=== PATIENT | female | born 1950 | race Caucasian/White ===

== ENCOUNTER 2023-04-09 09:22 | Outpatient (OUT) | payer MEDICARE, SELFPAY ==
--- NOTE | 2023-04-09 09:31 | XR_ITS ---
The [address] [address] Patient Name: ANNABELLE CURRY MRN: [id number] date: 1950 Sex: F Assigned Patient Location: [facility] Current Patient Location: [facility] Accession/Order Number: [id number] Exam Date: 04/09/2023 09:52 Report Date: 04/09/2023 12:11 At the request of: CARLYLE ESTEVEZ Procedure: XR hip RT 2V w/ pelvis PROCEDURE: XR hip RT 2V w/ pelvis COMPARISON: None. HISTORY: Right Hip Pain M25.551 FINDINGS: BONES:No acute fracture or dislocation. Bilateral sacroiliac sclerosis. Pubic symphysis sclerosis. Mild bilateral hip osteoarthropathy SOFT TISSUES:Negative. No visible soft tissue swelling. EFFUSION:None visible. OTHER: Negative. XR/XR hip RT 2V w/ pelvis IMPRESSION: Mild hip osteoarthritis Electronically authenticated by: RASHAD YEBOAH Date: 04/09/2023 12:11
--- NOTE | 2023-04-09 09:31 | XR_ITS ---
[address] [address] Patient Name: ANNABELLE CURRY MRN: [id number] date: 1950 Sex: F Assigned Patient Location: [facility] Current Patient Location: [facility] Accession/Order Number: [id number] Exam Date: 04/09/2023 09:52 Report Date: 04/09/2023 10:16 At the request of: CARLYLE ESTEVEZ Procedure: XR knee RT 4V EXAM: XR knee RT 4V HISTORY: Pain In Right Knee M25.561 COMPARISON: None. TECHNIQUE: 4 views Findings/impression: Cortical irregularity with bridging callus of the lateral tibial plateau, may be a sequela of prior injury. No acute fracture or dislocation. Mild degenerative changes of the knee joint in the form of joint space narrowing. Mild soft tissue swelling of the anterior knee. Electronically authenticated by: RAJAT PONCE Date: 04/09/2023 10:16
--- NOTE | 2023-04-09 09:58 | MM_ITS ---
Patient: ANNABELLE CURRY Exam Date: 04/09/2023 : 1950 Gender:F Ordering : DR Boy Anna D.O. Admission #: [id number] Family : Order #: [id number] CLICK HERE TO VIEW EXAM RADIOLOGY REPORT PROCEDURE: MM TOMOSYNTHESIS SCREENING BI COMPARISON: MG MAMM MARCELLE SCRN W CAD DIG, 07/31/2016. MG MAMM SCREEN MARCELLE W CAD, 08/18/2018. INDICATIONS: Screening Calculator Name NCI Breast Cancer Risk Assessment Tool 5 Year Breast Cancer Risk 2.00% Lifetime Breast Cancer Risk 5.10% Personal Breast Cancer No Personal Ovarian Cancer No Treatments None Family Cancers Father with prostate cancer at age 80; Brother with prostate cancer at age 62. LOCATION: [facility] BREAST COMPOSITION: Scattered areas fibroglandular density. FINDINGS: DIAGNOSTIC CATEGORY 1--NEGATIVE. NO CHANGE FROM COMPARISON ASSESSMENT. Scattered benign-appearing calcifications are present. RIGHT BREAST: No significant suspicious finding. LEFT BREAST: No significant suspicious finding. Stable reniform nodule upper quadrant, posterior breast likely intramammary lymph node RECOMMENDATIONS: ROUTINE MAMMOGRAM AND CLINICAL EVALUATION IN 12 MONTHS. PLEASE NOTE: A NORMAL MAMMOGRAM DOES NOT EXCLUDE THE POSSIBILITY OF BREAST CANCER. A CLINICALLY SUSPICIOUS PALPABLE LUMP SHOULD BE BIOPSIED. Dictated by: Andre Angeles MD on 04/09/2023 at 10:36 Approved by: Andre Angeles MD on 04/09/2023 at 10:38
[2023-04-09 10:32] LABS: Basophils Percent Auto 0.5 % (0.2-2.0); Eosinophils Absolute Auto 0.2 10^3/uL (0.0-0.7); Hematocrit 40.4 % (36.0-48.0); Hemoglobin 13.8 g/dL (12.0-16.0); Immature Granulocytes Abs Auto 0.03 10^3/uL (0.00-0.03); Immature Granulocytes Pct Auto 0.5 % (0.0-0.5); Lymphocytes Absolute Auto 0.9 10^3/uL (1.2-3.8); Lymphocytes Percent Auto 15.3 % (20.5-60.0); Mean Corpuscular HGB Conc 34.2 g/dL (29.9-35.2); Mean Corpuscular Hemoglobin 32.4 pg (26.7-34.0); Mean Corpuscular Volume 94.8 fL (81.0-99.0); Mean Platelet Volume 12.2 fL (9.5-13.5); Monocytes Absolute Auto 0.3 10^3/uL (0.3-0.8); Neutrophils Absolute Auto 4.5 10^3/uL (1.4-6.5); Neutrophils Percent Auto 74.7 % (43.0-75.0); Platelet Count 114 10^3/uL (150-450); Red Blood Count 4.26 10^6/uL (4.20-5.40); Red Cell Distribution Width 13.2 % (11.0-15.0)
[2023-04-09 13:00] LABS: Alanine Aminotransferase 24 U/L (14-59); Alkaline Phosphatase 83 U/L (46-116); Anion Gap 10.2; Aspartate Amino Transferase 18 U/L (15-37); BUN Creatinine Ratio 15.5; Bilirubin Total 0.6 mg/dL (0.2-1.0); Calcium 9.3 mg/dL (8.5-10.1); Carbon Dioxide 28.8 mmol/L (21.0-32.0); Chloride 103 mmol/L (98-107); Estimated GFR (African America >60 (>=60); Estimated GFR (Non-African Ame 56 (>=60); Glucose 103 mg/dL (74-106); Sodium 138 mmol/L (136-145)
[2023-04-09 13:01] LABS: Albumin Globulin Ratio 1.1; Albumin Level 3.8 g/dL (3.4-5.0); Chol HDL Ratio 2.4; Cholesterol 158 mg/dL (<=200); Globulin 3.6 g/dL; HDL Cholesterol 65 mg/dL (40-60); Thyroid Stimulating Hormone 1.242 uIU/mL (0.358-3.740); Total Protein 7.4 g/dL (6.4-8.2); Triglycerides 62 mg/dL (<=150); VLDL CHOLESTEROL 12.4 mg/dL
[2023-04-09 15:00] LABS: Estimated Average Glucose 100 mg/dL; Glycohemoglobin A1C 5.1 % (4.5-6.2)
== END 2023-04-09 09:23 | disposition home or self-care (01) ==
LOC: MAMMO 09:22
PROVIDERS: PCP Internal Medicine; Visit Provider Internal Medicine
DX: Z00.00 Encounter for general adult medical examination without abnormal findings (principal); Z12.31 Encounter for screening mammogram for malignant neoplasm of breast; M25.551 Pain in right hip; M25.561 Pain in right knee; R73.01 Impaired fasting glucose; K76.0 Fatty (change of) liver, not elsewhere classified; E06.3 Autoimmune thyroiditis; Z80.8 Family history of malignant neoplasm of other organs or systems; M16.11 Unilateral primary osteoarthritis, right hip
CPT/HCPCS: 36415; 73502; 73564; 77063; 77067; 80053; 80061; 83036; 84443; 85025

== ENCOUNTER 2024-02-18 09:16 | Outpatient (OUT) | payer MEDICARE, SELFPAY ==
--- NOTE | 2024-02-18 09:23 | XR_ITS ---
The [place] [id number] Patient Name: ANNABELLE CURRY MRN: [id number] date: 1950 Sex: F Assigned Patient Location: [facility] Current Patient Location: [facility] Accession/Order Number: [id number] Exam Date: 02/18/2024 09:45 Report Date: 02/18/2024 10:34 At the request of: CARLYLE ESTEVEZ Procedure: XR lumbar spine 6V w bending EXAMINATION: XR lumbar spine 6V w bending HISTORY: Pain of left hip M25.552, low back pain M54.50 COMPARISON: No relevant comparison available. FINDINGS: BONES: Rotatory levocurvature centered at L2-L3. Moderate degenerative changes. 7 mm anterolisthesis of L3 on L4. 4 mm anterolisthesis of L4 on L5. Moderate to severe facet osteoarthropathy DISC SPACES: Disc collapse L5-S1 PARASPINOUS: Negative. No paraspinous abnormality is seen. OTHER: Transient spondylolisthesis with flexion or extension XR/XR lumbar spine 6V w bending IMPRESSION: Moderate to severe degenerative changes with multilevel spondylolisthesis No dynamic instability Electronically authenticated by: RASHAD YEBOAH Date: 02/18/2024 10:34
--- NOTE | 2024-02-18 09:24 | XR_ITS ---
[address] [address] Patient Name: ANNABELLE CURRY MRN: [id number] date: 1950 Sex: F Assigned Patient Location: [facility] Current Patient Location: [facility] Accession/Order Number: [id number] Exam Date: 02/18/2024 09:45 Report Date: 02/18/2024 10:35 At the request of: CARLYLE ESTEVEZ Procedure: XR hip LT min 2V PROCEDURE: XR hip LT min 2V COMPARISON: None. HISTORY: Pain of left hip M25.552, low back pain M54.50 FINDINGS: BONES:Sclerosis of the left pubic symphysis likely related to degenerative change. Minimal hip osteoarthropathy with marginal osteophyte formation along the lower hip joint. No joint space narrowing SOFT TISSUES:Negative. No visible soft tissue swelling. EFFUSION:None visible. OTHER: Negative. XR/XR hip LT min 2V IMPRESSION: Minimal left hip osteoarthritis Electronically authenticated by: RASHAD YEBOAH Date: 02/18/2024 10:35
== END 2024-02-18 09:17 | disposition home or self-care (01) ==
LOC: RAD 09:17
PROVIDERS: PCP Internal Medicine; Visit Provider Internal Medicine
DX: M25.552 Pain in left hip (principal); M54.50 Low back pain, unspecified; M16.12 Unilateral primary osteoarthritis, left hip; M47.816 Spondylosis without myelopathy or radiculopathy, lumbar region; M51.36 Other intervertebral disc degeneration, lumbar region
CPT/HCPCS: 72114; 73502

== ENCOUNTER 2024-03-05 12:11 | Outpatient (RCR) | payer MEDICARE, SELFPAY | END 2024-05-05 12:21 | disposition home or self-care (01) | LOC: PT 12:11 | PROVIDERS: PCP Internal Medicine; Visit Provider Internal Medicine | DX: M47.816 Spondylosis without myelopathy or radiculopathy, lumbar region (principal); M25.559 Pain in unspecified hip | CPT/HCPCS: 97010; 97012; 97110; 97113; 97140; 97162 ==

== ENCOUNTER 2024-05-10 06:48 | Outpatient (OUT) | payer MEDICARE, SELFPAY ==
--- OUTSIDE RECORDS SUMMARY | 2024-05-10 06:50 | XMS_ITS | CCD ---
Author Organization [facility] Care Team Providers Care Soup Person Name Role Phone ABARCA, DARRICK P Unavailable Unavailable ABARCA, DARRICK P Unavailable Unavailable ABARCA, DARRICK P Unavailable Unavailable REQUEST, DR JANE LISTED Attending Unavaila ble REQUEST, DR JANE LISTED Admitting Unavaila ble REQUEST, DR JANE LISTED Consulting Unavaila ble BALL, DR TADEO Admitting Unavailable BALL, DR TADEO Consulting Unavailable BALL, DR TADEO Attending Unavailable Wilfrido Boy Unavailable Allergies Allergy Classification Reported Allergen(s) Allergy Type Date of Onset Reaction(s) Facility (4 sources) Cephalexin Drug Allergy Unknown [facility] Other Medications Current Medications Medication Drug Class(es) Dates Sig (Normalized) Sig (Original) 0.25 MG, 0.5 MG Dose 3 ML semaglutide 0.68 MG/ML Pen Injector [Ozempic] (4 sources) Start: 04-03-2023 Start: 04-03-2023 Ozempic (0.25 or 0.5 MG/DOSE) 2 MG/3ML 0.25mg Subcutaneous weekly for 28 days Mar, Active calcium carbonate 1250 mg / cholecalciferol 500 unt / vitamin k1 0.04 mg chewable tablet (2 sources) Vitamin D, Warfarin Reversal Agent, Vitamin K Start: 02-13-2024 take 1 tablet by mouth once daily Calcium-Vitamin D3-Vitamin K Active 1 TAB PO Daily February 13, 2024 12:00am diazePAM 5 mg oral tablet (2 sources) Benzodiazepine Start: 11-19-2023 take 2.5 mg by mouth every six hours Diazepam Active 2.5 MG PO Every 6 hours November 19, 2023 1:00am levothyroxine sodium 0.112 mg oral tablet (6 sources) l-Thyroxine Start: 02-13-2024 take 1 tablet by mouth once daily, then take 0.5 tablet by mouth once Levothyroxine Active 112 MCG PO Daily February 13, 2024 12:00am EXCEPT INSTRUCTED TO TAKE ONE AND ONE-HALF TABLETS EVERY FRIDAY Viactiv 500-500-40 MG-UNT-MC G (4 sources) take 1 tablet by mouth once arthur y Viactiv 500-500-40 MG-UNT-MCG 1 tablet with a meal Orally Once a day Active Completed/Discontinued Medications Medication Drug Class(es) Dates Sig (Normalized) Sig (Original) Borage extract (4 sources) Borage 1000 1000 MG Orally Not-Taking etodolac 500 mg oral tablet (2 sources) Nonsteroidal Anti-inflammatory Drug Start: 02-17-2024 End: 04-13-2024 take 500 mg by mouth twice daily Etodolac Discontinued 500 MG PO Twice daily 30 February 17, 2024 12:00am April 13, 2024 9:30am Fish Oils (4 sources) take 1 capsule by mouth once micah ly Fish Oil 1000 MG 1 capsule Orally Once a day Not-Taking meloxicam 7.5 mg oral tablet (4 sources) Nonsteroidal Anti-inflammatory Drug take 1 tablet by mouth every twelve hours Semaglutide (2 sources) Start: 02-13-20 End: 04-13-20 Semaglutide (Ozempic) 0.25 mg or 0.5 mg (2 mg/3 mL) pen injector Discontinued 0.25 MG SUBCUT every week February 13, 2024 12:00am April 13, 2024 9:30am Start: 02-13-2024 Semaglutide (O zempic) 0.25 mg or 0.5 mg (2 mg/3 mL) pen injector Active 0.25 MG SUBCUT every week February 13, 2024 12:00am Problems Problem Classification Problem Date Documented Date Episodic/Chronic Coagulation and hemorrhagic disorders (1 source) Thrombocytopenia, unspecified; Translations: [Thrombocytopenia, unspecified] Onset: 03-19-2017 Chronic Conditions associated with dizziness or vertigo (2 sources) Benign paroxysmal positional vertigo; Translations: [Benign paroxysmal vertigo, unspecified ear] 11-19-2023 Episodic Diabetes mellitus without complication (3 sources) Impaired fasting glucose; Translations: [Impaired fasting glycemia] Episodic Disorders of lipid metabolism (7 sources) Hypercholesterolemia; Translations: [Pure hypercholesterolemia, unspecified] Chronic Nutritional deficiencies (6 sources) Vitamin D deficiency; Translations: [Vitamin D deficiency, unspecified] 02-13-2024 Chronic Osteoarthritis (4 sources) Osteoarthritis of left hip joint; Translations: [Unilateral primary osteoarthritis, left hip] 02-17-2024 Chronic Other liver diseases (10 sources) Fatty (change of) liver, not elsewhere classified; Translations: [Other chronic nonalcoholic liver disease] Onset: 11-20-2021 Chronic Other liver diseases (1 source) Steatosis of liver; Translations: [Fatty (change of) liver, not elsewhere classified] 04-11-2024 Chronic Other nervous system disorders (4 sources) Chronic pain; Translations: [Other chronic pain] Chronic Other nervous system disorders (1 source) Other chronic pain Chronic Other non-traumatic joint disorders (5 sources) Pain in right knee; Translations: [Pain in right knee] Episodic Other non-traumatic joint disorders (1 source) Pain in right hip Episodic Other non-traumatic joint disorders (2 sources) Hip pain; Translations: [Pain in left hip] 02-17-2024 Episodic Other non-traumatic joint disorders (2 sources) Pain in left hip; Translations: [Pain in joint, pelvic region and thigh] 02-17-2024 Episodic Other nutritional; endocrine; and metabolic disorders (6 sources) Obesity; Translations: [Obesity, unspecified] 02-17-2024 Chronic Other nutritional; endocrine; and metabolic disorders (2 sources) Obesity, unspecified; Translations: [Obesity, unspecified] 02-17-2024 Chronic Other screening for suspected conditions (not mental disorders or infectious disease) (8 sources) Patient encounter status; Translations: [Encounter for screening mammogram for malignant neoplasm of breast] Episodic Residual codes; unclassified (5 sources) Obstructive sleep apnea syndrome; Translations: [Obstructive sleep apnea (adult) (pediatric)] 04-11-2024 Chronic Residual codes; unclassified (2 sources) Obstructive sleep apnea (adult) (pediatric); Translations: [Obstructive sleep apnea (adult)(pediatric)] Chronic Spondylosis; intervertebral disc disorders; other back problems (4 sources) Lumbar spondylosis; Translations: [Spondylosis without myelopathy or radiculopathy, lumbar region] 02-17-2024 Chronic Spondylosis; intervertebral disc disorders; other back problems (4 sources) Low back pain; Translations: [Low back pain] 02-17-2024 Episodic Thyroid disorders (16 sources) Autoimmune thyroiditis; Translations: [Autoimmune thyroiditis] Chronic Results Test Name Value Interpretation Reference Range Facility CBC AUTO DIFFon 11-20-2021 BASO # 0.0 103/ul Normal 0.0-0.1 [facility] Comment on above: Performed By: #### D ATCBC #### [facility] [address] [address] [address] Tatiana Contreras Basophils/100 WBC (Bld) 0.6 % Normal 0.2-2.0 [facility] Comment on above: Performed By: #### D ATCBC #### [facility] [address] [address] [address] Tatiana Contreras EO # 0.2 103/ul Normal 0.0-0.7 [facility] Comment on above: Performed By: #### D ATCBC #### [facility] [address] [address] [address] Tatiana Contreras Eosinophils/100 WBC (Bld) 5.2 % Normal 0.9-7.0 [facility] Comment on above: Performed By: #### D ATCBC #### [facility] [address] [address] [address] Tatiana Contreras Erythrocyte distribution width (RBC) [Ratio] 13.8 % Normal 11.0-15.0 [facility] Comment on above: Performed By: #### D ATCBC #### [facility] [address] [address] [address] Tatiana Contreras Hematocrit (Bld) [Volume fraction] 41.7 % Normal 36.0-48.0 [facility] Comment on above: Performed By: #### D ATCBC #### [facility] [address] [address] [address] Tatiana Contreras Hemoglobin (Bld) [Mass/Vol] 13.7 g/dL Normal 12.0-16.0 [facility] Comment on above: Performed By: #### D ATCBC #### [facility] [address] [address] [address] Tatiana Contreras IG # 0.02 10e3/ul Normal 0.00-0.03 [facility] Comment on above: Performed By: #### D ATCBC #### [facility] [address] [place] [address] Dr. Tatiana Contreras IG % 0.4 % Normal 0.0-0.5 [facility] Comment on above: Performed By: #### D ATCBC #### [facility] [address] [place] [address] Dr. Tatiana Contreras LYMPH # 0.7 103/ul Critically low 1.2-3.8 [facility] Comment on above: Performed By: #### D ATCBC #### [facility] [address] [place] [address] Dr. Tatiana Contreras Lymphocytes/100 WBC (Bld) 15.6 % Critically low 20.5-60.0 [facility] Comment on above: Performed By: #### D ATCBC #### [facility] [address] [place] [address] Dr. Tatiana Contreras MCH (RBC) [Entitic mass] 31.4 pg Normal 26.7-34.0 [facility] Comment on above: Performed By: #### D ATCBC #### [facility] [address] [place] [address] Dr. Tatiana Contreras MCHC (RBC) [Mass/Vol] 32.9 g/dL Normal 29.9-35.2 [facility] Comment on above: Performed By: #### D ATCBC #### [facility] [address] [place] [address] Dr. Tatiana Contreras MCV (RBC) [Entitic vol] 95.6 fL Normal 81.0-99.0 [facility] Comment on above: Performed By: #### D ATCBC #### [facility] [address] [place] [address] Dr. Tatiana Contreras MONO # 0.3 103/ul Normal 0.3-0.8 [facility] Comment on above: Performed By: #### D ATCBC #### [facility] [address] [place] [address] Dr. Tatiana Contreras Monocytes/100 WBC (Bld) 5.8 % Normal 1.7-12.0 [facility] Comment on above: Performed By: #### D ATCBC #### [facility] [address] [place] [address] Dr. Tatiana Contreras NEUT # 3.4 103/ul Normal 1.4-6.5 [facility] Comment on above: Performed By: #### D ATCBC #### [facility] [address] [place] [address] Dr. Tatiana Contreras Neutrophils/100 WBC (Bld) 72.4 % Normal 43.0-75.0 [facility] Comment on above: Performed By: #### D ATCBC #### [facility] [address] [place] [address] Dr. Tatiana Contreras Platelet mean volume (Bld) [Entitic vol] 12.4 fL Normal 9.5-13.5 [facility] Comment on above: Performed By: #### D ATCBC #### [facility] [address] [place] [address] Dr. Tatiana Contreras PLT 109 103/ul Critically low 150-450 [facility] Comment on above: Performed By: #### D ATCBC #### [facility] [address] [place] [address] Dr. Tatiana Contreras RBC 4.36 106/ul Normal 4.20-5.40 [facility] Comment on above: Performed By: #### D ATCBC #### [facility] [address] [place] [address] Dr. Tatiana Contreras WBC 4.6 103/ul Normal 4.0-11.0 [facility] Comment on above: Performed By: #### D ATCBC #### [facility] [address] [place] [address] Dr. Tatiana Contreras ADALID - TSHon 11-20-2021 TSH 1.795 uIU/mL Normal 0.470-4.680 [facility] Comment on above: Performed By: #### D ATTSH, DATBMP #### [facility] [address] [place] [address] Dr. Tatiana Contreras TSH RANGE SEE BELOW Normal [facility] Comment on above: Result Comment: <0.3 4 UIU/ml HYPERTHYROID 0.34-5.60 UIU/ml EUTHYROID >5.60 UIU/ml HYPOTHYROID Performed By: #### D ATTSH, DATBMP #### [facility] [address] [address] [address] Tatiana Contreras ADALID- BMP WITH LIPIDon 2021 Anion gap [Moles/Vol] 9.3 mmol/L Normal [facility] Comment on above: Performed By: #### D ATTSH, DATBMP #### [facility] [address] [address] [address] Tatiana Contreras Calcium [Mass/Vol] 8.7 mg/dL Normal 8.4-10.2 [facility] Comment on above: Performed By: #### D ATTSH, DATBMP #### [facility] [address] [address] [address] Tatiana Contreras Chloride [Moles/Vol] 103 mmol/L Normal 98-107 [facility] Comment on above: Performed By: #### D ATTSH, DATBMP #### [facility] [address] [address] [address] Tatiana Contreras Cholesterol [Mass/Vol] 123 mg/dL Normal <=200 [facility] Comment on above: Performed By: #### D ATTSH, DATBMP #### [facility] [address] [address] [address] Tatiana Contreras Cholesterol in HDL [Mass/Vol] 64 mg/dL Normal [facility] Comment on above: Performed By: #### D ATTSH, DATBMP #### [facility] [address] [address] [address] Tatiana Contreras Cholesterol in LDL [Mass/Vol] 50.0 mg/dL Normal [facility] Comment on above: Performed By: #### D ATTSH, DATBMP #### [facility] [address] [place] [address] Dr. Tatiana Contreras CO2 [Moles/Vol] 29.7 mmol/L Normal 22.0-30.0 [facility] Comment on above: Performed By: #### D ATTSH, DATBMP #### [facility] [address] [address] [address] Tatiana Contreras Creatinine [Mass/Vol] 0.88 mg/dL Normal 0.52-1.04 [facility] Comment on above: Performed By: #### D ATTSH, DATBMP #### [facility] [address] [address] [address] Tatiana Contreras EGFR-AF GUATEMALAN >60 Normal >=60 [facility] Comment on above: Performed By: #### D ATTSH, DATBMP #### [facility] [address] [address] [address] Tatiana Contreras EGFR-NON AF GUATEMALAN >60 Normal >=60 [facility] Comment on above: Performed By: #### D ATTSH, DATBMP #### [facility] [address] [address] [address] Tatiana Contreras Glucose [Mass/Vol] 101 mg/dL Normal 74-106 [facility] Comment on above: Performed By: #### D ATTSH, DATBMP #### [facility] [address] [address] [address] Tatiana Contreras HDL NORMAL > or = 60 mg/dl - LO W CARDIOVASCULAR RISK <40 mg/dl - HIGH CARDIOVASCULAR RISK Normal [facility] Comment on above: Performed By: #### D ATTSH, DATBMP #### [facility] [address] [address] [address] Tatiana Contreras LDL CALC NORMAL SEE BELOW Normal [facility] Comment on above: Result Comment: <100 mg/dl OPTIMAL 100 - 129 mg/dl NEAR OR ABOVE OPTIMAL 130 - 159 mg/dl BORDERLINE HIGH 160 - 189 mg/dl HIGH >190 mg/dl VERY HIGH Performed By: #### D ATTSH, DATBMP #### [facility] [address] [address] [address] Tatiana Contreras Potassium [Moles/Vol] 4.0 mmol/L Normal 3.4-5.0 [facility] Comment on above: Performed By: #### D ATTSH, DATBMP #### [facility] [address] [address] [address] Tatiana Contreras Sodium [Moles/Vol] 138 mmol/L Normal 137-145 [facility] Comment on above: Performed By: #### D ATTSH, DATBMP #### [facility] [address] [address] [address] Tatiana Contreras Triglyceride [Mass/Vol] 45 mg/dL Normal <=150 [facility] Comment on above: Performed By: #### D ATTSH, DATBMP #### [facility] [address] [place] [address] Dr. Tatiana Contreras Urea nitrogen [Mass/Vol] 18.0 mg/dL Critically high 7.0-17.0 [facility] Comment on above: Performed By: #### D ATTSH, DATBMP #### [facility] [address] [place] [address] Dr. Tatiana Contreras Urea nitrogen/Creatinine [Mass ratio] 20.5 mg/mg Normal [facility] Comment on above: Performed By: #### D ATTSH, DATBMP #### [facility] [address] [address] [address] Tatiana Contreras VLDL CALC 9.0 mg/dL Normal [facility] Comment on above: Performed By: #### D ATTSH, DATBMP #### [facility] [address] [place] [address] Dr. Tatiana Contreras LIVER PROFILEon 11-20-2021 Albumin [Mass/Vol] 3.4 g/dL Critically low 3.5-5.0 [facility] Comment on above: Performed By: #### L IVER #### [facility] [address] [address] [address] Tatiana Contreras Albumin/Globulin [Mass ratio] 0.9 {ratio} Normal [facility] Comment on above: Performed By: #### L IVER #### [facility] [address] [place] [address] Dr. Tatiana Contreras ALP [Catalytic activity/Vol] 94 U/L Normal 38-126 [facility] Comment on above: Performed By: #### L IVER #### [facility] [address] [address] [address] Tatiana Contreras ALT [Catalytic activity/Vol] 28 U/L Normal 9-52 [facility] Comment on above: Performed By: #### L IVER #### [facility] [address] [place], [place] [address] Dr. Tatiana Contreras AST [Catalytic activity/Vol] 18 U/L Normal 14-36 [facility] Comment on above: Performed By: #### L IVER #### [facility] [address] [address] [address] Tatiana Contreras BILI, CONJUGATED 0.2 mg/dL Normal 0.0-0.3 [facility] Comment on above: Performed By: #### L IVER #### [facility] [address] [address] [address] Tatiana Contreras Bilirubin [Mass/Vol] 0.6 mg/dL Normal 0.2-1.3 [facility] Comment on above: Performed By: #### L IVER #### [facility] [address] [address] [address] Tatiana Contreras Globulin (S) [Mass/Vol] 3.9 g/dL Normal [facility] Comment on above: Performed By: #### L IVER #### [facility] [address] [address] [address] Tatiana Contreras Protein [Mass/Vol] 7.3 g/dL Normal 6.1-8.2 [facility] Comment on above: Performed By: #### L IVER #### [facility] [address] [address] [address] Tatiana Contreras PROGRESSon 03-20-2017 PROGRESS HNO ID: [id number] thor: Darrick Emerson: (none)Author Type: PhysicianType: Progress NotesFiled: 03/20/2017 7:22 AMNote Text:CHIEF COMPLAINT: thrombocytopeniaHISTORY OF PRESENT ILLNESS: Annabelle Bustillo is a 67 year old female whopresents in follow up of above. Has history of mild, isolatedthrombocytopenia with platelet count never going below 100k. Returns forrepeat testing. Generally feels well. Denies medication changes bruisingor bleeding. No new adenopathy. Denies early satiety. Notes she iscontinuing to make attempts to lose weight through modifications to dietand mild exercise.PAST MEDICAL HISTORYDiagnosis Date- Hypothyroidism- Osteoarthritis- Thrombocytopenia (HCC)PAST SURGICAL HISTORYNo date: DANDC, DIAG AND/OR THERAPEUTIC Comment: Dilation AND curettageNo date: HYSTEROSCOPYReview of Social History includes:Social History Marital status: Spouse name: Years of education: Number of children:Social History Main Topics Smoking status: Never Smoker Smokeless status: Never Used Alcohol use: NoNo family history on file.Current Outpatient Prescriptions:CALCIUM ORAL Take by mouth.VITAMIN E ORAL Take by mouth.levothyroxine (SYNTHROID) 100 mcg tablet Take 100 mcg by mouth dailybefore breakfast.Cholecalciferol, Vitamin D3, (VITAMIN D) 1,000 unit cap Take 1 capsule bymouth once daily.No current facility-administered medications for this visit.REVIEW OF SYSTEMS:Constitutional: No recent fevers, chills or sweats, denies unexplainedweight loss or decline in energy levelsHead and neck: No neck stiffness or painRespiratory: No cough or hemoptysis.Cardiovascular: No chest pain or palpitations.GI: No nausea, vomiting, diarrhea or GI bleed.Skin: No rash or lesions.Neurologic: No focal weakness or sensory changes.Psychiatric: Normal affect.Endocrinology: No diabetes or thyroid disease.: No frequency or dysuria.PHYSICAL EXAMINATION:BP 130/88 Pulse 83 Temp 36.7 ?C (98.1 ?F) (Temporal Artery) Resp 20 Ht 165.1 cm (5' 5 ) Wt 96.6 kg (213 lb) SpO2 95% BMI 35.45 kg/[id number] appearance: well appearing, alert, in no acute distress,well-hydrated, well nourishedSkin: skin color, texture, turgor normal, no suspicious rashes or lesionsHead: normalLymph Nodes: No Submandibular, cervical, supraclavicular, axillarylymphadenopathy presentBack: no tenderness to palpationLungs: clear to auscultation, no wheezing or rhonchiHeart: Negative. RRR without murmur, gallop, or rubs. No ectopy.Abdomen: Normal abdominal exam, Abdomen soft, non-tender. Bowel soundsnormal. No masses, organomegalyExtremities: Extremities normal. No deformities, edema, or skindiscoloration. Good capillary refill.Musculoskeletal: No joint swelling, deformity, or tenderness.Peripheral pulses: NormalNeuro: Gait normal. Power normal.Psyche: normal mood and affectCBC with diff:WBC 6.83 03/19/2017RBC 4.35 03/19/2017Hemoglobin 13.9 03/19/2017Hematocrit 41.0 03/19/2017MCV 94.3 03/19/2017MCH 32.0 03/19/2017MCHC 33.9 03/19/2017RDW-CV 13.3 03/19/2017Platelet Count 108 03/19/2017MPV 12.2 03/19/2017Neut% 77.2 03/19/2017Lymph% 12.9 03/19/2017Mono% 6.1 03/19/2017Eosin% 3.5 03/19/2017Baso% 0.3 03/19/2017Abs Neut (ANC) 5.27 03/19/2017Abs Ritchie 0.42 03/19/2017Abs Eosin 0.24 03/19/2017Abs Baso 0.02 03/19/2017ASSESSMENT/PLAN: Annabelle Bustillo is a 67 year old female with mildthrombocytopenia. No recent medication changes and values are consistentwith previous findings from 2012. Reviewed options for evaluation toinclude further testing (possibly with bone marrow evaluation) orobservation given that the platelet count has been largely stable. Afterdiscussion, patient wishes to observe at this time.1. Thrombocytopenia-continue observation-repeat labs in six monthsAlfred Kayla Abarca MD Normal [facility] CNOVSPon 03-19-2017 CNOVSP Visit (SP) Office ([place]) -------ANNABELLE BUSTILLO ([id number]) 1950 FDate Time Provider Department03/19/17 3:15 PM DARRICK BAARCA During your visit today, we recorded the following information about you: Temperature Pulse Respiration Blood pressure 98.1 degrees 83/minute 20/minute 130/88 Weight Height 96.6 kg 1.651 Roxana Suárez 03/19/2017 3:32 PM SignedPt states that she has a lot of fatigue and a lot of itching.Tete Abarca MD 03/20/2017 7:22 AM SignedCHIEF COMPLAINT: thrombocytopeniaHISTORY OF PRESENT ILLNESS: Annabelle Bustillo is a 67 year old female whopresents in follow up of above. Has history of mild, isolated thrombocytopeniawith platelet count never going below 100k. Returns for repeat testing.Generally feels well. Denies medication changes bruising or bleeding. No newadenopathy. Denies early satiety. Notes she is continuing to make attempts tolose weight through modifications to diet and mild exercise.PAST MEDICAL HISTORYDiagnosis Date- Hypothyroidism- Osteoarthritis- Thrombocytopenia (HCC)PAST SURGICAL HISTORYNo date: DANDamp;C, DIAG AND/OR THERAPEUTIC Comment: Dilation ANDamp; curettageNo date: HYSTEROSCOPYReview of Social History includes:Social History Marital status: Spouse name: Years of education: Number of children:Social History Main Topics Smoking status: Never Smoker Smokeless status: Never Used Alcohol use: NoNo family history on file.Current Outpatient Prescriptions:CALCIUM ORAL Take by mouth.VITAMIN E ORAL Take by mouth.levothyroxine (SYNTHROID) 100 mcg tablet Take 100 mcg by mouth daily beforebreakfast.Cholecalcif rylie, Vitamin D3, (VITAMIN D) 1,000 unit cap Take 1 capsule by mouthonce daily.No current facility-administered medications for this visit.REVIEW OF SYSTEMS:Constitutional: No recent fevers, chills or sweats, denies unexplained weightloss or decline in energy levelsHead and neck: No neck stiffness or painRespiratory: No cough or hemoptysis.Cardiovascular: No chest pain or palpitations.GI: No nausea, vomiting, diarrhea or GI bleed.Skin: No rash or lesions.Neurologic: No focal weakness or sensory changes.Psychiatric: Normal affect.Endocrinology: No diabetes or thyroid disease.: No frequency or dysuria.PHYSICAL EXAMINATION:BP 130/88 Pulse 83 Temp 36.7 ?C (98.1 ?F) (Temporal Artery) Resp 20 Ht165.1 cm (5' 5ANDquot;) Wt 96.6 kg (213 lb) SpO2 95% BMI 35.45 kg/[id number] appearance: well appearing, alert, in no acute distress, well-hydrated,well nourishedSkin: skin color, texture, turgor normal, no suspicious rashes or lesionsHead: normalLymph Nodes: No Submandibular, cervical, supraclavicular, axillarylymphadenopathy presentBack: no tenderness to palpationLungs: clear to auscultation, no wheezing or rhonchiHeart: Negative. RRR without murmur, gallop, or rubs. No ectopy.Abdomen: Normal abdominal exam, Abdomen soft, non-tender. Bowel sounds normal.No masses, organomegalyExtremities: Extremities normal. No deformities, edema, or skin discoloration.Good capillary refill.Musculoskeletal: No joint swelling, deformity, or tenderness.Peripheral pulses: NormalNeuro: Gait normal. Power normal.Psyche: normal mood and affectCBC with diff:WBC 6.83 03/19/2017RBC 4.35 03/19/2017Hemoglobin 13.9 03/19/2017Hematocrit 41.0 03/19/2017MCV 94.3 03/19/2017MCH 32.0 03/19/2017MCHC 33.9 03/19/2017RDW-CV 13.3 03/19/2017Platelet Count 108 03/19/2017MPV 12.2 03/19/2017Neut% 77.2 03/19/2017Lymph% 12.9 03/19/2017Mono% 6.1 03/19/2017Eosin% 3.5 03/19/2017Baso% 0.3 03/19/2017Abs Neut (ANC) 5.27 03/19/2017Abs Ritchie 0.42 03/19/2017Abs Eosin 0.24 03/19/2017Abs Baso 0.02 03/19/2017ASSESSMENT/PLAN: Annabelle Bustillo is a 67 year old female with mildthrombocytopenia. No recent medication changes and values are consistent withprevious findings from 2013. Reviewed options for evaluation to include furthertesting (possibly with bone marrow evaluation) or observation given that theplatelet count has been largely stable. After discussion, patient wishes toobserve at this time.1. Thrombocytopenia-continue observation-repeat labs in six monthsAlfred DEANDRE Villagomezefgillian Provider: DARRICK ABARCA [[id number]]Allergies As of Date: 03/19/2017(No Known Allergies)Date Reviewed: 03/19/2017Reviewed by: Darrick Abarca - Fully AssessedReason for Visit: Thrombocytopenia [603] Cmt: New problem, hasn't been seen his 2013Primary Visit Diagnosis:Thrombocytopenia (HCC) [D69.6]Order(s):CBC + DIFF (FOR REMOTE [facility] USE) [SQRCBCDF] Order #: [id number] FUTURE COMP METABOLIC PANEL [SQCMP] Order #: [id number] FUTURE LD LACTATE DEHYDRO [SQLD6] Order #: [id number] FUTUREDisposition: Return in about 6 months (around 09/18/2017).Follow-up and Disposition History RecordedPrescriptions as of 03/19/2017 Sig: CALCIUM ORAL Take by mouth. VITAMIN E ORAL Take by mouth. LEVOTHYROXINE 100 MCG TABLET Take 100 mcg by mouth daily b* CHOLECALCIFEROL (VITAMIN D3) * Take 1 capsule by mouth once *Problem List As Of Date 03/19/2017 Noted Resolved Thrombocytopenia [D69.6] Hypertension [I10] INVALID FOR* Hypothyroid [E03.9] INVALID FOR*Visit Notes:>> Tete Suárez FriMar 19, 2017 3:02 PM Status: SignedPt states that she has a lot of fatigue and a lot of itching.Tete McmahonaracelyEncounter Status:Closed by DARRICK ABARCA MD on 03/20/17 Normal [facility] Comp Metabolic Panelon 03-19 Alanine aminotransferase (ALT) 16 U/L Normal 7-38 [facility] Comment on above: Performed By: #### C EVERTON CARROLL6 ####[facility] [address] [place], [place] [phone] Albumin 4.1 g/dL Normal 3.9-4.9 [facility] Comment on above: Performed By: #### C GLEN, LD6 ####[facility] [address] AveClevelEric [place] [phone] Alkaline phosphatase (ALP) 88 U/L Normal 32-117 [facility] Comment on above: Performed By: #### C GLEN, LD6 ####[facility] [address] AveClevelEric [place] [phone] Anion gap 15 mmol/L Normal 9-18 [facility] Comment on above: Performed By: #### C GLEN, LD6 ####[facility] [address]tlzagfixx[address]CAndrew [place] [phone] Aspartate aminotransferase (AST) 23 U/L Normal 13-35 [facility] Comment on above: Performed By: #### C GLEN, LD6 ####[facility]CAndrew [place] [phone] Bilirubin (total) 0.3 mg/dL Normal 0.2-1.3 [facility] Comment on above: Performed By: #### C GLEN, LD6 ####[facility] [address]CAndrew [place] [phone] Calcium 9.4 mg/dL Normal 8.5-10.2 [facility] Comment on above: Performed By: #### C GLEN, LD6 ####[facility] [address]CAndrew [place] [phone] Chloride 99 mmol/L Normal 97-105 [facility] Comment on above: Performed By: #### C GLEN, LD6 ####[facility] [address] AveClevelEric [place] [phone] CO2 25 mmol/L Normal 22-30 [facility] Comment on above: Performed By: #### C GLEN, LD6 ####[facility] [address]CAndrew [place] [phone] Creatinine 1.16 mg/dL High 0.58-0.96 [facility] Comment on above: Performed By: #### C GLEN, LD6 ####[facility] [place], [place] [phone] eGFR (non-black) 57 mL/min/{1.73_m2} Normal [facility] Comment on above: Performed By: #### C GLEN, LD6 ####[facility] [place], [place] [phone] eGFR (non-black) 47 . Normal [facility] Comment on above: Result Comment: eGFR (Estimated GFR) Units of measure: mL/min/1.73 meters squaredeGFR is derived from the reexpressed MDRD Study equation using the following parameters: serum creatinine, age, gender and race. The creatinine assay has been calibrated to be traceable to IDMS.An eGFR <60 mL/min/1.73m2 for >3 months is consistent with chronic kidney disease. Refer to KDOQI guidelines for clinical interpretation.In patients with unstable renal function, e.g. those with acute kidney injury, the eGFR may not accurately reflect actual GFR. Performed By: #### C GLEN, EVERTON6 ####[place] [id number] [place], [place] [phone] Glucose mass conc 82 mg/dL Normal 74-99 [facility] Comment on above: Result Comment: The [place] Diabetes Association (ADA) provides guidance for cutoff values for fasting glucose and random glucose. The ADA defines fasting as no caloric intake for at least 8 hours. Fasting plasma glucose results between 100 to 125 mg/dL indicate increased risk for diabetes (prediabetes).Fasting plasma glucose results greater than or equal to 126 mg/dL meet the criteria for diagnosis of diabetes. In the absence of unequivocal hyperglycemia, results should be confirmed by repeat testing. In a patient with classic symptoms of hyperglycemia or hyperglycemic crisis, random plasma glucose results greater than or equal to 200 mg/dL meet the criteria for diagnosis of diabetes.Reference: Standards of Medical Care in Diabetes 2016, [place] [employer]. Diabetes Care. 2016.39(Suppl 1). Performed By: #### C GLEN, LD6 ####[facility] [address] [facility] [place] [phone] Potassium molar conc 3.9 mmol/L Normal 3.7-5.1 [facility] Comment on above: Performed By: #### C GLEN, LD6 ####[facility] [address] AveCHazlehurst, [place] [phone] Protein 6.8 g/dL Normal 6.3-8.0 [facility] Comment on above: Performed By: #### C GLEN, LD6 ####[facility] [address] AveCHazlehurst, [place] [phone] Sodium 139 mmol/L Normal 136-144 [facility] Comment on above: Performed By: #### C GLEN, LD6 ####[facility] [address]Carey, [place] [phone] Urea nitrogen 18 mg/dL Normal 7-21 [facility] Comment on above: Performed By: #### C GLEN, LD6 ####[facility] [address] AveCHazlehurst, [place] [phone] LDon 03-19-2017 LD 203 U/L Normal 135-214 [facility] Comment on above: Performed By: #### C GLEN, LD6 ####[facility], [place] [phone] Remote CBCDIF (for [facility] use o nly)on 03-19-2017 Abs Baso 0.02 k/uL Normal 0.00-0.10 [facility] Abs Ritchie 0.42 k/uL Normal 0.00-0.86 [facility] Abs Neut 5.27 k/uL Normal 1.45-7.50 [facility] Basophils/100 WBC Auto (Bld) 0.3 % Normal [facility] Eosinophils 0.24 10*3/uL Normal 0.00-0.45 [facility] Eosinophils/100 leukocytes 3.5 % Normal [facility] Erythrocyte distribution width Auto Ratio (RBC) 13.3 % Normal 11.5-15.0 [facility] Erythrocytes (RBC) 4.35 10*6/uL Normal 3.90-5.20 [facility] Hematocrit (HCT) 41.0 % Normal 36.0-46.0 [facility] Hemoglobin mass conc (Bld) 13.9 g/dL Normal 11.5-15.5 [facility] Lymphocytes 0.88 10*3/uL Low 1.00-4.00 [facility] Lymphocytes/100 leukocytes 12.9 % Normal [facility] MCH 32.0 pG Normal 26.0-34.0 [facility] MCHC mass conc (RBC) 33.9 g/dL Normal 30.5-36.0 [facility] MCV 94.3 fL Normal 80.0-100.0 [facility] Monocytes/100 leukocytes 6.1 % Normal [facility] Neutrophils/100 WBC Auto (Bld) 77.2 % Normal [facility] Platelet mean volume (PMV) 12.2 fL Normal 9.0-12.7 [facility] Platelets 108 10*3/uL Low 150-400 [facility] WBC (Leukocytes) 6.83 10*3/uL Normal 3.70-11.00 [facility] Vital Signs Date Time Vital Sign Value Performing Clinician Facility 04-13-2024 09:140400 Body height 160.02 cm [facility] 04-13-2024 09:140400 Body mass index (BMI) [Ratio] 37.5 kg/m2 [facility] 04-13-2024 09:140400 Body weight 96.27 kg [facility] 04-13-2024 09:14-0400 Diastolic blood pressure 80 mm[Hg] [facility] 04-13-2024 09:14-0400 Heart rate 90 /min [facility] 04-13-2024 09:140400 Respiratory rate 12 /min [facility] 04-13-2024 09:140400 Systolic blood pressure 125 mm[Hg] [facility] 02-17-2024 15:050400 Body height 160.02 cm [facility] 02-17-2024 15:050400 Body mass index (BMI) [Ratio] 38.9 kg/m2 [facility] 02-17-2024 15:05-0400 Body weight 99.79 kg [facility] 02-17-2024 15:05-0400 Diastolic blood pressure 87 mm[Hg] [facility] 02-17-2024 15:05-0400 Heart rate 82 /min [facility] 02-17-2024 15:05-0400 Respiratory rate 12 /min [facility] 02-17-2024 15:05-0400 Systolic blood pressure 126 mm[Hg] [facility] 04-03-2023 08:30-0400 Body height 160.02 cm [facility] Other [facility] 04-03-2023 08:30-0400 Body mass index (BMI) [Ratio] 38.65 kg/m2 [facility] 04-03-2023 08:30-0400 Body weight 98.98 kg Boy Ball Other [facility] Other 04-03-2023 08:30-0400 Diastolic blood pressure 84 mm[Hg] Boy Ball Other [facility] Other 04-03-2023 08:30-0400 Systolic blood pressure 129 mm[Hg] [facility] Other Encounters Encounter Date Encounter Type Care Provider Facility Start: 04-13-2024 End: 04-13-2024 ambulatory [place] Work Phone: Start: 04-13-2024 End: 04-13-2024 Patient encounter procedure [facility] Work Phone: Start: 02-17-2024 End: 02-17-2024 ambulatory [place] Work Phone: Start: 02-17-2024 End: 02-17-2024 Patient encounter procedure [facility] Work Phone: Start: 04-10-2023 End: 04-10-2023 ambulatory Boy Anna Other [facility] Other Start: 04-10-2023 Telephone encounter Boy Anna [facility] Start: 04-09-2023 End: 04-09-2023 ambulatory Boy Anna Other [facility] Other Start: 04-09-2023 Telephone encounter Boy Anna [facility] Start: 04-04-2023 End: 04-04-2023 ambulatory Boy Anna Other [facility] Other Start: 04-04-2023 Telephone encounter Boy Anna [facility] Start: 04-03-2023 End: 04-03-2023 ambulatory Boy Anna Other [facility] Other Start: 04-03-2023 Patient encounter procedure Boy Anna [facility] Start: 11-20-2021 End: 11-21-[address] NONE LISTED REQUEST Facility: Start: 03-19-2017 End: 03-20-2017 Ambulatory DARRICK ABARCA [facility] Plan of Treatment Date Care Activity Detail Author Comprehensive metabo lic 2000 panel - Serum or Plasma [facility] MG Breast - bilateral Screening [facility] Patient Education Low back pain in adults [facility] Work Phone: XR Hip - left 2 Views [facility] XR Lumbar spine Views [facility] Immunizations Immunization Date Immunization Notes Care Provider Haseeb taylor 04-06-2019 diphtheria, tetanus toxoids and acellular pertussis vaccine, unspecified formulation [facility] Payers Date Payer Category Payer Medicare [id number] 1958 Self-pay [id number] 1950 Unknown [id number] Private Health Insurance 101 [id number] Unknown [id number] Social History Date Type Detail Facility Sex Assigned At [facility] Other Start: 04-02-2023 Tobacco smoking stat us IDIS Never smoked tobacco (finding) [facility] Start: 1950 Sex Assigned At Female F [facility] Evaluation note 04-04-2023 Note Date & Type Note Facility 04-04-2023 Evaluation note Encounter Date Diagnosis Assessment Notes Mar, Right hip pain (ICD-10 - M25.551) [facility] Other Evaluation note 04-03-2023 Note Date & Type Note Facility 04-03-2023 Evaluation note Encounter Date Diagnosis Assessment Notes Mar, Medicare annual wellness visit, subsequent (ICD-10 - Z00.00) Personalized health advice was given to the beneficiary including a written plan for screenings discussed and provided. Advanced care planning reviewed and/or information given as requested. Additional counseling was provided here today in regards to, [ ]. The above visit was performed by [ ], under direct supervision of [ ]. Document reviewed and amended by provider signed below. Mar, IFG (impaired fasting glucose) (ICD-10 - R73.01) This patient is following a comprehensive diabetic treatment plan. They are checking their feet daily for calluses and nonhealing ulcers. They are being seen for yearly dilated eye examinations. Goals: SBP less than 130, LDL less than 100, FBS less than 140, AC and A1C less than 7%. They are checking their BS daily, will which are reviewed at the office visit. Continue regular routine monitoring of A1C,] Microalbumin, Dilated eye exam and Foot exam Mar, NAFLD (nonalcoholic fatty liver disease) (ICD-10 - K76.0) Healthy low fat, high protein diet. Exercise and weight loss GLP1 initiation Mar, Autoimmune thyroiditis (ICD-10 - E06.3) Euthyroid, TSH yearly Mar, Other specified hypothyroidism (ICD-10 - E03.8) Mar, ELIDA (obstructive sleep apnea) (ICD-10 - G47.33) This patient is aware of the benefits associated with ELIDA: With continued use, the patient reduces the risk for ND, CVA, HTN, cardiac dysrhythmias and sudden cardiac deaths.The patient is also aware of the association between ELIDA and morning headaches, daytime somnolence, fatigue and obesity Noncompliant Mar, Elevated cholesterol (ICD-10 - E78.00) Instructed on diet and exercise with continued statin therapy.Discussed the beneficial effects of lowering cholesterol in reducing the risk for cerebrovascular and cardiovascular disease. Mar, Pain in right knee (ICD-10 - M25.561) Mar, Other chronic pain (ICD-10 - G89.29) Mar, Screening mammogram for breast cancer (ICD-10 - Z12.31) Monthly SBE and yearly Mammogram Mar, Other Healthy diet, exercise, Ca and Vitamin D supplements [facility] Other Evaluation note Note Date & Type Note Facility Evaluation note No Information [facility] Other Evaluation note Note Date & Type Note Facility Evaluation note Diagnosis Onset Date Left hip pain acute Low back pain acute Lumbar spondylosis acute Obesity acute Primary osteoarthritis of left hip acute [facility] Work Phone: Evaluation note Note Date & Type Note Facility Evaluation note Diagnosis Onset Date Left hip pain acute Low back pain acute Lumbar spondylosis acute Obesity acute Primary osteoarthritis of left hip acute Hypercholesterolemia acute Hypothyroidism acute Impaired fasting glucose acu te Metabolic dysfunction-associ ated steatotic liver disease (MASLD) acute ELIDA (obstructive sleep apnea) acute Screening for colon cancer a cute Medicare annual wellness visit, subsequent noneactive Screening mammogram for breast cancer noneactive [facility] Work Phone: History general Narrative - Reported Note Date & Type Note Facility History general Narrative - Reported Type Medical History hypothyroidism Medical History arthritis Medical History Hypothyroidism Medical History Vitamin D deficiency Medical History Obesity (BMI 30.0-34.9) Medical History Other specified hypothyroidism Medical History Autoimmune thyroiditis Medical History Obstructive sleep apnea Medical History NAFLD (nonalcoholic fatty liver disease) Surgical History appendectomy 1963 Surgical History cyst removed from ovary Surgical History rt elbow surgery Hospitalization History SEE ABOVE SURGERY [facility] Other History general Narrative - Reported Note Date & Type Note Facility History general Narrative - Reported [facility] Other Summary Purpose Family History Relationship Condition Age at Onset Recorded Date/T valeriy brother Malignant neoplasm Unknown father Hypertension Unknown Heart disease Unknown Malignant neoplasm Unknown Not Specified Unknown Alzheimer's disease Unknown Family history of mental disorder Unknown Relationship Condition Age at Onset Recorded Date/T valeriy brother Malignant neoplasm Unknown father Hypertension Unknown Heart disease Unknown Malignant neoplasm Unknown mother Unknown Alzheimer's disease Unknown Family history of mental disorder Unknown Advance Directives Advance Directive Response Recorded Date/ Time Advance Directives No January 14, 024 11:56am Chief Complaint and Reason for Visit Chief Complaint left leg pain Reason for Visit Left hip pain Low back pain Lumbar spondylosis Obesity Primary osteoarthritis of left hip Chief Complaint left leg pain Wellness Reason for Visit Left hip pain Low back pain Lumbar spondylosis Obesity Primary osteoarthritis of left hip Hypercholesterolemia Hypothyroidism Impaired fasting glucose Metabolic dysfunction-associated steatotic liver disease (MASLD) ELIDA (obstructive sleep apnea) Screening for colon cancer Medicare annual wellness visit, subsequent Screening mammogram for breast cancer Additional Source Comments INFORMATION SOURCE (unrecogn ized section and content) DATE CREATED AUTHOR 03/18/2018 [facility] DATE CREATED AUTHOR AUTHOR'S ORGANIZ ATION 11/21/2021 [facility] REASON FOR VISIT (unrecogniz ed section and content) WellnessMedicatoin/XrayERROR Care Teams (unrecognized sec tion and content) Team Status: Active Member Role Status Dates Boy Anna DO Primary Care Provider Active Team Status: Inactive Member Role Status Dates Boy Anna DO Primary Care Provide r, Attending Provider Active Start: February 17, 2024 End: February 17, 2024 Team Status: Inactive Member Role Status Dates Boy Anna DO Primary Care Provide r, Attending Provider Active Start: April 13, 2024 End: April 13, 2024 Goals (unrecognized section and content) Goals may be documented in a n alternate section FOR RECORDS PERTAINING TO PATIENTS WHO ARE OR HAVE BEEN ENROLLED IN A CHEMICAL DEPENDENCY/SUBSTANCEABUSE PROGRAM, SOME INFORMATION MAY BE OMITTED. This clinical summary was aggregated from multiple sources. Caution should be exercised in using it in the provision of clinical care. This summary normalizes information from multiple sources, and as a consequence, information in this document may materially change the coding, format and clinical context of patient data. In addition, data may be omitted in some cases. CLINICAL DECISIONS SHOULD BE BASED ON THE PRIMARY CLINICAL RECORDS. [facility]. provides no warranty or guarantee of the accuracy or completeness of information in this document.
[2024-05-10 07:17] LABS: Eosinophils Absolute Auto 0.2 10^3/uL (0.0-0.7); Eosinophils Percent Auto 3.8 % (0.9-7.0); Hematocrit 37.9 % (36.0-48.0); Hemoglobin 12.7 g/dL (12.0-16.0); Immature Granulocytes Abs Auto 0.02 10^3/uL (0.00-0.03); Immature Granulocytes Pct Auto 0.5 % (0.0-0.5); Lymphocytes Absolute Auto 0.8 10^3/uL (1.2-3.8); Lymphocytes Percent Auto 20.2 % (20.5-60.0); Mean Corpuscular HGB Conc 33.5 g/dL (29.9-35.2); Mean Corpuscular Hemoglobin 33.2 pg (26.7-34.0); Mean Corpuscular Volume 99.2 fL (81.0-99.0); Mean Platelet Volume 12.7 fL (9.5-13.5); Monocytes Absolute Auto 0.2 10^3/uL (0.3-0.8); Monocytes Percent Auto 5.1 % (1.7-12.0); Neutrophils Absolute Auto 2.7 10^3/uL (1.4-6.5); Neutrophils Percent Auto 69.4 % (43.0-75.0); Platelet Count 110 10^3/uL (150-450); Red Blood Count 3.82 10^6/uL (4.20-5.40); Red Cell Distribution Width 13.2 % (11.0-15.0); White Blood Count 3.9 10^3/uL (4.0-11.0)
[2024-05-10 08:48] LABS: Estimated Average Glucose 103 mg/dL; Glycohemoglobin A1C 5.2 % (4.5-6.2)
[2024-05-10 09:04] LABS: Alanine Aminotransferase 19 U/L (14-59); Albumin Globulin Ratio 0.9; Albumin Level 3.2 g/dL (3.4-5.0); Alkaline Phosphatase 79 U/L (46-116); Anion Gap 11.2; Aspartate Amino Transferase 15 U/L (15-37); BUN Creatinine Ratio 18.2; Bilirubin Total 0.7 mg/dL (0.2-1.0); Carbon Dioxide 28.5 mmol/L (21.0-32.0); Chloride 105 mmol/L (98-107); Chol HDL Ratio 2.3; Cholesterol 139 mg/dL (<=200); Estimated GFR (African America >60 (>=60); Estimated GFR (Non-African Ame >60 (>=60); Globulin 3.6 g/dL; Glucose 95 mg/dL (74-106); HDL Cholesterol 60 mg/dL (40-60); LDL Cholesterol Calculated 68.2 mg/dL; Potassium 3.7 mmol/L (3.5-5.1); Sodium 141 mmol/L (136-145); Thyroid Stimulating Hormone 0.967 uIU/mL (0.358-3.740); Total Protein 6.8 g/dL (6.4-8.2); Triglycerides 54 mg/dL (<=150); VLDL CHOLESTEROL 10.8 mg/dL
== END 2024-05-10 06:49 | disposition home or self-care (01) ==
LOC: LAB 06:48
PROVIDERS: PCP Internal Medicine; Visit Provider Internal Medicine
DX: E78.00 Pure hypercholesterolemia, unspecified (principal); R73.01 Impaired fasting glucose; K76.0 Fatty (change of) liver, not elsewhere classified; E03.9 Hypothyroidism, unspecified
CPT/HCPCS: 36415; 80053; 80061; 83036; 84443; 85025

== ENCOUNTER 2024-08-02 08:29 | Outpatient (OUT) | payer MEDICARE, SELFPAY ==
[2024-08-02 09:20] LABS: Basophils Percent Auto 0.6 % (0.2-2.0); Eosinophils Absolute Auto 0.2 10^3/uL (0.0-0.7); Eosinophils Percent Auto 2.7 % (0.9-7.0); Hematocrit 39.2 % (36.0-48.0); Hemoglobin 12.9 g/dL (12.0-16.0); Immature Granulocytes Abs Auto 0.04 10^3/uL (0.00-0.03); Immature Granulocytes Pct Auto 0.6 % (0.0-0.5); Lymphocytes Absolute Auto 0.9 10^3/uL (1.2-3.8); Lymphocytes Percent Auto 13.9 % (20.5-60.0); Mean Corpuscular HGB Conc 32.9 g/dL (29.9-35.2); Mean Corpuscular Hemoglobin 32.8 pg (26.7-34.0); Mean Corpuscular Volume 99.7 fL (81.0-99.0); Mean Platelet Volume 12.6 fL (9.5-13.5); Monocytes Absolute Auto 0.3 10^3/uL (0.3-0.8); Monocytes Percent Auto 4.3 % (1.7-12.0); Neutrophils Absolute Auto 4.9 10^3/uL (1.4-6.5); Neutrophils Percent Auto 77.9 % (43.0-75.0); Platelet Count 131 10^3/uL (150-450); Red Blood Count 3.93 10^6/uL (4.20-5.40); Red Cell Distribution Width 13.2 % (11.0-15.0); White Blood Count 6.3 10^3/uL (4.0-11.0)
== END 2024-08-02 08:30 | disposition home or self-care (01) ==
LOC: LAB 08:31
PROVIDERS: PCP Internal Medicine; Visit Provider Internal Medicine
DX: D69.6 Thrombocytopenia, unspecified (principal); D72.819 Decreased white blood cell count, unspecified
CPT/HCPCS: 36415; 85025

== ENCOUNTER 2024-08-06 09:42 | Outpatient (OUT) | payer MEDICARE, SELFPAY ==
--- NOTE | 2024-08-06 09:45 | MR_ITS ---
[address] [address] Patient Name: ANNABELLE CURRY MRN: [id number] date: 1950 Sex: F Assigned Patient Location: MRI Current Patient Location: Accession/Order Number: [id number] Exam Date: 08/06/2024 10:00 Report Date: 08/10/2024 09:49 At the request of: CARLYLE ESTEVEZ Procedure: MR lumbar spine wo con EXAMINATION: MR lumbar spine wo con HISTORY: Spondylosis Of Lumbar Spine, Low Back Pain COMPARISON: XR L-spine 02/18/2024 TECHNIQUE: A variety of imaging planes and parameters were utilized for visualization of suspected pathology. FINDINGS: For the purposes of numbering, sagittal T2 image # 8 extends from the T10 vertebral body superiorly to the S2 level inferiorly. PARASPINAL AREA: No appreciable mass or suspicious findings. BONES: Mild grade 1 anterior listhesis of L3 on 4. No fracture or bone lesion. CORD/CAUDA EQUINA: Normal caliber, contour, and signal intensity. DISC LEVELS: 12-L1: Early degenerative disc disease is present without focal protrusion or neural impingement. L1-L2: Early degenerative disc disease is present without focal protrusion or neural impingement. L2-L3: Mild central canal narrowing. Moderate right, mild left foramen narrowing. Moderate diffuse disc bulging and moderate disc height reduction. Moderate degenerative facet arthropathy, right greater than left. L3-L4: Mild central canal and bilateral foramen narrowing. Mild diffuse disc bulging without disc at reduction. Mild-moderate degenerative facet arthropathy bilaterally. Mild grade 1 anterior listhesis of L3 on 4. L4-L5: No significant central canal or foraminal stenosis. Moderate degenerative facet arthropathy bilaterally. Mild disc desiccation without significant disc bulging or height reduction. L5-S1: Early degenerative disc disease is present without focal protrusion or neural impingement. MR/MR lumbar spine wo con IMPRESSION: 1. L2-3 mild central canal and moderate right foramen narrowing secondary to degenerative changes. 2. Mild grade 1 anterolisthesis of L3 on 4. 3. L3-4 mild central canal and foraminal narrowing secondary to degenerative changes. Electronically authenticated by: GANESH NARANJO Date: 08/10/2024 09:49
--- OUTSIDE RECORDS SUMMARY | 2024-08-06 09:50 | XMS_ITS | CCD ---
Author Organization [facility] Care Team Providers Care Superintendent Stations Name Role Phone WILLIS, DARRICK P Unavailable Unavailable WILLIS, DARRICK P Unavailable Unavailable WILLIS, DARRICK P Unavailable Unavailable REQUEST, DR JANE LISTED Attending Unavaila ble REQUEST, DR JANE LISTED Admitting Unavaila ble REQUEST, DR JANE LISTED Consulting Unavaila ble BALL, DR TADEO Admitting Unavailable BALL, DR TADEO Consulting Unavailable BALL, DR TADEO Attending Boy Peck Unavailable Unavailable Primary Care Provider FANNIE Harper Attending Unavailable BART CRUZ Referring Unavailable Boy Anna Attending Unavailable Boy Anna Primary Care Unavailable Boy Anna Admitting Unavailable Allergies Allergy Classification Reported Allergen(s) Allergy Type Date of Onset Reaction(s) Facility (5 sources) Cephalexin Drug Allergy 06-07-2024 Unknown [facility] Work Phone: (1 source) Cephalexin Drug Allergy 06-07-2024 [facility] Repository Medications Current Medications Medication Drug Class(es) Dates Sig (Normalized) Sig (Original) 0.25 MG, 0.5 MG Dose 3 ML semaglutide 0.68 MG/ML Pen Injector [Ozempic] (4 sources) Start: 04-03-2023 Start: 04-03-2023 Ozempic (0.25 or 0.5 MG/DOSE) 2 MG/3ML 0.25mg Subcutaneous weekly for 28 days Mar, Active calcium carbonate 1250 mg / cholecalciferol 500 unt / vitamin k1 0.04 mg chewable tablet (3 sources) Vitamin D, Warfarin Reversal Agent, Vitamin K Start: 02-13-2024 take 1 tablet by mouth once daily Calcium-Vitamin D3-Vitamin K Active 1 TAB PO Daily February 13, 2024 12:00am diazePAM 5 mg oral tablet (3 sources) Benzodiazepine Start: 11-19-2023 take 2.5 mg by mouth every six hours Diazepam Active 2.5 MG PO Every 6 hours November 19, 2023 1:00am levothyroxine sodium 0.112 mg oral tablet (8 sources) l-Thyroxine Start: 02-13-2024 levothyroxine (Synthroid, Levoxyl) 112 MCG tablet Daily 02/13/2024 Active loteprednol etabonate 5 mg/ml ophthalmic suspension (1 source) Start: 07-07-2024 take 1 drop(s) into the eye(s) in the morning, then take 1 drop(s) into the eye(s) in the evening, then take 1 drop(s) into the eye(s) at bedtime loteprednol (Lotemax) 0.5 % ophthalmic suspension Indications: Superficial keratitis of both eyes Administer 1 drop into both eyes in the morning and 1 drop in the evening and 1 drop before bedtime. 5 mL 2 07/07/2024 Active Start: 07-07-2024 take 1 drop(s) into the eye(s) in the morning, then take 1 drop(s) into the eye(s) in the evening, then take 1 drop(s) into the eye(s) at bedtime loteprednol (Lotemax) 0.5 % ophthalmic suspension Indications: Superficial keratitis of both eyes Administer 1 drop into both eyes in the morning and 1 drop in the evening and 1 drop before bedtime. 5 mL 2 07/07/2024 Active Viactiv 500-500-40 MG-UNT-MC G (4 sources) take 1 tablet by mouth once arthur y Viactiv 500-500-40 MG-UNT-MCG 1 tablet with a meal Orally Once a day Active Completed/Discontinued Medications Medication Drug Class(es) Dates Sig (Normalized) Sig (Original) Borage extract (4 sources) Borage 1000 1000 MG Orally Not-Taking etodolac 500 mg oral tablet (3 sources) Nonsteroidal Anti-inflammatory Drug Start: 02-17-2024 End: 04-13-2024 take 500 mg by mouth twice daily Etodolac Discontinued 500 MG PO Twice daily February 17, 2024 12:00am April 13, 2024 9:30am Fish Oils (4 sources) take 1 capsule by mouth once micah ly Fish Oil 1000 MG 1 capsule Orally Once a day Not-Taking meloxicam 7.5 mg oral tablet (4 sources) Nonsteroidal Anti-inflammatory Drug take 1 tablet by mouth every twelve hours Semaglutide (3 sources) Start: 02-13-20 End: 04-13-20 Semaglutide (Ozempic) [...] Problem Classification Problem Date Documented Date Episodic/Chronic Cataract (2 sources) Bilateral age-related nuclear cataracts; Translations: [Age-related nuclear cataract, bilateral] Onset: 07-07-2024 07-07-2024 Chronic Coagulation and hemorrhagic disorders (2 sources) Thrombocytopenia, unspecified; Translations: [Thrombocytopenic disorder] Onset: 03-19-2017 05-10-2024 Chronic Conditions associated with dizziness or vertigo (3 sources) Benign paroxysmal positional vertigo; Translations: [Benign paroxysmal vertigo, unspecified ear] 11-19-2023 Episodic Diabetes mellitus without complication (5 sources) Impaired fasting glucose; Translations: [Impaired fasting glycemia] Episodic Diseases of white blood cells (1 source) Leukopenia; Translations: [Decreased white blood cell count, unspecified] 05-10-2024 Chronic Disorders of lipid metabolism (9 sources) Hypercholesterolemia; Translations: [Pure hypercholesterolemia, unspecified] Chronic Inflammation; infection of eye (except that caused by tuberculosis or sexually transmitteddisease) (2 sources) Bilateral superficial keratitis; Translations: [Unspecified superficial keratitis, bilateral] Onset: 07-07-2024 07-07-2024 Episodic Nutritional deficiencies (7 sources) Vitamin D deficiency; Translations: [Vitamin D deficiency, unspecified] 02-13-2024 Chronic Osteoarthritis (5 sources) Osteoarthritis of left hip joint; Translations: [Unilateral primary osteoarthritis, left hip] 02-17-2024 Chronic Other liver diseases (11 sources) Fatty (change of) liver, not elsewhere classified; Translations: [Other chronic nonalcoholic liver disease] Onset: 11-20-2021 Chronic Other liver diseases (2 sources) Steatosis of liver; Translations: [Fatty (change of) [...] right hip Episodic Other non-traumatic joint disorders (3 sources) Hip pain; Translations: [Pain in left hip] 02-17-2024 Episodic Other non-traumatic joint disorders (3 sources) Pain in left hip; Translations: [Pain in joint, pelvic region and thigh] 02-17-2024 Episodic Other nutritional; endocrine; and metabolic disorders (7 sources) Obesity; Translations: [Obesity, unspecified] 02-17-2024 Chronic Other nutritional; endocrine; and metabolic disorders (3 sources) Obesity, unspecified; Translations: [Obesity, unspecified] 02-17-2024 Chronic Other screening for suspected conditions (not mental disorders or infectious disease) (11 sources) Patient encounter status; Translations: [Encounter for screening mammogram for malignant neoplasm of breast] Episodic Residual codes; unclassified (6 sources) Obstructive sleep apnea syndrome; Translations: [Obstructive sleep apnea (adult) (pediatric)] 04-11-2024 Chronic Residual codes; unclassified (3 sources) Obstructive sleep apnea (adult) (pediatric); Translations: [Obstructive sleep apnea (adult)(pediatric)] Chronic Retinal detachments; defects; vascular occlusion; and retinopathy (2 sources) Nonexudative age-related macular degeneration; Translations: [Nonexudative age-related macular degeneration, bilateral, early dry stage] Onset: 07-07-2024 07-07-2024 Chronic Spondylosis; intervertebral disc disorders; other back problems (6 sources) Lumbar spondylosis; Translations: [Spondylosis without myelopathy or radiculopathy, lumbar region] 02-17-2024 Chronic Spondylosis; intervertebral disc disorders; other back problems (6 sources) Low back pain; Translations: [Low back pain] 02-17-2024 Episodic Thyroid disorders (18 sources) Autoimmune thyroiditis; Translations: [Autoimmune thyroiditis] Chronic Results Test Name Value Interpretation Reference Range Facility Optical coherence tomography study reporton 07-07-2024 [facility] Study observation (narrative) [facility] Basophils Auto (Bld) [#/Vol] on 05-10-2024 Basophils (Bld) [#/Vol] 0.0 10 3/uL 0.0-0.1 [facility] Basophils/100 WBC Auto (Bld) on 05-10-2024 Basophils/100 WBC (Bld) 1.0 % 0.2-2.0 [facility] Cholesterol in LDL Calc [Mas s/Vol]on 05-10-2024 Cholesterol in LDL [Mass/Vol] 68.2 mg/dL [facility] Comment on above: <100 mg/dl [id number] 0-129 mg/dl NEAR OR ABOVE [id number] mg/dl BORDERLINE [id number] mg/dl HIGH>190 mg/dl VERY HIGH Cholesterol in VLDL Calc [Ma ss/Vol]on 05-10-2024 Cholesterol in VLDL [Mass/Vol] 10.8 mg/dL [facility] Eosinophils/100 WBC Auto (Bl d)on 05-10-2024 Eosinophils/100 WBC (Bld) 3.8 % 0.9-7.0 [facility] Erythrocyte distribution wid th Auto (RBC) [Ratio]on 05-10-2024 Erythrocyte distribution width (RBC) [Ratio] 13.2 % 11.0-15.0 [facility] Estimated glomerular filtrat ion rate (GFR) non- Americanon 05-10-2024 GFR/1.73 sq M.predicted among non-blacks MDRD (S/P/Bld) [Vol rate/Area] mL/min/{1.73_m2} >=60 [facility] Globulin Calc (S) [Mass/Vol] on 05-10-2024 Globulin (S) [Mass/Vol] 3.6 g/dL [facility] Glucose mean value [Mass/vol ume] in Blood Estimated from glycated hemoglobinon 05-10-2024 Average glucose Estimated from glycated hemoglobin (Bld) [Mass/Vol] 103 mg/dL [facility] Hematocrit Auto (Bld) [Volum e fraction]on 05-10-2024 Hematocrit (Bld) [Volume fraction] 37.9 % 36.0-48.0 [facility] Hemoglobin [Mass/volume] in Bloodon 05-10-2024 Hemoglobin (Bld) [Mass/Vol] 12.7 g/dL 12.0-16.0 [facility] Laboratory - Chemistry and C hemistry - challengeon 05-10-2024 Albumin [Mass/Vol] 3.2 g/dL Low 3.4-5.0 [facility] ALP [Catalytic activity/Vol] 79 U/L 46-116 [facility] ALT [Catalytic activity/Vol] 19 U/L 14-59 [facility] AST [Catalytic activity/Vol] 15 U/L 15-37 [facility] Bilirubin [Mass/Vol] 0.7 mg/dL 0.2-1.0 [facility] Calcium [Mass/Vol] 9.0 mg/dL 8.5-10.1 [facility] Chloride [Moles/Vol] 105 mmol/L 98-107 [facility] Cholesterol [Mass/Vol] 139 mg/dL <=200 [facility] Cholesterol in HDL [Mass/Vol] 60 mg/dL 40-60 [facility] Comment on above: > or =60 mg/dl - LOW CARDIOVASCULAR RISK<40 mg/dl - HIGH CARDIOVASCULAR RISK CO2 [Moles/Vol] 28.5 mmol/L 21.0-32.0 [facility] Creatinine [Mass/Vol] 0.77 mg/dL 0.55-1.02 [facility] GFR/1.73 sq M.predicted MDRD (S/P/Bld) [Vol rate/Area] mL/min/{1.73_m2} >=60 [facility] Glucose [Mass/Vol] 95 mg/dL 74-106 [facility] Potassium [Moles/Vol] 3.7 mmol/L 3.5-5.1 [facility] Protein [Mass/Vol] 6.8 g/dL 6.4-8.2 [facility] Sodium [Moles/Vol] 141 mmol/L 136-145 [facility] Triglyceride [Mass/Vol] 54 mg/dL <=150 [facility] TSH Qn 0.967 m[IU]/L 0.358-3.740 [facility] Urea nitrogen [Mass/Vol] 14.0 mg/dL 7.0-18.0 [facility] Urea nitrogen/Creatinine [Mass ratio] 18.2 mg/mg [facility] Laboratory - Hematology and Cell countson 05-10-2024 HbA1c (Bld) [Mass fraction] 5.2 % 4.5-6.2 [facility] Comment on above: ADA RECOMMENDED LIMI T 4.0 - 6.0ADA THERAPEUTIC TARGET < 7.0ACTION SUGGESTED> 7.0 Immature granulocytes/100 WBC (Bld) 0.5 % 0.0-0.5 [facility] Leukocytes [#/volume] correc winter for nucleated erythrocytes in Blood by Automated counon 05-10-2024 WBC corrected for nucl RBC Auto (Bld) [#/Vol] 3.9 10 3/uL Low 4.0-11.0 [facility] Lymphocytes Auto (Bld) [#/Vo l]on 05-10-2024 Lymphocytes (Bld) [#/Vol] 0.8 10 3/uL Low 1.2-3.8 [facility] Lymphocytes/100 WBC Auto (Bl d)on 05-10-2024 Lymphocytes/100 WBC (Bld) 20.2 % Low 20.5-60.0 [facility] MCH Auto (RBC) [Entitic mass ]on 05-10-2024 MCH (RBC) [Entitic mass] 33.2 pg 26.7-34.0 [facility] MCHC Auto (RBC) [Mass/Vol]on 05-10-2024 MCHC (RBC) [Mass/Vol] 33.5 g/dL 29.9-35.2 [facility] MCV Auto (RBC) [Entitic vol] on 05-10-2024 MCV (RBC) [Entitic vol] 99.2 fL High 81.0-99.0 [facility] Monocytes Auto (Bld) [#/Vol] on 05-10-2024 Monocytes (Bld) [#/Vol] 0.2 10 3/uL Low 0.3-0.8 [facility] Monocytes/100 WBC Auto (Bld) on 05-10-2024 Monocytes/100 WBC (Bld) 5.1 % 1.7-12.0 [facility] Neutrophils Auto (Bld) [#/Vo l]on 05-10-2024 Neutrophils (Bld) [#/Vol] 2.7 10 3/uL 1.4-6.5 [facility] Neutrophils/100 WBC Auto (Bl d)on 05-10-2024 Neutrophils/100 WBC (Bld) 69.4 % 43.0-75.0 [facility] No Panel Informationon 05-10 Eosinophils # (Auto) 0.2 10 3/uL 0.0-0.7 [facility] Immature Granulocyte # (Auto) 0.02 10 3/uL 0.00-0.03 [facility] Platelet mean volume Auto (B ld) [Entitic vol]on 05-10-2024 Platelet mean volume (Bld) [Entitic vol] 12.7 fL 9.5-13.5 [facility] Platelets Auto (Bld) [#/Vol] on 05-10-2024 Platelets (Bld) [#/Vol] 110 10 3/uL Low 150-450 [facility] RBC Auto (Bld) [#/Vol]on RBC (Bld) [#/Vol] 3.82 10 6/uL Low 4.20-5.40 [facility] Serum or plasma albumin/glob ulin mass ratioon 05-10-2024 Albumin/Globulin [Mass ratio] 0.9 {ratio} [facility] Serum or plasma anion gap de terminationon 05-10-2024 Anion gap [Moles/Vol] 11.2 mmol/L [facility] Serum or plasma total choles terol/high density lipoprotein (HDL) cholesterol mass jovanny 05-10-2024 Cholesterol.total/C holesterol in HDL [Mass ratio] 2.3 {ratio} [facility] Comment on above: 3.3 - 4.4 LOW RISK4. 4 - 7.1 AVERAGE RISK7.1 - 11.0 MODERATE RISK>11.0 HIGH RISK CBC AUTO DIFFon 11-20-2021 BASO # 0.0 103/ul Normal 0.0-0.[address] [facility] Comment on above: Performed By: #### D ATCBC #### [facility] [address] [address] [address] Tatiana Contreras Basophils/100 WBC (Bld) 0.6 % Normal 0.2-2.[address] [facility] Comment on above: Performed By: #### D ATCBC #### [facility] [address] [address] [address] Tatiana Contreras EO # 0.2 103/ul Normal 0.0-0.7 [facility] Comment on above: Performed By: #### D ATCBC #### [facility] [address] [place] [address] Dr. Tatiana Contreras Eosinophils/100 WBC (Bld) 5.2 % Normal 0.9-7.[address] [facility] Comment on above: Performed By: #### D ATCBC #### [facility] [address] [place] [address] Dr. Tatiana Contreras Erythrocyte distribution width (RBC) [Ratio] 13.8 % Normal 11.0-15.[address] [facility] Comment on above: Performed By: #### D ATCBC #### [facility] [address] [place] [address] Dr. Tatiana Contreras Hematocrit (Bld) [Volume fraction] 41.7 % Normal 36.0-48.[address] [facility] Comment on above: Performed By: #### D ATCBC #### [facility] [address] [place] [address] Dr. Tatiana Contreras Hemoglobin (Bld) [Mass/Vol] 13.7 g/dL Normal 12.0-16.0 [facility] Comment on above: Performed By: #### D ATCBC #### [facility] [address] [place] [address] Dr. Tatiana Contreras IG # 0.02 10e3/ul Normal 0.00-0.[address] [facility] Comment on above: Performed By: #### D ATCBC #### [facility] [address] [place] [address] Dr. Tatiana Contreras IG % 0.4 % Normal 0.0-0.5 [facility] Comment on above: Performed By: #### D ATCBC #### [facility] [address] [place] [address] Dr. Tatiana Contreras LYMPH # 0.7 103/ul Critically low 1.2-3.[address] [facility] Comment on above: Performed By: #### D ATCBC #### [facility] [address] [place] [address] Dr. Tatiana Contreras Lymphocytes/100 WBC (Bld) 15.6 % Critically low 20.5-60.[address] [facility] Comment on above: Performed By: #### D ATCBC #### [facility] [address] [place] [address] Dr. Tatiana Contreras MCH (RBC) [Entitic mass] 31.4 pg Normal 26.7-34.[address] [facility] Comment on above: Performed By: #### D ATCBC #### [facility] [address] [place] [address] Dr. Tatiana Contreras MCHC (RBC) [Mass/Vol] 32.9 g/dL Normal 29.9-35.[address] [facility] Comment on above: Performed By: #### D ATCBC #### [facility] [address] [place] [address] Dr. Tatiana Contreras MCV (RBC) [Entitic vol] 95.6 fL Normal 81.0-99.[address] [facility] Comment on above: Performed By: #### D ATCBC #### [facility] [address] [place] [address] Dr. Tatiana Contreras MONO # 0.3 103/ul Normal 0.3-0.[address] [facility] Comment on above: Performed By: #### D ATCBC #### [facility] [address] [place] [address] Dr. Tatiana Contreras Monocytes/100 WBC (Bld) 5.8 % Normal 1.7-12.[address] [facility] Comment on above: Performed By: #### D ATCBC #### [facility] [address] [place] [address] Dr. Tatiana Contreras NEUT # 3.4 103/ul Normal 1.4-6.[address] [facility] Comment on above: Performed By: #### D ATCBC #### [facility] [address] [place] [address] Dr. Tatiana Contreras Neutrophils/100 WBC (Bld) 72.4 % Normal 43.0-75.[address] [facility] Comment on above: Performed By: #### D ATCBC #### [facility] [address] [place] [address] Dr. Tatiana Contreras Platelet mean volume (Bld) [Entitic vol] 12.4 fL Normal 9.5-13.[address] [facility] Comment on above: Performed By: #### D ATCBC #### [facility] [address] [place] [address] Dr. Tatiana Contreras PLT 109 103/ul Critically low 150-[address] [facility] Comment on above: Performed By: #### D ATCBC #### [facility] [address] [place] [address] Dr. Tatiana Contreras RBC 4.36 106/ul Normal 4.20-5.[address] [facility] Comment on above: Performed By: #### D ATCBC #### [facility] [address] [place] [address] Dr. Tatiana Contreras WBC 4.6 103/ul Normal 4.0-11.[address] [facility] Comment on above: Performed By: #### D ATCBC #### [facility] [address] [place] [address] Dr. Tatiana Contreras ADALID - TSHon 11-20-2021 TSH 1.795 uIU/mL Normal 0.470-4.680 [facility] Comment on above: Performed By: #### D ATTSH, DATBMP #### [facility] [address] [place] [address] Dr. Tatiana Contreras TSH RANGE SEE BELOW Normal [facility] Comment on above: Result Comment: <0.3 4 UIU/ml HYPERTHYROID 0.34-5.60 UIU/ml EUTHYROID >5.60 UIU/ml HYPOTHYROID Performed By: #### D ATTSH, DATBMP #### [facility] [address] [address] [address] Tatiana Contreras ADALID- BMP WITH LIPIDon 2021 Anion gap [Moles/Vol] 9.3 mmol/L Normal [facility] Comment on above: Performed By: #### D ATTSH, DATBMP #### [facility] [address] [address] [address] Tatiana Contreras Calcium [Mass/Vol] 8.7 mg/dL Normal 8.4-10.2 [facility] Comment on above: Performed By: #### D ATTSH, DATBMP #### [facility] [address] [address] [address] Tatiana Contreras Chloride [Moles/Vol] 103 mmol/L Normal 98-[address] [facility] Comment on above: Performed By: #### D ATTSH, DATBMP #### [facility] [address] [address] [address] Tatiana Contreras Cholesterol [Mass/Vol] 123 mg/dL Normal <=[address] [facility] Comment on above: Performed By: #### D ATTSH, DATBMP #### [facility] [address] [address] [address] Tatiana Contreras Cholesterol in HDL [Mass/Vol] 64 mg/dL Normal [facility] Comment on above: Performed By: #### D ATTSH, DATBMP #### [facility] [address] [address] [address] Tatiana Contreras Cholesterol in LDL [Mass/Vol] 50.0 mg/dL Normal [facility] Comment on above: Performed By: #### D ATTSH, DATBMP #### [facility] [address] [address] [address] Tatiana Contreras CO2 [Moles/Vol] 29.7 mmol/L Normal 22.0-30.0 [facility] Comment on above: Performed By: #### D ATTSH, DATBMP #### [facility] [address] [address] [address] Tatiana Contreras Creatinine [Mass/Vol] 0.88 mg/dL Normal 0.52-1.[address] [facility] Comment on above: Performed By: #### D ATTSH, DATBMP #### [facility] [address] [address] [address] Tatiana Contreras EGFR-AF CAMBODIAN >60 Normal >=60 [facility] Comment on above: Performed By: #### D ATTSH, DATBMP #### [facility] [address] [address] [address] Tatiana Contreras EGFR-NON AF CAMBODIAN >60 Normal >=[address] [facility] Comment on above: Performed By: #### D ATTSH, DATBMP #### [facility] [address] [address] [address] Tatiana Contreras Glucose [Mass/Vol] 101 mg/dL Normal 74-106 [facility] Comment on above: Performed By: #### D ATTSH, DATBMP #### [facility] [address] [address] [address] Tatiana Contreras HDL NORMAL > or = 60 mg/dl - LO W CARDIOVASCULAR RISK <40 mg/dl - HIGH CARDIOVASCULAR RISK Normal [facility] Comment on above: Performed By: #### D ATTSH, DATBMP #### [facility] [address] [address] [address] Tatiana Contreras LDL CALC NORMAL SEE BELOW Normal [facility] Comment on above: Result Comment: <100 mg/dl OPTIMAL 100 - 129 mg/dl NEAR OR ABOVE OPTIMAL 130 - 159 mg/dl BORDERLINE HIGH 160 - 189 mg/dl HIGH >190 mg/dl VERY HIGH Performed By: #### D ATTSH, DATBMP #### [facility] [address] [address] [address] Tatiana Contreras Potassium [Moles/Vol] 4.0 mmol/L Normal 3.4-5.[address] [facility] Comment on above: Performed By: #### D ATTSH, DATBMP #### [facility] [address] [address] [address] Tatiana Contreras Sodium [Moles/Vol] 138 mmol/L Normal 137-145 [facility] Comment on above: Performed By: #### D ATTSH, DATBMP #### [facility] [address] [address] [address] Tatiana Contreras Triglyceride [Mass/Vol] 45 mg/dL Normal <=[address] [facility] Comment on above: Performed By: #### D ATTSH, DATBMP #### [facility] [address] [address] [address] Tatiana Contreras Urea nitrogen [Mass/Vol] 18.0 mg/dL Critically high 7.0-17.[address] [facility] Comment on above: Performed By: #### D ATTSH, DATBMP #### [facility] [address] [address] [address] Tatiana Contreras Urea nitrogen/Creatinine [Mass ratio] 20.5 mg/mg Normal [facility] Comment on above: Performed By: #### D ATTSH, DATBMP #### [facility] [address] [address] [address] Tatiana Contreras VLDL CALC 9.0 mg/dL Normal [facility] Comment on above: Performed By: #### D ATTSH, DATBMP #### [facility] [address] [address] [address] Tatiana Contreras LIVER PROFILEon 11-20-2021 Albumin [Mass/Vol] 3.4 g/dL Critically low 3.5-5.0 Th [facility] Comment on above: Performed By: #### L IVER #### [facility] [address] [place] [address] Dr. Tatiana Contreras Albumin/Globulin [Mass ratio] 0.9 {ratio} Normal [facility] Comment on above: Performed By: #### L IVER #### [facility] [address] [address] [address] Tatiana Contreras ALP [Catalytic activity/Vol] 94 U/L Normal 38-[address] [facility] Comment on above: Performed By: #### L IVER #### [facility] [address] [place] [address] Dr. Tatiana Contreras ALT [Catalytic activity/Vol] 28 U/L Normal 9-[address] [facility] Comment on above: Performed By: #### L IVER #### [facility] [facility] [address] [address] [address] Tatiana Contreras AST [Catalytic activity/Vol] 18 U/L Normal 14-[address] [facility] Comment on above: Performed By: #### L IVER #### [facility] [address] [place], [place] [address] Dr. Tatiana Contreras BILI, CONJUGATED 0.2 mg/dL Normal 0.0-0.3 [facility] Comment on above: Performed By: #### L IVER #### [facility] [address] [address] [address] Tatiana Contreras Bilirubin [Mass/Vol] 0.6 mg/dL Normal 0.2-1.[address] [facility] Comment on above: Performed By: #### L IVER #### [facility] [address] [address] [address] Tatiana Contreras Globulin (S) [Mass/Vol] 3.9 g/dL Normal [facility] Comment on above: Performed By: #### L IVER #### [facility] [address] [address] [address] Tatiana Contreras Protein [Mass/Vol] 7.3 g/dL Normal 6.1-8.2 [facility] Comment on above: Performed By: #### L IVER #### [facility] [address] [address] [address] Tatiana Contreras PROGRESSon 03-20-2017 PROGRESS HNO ID: [id number] thor: Darrick Emerson: (none)Author Type: PhysicianType: Progress [...] kg (213 lb) SpO2 95% BMI 35.45 kg/h2Ozrsdtg appearance: well appearing, alert, in no acute [...] 03/19/2017Baso% 0.3 03/19/2017Abs Neut (ANC) 5.27 03/19/2017Abs [place] 0.42 03/19/2017Abs Eosin 0.24 03/19/2017Abs Baso 0.02 03/19/2017ASSESSMENT/PLAN: Annabelle Bustillo is a 67 year old female with mildthrombocytopenia. No recent medication changes and values are consistentwith previous findings from 2013. Reviewed options for evaluation toinclude further testing (possibly with bone marrow evaluation) orobservation given that the platelet count has been largely stable. Afterdiscussion, patient wishes to observe at this time.1. Thrombocytopenia-continue observation-repeat labs in six monthsAljigar Willis MD Normal [facility] CNOVSPon 03-19-2017 [facility] Visit (SP) Office (NILE) -------ANNABELLE BUSTILLO ([id number]) 1950 FDate Time Provider Department03/19/17 3:15 PM DARRICK WILLIS During your visit today, we recorded the following information about you: Temperature Pulse Respiration Blood pressure 98.1 degrees 83/minute 20/minute 130/88 Weight Height 96.6 kg 1.651 Roxana Suárez 03/19/2017 3:32 PM SignedPt states that she has a lot of fatigue and a lot of itching.Tete Willis MD 03/20/2017 7:22 AM SignedCHIEF COMPLAINT: thrombocytopeniaHISTORY [...] kg (213 lb) SpO2 95% BMI 35.45 kg/u1Ouqwczb appearance: well appearing, alert, in no acute [...] 03/19/2017Baso% 0.3 03/19/2017Abs Neut (ANC) 5.27 03/19/2017Abs [place] 0.42 03/19/2017Abs Eosin 0.24 03/19/2017Abs Baso 0.02 03/19/2017ASSESSMENT/PLAN: Annabelle Bustillo is a 67 year old female with mildthrombocytopenia. No recent medication changes and values are consistent withprevious findings from 2012. Reviewed options for evaluation to include furthertesting (possibly with bone marrow evaluation) or observation given that theplatelet count has been largely stable. After discussion, patient wishes toobserve at this time.1. Thrombocytopenia-continue observation-repeat labs in six monthsAlfred Kayla Willis, MDReferring Provider: DARRICK WILLIS [[id number]]Allergies As of Date: 03/19/2017(No Known Allergies)Date Reviewed: 03/19/2017Reviewed by: Darrick Willis - Fully AssessedReason for Visit: Thrombocytopenia [603] Cmt: New problem, hasn't been seen his 2013Primary Visit Diagnosis:Thrombocytopenia (HCC) [D69.6]Order(s):CBC + DIFF (FOR REMOTE [facility] USE) [SQRCBCDF] Order #: [id number] FUTURE COMP METABOLIC PANEL [SQCMP] Order #: [id number] FUTURE LD LACTATE DEHYDRO [SQLD6] Order #: [id number] FUTUREDisposition: Return in about 6 months (around [...] lot of itching.Tete McmahonaracelyEncounter Status:Closed by DARRICK WILLIS MD on 03/20/17 Normal [facility] Comp Metabolic Panelon 03-19 Alanine aminotransferase (ALT) 16 U/L Normal 7-38 [facility] Comment on above: Performed By: #### C EVERTON CARROLL6 ####[facility] [address] [place], [place] [phone] Albumin 4.1 g/dL Normal 3.9-4.9 [facility] Comment on above: Performed By: #### C EVERTON CARROLL6 ####[facility] [address] [place], [place] [phone] Alkaline phosphatase (ALP) 88 U/L Normal 32-117 [facility] Comment on above: Performed By: #### C GLEN, LD6 ####[facility] [address] [phone] Anion gap 15 mmol/L Normal 9-18 [facility] Comment on above: Performed By: #### C GLEN, LD6 ####[facility] [address] [phone] Aspartate aminotransferase (AST) 23 U/L Normal 13-35 [facility] Comment on above: Performed By: #### C GLEN, LD6 ####[facility] [phone] Bilirubin (total) 0.3 mg/dL Normal 0.2-1.3 [facility] Comment on above: Performed By: #### Mckenzie CARROLL LD6 ####[phone] Calcium 9.4 mg/dL Normal 8.5-10.2 [facility] Comment on above: Performed By: #### Mckenzie CARROLL LD6 ####[phone] Chloride 99 mmol/L Normal 97-105 [facility] Comment on above: Performed By: #### C GLEN, LD6 ####[facility] [address] AveCNic[address] [phone] CO2 25 mmol/L Normal 22-30 [facility] Comment on above: Performed By: #### C GLEN, LD6 ####[facility] [address] [phone] Creatinine 1.16 mg/dL High 0.58-0.96 [facility] Comment on above: Performed By: #### C GLEN, LD6 ####[facility] [address] [phone] eGFR (non-black) 57 mL/min/{1.73_m2} Normal [facility] Comment on above: Performed By: #### C EVERTON CARROLL6 ####[facility] [place], [place] [phone] eGFR (non-black) 47 . Normal [facility] Comment on above: Result Comment: eGFR (Estimated [...] reflect actual GFR. Performed By: #### C EVERTON CARROLL6 ####[facility] [place], [place] [phone] Glucose mass conc 82 mg/dL Normal 74-99 [facility] Comment on above: Result Comment: The [place] Diabetes Association (ADA) provides guidance for cutoff [...] Standards of Medical Care in Diabetes 2016, [place] [employer] Association. Diabetes Care. 2016.39(Suppl 1). Performed By: #### C EVERTON CARROLL6 ####[facility] [place], [place] [phone] Potassium molar conc 3.9 mmol/L Normal 3.7-5.1 [facility] Comment on above: Performed By: #### EVERTON Rincon MP6 ####[address] [address] [address], [place] [phone] Protein 6.8 g/dL Normal 6.3-8.0 [facility] Comment on above: Performed By: #### C GLEN, LD6 ####[facility] [address] AveCL[address], [place] [phone] Sodium 139 mmol/L Normal 136-144 [facility] Comment on above: Performed By: #### C GLEN, LD6 ####[facility] [address]CL[address], [place] [phone] Urea nitrogen 18 mg/dL Normal 7-21 [facility] Comment on above: Performed By: #### C GLEN, LD6 ####[facility] [address] AveCL[address], [place] [phone] LDon 03-19-2017 LD 203 U/L Normal 135-214 [facility] Comment on above: Performed By: #### C GLEN, LD6 ####[facility] [address] AveCL[place], [place] [phone] Remote CBCDIF (for [facility] use o nly)on 03-19-2017 Abs Baso 0.02 k/uL Normal 0.00-0.10 [facility] Abs [place] 0.42 k/uL Normal 0.00-0.86 [facility] Abs Neut 5.27 k/uL Normal 1.45-7.50 [facility] Basophils/100 WBC Auto (Bld) 0.3 % Normal [facility] Eosinophils 0.24 10*3/uL Normal 0.00-0.45 [facility] Eosinophils/100 leukocytes 3.5 % Normal [facility] Erythrocyte distribution width Auto Ratio (RBC) 13.3 % Normal 11.5-15.0 [facility] Erythrocytes (RBC) 4.35 10*6/uL Normal 3.90-5.20 [facility] Hematocrit (HCT) 41.0 % Normal 36.0-46.[address] [facility] Hemoglobin mass conc (Bld) 13.9 g/dL Normal 11.5-15.5 [facility] Lymphocytes 0.88 10*3/uL Low 1.00-4.00 [facility] Lymphocytes/100 leukocytes 12.9 % Normal [facility] MCH 32.0 pG Normal 26.0-34.0 [facility] MCHC mass conc (RBC) 33.9 g/dL Normal 30.5-36.0 [facility] MCV 94.3 fL Normal 80.0-100.0 [facility] Monocytes/100 leukocytes 6.1 % Normal [facility] Neutrophils/100 WBC Auto (Bld) 77.2 % Normal [facility] Platelet mean volume (PMV) 12.2 fL Normal 9.0-12.7 [facility] Platelets 108 10*3/uL Low 150-400 [facility] WBC (Leukocytes) 6.83 10*3/uL Normal 3.70-11.00 [facility] Vital Signs Date Time Vital Sign Value Performing Clinician Facility 06-07-2024 14:31-0400 Body height 160.02 cm [facility] 06-07-2024 14:31-0400 Body mass index (BMI) [Ratio] 36.9 kg/m2 [facility] 06-07-2024 14:31-0400 Body weight 94.51 kg [facility] 06-07-2024 14:31-0400 Diastolic blood pressure 84 mm[Hg] [facility] 06-07-2024 14:31-0400 Heart rate 89 /min [facility] 06-07-2024 14:31-0400 Respiratory rate 12 /min [facility] 06-07-2024 14:31-0400 Systolic blood pressure 142 mm[Hg] [facility] 04-13-2024 09:14-0400 Body height 160.02 cm [facility] 04-13-2024 09:14-0400 Body mass index (BMI) [Ratio] 37.5 kg/m2 [facility] 04-13-2024 09:14-0400 Body weight 96.27 kg [facility] 04-13-2024 09:14-0400 Diastolic blood pressure 80 mm[Hg] [facility] 04-13-2024 09:14-0400 Heart rate 90 /min [facility] 04-13-2024 09:14-0400 Respiratory rate 12 /min [facility] 04-13-2024 09:14-0400 Systolic blood pressure 125 mm[Hg] [facility] 02-17-2024 15:05-0400 Body height 160.02 cm [facility] 02-17-2024 15:05-0400 Body mass index (BMI) [Ratio] 38.9 kg/m2 [facility] 02-17-2024 15:05-0400 Body weight 99.79 kg [facility] 02-17-2024 15:05-0400 Diastolic blood pressure 87 mm[Hg] [facility] 02-17-2024 15:05-0400 Heart rate 82 /min [facility] 02-17-2024 15:05-0400 Respiratory rate 12 /min [facility] 02-17-2024 15:05-0400 Systolic blood pressure 126 mm[Hg] [facility] 04-03-2023 08:30-0400 Body height 160.02 cm Boy Ball Other [facility] Other 04-03-2023 08:30-0400 Body mass index (BMI) [Ratio] 38.65 kg/m2 Boy Ball Other [facility] Other 04-03-2023 08:30-0400 Body weight 98.98 kg Boy Ball Other [facility] Other 04-03-2023 08:30-0400 Diastolic blood pressure 84 mm[Hg] Boy Ball Other [facility] Other 04-03-2023 08:30-0400 Systolic blood pressure 129 mm[Hg] Boy Ball Other [facility] Other Encounters Encounter Date Encounter Type Care Provider Facility Start: 08-02-2024 End: 08-02-2024 ambulatory Boy Ball Facility:[facility] Start: 07-07-2024 End: 07-07-2024 Bamboo flowsheet Fannie Mistry DO Work Phone: [facility] Start: 07-07-2024 End: 07-07-2024 Bamboo flowsheet Fannie Mistry DO Work Phone: [facility] Start: 07-07-2024 End: 07-07-2024 ambulatory FANNIE MISTRY Not Available Start: 06-07-2024 End: 06-07-2024 ambulatory [facility] Work Phone: Start: 06-07-2024 End: 06-07-2024 Patient encounter procedure [facility] Physician [facility] Work Phone: Start: 05-10-2024 Non-patient / Non-visit [facility] Physician [facility] Work Phone: Start: 04-13-2024 End: 04-13-2024 ambulatory [facility] Work Phone: Start: 04-13-2024 End: 04-13-2024 Patient encounter procedure [facility] Physician [facility] Work Phone: Start: 02-17-2024 End: 02-17-2024 ambulatory [facility] Work Phone: Start: 02-17-2024 End: 02-17-2024 Patient encounter procedure [facility] Physician [facility] Work Phone: Start: 04-10-2023 End: 04-10-2023 ambulatory Boy Anna Other [employer] Other Start: 04-10-2023 Telephone encounter Boy Anna G [facility] Start: 04-09-2023 End: 04-09-2023 ambulatory Boy Anna Other [employer] Other Start: 04-09-2023 Telephone encounter Boy Leblanc [facility] Start: 04-04-2023 End: 04-04-2023 ambulatory Boy Anna Other [employer] [place] Other Start: 04-04-2023 Telephone encounter Boy Leblanc [facility] Start: 04-03-2023 End: 04-03-2023 ambulatory Boy Anna Other [employer] [place] Other Start: 04-03-2023 Patient encounter procedure Boy HONEYCUTT [facility] Start: 11-20-2021 End: 11-21-[address] NONE LISTED REQUEST Facility: Start: 03-19-2017 End: 03-20-2017 Ambulatory DARRICK WILLIS [facility] Procedures Date Procedure Procedure Detail Performing Clinician Start: 07-07-2024 Computerized ophthal cynthia imaging retina Fannie Mistry DO Work Phone: Start: 07-07-2024 End: 07-07-2024 Oph medical xm&eval compre new pt 1/> vst Superficial keratitis of both eyes Fannie Mistry DO Work Phone: Comment on above: Superficial keratiti s of both eyes (Primary Dx); 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 degeneration of both eyes; Age-related nuclear cataract of both eyes Plan of Treatment Date Care Activity Detail Author Start: 08-18-2024 End: 08-18-2024 Patient encounter procedure 08/18/2024 8:30 AM EST Office Visit [facility] [address] [place] [address] Fannie Mistry, [address] [place] [address] [facility] Start: 07-07-2024 End: 07-07-2024 Patient encounter procedure 07/07/2024 9:15 AM EDT Office Visit [facility] [address] [place] [address] Fannie Mistry, DO [address] [place] [address] Arrived [facility] Comment on above: Arrived Comprehensive metabo lic 1999 panel - Serum or Plasma [facility] MG Breast - bilatera l Screening [facility] Patient Education Low back pain in adults [facility] Work Phone: XR Hip - left 2 Views [facility] XR Lumbar spine Views [facility] Immunizations Immunization Date Immunization Notes Care Provider Fa cility 04-06-2019 diphtheria, tetanus toxoids and acellular pertussis vaccine, unspecified formulation [facility] Payers Date Payer Category Payer Self-pay 2023 Medicaid [employer] MED[employer]ARE A [employer]AGE [id number] 2023 Private Health Insurance [id number] 1958 Medicare [id number] 1958 Self-pay [id number] 1950 Unknown [id number] 1950 Unknown [id number] Unknown [id number] Unknown [id number] Social History Date Type Detail Facility Start: 07-07-2024 Sex Assigned At N [facility] Other Start: 04-02-2023 End: 07-07-2024 Tobacco smoking status NHIS Never smoked tobacco (finding) [facility] Start: 1950 Sex Assigned At Female [facility] Tobacco smoking status [facility] Tobacco smoking consumption unknown [facility] Start: 1950 Sex assigned at Not on file [facility] Start: 07-07-2024 Tobacco use and exposure Smokeless tobacco non-user [facility] Start: 07-07-2024 History of Social function [facility] Clinical Notes 04-03-2023 to 07-07-2024 Fannie Mistry, DO - 07/07/2024 9:15 AM EDT Note Date & Type Note Facility 07-07-2024 Note Right Eye Quality was good. Scan locations included subfoveal. Progression has been stable. Findings include normal observations. Left Eye Quality was good. Scan locations included subfoveal. Progression has been stable. Findings include subretinal scarring. Notes Good scan with normal appearance OD [facility] 07-07-2024 History of Presen t illness Narrative Images from the original note were not included. Assessment/Plan Diagnoses and all orders for this visit: Superficial keratitis of both eyes - Ms. Bustillo has an abundance of SEI left eye (OS) > right eye (OD) with left eye (OS) involving the central vision. I am unsure the source of these. She denies any recent URI Sx or pink eye occurrences. This may be long-standing or related to extensive contact lens (CL) usage. Begin Loteprednol both eyes (OU) TID and see back in 4 wks. Hold on contact lens (CL) until seen next. 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 degeneration of both eyes - ARMD OU, dry. Importance of smoking cessation, blood pressure control, and healthy diet were emphasized. Patient was advised to consider ultraviolet-B blocking sunglasses. In accordance with the AREDS study, appropriate antioxidant and mineral supplements were prescribed. Patient was instructed to self monitor their monocular vision (reading/Amsler Grid) at least weekly. Patient should immediately report any new onset of decreased vision or metamorphopsia. Age-related nuclear cataract of both eyes - Cataract, OU: Observe for now without intervention. The patient was advised to contact us if any change or worsening of vision - Will assess level of vision involvement after the cornea clears. I believe the asymmetry of the vision in order of source is age-related macular degeneration (ARMD) --> Keratitis ---> Cataract documented in this encounter [facility] 04-04-2023 Evaluation note Encounter Date Diagnosis Assessment Notes Mar, Right hip pain (ICD-10 - M25.551) [employer] Other 07-13-2023 Evaluation note* Encounter Date Diagnosis Assessment Notes Treatment Notes Treatment Clinical Notes Mar, Medicare annual wellness visit, subsequent [...] use, the patient reduces the risk for NE, CVA, HTN, cardiac dysrhythmias and sudden cardiac [...] diet, exercise, Ca and Vitamin D supplements [facility] Other Evaluation noteNo InformationNortWell[facility] Other Evaluation note* Diagnosis Onset Date Resolution Status Left hip pain acute Low back pain acute Lumbar spondylosis acute Obesity acute Primary osteoarthritis of left hip acute [facility] Work Phone: Evaluation note* Diagnosis Onset Date Resolution Status Left hip pain acute Low back pain acute Lumbar spondylosis acute Obesity acute Primary osteoarthritis of left hip acute Hypercholesterolemia acute Hypothyroidism acute Impaired fasting glucose acu te Metabolic dysfunction-associ ated steatotic liver disease (MASLD) acute ELIDA (obstructive sleep apnea) acute Screening for colon cancer a cute Medicare annual wellness visit, subsequent noneactive Screening mammogram for breast cancer noneactive [facility] Work Phone: Evaluation note* Diagnosis Onset Date Resolution Status Hypercholesterolemia acute Hypothyroidism acute Impaired fasting glucose acu te Metabolic dysfunction-associ ated steatotic liver disease (MASLD) acute ELIDA (obstructive sleep apnea) acute Screening for colon cancer a cute Medicare annual wellness visit, subsequent noneactive Screening mammogram for breast cancer noneactive Left hip pain acute Low back pain acute Lumbar spondylosis acute Obesity acute [facility] Work Phone: Evaluation note* Diagnosis Superficial keratitis of both eyes- Primary 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 degeneration of both eyes Age-related nuclear cataract of both eyes [facility] encounter [facility] N[facility]ative - Reported* Type Description Date Medical History hypothyroidism Medical History arthritis Medical History Hypothyroidism Medical History Vitamin D deficiency Medical History Obesity (BMI 30.0-34.9) Medical History Other specified hypothyroidism Medical History Autoimmune thyroiditis Medical History Obstructive sleep apnea Medical History NAFLD (nonalcoholic fatty liver disease) Surgical History appendectomy 1963 Surgical History cyst removed from ovary Surgical History rt elbow surgery Hospitalization History SEE ABOVE SURGERY [facility] Other History general [facility]ative - [facility] Other Summary Purpose Family History No Family History Records Found Relationship Condition Age at Onset Recorded Date/T [...] history of mental disorder Unknown Advance Directives No Advanced Directives Records Found Advance Directive Response Recorded Date/ Time Advance Directives No January 14 11:56am Chief Complaint and Reason for Visit [...] visit, subsequent Screening mammogram for breast cancer Chief Complaint Wellness discuss MRI Reason for Visit Hypercholesterolemia Hypothyroidism Impaired fasting glucose Metabolic dysfunction-associated steatotic liver disease (MASLD) LEIDA (obstructive sleep apnea) Screening for colon cancer Medicare annual wellness visit, subsequent Screening mammogram for breast cancer Left hip pain Low back pain Lumbar spondylosis Obesity Additional Source Comments INFORMATION SOURCE (unrecogn ized section and content) DATE CREATED AUTHOR 03/18/2018 [facility] DATE CREATED AUTHOR AUTHOR'S ORGANIZ ATION 11/21/2021 [facility] DATE CREATED AUTHOR AUTHOR'S ORGANIZ ATION 07/09/2024 [facility] DATE CREATED AUTHOR AUTHOR'S ORGANIZ ATION 08/03/2024 [facility] REASON FOR VISIT (unrecogniz ed section and content) Reason Comments Cataract Care Teams (unrecognized sec tion and content) Team Status: Active Member Role Status Dates Boy Anna , DO Primary Care Provider Active Team Status: Inactive Member Role Status Dates Boy Anna , DO Primary Care Provide r, Attending Provider Active Start: February 17, 2024 End: February 17, 2024 Team Status: Inactive Member Role Status Dates Boy Anna , DO Primary Care Provide r, Attending Provider Active Start: April 13, 2024 End: April 13, 2024 Team Status: Active Member Role Status Dates Boy Anna , DO Primary Care Provide r, Attending Provider Active Start: May 10, 2024 Team Status: Inactive Member Role Status Dates Boy Anna , DO Primary Care Provide r, Attending Provider Active Start: June 07, 2024 End: June 07, 2024 Goals (unrecognized section and content) Goals [...] ON THE PRIMARY CLINICAL RECORDS. [facility]. provides no warranty or guarantee of the accuracy or completeness of information in this document.
== END 2024-08-06 09:43 | disposition home or self-care (01) ==
LOC: MRI 09:42
PROVIDERS: PCP Internal Medicine; Visit Provider Internal Medicine
DX: M47.816 Spondylosis without myelopathy or radiculopathy, lumbar region (principal); M54.50 Low back pain, unspecified; M51.369 Other intervertebral disc degeneration, lumbar region without mention of lumbar back pain or lower extremity pain
CPT/HCPCS: 72148

== ENCOUNTER 2024-08-16 12:06 | Outpatient (OUT) | payer MEDICARE, SELFPAY ==
--- OUTSIDE RECORDS SUMMARY | 2024-08-16 12:31 | XMS_ITS | CCD ---
Author Organization [facility] Care Team Providers Care Crystallizer Operator Name Role Phone WILLIS, DARRICK P Unavailable Unavailable WILLIS, DARRICK P Unavailable Unavailable WILLIS, DARRICK P Unavailable Unavailable REQUEST, DR JANE LISTED Attending Unavaila ble REQUEST, DR JANE LISTED Admitting Unavaila ble REQUEST, DR JANE LISTED Consulting Unavaila ble BALL, DR TADEO Admitting Unavailable BALL, DR TADEO Consulting Unavailable WILFRIDO, DR TADEO Attending Boy Peck Unavailable Unavailable Primary Care Provider FANNIE Harper Attending Unavailable BART CRUZ Referring Unavailable Boy Anna DO Primary Care Provider [phone] Boy Anna DO Attending Provider Boy Anna Attending Boy Peck Primary Care Unavailable Boy Anna Admitting Unavailable Allergies Allergy Classification Reported Allergen(s) Allergy Type Date of Onset Reaction(s) Facility (5 sources) Cephalexin Drug Allergy 06-07-2024 Unknown [facility] Work Phone: (1 source) Cephalexin Drug Allergy 06-07-2024 [facility] Repository Medications Current Medications Medication Drug Class(es) Dates Sig (Normalized) Sig (Original) 0.25 MG, 0.5 MG Dose 3 ML semaglutide 0.68 MG/ML Pen Injector [Ozempic] (4 sources) Start: 04-03-2023 Start: 04-03-2023 Ozempic (0.25 or 0.5 MG/DOSE) 2 MG/3ML 0.25mg Subcutaneous weekly for 28 days Mar, Active calcium carbonate 1250 mg / cholecalciferol 500 unt / vitamin k1 0.04 mg chewable tablet (4 sources) Vitamin D, Warfarin Reversal Agent, Vitamin K Start: 02-13-2024 take 1 tablet by mouth once daily Calcium-Vitamin D3-Vitamin K 500-500-40 mg-unit-mcg tablet,chewable Active 1 TAB PO Daily February 12, 2024 11:00pm diazePAM 5 mg oral tablet (4 sources) Benzodiazepine Start: 11-19-2023 take 2.5 mg by mouth every six hours as needed Diazepam 5 mg tablet Active 2.5 MG PO Every 6 hours as needed for vertigo November 19, 2023 12:00am Start: 11-19-2023 take 2.5 mg by mouth every six hours Diazepam Active 2.5 MG PO Every 6 hours November 19, 2023 1:00am levothyroxine sodium 0.112 mg oral tablet (9 sources) l-Thyroxine Start: 02-13-2024 take 1 tablet by mouth once daily, then take 0.5 tablet by mouth once Levothyroxine 112 mcg tablet Active 112 MCG PO Daily February 12, 2024 11:00pm EXCEPT INSTRUCTED TO TAKE ONE AND ONE-HALF TABLETS EVERY FRIDAY loteprednol etabonate 5 mg/ml ophthalmic suspension (1 [...] Orally Not-Taking etodolac 500 mg oral tablet (4 sources) Nonsteroidal Anti-inflammatory Drug Start: 02-17-2024 End: 04-13-2024 take 1 tablet by mouth twice daily Etodolac 500 mg tablet Discontinued 500 MG PO Twice daily 30 February 16, 2024 11:00pm April 13, 2024 8:30am Fish Oils (4 sources) take 1 capsule by mouth once micah ly Fish Oil 1000 MG 1 capsule Orally Once a day Not-Taking meloxicam 7.5 mg oral tablet (4 sources) Nonsteroidal Anti-inflammatory Drug take 1 tablet by mouth every twelve hours Semaglutide (4 sources) Start: 02-13-20 End: 04-13-20 Semaglutide (Ozempic) 0.25 mg or 0.5 mg (2 mg/3 mL) pen injector Discontinued 0.25 MG SUBCUT every week February 12, 2024 11:00pm April 13, 2024 8:30am Start: 02-13-2024 End: 04-13-2024 Semaglutide (Ozempic) 0.25 m g or 0.5 mg (2 mg/3 mL) pen [...] 07-07-2024 07-07-2024 Chronic Coagulation and hemorrhagic disorders (3 sources) Thrombocytopenia, unspecified; Translations: [Thrombocytopenic disorder] Onset: 03-19-2017 05-10-2024 Chronic Conditions associated with dizziness or vertigo (4 sources) Benign paroxysmal positional vertigo; Translations: [Benign paroxysmal vertigo, unspecified ear] 11-19-2023 Episodic Diabetes mellitus without complication (6 sources) Impaired fasting glucose; Translations: [Impaired fasting glycemia] Episodic Diseases of white blood cells (2 sources) Leukopenia; Translations: [Decreased white blood cell count, unspecified] 05-10-2024 Chronic Disorders of lipid metabolism (10 sources) Hypercholesterolemia; Translations: [Pure hypercholesterolemia, unspecified] Chronic Inflammation; infection of eye (except that caused by tuberculosis or sexually transmitteddisease) (2 sources) Bilateral superficial keratitis; Translations: [Unspecified superficial keratitis, bilateral] Onset: 07-07-2024 07-07-2024 Episodic Nutritional deficiencies (8 sources) Vitamin D deficiency; Translations: [Vitamin D deficiency, unspecified] 02-13-2024 Chronic Osteoarthritis (6 sources) Osteoarthritis of left hip joint; Translations: [Unilateral primary osteoarthritis, left hip] 02-17-2024 Chronic Other liver diseases (11 sources) Fatty (change of) liver, not elsewhere classified; Translations: [Other chronic nonalcoholic liver disease] Onset: 11-20-2021 Chronic Other liver diseases (3 sources) Steatosis of liver; Translations: [Fatty (change [...] right hip Episodic Other non-traumatic joint disorders (4 sources) Hip pain; Translations: [Pain in left hip] 02-17-2024 Episodic Other non-traumatic joint disorders (3 sources) Pain in left hip; Translations: [Pain in joint, pelvic region and thigh] 02-17-2024 Episodic Other nutritional; endocrine; and metabolic disorders (8 sources) Obesity; Translations: [Obesity, unspecified] 02-17-2024 Chronic Other nutritional; endocrine; and metabolic disorders (4 sources) Obesity, unspecified; Translations: [Obesity, unspecified] 02-17-2024 Chronic Other screening for suspected conditions (not mental disorders or infectious disease) (12 sources) Patient encounter status; Translations: [Encounter for screening mammogram for malignant neoplasm of breast] Episodic Residual codes; unclassified (7 sources) Obstructive sleep apnea syndrome; Translations: [Obstructive sleep apnea (adult) (pediatric)] 04-11-2024 Chronic Residual codes; unclassified (3 sources) Obstructive sleep apnea (adult) (pediatric); Translations: [Obstructive sleep apnea (adult)(pediatric)] Chronic Retinal detachments; defects; vascular occlusion; and retinopathy (2 sources) Nonexudative age-related macular degeneration; Translations: [Nonexudative age-related macular degeneration, bilateral, early dry stage] Onset: 07-07-2024 07-07-2024 Chronic Spondylosis; intervertebral disc disorders; other back problems (8 sources) Lumbar spondylosis; Translations: [Spondylosis without myelopathy or radiculopathy, lumbar region] 02-17-2024 Chronic Spondylosis; intervertebral disc disorders; other back problems (8 sources) Low back pain; Translations: [Low back pain] 02-17-2024 Episodic Thyroid disorders (19 sources) Autoimmune thyroiditis; Translations: [Autoimmune thyroiditis] Chronic Results Test Name Value Interpretation Reference Range Facility Basophils Auto (Bld) [#/Vol] on 08-02-2024 Basophils (Bld) [#/Vol] Automated basophil count 0.0-0.1 [facility] Basophils/100 WBC Auto (Bld) on 08-02-2024 Basophils/100 WBC (Bld) Automated basophil % 0.2-2.0 [facility] Eosinophils/100 WBC Auto (Bl d)on 08-02-2024 Eosinophils/100 WBC (Bld) Automated eosinophil % 0.9-7.0 [facility] Erythrocyte distribution wid th Auto (RBC) [Ratio]on 08-02-2024 Erythrocyte distribution width (RBC) [Ratio] Erythrocyte distribution width [Ratio] by Automated count .0-15.0 [facility] Hematocrit Auto (Bld) [Volum e fraction]on 08-02-2024 Hematocrit (Bld) [Volume fraction] Hematocrit [Volume Fraction] of Blood by Automated count 36.0-48.0 [facility] Hemoglobin [Mass/volume] in Bloodon 08-02-2024 Hemoglobin (Bld) [Mass/Vol] Hemoglobin [Mass/volume] in Blood 12.0-16.0 [facility] Ramin 08-02-2024 L ------- Specimen: [id number] Received: 08/03/24 Status: JOSE Arnold Num: [id number] Spec Type: Impression Subm Dr: Boy Anna DO Tissues: PATHPER Procedures: PATHREVIEW Age/ Patient Sex Location Account Attending Physician Annabelle Bustillo 74/F [place] [id number] Boy Anna DO SPEC NUM: [id number] RECD: 08/03/24 STATUS: CONCEPCIÓNAnnemarie BARRETT NUM: [id number] ZEHRA: 08/02/24- SUBM DR: Boy Anna DO ENTERED: 08/03/[address]: Zhane Alvarez SPEC TYPE: Impression DEPT: RHODA Garza ENTERED BY: [id number] RECV BY: [id number] ORDERED: PATHREVIEW ORDERED: PATHREVIEW Pathologist Review Abnormal CBC for peripheral blood smear review: -Mild thrombocytopenia -Occasional large platelets -Mild lymphocytopenia -Minor toxic change of the segments -Borderline macrocytosis -No other obvious morphological abnormality of the leukocyte population Comment: -The cause of the isolated thrombocytopenia in this elderly adult female patient is not clear, but, in general, is usually due to chronic ITP. -Chronic liver disease can have mild thrombocytopenia from peripheral sequestration due to hepatosplenomegaly, and are usually above 100K. -Nonneoplastic thrombocytopenic disorders in adult patient can be due to immune thrombocytopenia, DIC, TTP, systemic infection, bone marrow suppression, bone marrow effacement/fibrosis, immunoregulatory defects, posttransfusion purpura, heparin-induced thrombocytopenia, aplastic anemia, hypersplenism, PNH, and sevilla platelet syndrome. -ITP can be primary or secondary, and is more common in patient > 60 years -Secondary ITP can be associated with collagen vascular disease, lymphoid neoplasm, chronic infection, DIC, HUS, thermal injury, and turbulent blood flow condition. -Other heparin and/or drug-induced thrombocytopenia also can occasionally be encountered clinically. -The cause of the isolated thrombocytopenia in this elderly female patient is not clear at Specimen: [id number] Received: 08/03/24 Status: JOSE Barrett Num: [id number] Spec Type: Impression Subm Dr: Boy Anna DO Tissues: PATHJULIETTE Procedures: PATHREVIEW Patient: Annabelle Bustillo [id number] (Continued) Specimen: [id number] Received: 08/03/24 (Continued) Pathologist Review (Continued) Signed (signature on file) Reinier Contreras MD 08/08/24 1726 Specimen: [id number] Received: 08/03/24 Status: JOSE Barrett Num: [id number] Spec Type: Impression Subm Dr: Boy Anna DO Tissues: PATHPER Procedures: PATHREVIEW Patient: Annabelle Bustillo [id number] (Continued) Specimen: [id number] Received: 08/03/24 (Continued) Pathologist Review (Continued) this time, and requiring continuous clinical correlation and hematology consultation -The cause of mild lymphocytopenia is usually due to immunocompromise, including radiation or chemotherapy induced BM suppression, or corticosteroid associated lymphocytopenia if patient do not have H/O malignancy. Other possibility may include collagen vascular disease such as SLE, or HIV infection, also requiring clinical correlation CPT: 31048 Specimen: [id number] Received: 08/03/24 Status: JOSE Barrett Num: [id number] Spec Type: Impression Subm Dr: Boy Anna DO Tissues: PATHPER Procedures: PATHREVIEW Patient: Annabelle Bustillo [id number] (Continued) Signed (signature on file) Reinier Contreras MD 08/08/24 1726 Normal [facility] Laboratory - Hematology and Cell countson 08-02-2024 Immature granulocytes/100 WBC (Bld) 0.6 % High 0.0-0.5 [facility] Leukocytes [#/volume] correc winter for nucleated erythrocytes in Blood by Automated counon 08-02-2024 WBC corrected for nucl RBC Auto (Bld) [#/Vol] Leukocytes [#/volume] corrected for nucleated erythrocytes in Blood by Automated coun 4.0-11.0 [facility] Lymphocytes Auto (Bld) [#/Vo l]on 08-02-2024 Lymphocytes (Bld) [#/Vol] Lymphocytes [#/volume] in Blood by Automated count Low 1.2-3.8 [facility] Lymphocytes/100 WBC Auto (Bl d)on 08-02-2024 Lymphocytes/100 WBC (Bld) Lymphocytes/100 leukocytes in Blood by Automated count Low 20.5-60.0 [facility] MCH Auto (RBC) [Entitic mass ]on 08-02-2024 MCH (RBC) [Entitic mass] MCH [Entitic mass] by Automated count 26.7-34.0 [facility] MCHC Auto (RBC) [Mass/Vol]on 08-02-2024 MCHC (RBC) [Mass/Vol] MCHC [Mass/volume] by Automated count 29.9-35.2 [facility] MCV Auto (RBC) [Entitic vol] on 08-02-2024 MCV (RBC) [Entitic vol] MCV [Entitic volume] by Automated count High 81.0-99.0 [facility] Monocytes Auto (Bld) [#/Vol] on 08-02-2024 Monocytes (Bld) [#/Vol] Automated blood monocyte count 0.3-0.8 [facility] Monocytes/100 WBC Auto (Bld) on 08-02-2024 Monocytes/100 WBC (Bld) Automated monocyte % 1.7-12.0 [facility] Neutrophils Auto (Bld) [#/Vo l]on 08-02-2024 Neutrophils (Bld) [#/Vol] Neutrophils [#/volume] in Blood by Automated count 1.4-6.5 [facility] Neutrophils/100 WBC Auto (Bl d)on 08-02-2024 Neutrophils/100 WBC (Bld) Automated neutrophil % High 43.0-75.0 [facility] No Panel Informationon 08-02 Eosinophils # (Auto) 0.2 10 3/uL 0.0-0.7 [facility] Immature Granulocyte # (Auto) 0.04 10 3/uL High 0.00-0.03 [facility] Platelet mean volume Auto (B ld) [Entitic vol]on 08-02-2024 Platelet mean volume (Bld) [Entitic vol] Platelet mean volume [Entitic volume] in Blood by Automated count 9.5-13.5 [facility] Platelets Auto (Bld) [#/Vol] on 08-02-2024 Platelets (Bld) [#/Vol] Platelets [#/volume] in Blood by Automated count Low 150-450 [facility] RBC Auto (Bld) [#/Vol]on RBC (Bld) [#/Vol] Erythrocytes [#/volu me] in Blood by Automated count Low 4.20-5.40 [facility] Optical coherence tomography study reporton 07-07-2024 [facility] Radiology Study observation (narrative) [facility] Basophils Auto (Bld) [#/Vol] on 05-10-2024 Basophils (Bld) [#/Vol] 0.0 10 3/uL 0.0-0.1 [facility] Basophils (Bld) [#/Vol] Automated basophil count 0.0-0.1 [facility] Basophils/100 WBC Auto (Bld) on 05-10-2024 Basophils/100 WBC (Bld) 1.0 % 0.2-2.0 [facility] Basophils/100 WBC (Bld) Automated basophil % 0.2-2.0 [facility] Cholesterol in LDL Calc [Mas s/Vol]on 05-10-2024 Cholesterol in LDL [Mass/Vol] 68.2 mg/dL [facility] Comment on above: <100 mg/dl [id number] 0-129 mg/dl NEAR OR ABOVE [id number] mg/dl BORDERLINE [id number] mg/dl HIGH>190 mg/dl VERY HIGH Cholesterol in LDL [Mass/Vol] Cholesterol in LDL [Mass/volume] in Serum or Plasma by calculation [facility] Comment on above: <100 mg/dl [id number] 0-129 mg/dl NEAR OR ABOVE [id number] mg/dl BORDERLINE [id number] mg/dl HIGH>190 mg/dl VERY HIGH Cholesterol in VLDL Calc [Ma ss/Vol]on 05-10-2024 Cholesterol in VLDL [Mass/Vol] 10.8 mg/dL [facility] Cholesterol in VLDL [Mass/Vol] Cholesterol in VLDL [Mass/volume] in Serum or Plasma by calculation [facility] Eosinophils/100 WBC Auto (Bl d)on 05-10-2024 Eosinophils/100 WBC (Bld) 3.8 % 0.9-7.0 [facility] Eosinophils/100 WBC (Bld) Automated eosinophil % 0.9-7.0 [facility] Erythrocyte distribution wid th Auto (RBC) [Ratio]on 05-10-2024 Erythrocyte distribution width (RBC) [Ratio] 13.2 % 11.0-15.0 [facility] Erythrocyte distribution width (RBC) [Ratio] Erythrocyte distribution width [Ratio] by Automated count 11.0-15.0 [facility] Estimated glomerular filtrat ion rate (GFR) non- Americanon 05-10-2024 GFR/1.73 sq M.predicted among non-blacks MDRD (S/P/Bld) [Vol rate/Area] mL/min/{1.73_m2} >=60 [facility] GFR/1.73 sq M.predicted among non-blacks MDRD (S/P/Bld) [Vol rate/Area] Estimated glomerular filtration rate (GFR) non- >=60 [facility] Globulin Calc (S) [Mass/Vol] on 05-10-2024 Globulin (S) [Mass/Vol] 3.6 g/dL [facility] Globulin (S) [Mass/Vol] Serum globulin measurement by calculation (mass/volume) [facility] Glucose mean value [Mass/vol ume] in Blood Estimated from glycated hemoglobinon 05-10-2024 Average glucose Estimated from glycated hemoglobin (Bld) [Mass/Vol] 103 mg/dL [facility] Average glucose Estimated from glycated hemoglobin (Bld) [Mass/Vol] Glucose mean value [Mass/volume] in Blood Estimated from glycated hemoglobin [facility] Hematocrit Auto (Bld) [Volum e fraction]on 05-10-2024 Hematocrit (Bld) [Volume fraction] 37.9 % 36.0-48.0 [facility] Hematocrit (Bld) [Volume fraction] Hematocrit [Volume Fraction] of Blood by Automated count 36.0-48.0 [facility] Hemoglobin [Mass/volume] in Bloodon 05-10-2024 Hemoglobin (Bld) [Mass/Vol] 12.7 g/dL 12.0-16.0 [facility] Hemoglobin (Bld) [Mass/Vol] Hemoglobin [Mass/volume] in Blood 12.0-16.0 [facility] Laboratory - Chemistry and C hemistry - challengeon 05-10-2024 Albumin [Mass/Vol] 3.2 g/dL Low 3.4-5.0 [facility] ALP [Catalytic activity/Vol] 79 U/L 46-116 [facility] ALT [Catalytic activity/Vol] 19 U/L 14-59 [facility] AST [Catalytic activity/Vol] 15 U/L 15-37 [facility] Bilirubin [Mass/Vol] 0.7 mg/dL 0.2-1.0 [facility] Calcium [Mass/Vol] 9.0 mg/dL 8.5-10.1 [facility] Chloride [Moles/Vol] 105 mmol/L 98-107 [facility] Cholesterol [Mass/Vol] 139 mg/dL <=200 [facility] Cholesterol in HDL [Mass/Vol] 60 mg/dL 40-60 [facility] Comment on above: > or =60 mg/dl - LOW CARDIOVASCULAR RISK<40 mg/dl - HIGH CARDIOVASCULAR RISK CO2 [Moles/Vol] 28.5 mmol/L 21.0-32.0 [facility] Creatinine [Mass/Vol] 0.77 mg/dL 0.55-1.02 [facility] GFR/1.73 sq M.predicted MDRD (S/P/Bld) [Vol rate/Area] mL/min/{1.73_m2} >=60 [facility] Glucose [Mass/Vol] 95 mg/dL 74-106 [facility] Potassium [Moles/Vol] 3.7 mmol/L 3.5-5.1 [facility] Protein [Mass/Vol] 6.8 g/dL 6.4-8.2 [facility] Sodium [Moles/Vol] 141 mmol/L 136-145 [facility] Triglyceride [Mass/Vol] 54 mg/dL <=150 [facility] TSH Qn 0.967 m[IU]/L 0.358-3.740 [facility] Urea nitrogen [Mass/Vol] 14.0 mg/dL 7.0-18.0 [facility] Urea nitrogen/Creatinine [Mass ratio] 18.2 mg/mg [facility] Laboratory - Hematology and Cell countson 05-10-2024 HbA1c (Bld) [Mass fraction] 5.2 % 4.5-6.2 [facility] Comment on above: ADA RECOMMENDED LIMI T 4.0 - 6.0ADA THERAPEUTIC TARGET < 7.0ACTION SUGGESTED> 7.0 Immature granulocytes/100 WBC (Bld) 0.5 % 0.0-0.5 [facility] Leukocytes [#/volume] correc winter for nucleated erythrocytes in Blood by Automated counon 05-10-2024 WBC corrected for nucl RBC Auto (Bld) [#/Vol] 3.9 10 3/uL Low 4.0-11.0 [facility] WBC corrected for nucl RBC Auto (Bld) [#/Vol] Leukocytes [#/volume] corrected for nucleated erythrocytes in Blood by Automated coun Low 4.0-11.0 [facility] Lymphocytes Auto (Bld) [#/Vo l]on 05-10-2024 Lymphocytes (Bld) [#/Vol] 0.8 10 3/uL Low 1.2-3.8 [facility] Lymphocytes (Bld) [#/Vol] Lymphocytes [#/volume] in Blood by Automated count Low 1.2-3.8 [facility] Lymphocytes/100 WBC Auto (Bl d)on 05-10-2024 Lymphocytes/100 WBC (Bld) 20.2 % Low 20.5-60.0 [facility] Lymphocytes/100 WBC (Bld) Lymphocytes/100 leukocytes in Blood by Automated count Low 20.5-60.0 [facility] MCH Auto (RBC) [Entitic mass ]on 05-10-2024 MCH (RBC) [Entitic mass] 33.2 pg 26.7-34.0 [facility] MCH (RBC) [Entitic mass] MCH [Entitic mass] by Automated count 26.7-34.0 [facility] MCHC Auto (RBC) [Mass/Vol]on 05-10-2024 MCHC (RBC) [Mass/Vol] 33.5 g/dL 29.9-35.2 [facility] MCHC (RBC) [Mass/Vol] MCHC [Mass/volume] by Automated count 29.9-35.2 [facility] MCV Auto (RBC) [Entitic vol] on 05-10-2024 MCV (RBC) [Entitic vol] 99.2 fL High 81.0-99.0 [facility] MCV (RBC) [Entitic vol] MCV [Entitic volume] by Automated count High 81.0-99.0 [facility] Monocytes Auto (Bld) [#/Vol] on 05-10-2024 Monocytes (Bld) [#/Vol] 0.2 10 3/uL Low 0.3-0.8 [facility] Monocytes (Bld) [#/Vol] Automated blood monocyte count Low 0.3-0.8 [facility] Monocytes/100 WBC Auto (Bld) on 05-10-2024 Monocytes/100 WBC (Bld) 5.1 % 1.7-12.0 [facility] Monocytes/100 WBC (Bld) Automated monocyte % 1.7-12.0 [facility] Neutrophils Auto (Bld) [#/Vo l]on 05-10-2024 Neutrophils (Bld) [#/Vol] 2.7 10 3/uL 1.4-6.5 [facility] Neutrophils (Bld) [#/Vol] Neutrophils [#/volume] in Blood by Automated count 1.4-6.5 [facility] Neutrophils/100 WBC Auto (Bl d)on 05-10-2024 Neutrophils/100 WBC (Bld) 69.4 % 43.0-75.0 [facility] Neutrophils/100 WBC (Bld) Automated neutrophil % 43.0-75.0 [facility] No Panel Informationon 05-10 Eosinophils # (Auto) 0.2 10 3/uL 0.0-0.7 [facility] Immature Granulocyte # (Auto) 0.02 10 3/uL 0.00-0.03 [facility] Platelet mean volume Auto (B ld) [Entitic vol]on 05-10-2024 Platelet mean volume (Bld) [Entitic vol] 12.7 fL 9.5-13.5 [facility] Platelet mean volume (Bld) [Entitic vol] Platelet mean volume [Entitic volume] in Blood by Automated count 9.5-13.5 [facility] Platelets Auto (Bld) [#/Vol] on 05-10-2024 Platelets (Bld) [#/Vol] 110 10 3/uL Low 150-450 [facility] Platelets (Bld) [#/Vol] Platelets [#/volume] in Blood by Automated count Low 150-450 [facility] RBC Auto (Bld) [#/Vol]on RBC (Bld) [#/Vol] 3.82 10 6/uL Low 4.20-5.40 [facility] RBC (Bld) [#/Vol] Erythrocytes [#/volu me] in Blood by Automated count Low 4.20-5.40 [facility] Serum or plasma albumin/glob ulin mass ratioon 05-10-2024 Albumin/Globulin [Mass ratio] 0.9 {ratio} [facility] Albumin/Globulin [Mass ratio] Serum or plasma albumin/globulin mass ratio [facility] Serum or plasma anion gap de terminationon 05-10-2024 Anion gap [Moles/Vol] 11.2 mmol/L [facility] Anion gap [Moles/Vol] Serum or plasma anion gap determination [facility] Serum or plasma total choles terol/high density lipoprotein (HDL) cholesterol mass jovanny 05-10-2024 Cholesterol.total/C holesterol in HDL [Mass ratio] 2.3 {ratio} [facility] Comment on above: 3.3 - 4.4 LOW RISK4. 4 - 7.1 AVERAGE RISK7.1 - 11.0 MODERATE RISK>11.0 HIGH RISK Cholesterol.total/C holesterol in HDL [Mass ratio] Serum or plasma total cholesterol/high density lipoprotein (HDL) cholesterol mass rat [facility] Comment on above: 3.3 - 4.4 LOW RISK4. 4 - 7.1 AVERAGE RISK7.1 - 11.0 MODERATE RISK>11.0 HIGH RISK CBC AUTO DIFFon 11-20-2021 BASO # 0.0 103/ul Normal 0.0-0.1 [facility] Comment on above: Performed By: #### D ATCBC #### [facility] [address] [place] [address] Dr. Tatiana Contreras Basophils/100 WBC (Bld) 0.6 % Normal 0.2-2.0 [facility] Comment on above: Performed By: #### D ATCBC #### [facility] [address] [place] [address] Dr. Tatiana Contreras EO # 0.2 103/ul Normal 0.0-0.7 [facility] Comment on above: Performed By: #### D ATCBC #### [facility] [address] [place] [address] Dr. Tatiana Contreras Eosinophils/100 WBC (Bld) 5.2 % Normal 0.9-7.0 [facility] Comment on above: Performed By: #### D ATCBC #### [facility] [address] [place] [address] Dr. Tatiana Contreras Erythrocyte distribution width (RBC) [Ratio] 13.8 % Normal 11.0-15.0 [facility] Comment on above: Performed By: #### D ATCBC #### [facility] [address] [place] [address] Dr. Tatiana Contreras Hematocrit (Bld) [Volume fraction] 41.7 % Normal 36.0-48.0 [facility] Comment on above: Performed By: #### D ATCBC #### [facility] [address] [place] [address] Dr. Tatiana Contreras Hemoglobin (Bld) [Mass/Vol] 13.7 g/dL Normal 12.0-16.0 [facility] Comment on above: Performed By: #### D ATCBC #### [facility] [address] [address] [address] Tatiana Contreras IG # 0.02 10e3/ul Normal 0.00-0.03 [facility] Comment on above: Performed By: #### D ATCBC #### [facility] [address] [place] [address] Dr. Tatiana Contreras IG % 0.4 % Normal 0.0-0.5 [facility] Comment on above: Performed By: #### D ATCBC #### [facility] [address] [place] [address] Dr. Tatiana Contreras LYMPH # 0.7 103/ul Critically low 1.2-3.8 [facility] Comment on above: Performed By: #### D ATCBC #### [facility] [address] [place] [address] Dr. Tatiana Contreras Lymphocytes/100 WBC (Bld) 15.6 % Critically low 20.5-60.0 [facility] Comment on above: Performed By: #### D ATCBC #### [facility] [address] [place] [address] Dr. Tatiana Contreras MCH (RBC) [Entitic mass] 31.4 pg Normal 26.7-34.0 [facility] Comment on above: Performed By: #### D ATCBC #### [facility] [address] [place] [address] Dr. Tatiana Contreras MCHC (RBC) [Mass/Vol] 32.9 g/dL Normal 29.9-35.2 [facility] Comment on above: Performed By: #### D ATCBC #### [facility] [address] [place] [address] Dr. Tatiana Contreras MCV (RBC) [Entitic vol] 95.6 fL Normal 81.0-99.0 [facility] Comment on above: Performed By: #### D ATCBC #### [facility] [address] [place] [address] Dr. Tatiana Contreras MONO # 0.3 103/ul Normal 0.3-0.8 [facility] Comment on above: Performed By: #### D ATCBC #### [facility] [address] [place] [address] Dr. Tatiana Contreras Monocytes/100 WBC (Bld) 5.8 % Normal 1.7-12.0 [facility] Comment on above: Performed By: #### D ATCBC #### [facility] [address] [place] [address] Dr. Tatiana Contreras NEUT # 3.4 103/ul Normal 1.4-6.5 [facility] Comment on above: Performed By: #### D ATCBC #### [facility] [address] [place] [address] Dr. Tatiana Contreras Neutrophils/100 WBC (Bld) 72.4 % Normal 43.0-75.0 [facility] Comment on above: Performed By: #### D ATCBC #### [facility] [address] [place] [address] Dr. Tatiana Contreras Platelet mean volume (Bld) [Entitic vol] 12.4 fL Normal 9.5-13.5 [facility] Comment on above: Performed By: #### D ATCBC #### [facility] [address] [place] [address] Dr. Tatiana Contreras PLT 109 103/ul Critically low 150-[address] [facility] Comment on above: Performed By: #### D ATCBC #### [facility] [address] [place] [address] Dr. Tatiana Contreras RBC 4.36 106/ul Normal 4.20-5.40 [facility] Comment on above: Performed By: #### D ATCBC #### [facility] [address] [place] [address] Dr. Tatiana Contreras WBC 4.6 103/ul Normal 4.0-11.0 [facility] Comment on above: Performed By: #### D ATCBC #### [facility] [address] [place] [address] Dr. Tatiana Contreras ADALID - TSHon 11-20-2021 TSH 1.795 uIU/mL Normal 0.470-4.680 [facility] Comment on above: Performed By: #### D ATTSH DATBMP #### [facility] [address] [place] [address] Dr. Tatiana Contreras TSH RANGE SEE BELOW Normal [facility] Comment on above: Result Comment: <0.3 4 UIU/ml HYPERTHYROID 0.34-5.60 UIU/ml EUTHYROID >5.60 UIU/ml HYPOTHYROID Performed By: #### D ATTMIKIE DATBMP #### [facility] [address] [place] [address] Dr. Tatiana Contreras ADALID- BMP WITH LIPIDon 2021 Anion gap [Moles/Vol] 9.3 mmol/L Normal [facility] Comment on above: Performed By: #### D ATTSH DATBMP #### [facility] [address] [place] [address] Dr. Tatiana Contreras Calcium [Mass/Vol] 8.7 mg/dL Normal 8.4-10.2 [facility] Comment on above: Performed By: #### D ATTSH DATBMP #### [facility] [address] [place] [address] Dr. Tatiana Contreras Chloride [Moles/Vol] 103 mmol/L Normal 98-107 [facility] Comment on above: Performed By: #### D ATTSH, DATBMP #### [facility] [address] [place] [address] Dr. Tatiana Contreras Cholesterol [Mass/Vol] 123 mg/dL Normal <=200 [facility] Comment on above: Performed By: #### D ATTSH, DATBMP #### [facility] [address] [place] [address] Dr. Tatiana Contreras Cholesterol in HDL [Mass/Vol] 64 mg/dL Normal [facility] Comment on above: Performed By: #### D ATTMIKIE DATBMP #### [facility] [address] [address] [address] Tatiana Contreras Cholesterol in LDL [Mass/Vol] 50.0 mg/dL Normal [facility] Comment on above: Performed By: #### D ATTMIKIE DATBMP #### [facility] [address] [address] [address] Tatiana Contreras CO2 [Moles/Vol] 29.7 mmol/L Normal 22.0-30.0 [facility] Comment on above: Performed By: #### D ATTMIKIE DATBMP #### [facility] [address] [place] [address] Dr. Tatiana Contreras Creatinine [Mass/Vol] 0.88 mg/dL Normal 0.52-1.04 [facility] Comment on above: Performed By: #### D STAR DATBMP #### [facility] [address] [place] [address] Dr. Tatiana Contreras EGFR-AF GABONESE >60 Normal >=60 [facility] Comment on above: Performed By: #### D STAR DATBMP #### [facility] [address] [place] [address] Dr. Tatiana Contreras EGFR-NON AF GABONESE >60 Normal >=60 [facility] Comment on above: Performed By: #### D STAR DATBMP #### [facility] [address] [address] [address] Tatiana Contreras Glucose [Mass/Vol] 101 mg/dL Normal 74-106 [facility] Comment on above: Performed By: #### D ATTMIKIE DATBMP #### [facility] [address] [place] [address] Dr. Tatiana Contreras HDL NORMAL > or = 60 mg/dl - LO W CARDIOVASCULAR RISK <40 mg/dl - HIGH CARDIOVASCULAR RISK Normal [facility] Comment on above: Performed By: #### D ATTSH DATBMP #### [facility] [address] [place] [address] Dr. Tatiana Contreras LDL CALC NORMAL SEE BELOW Normal [facility] Comment on above: Result Comment: <100 mg/dl OPTIMAL 100 - 129 mg/dl NEAR OR ABOVE OPTIMAL 130 - 159 mg/dl BORDERLINE HIGH 160 - 189 mg/dl HIGH >190 mg/dl VERY HIGH Performed By: #### D ATTSH, DATBMP #### [facility] [address] [address] [address] Tatiana Contreras Potassium [Moles/Vol] 4.0 mmol/L Normal 3.4-5.0 [facility] Comment on above: Performed By: #### D ATTSH, DATBMP #### [facility] [address] [address] [address] Tatiana Contreras Sodium [Moles/Vol] 138 mmol/L Normal 137-145 [facility] Comment on above: Performed By: #### D ATTSH, DATBMP #### [facility] [address] [address] [address] Tatiana Contreras Triglyceride [Mass/Vol] 45 mg/dL Normal <=150 [facility] Comment on above: Performed By: #### D ATTSH, DATBMP #### [facility] [address] [address] [address] Tatiana Contreras Urea nitrogen [Mass/Vol] 18.0 mg/dL Critically high 7.0-17.0 [facility] Comment on above: Performed By: #### D ATTSH, DATBMP #### [facility] [address] [address] [address] Tatiana Contreras Urea nitrogen/Creatinine [Mass ratio] 20.5 mg/mg Normal [facility] Comment on above: Performed By: #### D ATTSH, DATBMP #### [facility] [address] [address] [address] Tatiana Contreras VLDL CALC 9.0 mg/dL Normal [facility] Comment on above: Performed By: #### D ATTSH, DATBMP #### [facility] [address] [address] [address] Tatiana Contreras LIVER PROFILEon 11-20-2021 Albumin [Mass/Vol] 3.4 g/dL Critically low 3.5-5.0 [facility] Comment on above: Performed By: #### L IVER #### [facility] [address] [place] [address] Dr. Tatiana Contreras Albumin/Globulin [Mass ratio] 0.9 {ratio} Normal [facility] Comment on above: Performed By: #### L IVER #### [facility] [address] [place] [address] Dr. Tatiana Contreras ALP [Catalytic activity/Vol] 94 U/L Normal 38-126 [facility] Comment on above: Performed By: #### L IVER #### [facility] [address] [place] [address] Dr. Tatiana Contreras ALT [Catalytic activity/Vol] 28 U/L Normal 9-52 [facility] Comment on above: Performed By: #### L IVER #### [facility] [address] [place] [address] Dr. Tatiana Contrersa AST [Catalytic activity/Vol] 18 U/L Normal 14-36 [facility] Comment on above: Performed By: #### L IVER #### [facility] [address] [place] [address] Dr. Tatiana Contreras BILI, CONJUGATED 0.2 mg/dL Normal 0.0-0.3 [facility] Comment on above: Performed By: #### L IVER #### [facility] [address] [place] [address] Dr. Tatiana oCntreras Bilirubin [Mass/Vol] 0.6 mg/dL Normal 0.2-1.3 [facility] Comment on above: Performed By: #### L IVER #### [facility] [address] [place] [address] Dr. Tatiana Contreras Globulin (S) [Mass/Vol] 3.9 g/dL Normal [facility] Comment on above: Performed By: #### L IVER #### [facility] [address] [place] [address] Dr. Tatiana Contreras Protein [Mass/Vol] 7.3 g/dL Normal 6.1-8.2 [facility] Comment on above: Performed By: #### L MAYELA #### [facility] [address] [address] [address] Tatiana Contreras PROGRESSjoce 03-20-2017 PROGRESS HNO ID: [id number] thor: Darrick Emerson: (none)Author Type: PhysicianType: Progress [...] kg (213 lb) SpO2 95% BMI 35.45 kg/h6Dsitg[place] appearance: well appearing, alert, in no acute [...] 03/19/2017Baso% 0.3 03/19/2017Abs Neut (ANC) 5.27 03/19/2017Abs Webb 0.42 03/19/2017Abs Eosin 0.24 03/19/2017Abs Baso 0.02 [...] this time.1. Thrombocytopenia-continue observation-repeat labs in six monthsDarrick Willis MD [facility] CNOVSPon 03-19-2017 CNOVSP Visit (SP) Office ([place]) -------ANNABELLE BUSTILLO ([id number]) 1950 FDate Time Provider Department03/19/17 3:15 PM DARRICK WILLIS During your visit today, we recorded the following information about you: Temperature Pulse Respiration Blood pressure 98.1 degrees 83/minute 20/minute 130/88 Weight Height 96.6 kg 1.651 Courtneysandeep Jose Armando 03/19/2017 3:32 PM SignedPt states that she [...] kg (213 lb) SpO2 95% BMI 35.45 kg/k0Qidlnml appearance: well appearing, alert, in no acute [...] 03/19/2017Baso% 0.3 03/19/2017Abs Neut (ANC) 5.27 03/19/2017Abs Webb 0.42 03/19/2017Abs Eosin 0.24 03/19/2017Abs Baso 0.02 [...] observation-repeat labs in six monthsAlfred Kayla Willis, DEANDREeferrmariam Provider: DARRICK WILLIS [[id number]]Allergies As of Date: 03/19/2017(No Known Allergies)Date Reviewed: 03/19/2017Reviewed by: Darrick Willis - Fully AssessedReason for Visit: Thrombocytopenia [603] Cmt: New problem, hasn't been seen his 2013Primary Visit Diagnosis:Thrombocytopenia (HCC) [D69.6]Order(s):CBC + DIFF (FOR REMOTE [facility] USE) [SQRCBCDF] Order #: [id number] FUTURE COMP METABOLIC PANEL [SQCMP] Order #: [id number] FUTURE LD LACTATE DEHYDRO [SQLD6] Order #: [id number] FUTUREDisposition: Return in about 6 months (around [...] of fatigue and a lot of itching.Tete Elias Status:Closed by DARRICK WILLIS MD on 03/20/17 Normal [facility] Comp Metabolic Panelon 03-19 Alanine aminotransferase (ALT) 16 U/L Normal 7-38 [facility] Comment on above: Performed By: #### EVERTON Rincon MP6 ####[id number] [place], [place] [phone] Albumin 4.1 g/dL Normal 3.9-4.9 [facility] Comment on above: Performed By: #### EVERTON Rincon MP6 ####[address] [address] [address], [place] [phone] Alkaline phosphatase (ALP) 88 U/L Normal 32-117 [facility] Comment on above: Performed By: #### EVERTON Rincon MP6 ####[address] [address] [address] [place], [place] [phone] Anion gap 15 mmol/L Normal 9-18 [facility] Comment on above: Performed By: #### JAMES Rincon MP ####[address] [address] [address] [place] [phone] Aspartate aminotransferase (AST) 23 U/L Normal 13-35 [facility] Comment on above: Performed By: #### EVERTON Rincon MP6 ####[facility]CNew [place], [place] [phone] Bilirubin (total) 0.3 mg/dL Normal 0.2-1.3 [facility] Comment on above: Performed By: #### EVERTON Rincon MP6 ####[address] [place], [place] [phone] Calcium 9.4 mg/dL Normal 8.5-10.2 [facility] Comment on above: Performed By: #### EVERTON Rincon MP6 ####[id number] [phone] Chloride 99 mmol/L Normal 97-105 [facility] Comment on above: Performed By: #### C EVERTON CARROLL6 ####[facility] [place], [place] [phone] CO2 25 mmol/L Normal 22-30 [facility] Comment on above: Performed By: #### C GLEN, EVERTON6 ####[address] [phone] Creatinine 1.16 mg/dL High 0.58-0.96 [facility] Comment on above: Performed By: #### C EVERTON CARROLL6 ####[address] [phone] eGFR (non-black) 57 mL/min/{1.73_m2} Normal [facility] Comment on above: Performed By: #### C EVERTON CARROLL6 ####[address] [phone] eGFR (non-black) 47 . Normal [facility] Comment on above: Result Comment: eGFR [...] GFR. Performed By: #### C EVERTON CARROLL6 ####[address] [phone] Glucose mass conc 82 mg/dL Normal 74-99 [facility] Comment on above: Result Comment: The [place] [employer] (ADA) provides guidance for cutoff [...] Standards of Medical Care in Diabetes 2016, [place] [employer]. Diabetes Care. 2016.39(Suppl 1). Performed By: #### C EVERTON CARROLL6 ####[facility] [phone] Potassium molar conc 3.9 mmol/L Normal 3.7-5.1 [facility] Comment on above: Performed By: #### EVERTON Rincon MP6 ####[facility] [phone] Protein 6.8 g/dL Normal 6.3-8.0 [facility] Comment on above: Performed By: #### EVERTON Rincon MP6 ####[facility] [phone] Sodium 139 mmol/L Normal 136-144 [facility] Comment on above: Performed By: #### Mckenzie CARROLL LD6 ####[facility] [phone] Urea nitrogen 18 mg/dL Normal 7-21 [facility] Comment on above: Performed By: #### EVERTON Rincon MP6 ####[facility] [place] [phone] LDon 03-19-2017 LD 203 U/L Normal 135-214 [facility] Comment on above: Performed By: #### Mckenzie CARROLL LD6 ####[facility] [place] [phone] Remote CBCDIF (for [facility] use only)on 03-19-2017 Abs Baso 0.02 k/uL Normal 0.00-0.10 [facility] Abs Webb 0.42 k/uL Normal 0.00-0.86 [facility] Abs Neut 5.27 k/uL Normal 1.45-7.50 [facility] Basophils/100 WBC Auto (Bld) 0.3 % Normal [facility] Eosinophils 0.24 10*3/uL Normal 0.00-0.45 [facility] Eosinophils/100 leukocytes 3.5 % Normal [facility] Erythrocyte distribution width Auto Ratio (RBC) 13.3 % Normal 11.5-15.0 [facility] Erythrocytes (RBC) 4.35 10*6/uL Normal 3.90-5.20 [facility] Hematocrit (HCT) 41.0 % Normal 36.0-46.0 [facility] Hemoglobin mass conc (Bld) 13.9 g/dL Normal 11.5-15.5 [facility] Lymphocytes 0.88 10*3/uL Low 1.00-4.00 [facility] Lymphocytes/100 leukocytes 12.9 % Normal [facility] MCH 32.0 pG Normal 26.0-34.0 [facility] MCHC mass conc (RBC) 33.9 g/dL Normal 30.5-36.0 [facility] MCV 94.3 fL Normal 80.0-100.0 [facility] Monocytes/100 leukocytes 6.1 % Normal [facility] Neutrophils/100 WBC Auto (Bld) 77.2 % Normal [facility] Platelet mean volume (PMV) 12.2 fL Normal 9.0-12.7 [facility] Platelets 108 10*3/uL Low 150-400 [facility] WBC (Leukocytes) 6.83 10*3/uL Normal 3.70-11.00 [facility] Vital Signs Date Time Vital Sign Value Performing Clinician Facility 06-07-2024 14:31-0400 Body height 160.02 cm [facility] 06-07-2024 14:31-0400 Body mass index (BMI) [Ratio] 36.9 kg/m2 [facility] 06-07-2024 [id number] Body weight 94.51 kg [facility] 06-07-2024 14:31-0400 Diastolic blood pressure 84 mm[Hg] [facility] 06-07-2024 14:31-0400 Heart rate 89 /min [facility] 06-07-2024 14:31-0400 Respiratory rate 12 /min [facility] 06-07-2024 14:31-0400 Systolic blood pressure 142 mm[Hg] [facility] 04-13-2024 09:14-0400 Body height 160.02 cm [facility] 04-13-2024 09:14-0400 Body mass index (BMI) [Ratio] 37.5 kg/m2 [facility] 04-13-2024 09:14-0400 Body weight 96.27 kg [facility] 04-13-2024 09:14-0400 Diastolic blood pressure 80 mm[Hg] [facility] 04-13-2024 09:14-0400 Heart rate 90 /min [facility] 04-13-2024 09:14-0400 Respiratory rate 12 /min [facility] 04-13-2024 09:14-0400 Systolic blood pressure 125 mm[Hg] [facility] 02-17-2024 15:05-0400 Body height 160.02 cm [facility] 02-17-2024 15:05-0400 Body mass index (BMI) [Ratio] 38.9 kg/m2 [facility] 02-17-2024 15:05-0400 Body weight 99.79 kg [facility] 02-17-2024 15:05-0400 Diastolic blood pressure 87 mm[Hg] [facility] 02-17-2024 15:05-0400 Heart rate 82 /min [facility] 02-17-2024 15:05-0400 Respiratory rate 12 /min [facility] 02-17-2024 15:05-0400 Systolic blood pressure 126 mm[Hg] [facility] 04-03-2023 08:30-0400 Body height 160.02 cm Boy Ball Other [employer] Other 04-03-2023 08:30-0400 Body mass index (BMI) [Ratio] 38.65 kg/m2 Boy Anna Other [facility] Other 04-03-2023 08:30-0400 Body weight 98.98 kg Boy Anna Other [facility] Other 04-03-2023 08:30-0400 Diastolic blood pressure 84 mm[Hg] Boy Anna Other [facility] Other 04-03-2023 08:30-0400 Systolic blood pressure 129 mm[Hg] Boy Anna Other [facility] Other Encounters Encounter Date Encounter Type Care Provider Facility Start: 08-02-2024 End: 08-02-2024 ambulatory Boy Ball DO Work Phone: [facility] Work Phone: Start: 08-02-2024 End: 08-02-2024 Departed Referred Boy Anna DO Work Phone: [facility] Start: 08-02-2024 Non-patient / Non-visit Benjam in Ball DO Work Phone: [facility] Work Phone: Start: 07-07-2024 End: 07-07-2024 Bamboo flowsheet Fannie Mistry DO Work Phone: [facility] Start: 07-07-2024 End: 07-07-2024 Bamboo flowsheet Fannie Mistry DO Work Phone: [facility] Start: 07-07-2024 End: 07-07-2024 ambulatory FANNIE MISTRY Not Available Start: 06-07-2024 End: 06-07-2024 ambulatory [facility] Work Phone: Start: 06-07-2024 End: 06-07-2024 Patient encounter procedure [facility] Work Phone: Start: 05-10-2024 Non-patient / Non-visit [facility] Work Phone: Start: 04-13-2024 End: 04-13-2024 ambulatory [facility] Work Phone: Start: 04-13-2024 End: 04-13-2024 Patient encounter procedure [facility] Work Phone: Start: 02-17-2024 End: 02-17-2024 ambulatory [facility] Work Phone: Start: 02-17-2024 End: 02-17-2024 Patient encounter procedure [facility] Work Phone: Start: 04-10-2023 End: 04-10-2023 ambulatory Boy Anna Other [employer] Other Start: 04-10-2023 Telephone encounter Boy Anna [facility] Start: 04-09-2023 End: 04-09-2023 ambulatory Boy Anna Other [employer] Other Start: 04-09-2023 Telephone encounter Boy Anna [facility] Start: 04-04-2023 End: 04-04-2023 ambulatory Boy Anna Other [employer] Other Start: 04-04-2023 Telephone encounter Boy Anna [facility] Start: 04-03-2023 End: 04-03-2023 ambulatory Boy Anna Other [employer] Other Start: 04-03-2023 Patient encounter procedure [facility] [facility] Start: 11-20-2021 End: 11-21-[address] NONE LISTED REQUEST Facility: Start: 03-19-2017 End: 06-29-2017 Ambulatory DARRICK WILLIS [facility] Procedures Date Procedure Procedure Detail Performing Clinician Start: 07-07-2024 Computerized ophthal cynthia imaging retina Fannie Mistry DO Work Phone: Start: 07-07-2024 End: 07-07-2024 Ophth medical xm&eval compre new pt 1/> vst [...] 08/18/2024 8:30 AM EST Office Visit [facility] [address] [place] [address] Fannie Mistry DO [address] [place] [address] [facility] Start: 07-07-2024 End: 07-07-2024 Patient encounter procedure 07/07/2024 9:15 AM EDT Office Visit [facility] [address] [place] [address] Fannie Mistry DO [address] [place] [address] Arrived [facility] Comment on above: Arrived Comprehensive metabo lic 2000 panel - Serum or Plasma [facility] MG Breast - bilatera l Screening [facility] MR Lumbar spine WO contrast [facility] Patient Education Low back pain in adults [facility] Work Phone: XR Hip - left 2 Views [facility] XR Lumbar spine Views [facility] Immunizations Immunization Date Immunization Notes Care Provider Fa cility 04-06-2019 diphtheria, tetanus toxoids and acellular pertussis vaccine, unspecified formulation [facility] Payers Date Payer Category Payer Self-pay 2023 Medicaid [employer] MED[employer]ARE A DVANTAGE [id number] 2023 Private Health Insurance [id number] 1958 Medicare [id number] 1958 Self-pay [id number] 1950 Unknown [id number] 1950 Unknown [id number] Unknown [id number] Unknown [id number] Social History Date Type Detail Facility Start: 07-07-2024 Sex Assigned At N [facility] [place] Other Start: 04-02-2023 End: 04-02-2023 Tobacco smoking status NHIS Never smoked tobacco (finding) [facility] Start: 1950 Sex Assigned At Female F [facility] Tobacco smoking status LAIS Tobacco smoking consumption unknown [facility] Start: 1950 Sex assigned at Not on file [facility] Start: 07-07-2024 Tobacco use and exposure Smokeless tobacco non-user [facility] Start: 07-07-2024 History of Social function [facility] Start: 08-03-2024 Sex Female (finding) [facility] Clinical Notes 04-03-2023 to 07-07-2024 Fannie Mistry DO - 07/07/2024 9:15 AM EDT Note Date & Type Note Facility 07-07-2024 Note Right Eye Quality was good. Scan locations included subfoveal. Progression has been stable. Findings include normal observations. Left Eye Quality was good. Scan locations included subfoveal. Progression has been stable. Findings include subretinal scarring. Notes Good scan with normal appearance OD [facility] 07-07-2024 History of Presen t illness Narrative [...] Keratitis ---> Cataract documented in this encounter [facility] 06-07-2024 Evaluation note Diagnosis Onset Date Resolution Low back pain acute May 232023 2:05pm Lumbar spondylosis acute Sept2023 2:05pm Obesity acute May 2:05pm [facility] Work Phone: 1(271) 192-613807-14-2023 Evaluation note* Encounter Date Diagnosis Assessment Notes Treatment Notes Treatment Clinical Notes Mar, Right hip pain (ICD-10 - M25.551) [employer] Other 07-13-2023 Evaluation note* Encounter Date Diagnosis [...] use, the patient reduces the risk for [place], CVA, HTN, cardiac dysrhythmias and sudden cardiac [...] diet, exercise, Ca and Vitamin D supplements [facility] Other [facility] Other evaluation note* Diagnosis Onset Date Resolution Status Left hip pain acute Low back pain acute Lumbar spondylosis acute Obesity acute Primary osteoarthritis of left hip acute [facility] Work Phone: evaluation note* Diagnosis Onset Date Resolution Status Left [...] noneactive Screening mammogram for breast cancer noneactive [facility] Work Phone: Evaluation note* Diagnosis Onset Date Resolution Status Hypercholesterolemia acute Hypothyroidism acute Impaired fasting glucose acu te Metabolic dysfunction-associ ated steatotic liver disease (MASLD) acute ELIDA (obstructive sleep apnea) acute Screening for colon cancer a cute Medicare annual wellness visit, subsequent noneactive Screening mammogram for breast cancer noneactive Left hip pain acute Low back pain acute Lumbar spondylosis acute Obesity acute [facility] Work Phone: Evaluation note* Diagnosis Superficial keratitis [...] elbow surgery Hospitalization History SEE ABOVE SURGERY [facility] Other History general [facility]ative - [facility] Other Summary Purpose Family History No Family [...] Time Advance Directives No January 14 11:56am Advance Directive Response Recorded Date/ Time Advance Directives No January 14 10:56am Chief Complaint and Reason for Visit Chief [...] pain Low back pain Lumbar spondylosis Obesity Chief Complaint Admit Date discuss MRI June 07, 2024 2:05pm Unknown August 02, 2024 9:34am Reason for Visit Admit Date Low back pain June 07, 2024 2:05pm Lumbar spondylosis June 07, 2024 2:05pm Obesity June 07, 2024 2:05pm Additional Source Comments INFORMATION SOURCE (unrecogn ized section and content) DATE CREATED AUTHOR 03/18/2018 [facility] DATE CREATED AUTHOR AUTHOR'S ORGANIZ ATION 11/21/2021 [facility] DATE CREATED AUTHOR AUTHOR'S ORGANIZ ATION 07/09/2024 [facility] EPIC DATE CREATED AUTHOR AUTHOR'S ORGANPRASANTH ATION 08/10/2024 [facility] REASON FOR VISIT (unrecogniz ed section and content) Reason Comments Cataract Care Teams (unrecognized sec tion and content) Team Status: Active Member Role Status Dates Boy Anna , DO Primary Care Provider Active Team Status: Active Member Role Status Dates Boy Anna , DO Primary Care Provide r, Attending Provider Active Start: May 10, 2024 Team Status: Inactive Member Role Status Dates Boy Wilfrido , DO Primary Care Provide r, Attending Provider Active Start: June 07, 2024 End: June 07, 2024 Team Status: Active Member Role Status Dates Boy Anna , DO Primary Care Provide r, Attending Provider Active Start: August 02, 2024 Team Status: Inactive Member Role Status Dates Boy Wilfrido , DO Primary Care Provide r, Attending Provider Active Start: August 02, 2024 End: August 02, 2024 Team Status: Inactive Member Role Status Dates Boy Wilfrido , DO Primary Care Provide r, Attending [...] BE BASED ON THE PRIMARY CLINICAL RECORDS. [facility] [employer] [facility]. provides no warranty or guarantee of the accuracy or completeness of information in this document.
[2024-08-17 04:07] LABS: Vitamin B12 437 pg/mL (232-1245)
== END 2024-08-16 12:07 | disposition home or self-care (01) ==
LOC: LAB 12:11
PROVIDERS: PCP Internal Medicine; Visit Provider Internal Medicine
DX: D75.89 Other specified diseases of blood and blood-forming organs (principal); R53.83 Other fatigue
CPT/HCPCS: 36415; 82607; 82746; 84443

== ENCOUNTER 2024-11-10 09:44 | Outpatient (OUT) | payer MEDICARE, SELFPAY ==
[2024-11-10 10:03] LABS: Basophils Percent Auto 0.5 % (0.2-2.0); Eosinophils Absolute Auto 0.1 10^3/uL (0.0-0.7); Eosinophils Percent Auto 2.1 % (0.9-7.0); Hemoglobin 12.8 g/dL (12.0-16.0); Immature Granulocytes Abs Auto 0.03 10^3/uL (0.00-0.03); Immature Granulocytes Pct Auto 0.5 % (0.0-0.5); Lymphocytes Absolute Auto 0.9 10^3/uL (1.2-3.8); Lymphocytes Percent Auto 15.4 % (20.5-60.0); Mean Corpuscular HGB Conc 33.7 g/dL (29.9-35.2); Mean Corpuscular Hemoglobin 33.5 pg (26.7-34.0); Mean Corpuscular Volume 99.5 fL (81.0-99.0); Mean Platelet Volume 12.8 fL (9.5-13.5); Monocytes Absolute Auto 0.3 10^3/uL (0.3-0.8); Monocytes Percent Auto 4.1 % (1.7-12.0); Neutrophils Absolute Auto 4.7 10^3/uL (1.4-6.5); Neutrophils Percent Auto 77.4 % (43.0-75.0); Platelet Count 109 10^3/uL (150-450); Red Blood Count 3.82 10^6/uL (4.20-5.40); Red Cell Distribution Width 13.5 % (11.0-15.0); White Blood Count 6.1 10^3/uL (4.0-11.0)
--- OUTSIDE RECORDS SUMMARY | 2024-11-10 10:03 | XMS_ITS | CCD ---
Author Organization [facility] Care Team Providers Care Orthopedic Mechanic Name Role Phone WILLIS, DARRICK P Unavailable Unavailable WILLIS, DARRICK P Unavailable Unavailable WILLIS, DARRICK P Unavailable Unavailable REQUEST, DR JANE LISTED Attending Unavaila ble REQUEST, DR JANE LISTED Admitting Unavaila ble REQUEST, DR JANE LISTED Consulting Unavaila ble BALL, DR TADEO Admitting Unavailable BALL, DR TADEO Consulting Unavailable BALL, DR TADEO Attending Unavailable Boy Anna Unavailable Unavailable Primary Care Provider Unavailcandy e Boy Anna DO Primary Care Provider [phone] Boy Anna DO Attending Provider FANNIE MISTRY Attending Unavailable BART CRUZ Referring Unavailable FANNIE MISTRY Attending Unavailable Felipe Akbar MD Attending Provider Boy Anna Primary Care Unavailable Felipe Akbar Admitting Felipe Mariscal Attending Unavailable Boy Anna Primary Care Unavailable Boy Anna Attending Boy Peck Admitting Unavailable Allergies Allergy Classification Reported Allergen(s) Allergy Type Date of Onset Reaction(s) Facility (7 sources) Cephalexin Drug Allergy 06-07-2024 Unknown [facility] Work Phone: (1 source) Cephalexin Drug Allergy 06-07-2024 [facility] Repository Medications Current Medications Medication Drug Class(es) Dates Sig (Normalized) Sig (Original) 0.25 MG, 0.5 MG Dose 3 ML semaglutide 0.68 MG/ML Pen Injector [Ozempic] (4 sources) Start: 04-03-2023 Start: 04-03-2023 Ozempic (0.25 or 0.5 MG/DOSE) 2 MG/3ML 0.25mg Subcutaneous weekly for 28 days Mar, Active calcium carbonate 1250 mg / cholecalciferol 500 unt / vitamin k1 0.04 mg chewable tablet (7 sources) Vitamin D, Warfarin Reversal Agent, Vitamin K Start: 02-13-2024 take 1 tablet by mouth once daily Calcium-Vitamin D3-Vitamin K 500-500-40 mg-unit-mcg tablet,chewable Active 1 TAB PO Daily February 12, 2024 11:00pm diazePAM 5 mg oral tablet (7 sources) Benzodiazepine Start: 11-19-2023 take 2.5 mg by mouth every six hours as needed Diazepam 5 mg tablet Active 2.5 MG PO Every 6 hours as needed for vertigo November 19, 2023 12:00am Start: 11-19-2023 take 2.5 mg by mouth every six hours Diazepam Active 2.5 MG PO Every 6 hours November 19, 2023 1:00am levothyroxine sodium 0.112 mg oral tablet (17 sources) l-Thyroxine Start: 09-06-2024 Levothyroxine 112 mcg tablet Active 0 .ROUTE .COMPLEX September 06, 2024 7:37am TAKE 1 TABLET DAILY, EXCEPT INSTRUCTED TO TAKE ONE AND ONE-HALF TABLETS EVERY FRIDAY Start: 02-13-2024 End: 09-06-2024 take 1 tablet by mouth once daily, then take 0.5 tablet by mouth once Levothyroxine 112 mcg tablet Discontinued 112 MCG PO Daily February 12, 2024 11:00pm September 06, 2024 7:37am EXCEPT INSTRUCTED TO TAKE ONE AND ONE-HALF TABLETS EVERY FRIDAY loteprednol etabonate 5 mg/ml ophthalmic suspension (3 sources) Start: 07-07-2024 take 1 drop(s) into the [...] 5 mL 2 07/07/2024 Active Viactiv 500-500-40 MG-UNT-MCG (4 sources) take 1 tablet by mouth once arthur y Viactiv 500-500-40 MG-UNT-MCG 1 tablet with a meal Orally Once a day Active Completed/Discontinued Medications Medication Drug Class(es) Dates Sig (Normalized) Sig (Original) Borage extract (4 sources) Borage 1000 1000 MG Orally Not-Taking etodolac 500 mg oral tablet (7 sources) Nonsteroidal Anti-inflammatory Drug Start: 02-17-2024 End: [...] tablet by mouth every twelve hours Semaglutide (7 sources) Start: 02-13-20 End: 04-13-20 Semaglutide (Ozempic) [...] Classification Problem Date Documented Date Episodic/Chronic Cataract (5 sources) Bilateral age-related nuclear cataracts; Translations: [Age-related nuclear cataract, bilateral] Onset: 07-07-2024 07-07-2024 Chronic Coagulation and hemorrhagic disorders (6 sources) Thrombocytopenia, unspecified; Translations: [Thrombocytopenic disorder] Onset: 03-19-2017 05-10-2024 Chronic Conditions associated with dizziness or vertigo (7 sources) Benign paroxysmal positional vertigo; Translations: [Benign paroxysmal vertigo, unspecified ear] 11-19-2023 Episodic Diabetes mellitus without complication (9 sources) Impaired fasting glucose; Translations: [Impaired fasting glycemia] Episodic Diseases of white blood cells (2 sources) Leukopenia; Translations: [Decreased white blood cell count, unspecified] 05-10-2024 Chronic Disorders of lipid metabolism (13 sources) Hypercholesterolemia; Translations: [Pure hypercholesterolemia, unspecified] Chronic Inflammation; infection of eye (except that caused by tuberculosis or sexually transmitteddisease) (5 sources) Bilateral superficial keratitis; Translations: [Unspecified superficial keratitis, bilateral] Onset: 07-07-2024 07-07-2024 Episodic Nutritional deficiencies (11 sources) Vitamin D deficiency; Translations: [Vitamin D deficiency, unspecified] 02-13-2024 Chronic Osteoarthritis (9 sources) Osteoarthritis of left hip joint; Translations: [Unilateral primary osteoarthritis, left hip] 02-17-2024 Chronic Other liver diseases (11 sources) Fatty (change of) liver, not elsewhere classified; Translations: [Other chronic nonalcoholic liver disease] Onset: 11-20-2021 Chronic Other liver diseases (6 sources) Steatosis of liver; Translations: [Fatty (change of) liver, not elsewhere classified] 04-11-2024 Chronic Other nervous system disorders (7 sources) Chronic pain; Translations: [Other chronic pain] 09-02-2024 Chronic Other nervous system disorders (7 sources) Other chronic pain; Translations: [Other chronic pain] Onset: 10-18-2024 Chronic Other non-traumatic joint disorders (5 sources) Pain in right knee; Translations: [Pain in right knee] Episodic Other non-traumatic joint disorders (1 source) Pain in right hip Episodic Other non-traumatic joint disorders (7 sources) Hip pain; Translations: [Pain in left hip] 02-17-2024 Episodic Other non-traumatic joint disorders (3 sources) Pain in left hip; Translations: [Pain in joint, pelvic region and thigh] 02-17-2024 Episodic Other nutritional; endocrine; and metabolic disorders (11 sources) Obesity; Translations: [Obesity, unspecified] 02-17-2024 Chronic Other nutritional; endocrine; and metabolic disorders (4 sources) Obesity, unspecified; Translations: [Obesity, unspecified] 02-17-2024 Chronic Other screening for suspected conditions (not mental disorders or infectious disease) (15 sources) Patient encounter status; Translations: [Encounter for screening mammogram for malignant neoplasm of breast] Episodic Residual codes; unclassified (10 sources) Obstructive sleep apnea syndrome; Translations: [Obstructive sleep apnea (adult) (pediatric)] 04-11-2024 Chronic Residual codes; unclassified (3 sources) Obstructive sleep apnea (adult) (pediatric); Translations: [Obstructive sleep apnea (adult)(pediatric)] Chronic Retinal detachments; defects; vascular occlusion; and retinopathy (5 sources) Nonexudative age-related macular degeneration; Translations: [Nonexudative age-related macular degeneration, bilateral, early dry stage] Onset: 07-07-2024 07-07-2024 Chronic Spondylosis; intervertebral disc disorders; other back problems (20 sources) Lumbar spondylosis; Translations: [Spondylosis without myelopathy or radiculopathy, lumbar region] 02-17-2024 Chronic Spondylosis; intervertebral disc disorders; other back problems (11 sources) Low back pain; Translations: [Low back pain] 02-17-2024 Episodic Thyroid disorders (20 sources) Autoimmune thyroiditis; Translations: [Autoimmune thyroiditis] Chronic Results Test Name Value Interpretation Reference Range Facility X-ray reportOrdered By: Marvin Steinberg on 10-18-2024 Study report [facility] [address] [place] [address] XRay Report Signed Patient: Annabelle Bustillo MR#: [id number] : 1950 Acct:[id number] Age/Sex: 74 / F ADM Date: 5 Loc: [facility] Room: Type: [facility] Attending Dr: Felipe Abkar MD Copies to: Felipe Akbar MD~ Ordering Provider: Felipe Akbar MD Date of Service: 10/18/24 XR/XR knee LT 3V - NOT FOR ER USE: G89.29 - Other chronic pain LEFT KNEE - 3 views CLINICAL HISTORY: Left knee/left leg pain for years. COMPARISON: None FINDINGS: Mild degenerative changes of the left knee without acute bony process. No jointeffusion. Patellofemoral joint space narrowing. XR/XR knee LT 3V - NOT FOR ER USE IMPRESSION: MILD DEGENERATIVE CHANGES OF THE LEFT KNEE WITHOUT ACUTE BONY PROCESS. Impression dictated by: Micah Steinberg Jr., D.OJill10/18/2024 4:07 PM Dictation Location: RADIO-PC-23 Transcribed By: ARIC 10/18/24 1607 Dictated By: Micah Steinberg Jr, DO 10/18/24 1605 Signed By: 10/18/24 1607 [facility] XR knee LT 3V - NOT FOR ER U Shyann 10-18-2024 XR knee LT 3V - NOT FOR ER USE [facility] [address] [place] [address] XRay Report Signed Patient: Annabelle Bustillo MR#: [id number] : 1950 Acct:[id number] Age/Sex: 74 / F ADM Date: 10/18/24 Loc: [facility] Room: Type: [facility] Attending Dr: Felipe Akbar MD Copies to: Felipe Akbar MD Ordering Provider: Felipe Akbar MD Date of Service: 10/18/24 XR/XR knee LT 3V - NOT FOR ER USE: G89.29 - Other chronic pain LEFT KNEE - 3 views CLINICAL HISTORY: Left knee/left leg pain for years. COMPARISON: None FINDINGS: Mild degenerative changes of the left knee without acute bony process. No joint effusion. Patellofemoral joint space narrowing. XR/XR knee LT 3V - NOT FOR ER USE IMPRESSION: MILD DEGENERATIVE CHANGES OF THE LEFT KNEE WITHOUT ACUTE BONY PROCESS. Impression dictated by: Micah Steinberg Jr., D.OJill10/18/2024 4:07 PM Dictation Location: RADIO-PC-23 Transcribed By: ARIC 10/18/24 1607 Dictated By: Micah Steinberg Jr, DO 10/18/24 1605 Signed By: 10/18/24 1607 Normal [facility] - Chemistry and C hemistry - challengeon 08-16-2024 Cobalamin (Vitamin B12) [Mass/Vol] 437 pg/mL [id number] [facility] Comment on above: Performed at: [address] [id number] Director: Rehan Matos PhD, Phone: [phone] TSH Qn 0.620 m[IU]/L 0.358-3.740 [facility] No Panel Informationon 08-16 Folate 9.10 ng/mL 8.60-58.90 [facility] Basophils Auto (Bld) [#/Vol] on 08-02-2024 Basophils (Bld) [#/Vol] Automated basophil count 0.0-0.1 [facility] Basophils/100 WBC Auto (Bld) on 08-02-2024 Basophils/100 WBC (Bld) Automated basophil % 0.2-2.0 [facility] Eosinophils/100 WBC Auto (Bl d)on 08-02-2024 Eosinophils/100 WBC (Bld) Automated eosinophil % 0.9-7.0 [facility] Erythrocyte distribution wid th Auto (RBC) [Ratio]on 08-02-2024 Erythrocyte distribution width (RBC) [Ratio] Erythrocyte distribution width [Ratio] by Automated count 11.0-15.0 [facility] Hematocrit Auto (Bld) [Volum e fraction]on 08-02-2024 Hematocrit (Bld) [Volume fraction] Hematocrit [Volume Fraction] of Blood by Automated count 36.0-48.0 [facility] Hemoglobin [Mass/volume] in Bloodon 08-02-2024 Hemoglobin (Bld) [Mass/Vol] Hemoglobin [Mass/volume] in Blood 12.0-16.0 [facility] Ramin 08-02-2024 L ------- Specimen: [id number] Received: 08/03/24 Status: JOSE Barrett Num: [id number] Spec Type: Impression Subm Dr: Boy Anna DO Tissues: PATHPER Procedures: PATHREVIEW Age/ Patient Sex Location Account Attending Physician Annabelle Bustillo 74/F LABELL [id number] Boy Anna DO SPEC NUM: [id number] RECD: 08/03/24 STATUS: JOSE BARRETT NUM: [id number] ZEHRA: 08/02/24- SUBM DR: Boy Anna DO ENTERED: 08/03/[address] [facility] [address]: Zhane Alvarez SPEC TYPE: Impression DEPT: RHODA Garza ENTERED BY: [id number] RECV BY: [id number] ORDERED: PATHREVIEW ORDERED: PATHREVIEW Pathologist Review Abnormal [...] clear at Specimen: [id number] Received: 08/03/24 Status: CONCEPCIÓNAnnemarie Barrett Num: [id number] Spec Type: Impression Subm Dr: Boy Anna DO Tissues: PATHPER Procedures: PATHREVIEW Patient: Annabelle Bustillo [id number] (Continued) Specimen: [id number] Received: 08/03/24 (Continued) Pathologist Review (Continued) Signed (signature on file) Reinier Contreras MD 08/08/24 1726 Specimen: [id number] Received: 08/03/24 Status: JOSE Haywoodvj Num: [id number] Spec Type: Impression Subm Dr: Boy Anna DO Tissues: PATHPER Procedures: PATHREVIEW Patient: Annabelle Bustillo [id number] (Continued) Specimen: [id number] Received: 08/03/24 (Continued) Pathologist [...] HIV infection, also requiring clinical correlation CPT: 30792 Specimen: [id number] Received: 08/03/24 Status: JOSE Barrett Num: [id number] Spec Type: Impression Subm Dr: Boy Anna DO Tissues: PATHPER Procedures: PATHREVIEW Patient: Annabelle Bustillo [id number] (Continued) Signed (signature on file) Maurilio-Kasi Contreras MD 08/08/24 6444 Normal [facility] - Hematology and Cell countson 08-02-2024 Immature granulocytes/100 WBC (Bld) 0.6 % High 0.0-0.5 [facility] Leukocytes [#/volume] correc winter for nucleated erythrocytes in Blood by Automated counon 08-02-2024 WBC corrected for nucl RBC Auto (Bld) [#/Vol] Leukocytes [#/volume] corrected for nucleated erythrocytes in Blood by Automated coun 4.0-11.0 [facility] Lymphocytes Auto (Bld) [#/Vo l]on 08-02-2024 Lymphocytes (Bld) [#/Vol] Lymphocytes [#/volume] in Blood by Automated count Low 1.2-3.8 [facility] Lymphocytes/100 WBC Auto (Bl d)on 08-02-2024 Lymphocytes/100 WBC (Bld) Lymphocytes/100 leukocytes in Blood by Automated count Low 20.5-60.0 [facility] MCH Auto (RBC) [Entitic mass ]on 08-02-2024 MCH (RBC) [Entitic mass] MCH [Entitic mass] by Automated count 26.7-34.0 [facility] MCHC Auto (RBC) [Mass/Vol]on 08-02-2024 MCHC (RBC) [Mass/Vol] MCHC [Mass/volume] by Automated count 29.9-35.2 [facility] MCV Auto (RBC) [Entitic vol] on 08-02-2024 MCV (RBC) [Entitic vol] MCV [Entitic volume] by Automated count High 81.0-99.0 [facility] Monocytes Auto (Bld) [#/Vol] on 08-02-2024 Monocytes (Bld) [#/Vol] Automated blood monocyte count 0.3-0.8 [facility] Monocytes/100 WBC Auto (Bld) on 08-02-2024 Monocytes/100 WBC (Bld) Automated monocyte % 1.7-12.0 [facility] Neutrophils Auto (Bld) [#/Vo l]on 08-02-2024 Neutrophils (Bld) [#/Vol] Neutrophils [#/volume] in Blood by Automated count 1.4-6.5 [facility] Neutrophils/100 WBC Auto (Bl d)on 08-02-2024 Neutrophils/100 WBC (Bld) Automated neutrophil % High 43.0-75.0 [facility] No Panel Informationon 08-02 Add Manual Differential See comment [facility] Comment on above: SEE SCANNED REPORT Eosinophils # (Auto) 0.2 10 3/uL 0.0-0.7 [facility] Immature Granulocyte # (Auto) 0.04 10 3/uL High 0.00-0.03 [facility] Platelet mean volume Auto (B ld) [Entitic vol]on 08-02-2024 Platelet mean volume (Bld) [Entitic vol] Platelet mean volume [Entitic volume] in Blood by Automated count 9.5-13.5 [facility] Platelets Auto (Bld) [#/Vol] on 08-02-2024 Platelets (Bld) [#/Vol] Platelets [#/volume] in Blood by Automated count Low 150-450 [facility] RBC Auto (Bld) [#/Vol]on RBC (Bld) [#/Vol] Erythrocytes [#/volu me] in Blood by Automated count Low 4.20-5.40 [facility] Optical coherence tomography study reporton 07-07-2024 [facility] Radiology Study observation (narrative) [facility] Basophils Auto (Bld) [#/Vol] on 05-10-2024 Basophils (Bld) [#/Vol] 0.0 10 3/uL 0.0-0.1 [facility] Basophils (Bld) [#/Vol] Automated basophil count 0.0-0.1 [facility] Basophils/100 WBC Auto (Bld) on 05-10-2024 Basophils/100 WBC (Bld) 1.0 % 0.2-2.0 [facility] Basophils/100 WBC (Bld) Automated basophil % 0.2-2.0 [facility] Cholesterol in LDL Calc [Mas s/Vol]on 05-10-2024 Cholesterol in LDL [Mass/Vol] 68.2 mg/dL [facility] Comment on above: <100 mg/dl [id number] 0-129 mg/dl NEAR OR ABOVE [id number] mg/dl BORDERLINE [id number] mg/dl HIGH>190 mg/dl VERY HIGH Cholesterol in LDL [Mass/Vol] Cholesterol in LDL [Mass/volume] in Serum or Plasma by calculation [facility] Comment on above: <100 mg/dl [id number] 0-129 mg/dl NEAR OR ABOVE [id number] mg/dl BORDERLINE [id number] mg/dl HIGH>190 mg/dl VERY HIGH Cholesterol in VLDL Calc [Ma ss/Vol]on 05-10-2024 Cholesterol in VLDL [Mass/Vol] 10.8 mg/dL [facility] Cholesterol in VLDL [Mass/Vol] Cholesterol in VLDL [Mass/volume] in Serum or Plasma by calculation [facility] Eosinophils/100 WBC Auto (Bl d)on 05-10-2024 Eosinophils/100 WBC (Bld) 3.8 % 0.9-7.0 [facility] Eosinophils/100 WBC (Bld) Automated eosinophil % 0.9-7.0 [facility] Erythrocyte distribution wid th Auto (RBC) [Ratio]on 05-10-2024 Erythrocyte distribution width (RBC) [Ratio] 13.2 % 11.0-15.0 [facility] Erythrocyte distribution width (RBC) [Ratio] Erythrocyte distribution width [Ratio] by Automated count 11.0-15.0 [facility] Estimated glomerular filtrat ion rate (GFR) non- Americanon 05-10-2024 GFR/1.73 sq M.predicted among non-blacks MDRD (S/P/Bld) [Vol rate/Area] mL/min/{1.73_m2} >=60 [facility] GFR/1.73 sq M.predicted among non-blacks MDRD (S/P/Bld) [Vol rate/Area] Estimated glomerular filtration rate (GFR) non- >=60 [facility] Globulin Calc (S) [Mass/Vol] on 05-10-2024 Globulin (S) [Mass/Vol] 3.6 g/dL [facility] Globulin (S) [Mass/Vol] Serum globulin measurement by calculation (mass/volume) [facility] Glucose mean value [Mass/vol ume] in Blood Estimated from glycated hemoglobinon 05-10-2024 Average glucose Estimated from glycated hemoglobin (Bld) [Mass/Vol] 103 mg/dL [facility] Average glucose Estimated from glycated hemoglobin (Bld) [Mass/Vol] Glucose mean value [Mass/volume] in Blood Estimated from glycated hemoglobin [facility] Hematocrit Auto (Bld) [Volum e fraction]on 05-10-2024 Hematocrit (Bld) [Volume fraction] 37.9 % 36.0-48.0 [facility] Hematocrit (Bld) [Volume fraction] Hematocrit [Volume Fraction] of Blood by Automated count 36.0-48.0 [facility] Hemoglobin [Mass/volume] in Bloodon 05-10-2024 Hemoglobin (Bld) [Mass/Vol] 12.7 g/dL 12.0-16.0 [facility] Hemoglobin (Bld) [Mass/Vol] Hemoglobin [Mass/volume] in Blood 12.0-16.0 [facility] Laboratory - Chemistry and C hemistry - challengeon 05-10-2024 Albumin [Mass/Vol] 3.2 g/dL Low 3.4-5.0 [facility] ALP [Catalytic activity/Vol] 79 U/L 46-116 [facility] ALT [Catalytic activity/Vol] 19 U/L 14-59 [facility] AST [Catalytic activity/Vol] 15 U/L 15-37 [facility] Bilirubin [Mass/Vol] 0.7 mg/dL 0.2-1.0 [facility] Calcium [Mass/Vol] 9.0 mg/dL 8.5-10.1 [facility] Chloride [Moles/Vol] 105 mmol/L 98-107 [facility] Cholesterol [Mass/Vol] 139 mg/dL <=200 [facility] Cholesterol in HDL [Mass/Vol] 60 mg/dL 40-60 [facility] Comment on above: > or =60 mg/dl - LOW CARDIOVASCULAR RISK<40 mg/dl - HIGH CARDIOVASCULAR RISK CO2 [Moles/Vol] 28.5 mmol/L 21.0-32.0 [facility] Creatinine [Mass/Vol] 0.77 mg/dL 0.55-1.02 [facility] GFR/1.73 sq M.predicted MDRD (S/P/Bld) [Vol rate/Area] mL/min/{1.73_m2} >=60 [facility] Glucose [Mass/Vol] 95 mg/dL 74-106 [facility] Potassium [Moles/Vol] 3.7 mmol/L 3.5-5.1 [facility] Protein [Mass/Vol] 6.8 g/dL 6.4-8.2 [facility] Sodium [Moles/Vol] 141 mmol/L 136-145 [facility] Triglyceride [Mass/Vol] 54 mg/dL <=150 [facility] TSH Qn 0.967 m[IU]/L 0.358-3.740 [facility] Urea nitrogen [Mass/Vol] 14.0 mg/dL 7.0-18.0 [facility] Urea nitrogen/Creatinine [Mass ratio] 18.2 mg/mg [facility] Laboratory - Hematology and Cell countson 05-10-2024 HbA1c (Bld) [Mass fraction] 5.2 % 4.5-6.2 [facility] Comment on above: ADA RECOMMENDED LIMI T 4.0 - 6.0ADA THERAPEUTIC TARGET < 7.0ACTION SUGGESTED> 7.0 Immature granulocytes/100 WBC (Bld) 0.5 % 0.0-0.5 [facility] Leukocytes [#/volume] correc winter for nucleated erythrocytes in Blood by Automated counon 05-10-2024 WBC corrected for nucl RBC Auto (Bld) [#/Vol] 3.9 10 3/uL Low 4.0-11.0 [facility] WBC corrected for nucl RBC Auto (Bld) [#/Vol] Leukocytes [#/volume] corrected for nucleated erythrocytes in Blood by Automated coun Low 4.0-11.0 [facility] Lymphocytes Auto (Bld) [#/Vo l]on 05-10-2024 Lymphocytes (Bld) [#/Vol] 0.8 10 3/uL Low 1.2-3.8 [facility] Lymphocytes (Bld) [#/Vol] Lymphocytes [#/volume] in Blood by Automated count Low 1.2-3.8 [facility] Lymphocytes/100 WBC Auto (Bl d)on 05-10-2024 Lymphocytes/100 WBC (Bld) 20.2 % Low 20.5-60.0 [facility] Lymphocytes/100 WBC (Bld) Lymphocytes/100 leukocytes in Blood by Automated count Low 20.5-60.0 [facility] MCH Auto (RBC) [Entitic mass ]on 05-10-2024 MCH (RBC) [Entitic mass] 33.2 pg 26.7-34.0 [facility] MCH (RBC) [Entitic mass] MCH [Entitic mass] by Automated count 26.7-34.0 [facility] MCHC Auto (RBC) [Mass/Vol]on 05-10-2024 MCHC (RBC) [Mass/Vol] 33.5 g/dL 29.9-35.2 [facility] MCHC (RBC) [Mass/Vol] MCHC [Mass/volume] by Automated count 29.9-35.2 [facility] MCV Auto (RBC) [Entitic vol] on 05-10-2024 MCV (RBC) [Entitic vol] 99.2 fL High 81.0-99.0 [facility] MCV (RBC) [Entitic vol] MCV [Entitic volume] by Automated count High 81.0-99.0 [facility] Monocytes Auto (Bld) [#/Vol] on 05-10-2024 Monocytes (Bld) [#/Vol] 0.2 10 3/uL Low 0.3-0.8 [facility] Monocytes (Bld) [#/Vol] Automated blood monocyte count Low 0.3-0.8 [facility] Monocytes/100 WBC Auto (Bld) on 05-10-2024 Monocytes/100 WBC (Bld) 5.1 % 1.7-12.0 [facility] Monocytes/100 WBC (Bld) Automated monocyte % 1.7-12.0 [facility] Neutrophils Auto (Bld) [#/Vo l]on 05-10-2024 Neutrophils (Bld) [#/Vol] 2.7 10 3/uL 1.4-6.5 [facility] Neutrophils (Bld) [#/Vol] Neutrophils [#/volume] in Blood by Automated count 1.4-6.5 [facility] Neutrophils/100 WBC Auto (Bl d)on 05-10-2024 Neutrophils/100 WBC (Bld) 69.4 % 43.0-75.0 [facility] Neutrophils/100 WBC (Bld) Automated neutrophil % 43.0-75.0 [facility] No Panel Informationon 05-10 Eosinophils # (Auto) 0.2 10 3/uL 0.0-0.7 [facility] Immature Granulocyte # (Auto) 0.02 10 3/uL 0.00-0.03 [facility] Platelet mean volume Auto (B ld) [Entitic vol]on 05-10-2024 Platelet mean volume (Bld) [Entitic vol] 12.7 fL 9.5-13.5 [facility] Platelet mean volume (Bld) [Entitic vol] Platelet mean volume [Entitic volume] in Blood by Automated count 9.5-13.5 [facility] Platelets Auto (Bld) [#/Vol] on 05-10-2024 Platelets (Bld) [#/Vol] 110 10 3/uL Low 150-450 [facility] Platelets (Bld) [#/Vol] Platelets [#/volume] in Blood by Automated count Low 150-450 [facility] RBC Auto (Bld) [#/Vol]on RBC (Bld) [#/Vol] 3.82 10 6/uL Low 4.20-5.40 [facility] RBC (Bld) [#/Vol] Erythrocytes [#/volu me] in Blood by Automated count Low 4.20-5.40 [facility] [facility] Serum or plasma albumin/glob ulin mass ratioon 05-10-2024 Albumin/Globulin [Mass ratio] 0.9 {ratio} [facility] Albumin/Globulin [Mass ratio] Serum or plasma albumin/globulin mass ratio [facility] Serum or plasma anion gap de terminationon 05-10-2024 Anion gap [Moles/Vol] 11.2 mmol/L [facility] Anion gap [Moles/Vol] Serum or plasma anion gap determination [facility] Serum or plasma total choles terol/high density lipoprotein (HDL) cholesterol mass jovanny 05-10-2024 Cholesterol.total/C holesterol in HDL [Mass ratio] 2.3 {ratio} [facility] Comment on above: 3.3 - 4.4 LOW RISK4. 4 - 7.1 AVERAGE RISK7.1 - 11.0 MODERATE RISK>11.0 HIGH RISK Cholesterol.total/C holesterol in HDL [Mass ratio] Serum or plasma total cholesterol/high density lipoprotein (HDL) cholesterol mass rat [facility] Comment on above: 3.3 - 4.4 LOW RISK4. 4 - 7.1 AVERAGE RISK7.1 - 11.0 MODERATE RISK>11.0 HIGH RISK CBC AUTO DIFFon 11-20-2021 BASO # 0.0 103/ul Normal 0.0-0.1 [facility] Comment on above: Performed By: #### D ATCBC #### [facility] [address] [address] [address] Tatiana Contreras Basophils/100 WBC (Bld) 0.6 % Normal 0.2-2.0 [facility] Comment on above: Performed By: #### D ATCBC #### [facility] [address] [place] [address] Dr. Tatiana Contreras EO # 0.2 103/ul Normal 0.0-0.7 [facility] Comment on above: Performed By: #### D ATCBC #### [facility] [address] [place] [address] Dr. Tatiana Contreras Eosinophils/100 WBC (Bld) 5.2 % Normal 0.9-7.0 [facility] Comment on above: Performed By: #### D ATCBC #### [facility] [address] [place] [address] Dr. Tatiana Contreras Erythrocyte distribution width (RBC) [Ratio] 13.8 % Normal 11.0-15.0 [facility] Comment on above: Performed By: #### D ATCBC #### [facility] [address] [place] [address] Dr. Tatiana Contreras Hematocrit (Bld) [Volume fraction] 41.7 % Normal 36.0-48.0 [facility] Comment on above: Performed By: #### D ATCBC #### [facility] [address] [place] [address] Dr. Tatiana Contreras Hemoglobin (Bld) [Mass/Vol] 13.7 g/dL Normal 12.0-16.0 [facility] Comment on above: Performed By: #### D ATCBC #### [facility] [address] [place] [address] Dr. Tatiana Contreras IG # 0.02 10e3/ul Normal 0.00-0.03 [facility] Comment on above: Performed By: #### D ATCBC #### [facility] [address] [address] [address] Tatiana Contreras IG % 0.4 % Normal 0.0-0.5 [facility] Comment on above: Performed By: #### D ATCBC #### [facility] [address] [place] [address] Dr. Tatiana Contreras LYMPH # 0.7 103/ul Critically low 1.2-3.8 [facility] Comment on above: Performed By: #### D ATCBC #### [facility] [address] [place] [address] Dr. Tatiana Contreras Lymphocytes/100 WBC (Bld) 15.6 % Critically low 20.5-60.0 [facility] Comment on above: Performed By: #### D ATCBC #### [facility] [address] [place] [address] Dr. Tatiana Contreras MCH (RBC) [Entitic mass] 31.4 pg Normal 26.7-34.0 [facility] Comment on above: Performed By: #### D ATCBC #### [facility] [address] [place] [address] Dr. Tatiana Contreras MCHC (RBC) [Mass/Vol] 32.9 g/dL Normal 29.9-35.2 [facility] Comment on above: Performed By: #### D ATCBC #### [facility] [address] [place] [address] Dr. Tatiana Contreras MCV (RBC) [Entitic vol] 95.6 fL Normal 81.0-99.0 [facility] Comment on above: Performed By: #### D ATCBC #### [facility] [address] [place] [address] Dr. Tatiana Contreras MONO # 0.3 103/ul Normal 0.3-0.8 [facility] Comment on above: Performed By: #### D ATCBC #### [facility] [address] [place] [address] Dr. Tatiana Contreras Monocytes/100 WBC (Bld) 5.8 % Normal 1.7-12.0 [facility] Comment on above: Performed By: #### D ATCBC #### [facility] [address] [address] [address] Tatiana Contreras NEUT # 3.4 103/ul Normal 1.4-6.5 [facility] Comment on above: Performed By: #### D ATCBC #### [facility] [address] [address] [address] Tatiana Contreras Neutrophils/100 WBC (Bld) 72.4 % Normal 43.0-75.0 [facility] Comment on above: Performed By: #### D ATCBC #### [facility] [address] [place] [address] Dr. Tatiana Contreras Platelet mean volume (Bld) [Entitic vol] 12.4 fL Normal 9.5-13.5 [facility] Comment on above: Performed By: #### D ATCBC #### [facility] [address] [place] [address] Dr. Tatiana Contrersa PLT 109 103/ul Critically low 150-450 [facility] Comment on above: Performed By: #### D ATCBC #### [facility] [address] [place] [address] Dr. Tatiana Contreras RBC 4.36 106/ul Normal 4.20-5.40 [facility] Comment on above: Performed By: #### D ATCBC #### [facility] [address] [place] [address] Dr. Tatiana Contreras WBC 4.6 103/ul Normal 4.0-11.0 [facility] Comment on above: Performed By: #### D ATCBC #### [facility] [address] [place] [address] Dr. Tatiana Contreras ADALID - TSHon 11-20-2021 TSH 1.795 uIU/mL Normal 0.470-4.680 [facility] Comment on above: Performed By: #### D ATTSH, DATBMP #### [facility] [address] [place] [address] Dr. Tatiana Contreras TSH RANGE SEE BELOW Normal [facility] Comment on above: Result Comment: <0.3 4 UIU/ml HYPERTHYROID 0.34-5.60 UIU/ml EUTHYROID >5.60 UIU/ml HYPOTHYROID Performed By: #### D ATTSH, DATBMP #### [facility] [address] [address] [address] Tatiana Contreras ADALID- BMP WITH LIPIDon 2021 Anion gap [Moles/Vol] 9.3 mmol/L Normal [facility] Comment on above: Performed By: #### D ATTSH, DATBMP #### [facility] [address] [address] [address] Tatiana Contreras Calcium [Mass/Vol] 8.7 mg/dL Normal 8.4-10.2 [facility] Comment on above: Performed By: #### D ATTSH, DATBMP #### [facility] [address] [place] [address] Dr. Tatiana Contreras Chloride [Moles/Vol] 103 mmol/L Normal 98-107 [facility] Comment on above: Performed By: #### D ATTSH, DATBMP #### [facility] [address] [address] [address] Tatiana Contreras Cholesterol [Mass/Vol] 123 mg/dL Normal <=200 [facility] Comment on above: Performed By: #### D ATTSH, DATBMP #### [facility] [address] [place] [address] Dr. Tatiana Contreras Cholesterol in HDL [Mass/Vol] 64 mg/dL Normal [facility] Comment on above: Performed By: #### D ATTSH, DATBMP #### [facility] [address] [place] [address] Dr. Tatiana Contreras Cholesterol in LDL [Mass/Vol] 50.0 mg/dL Normal [facility] Comment on above: Performed By: #### D ATTSH, DATBMP #### [facility] [address] [address] [address] Tatiana Contreras CO2 [Moles/Vol] 29.7 mmol/L Normal 22.0-30.0 [facility] Comment on above: Performed By: #### D ATTSH, DATBMP #### [facility] [address] [address] [address] Tatiana Contreras Creatinine [Mass/Vol] 0.88 mg/dL Normal 0.52-1.04 [facility] Comment on above: Performed By: #### D ATTSH, DATBMP #### [facility] [address] [address] [address] Tatiana Contreras EGFR-AF INDONESIAN >60 Normal >=60 [facility] Comment on above: Performed By: #### D ATTSH, DATBMP #### [facility] [address] [address] [address] Tatiana Contreras EGFR-NON AF INDONESIAN >60 Normal >=60 [facility] Comment on above: Performed By: #### D ATTSH, DATBMP #### [facility] [address] [address] [address] Tatiana Contreras Glucose [Mass/Vol] 101 mg/dL Normal 74-106 [facility] Comment on above: Performed By: #### D ATTSH, DATBMP #### [facility] [address] [address] [address] Tatiana Contreras HDL NORMAL > or = 60 mg/dl - LO W CARDIOVASCULAR RISK <40 mg/dl - HIGH CARDIOVASCULAR RISK Normal [facility] Comment on above: Performed By: #### D ATTSH, DATBMP #### [facility] [address] [address] [address] Tatiana Contreras LDL CALC NORMAL SEE BELOW Normal [facility] Comment on above: Result Comment: <100 mg/dl OPTIMAL 100 - 129 mg/dl NEAR OR ABOVE OPTIMAL 130 - 159 mg/dl BORDERLINE HIGH 160 - 189 mg/dl HIGH >190 mg/dl VERY HIGH Performed By: #### D ATTSH, DATBMP #### [facility] [address] [address] [address] Tatiana Contreras Potassium [Moles/Vol] 4.0 mmol/L Normal 3.4-5.0 [facility] Comment on above: Performed By: #### D ATTSH, DATBMP #### [facility] [address] [address] [address] Tatiana Contreras Sodium [Moles/Vol] 138 mmol/L Normal 137-145 [facility] Comment on above: Performed By: #### D ATTSH, DATBMP #### [facility] [address] [address] [address] Tatiana Contreras Triglyceride [Mass/Vol] 45 mg/dL Normal <=150 [facility] Comment on above: Performed By: #### D ATTSH, DATBMP #### [facility] [address] [address] [address] Tatiana Contreras Urea nitrogen [Mass/Vol] 18.0 mg/dL Critically high 7.0-17.0 [facility] Comment on above: Performed By: #### D ATTSH, DATBMP #### [facility] [address] [place] [address] Dr. Tatiana Contreras Urea nitrogen/Creatinine [Mass ratio] 20.5 mg/mg Normal [facility] Comment on above: Performed By: #### D ATTMIKIE, DATBMP #### [facility] [address] [address] [address] Tatiana Contreras VLDL CALC 9.0 mg/dL Normal [facility] Comment on above: Performed By: #### D ATTSH, DATBMP #### [facility] [address] [place] [address] Dr. Tatiana Contreras LIVER PROFILEon 11-20-2021 Albumin [Mass/Vol] 3.4 g/dL Critically low 3.5-5.0 [facility] Comment on above: Performed By: #### L IVER #### [facility] [address] [address] [address] Tatiana Contreras Albumin/Globulin [Mass ratio] 0.9 {ratio} Normal [facility] Comment on above: Performed By: #### L IVER #### [facility] [address] [address] [address] Tatiana Contreras ALP [Catalytic activity/Vol] 94 U/L Normal 38-126 [facility] Comment on above: Performed By: #### L IVER #### [facility] [address] [address] [address] Tatiana Contreras ALT [Catalytic activity/Vol] 28 U/L Normal 9-52 [facility] Comment on above: Performed By: #### L IVER #### [facility] [address] [address] [address] Tatiana Contreras AST [Catalytic activity/Vol] 18 U/L Normal 14-36 [facility] Comment on above: Performed By: #### L IVER #### [facility] [address] [address] [address] Tatiana Contreras BILI, CONJUGATED 0.2 mg/dL Normal 0.0-0.3 [facility] Comment on above: Performed By: #### L IVER #### [facility] [address] [address] [address] Tatiana Contreras Bilirubin [Mass/Vol] 0.6 mg/dL Normal 0.2-1.3 [facility] Comment on above: Performed By: #### L IVER #### [facility] [address] [address] [address] Tatiana Contreras Globulin (S) [Mass/Vol] 3.9 g/dL Normal [facility] Comment on above: Performed By: #### L IVER #### [facility] [address] [address] [address] Tatiana Contreras Protein [Mass/Vol] 7.3 g/dL Normal 6.1-8.2 [facility] Comment on above: Performed By: #### L IVER #### [facility] [address] [address] [address] Tatiana Contreras PROGRESSon 03-20-2017 PROGRESS HNO ID: [id number] thor: Darrick Emerson: (none)Author Type: PhysicianType: Progress [...] kg (213 lb) SpO2 95% BMI 35.45 kg/g2Nabjaxj appearance: well appearing, alert, in no acute [...] 03/19/2017Baso% 0.3 03/19/2017Abs Neut (ANC) 5.27 03/19/2017Abs [place] 0.42 03/19/2017Abs Eosin 0.24 03/19/2017Abs Baso 0.02 [...] Thrombocytopenia-continue observation-repeat labs in six monthsAlfred Kayla Willis MD Normal [facility] CNOVSPon 03-19-2017 CNOVSP Visit (SP) Office ([place]) -------ANNABELLE BUSTILLO ([id number]) 1950 FDate Time Provider Department03/19/17 3:15 PM [...] kg (213 lb) SpO2 95% BMI 35.45 kg/t0Ttheqhw appearance: well appearing, alert, in no acute [...] 03/19/2017Baso% 0.3 03/19/2017Abs Neut (ANC) 5.27 03/19/2017Abs [place] 0.42 03/19/2017Abs Eosin 0.24 03/19/2017Abs Baso 0.02 [...] Thrombocytopenia-continue observation-repeat labs in six monthsAlfred DEANDRE Villagomezeferrmariam Provider: DARRICK WILLIS [[id number]]Allergies As of Date: 03/19/2017(No Known Allergies)Date Reviewed: 03/19/2017Reviewed by: Darrick Willis - Fully AssessedReason for Visit: Thrombocytopenia [603] Cmt: New problem, hasn't been seen his 2013Primary Visit Diagnosis:Thrombocytopenia (HCC) [D69.6]Order(s):CBC + DIFF (FOR REMOTE [facility] USE) [SQRCBCDF] Order #: [id number] FUTURE COMP METABOLIC PANEL [SQCMP] Order #: [id number] FUTURE LD LACTATE DEHYDRO [SQLD6] Order #: [id number] FUTUREDisposition: Return in about 6 months (around [...] by DARRICK WILLIS MD on 03/20/17 Normal [facility] Comp Metabolic Panelon 03-19 Alanine aminotransferase (ALT) 16 U/L Normal 7-38 [facility] Comment on above: Performed By: #### C EVERTON CARROLL6 ####[facility] [address] [place], [place] [phone] Albumin 4.1 g/dL Normal 3.9-4.9 [facility] Comment on above: Performed By: #### C GLEN, LD6 ####[facility] [address] [phone] Alkaline phosphatase (ALP) 88 U/L Normal 32-117 [facility] Comment on above: Performed By: #### C GLEN, LD6 ####[facility] [address] [phone] Anion gap 15 mmol/L Normal 9-18 [facility] Comment on above: Performed By: #### C GLEN, LD6 ####[facility] [address] [phone] Aspartate aminotransferase (AST) 23 U/L Normal 13-35 [facility] Comment on above: Performed By: #### C GLEN, LD6 ####[facility] [phone] Bilirubin (total) 0.3 mg/dL Normal 0.2-1.3 [facility] Comment on above: Performed By: #### C GLEN, LD6 ####[facility] [address] [phone] Calcium 9.4 mg/dL Normal 8.5-10.2 [facility] Comment on above: Performed By: #### C GLEN, LD6 ####[facility] [address] [phone] Chloride 99 mmol/L Normal 97-105 [facility] Comment on above: Performed By: #### C GLEN, LD6 ####[facility] [address] [phone] CO2 25 mmol/L Normal 22-30 [facility] Comment on above: Performed By: #### C GLEN, LD6 ####[facility] [address] [phone] Creatinine 1.16 mg/dL High 0.58-0.96 [facility] Comment on above: Performed By: #### C GLEN, LD6 ####[facility] [place], [place] [phone] eGFR (non-black) 57 mL/min/{1.73_m2} Normal [facility] Comment on above: Performed By: #### C GLEN, LD6 ####[facility] [place], [place] [phone] eGFR (non-black) 47 . Normal [facility] Comment on above: Result Comment: eGFR (Estimated [...] actual GFR. Performed By: #### C GLEN, LD6 ####[id number] [place], [place] [phone] Glucose mass conc 82 mg/dL Normal 74-99 [facility] Comment on above: Result Comment: The [place] [employer] (ADA) provides guidance for cutoff [...] Standards of Medical Care in Diabetes 2016, [place] [employer]. Diabetes Care. 2016.39(Suppl 1). Performed By: #### C GLEN, LD6 ####[address] [place], [place] [phone] Potassium molar conc 3.9 mmol/L Normal 3.7-5.1 [facility] Comment on above: Performed By: #### C MP, LD6 ####[facility] [address]CD[address] [place], [place] [phone] Protein 6.8 g/dL Normal 6.3-8.0 [facility] Comment on above: Performed By: #### C MP, LD6 ####[facility] [address]CD[address] [place], [place] [phone] Sodium 139 mmol/L Normal 136-144 [facility] Comment on above: Performed By: #### C GLEN, LD6 ####[facility] [address], [place] [phone] Urea nitrogen 18 mg/dL Normal 7-21 [facility] Comment on above: Performed By: #### C GLEN, LD6 ####[facility] [address]CDel[address] [place], [place] [phone] LDon 03-19-2017 LD 203 U/L Normal 135-214 [facility] Comment on above: Performed By: #### C GLEN, LD6 ####[facility] [address], [place] [phone] Remote CBCDIF (for [facility] use o nly)on 03-19-2017 Abs Baso 0.02 k/uL Normal 0.00-0.10 [facility] Abs [place] 0.42 k/uL Normal 0.00-0.86 [facility] Abs Neut 5.27 k/uL Normal 1.45-7.50 [facility] Basophils/100 WBC Auto (Bld) 0.3 % Normal [facility] Eosinophils 0.24 10*3/uL Normal 0.00-0.45 [facility] Eosinophils/100 leukocytes 3.5 % Normal [facility] Erythrocyte distribution width Auto Ratio (RBC) 13.3 % Normal 11.5-15.0 [facility] Erythrocytes (RBC) 4.35 10*6/uL Normal 3.90-5.20 [facility] Hematocrit (HCT) 41.0 % Normal 36.0-46.0 [facility] Hemoglobin mass conc (Bld) 13.9 g/dL Normal 11.5-15.5 [facility] Lymphocytes 0.88 10*3/uL Low 1.00-4.00 [facility] Lymphocytes/100 leukocytes 12.9 % Normal [facility] MCH 32.0 pG Normal 26.0-34.0 [facility] MCHC mass conc (RBC) 33.9 g/dL Normal 30.5-36.0 [facility] MCV 94.3 fL Normal 80.0-100.0 [facility] Monocytes/100 leukocytes 6.1 % Normal [facility] Neutrophils/100 WBC Auto (Bld) 77.2 % Normal [facility] Platelet mean volume (PMV) 12.2 fL Normal 9.0-12.7 [facility] Platelets 108 10*3/uL Low 150-400 [facility] WBC (Leukocytes) 6.83 10*3/uL Normal 3.70-11.00 [facility] Vital Signs Date Time Vital Sign Value Performing Clinician Facility 06-07-2024 [id number] Body height 160.02 cm [facility] 06-07-2024 14:31-0400 Body mass index (BMI) [Ratio] 36.9 kg/m2 [facility] 06-07-2024 14:31-0400 Body weight 94.51 kg [facility] 06-07-2024 14:31-0400 Diastolic blood pressure 84 mm[Hg] [facility] 06-07-2024 14:31-0400 Heart rate 89 /min [facility] 06-07-2024 14:31-0400 Respiratory rate 12 /min [facility] 06-07-2024 14:31-0400 Systolic blood pressure 142 mm[Hg] [facility] 04-13-2024 09:14-0400 Body height 160.02 cm [facility] 04-13-2024 09:14-0400 Body mass index (BMI) [Ratio] 37.5 kg/m2 [facility] 04-13-2024 09:14-0400 Body weight 96.27 kg [facility] 04-13-2024 09:14-0400 Diastolic blood pressure 80 mm[Hg] [facility] 04-13-2024 09:14-0400 Heart rate 90 /min [facility] 04-13-2024 09:14-0400 Respiratory rate 12 /min [facility] 04-13-2024 09:14-0400 Systolic blood pressure 125 mm[Hg] [facility] 02-17-2024 15:05-0400 Body height 160.02 cm [facility] 02-17-2024 15:05-0400 Body mass index (BMI) [Ratio] 38.9 kg/m2 [facility] 02-17-2024 15:05-0400 Body weight 99.79 kg [facility] 02-17-2024 15:05-0400 Diastolic blood pressure 87 mm[Hg] [facility] 02-17-2024 15:05-0400 Heart rate 82 /min [facility] 02-17-2024 15:05-0400 Respiratory rate 12 /min [facility] 02-17-2024 15:05-0400 Systolic blood pressure 126 mm[Hg] [facility] 04-03-2023 08:30-0400 Body height 160.02 cm [facility] Other [facility] [employer] Other 04-03-2023 08:30-0400 Body mass index (BMI) [Ratio] 38.65 kg/m2 Boy Ball Other [employer] [facility] [employer] Other 04-03-2023 08:30-0400 Body weight 98.98 kg Boy Ball Other [employer] [facility] [employer] Other 04-03-2023 08:30-0400 Diastolic blood pressure 84 mm[Hg] Boy Ball Other [facility] [employer] Other 04-03-2023 08:30-0400 Systolic blood pressure 129 mm[Hg] Boy Anna Other [facility] [employer] Other Encounters Encounter Date Encounter Type Care Provider Facility Start: 10-18-2024 End: 10-18-2024 ambulatory Boy Anna DO Work Phone: [facility] Work Phone: Start: 10-18-2024 End: 10-18-2024 Patient encounter procedure Boy Ball DO Work Phone: [facility] Physician [facility] Work Phone: Start: 10-11-2024 Non-patient / Non-visit Benjam in Ball DO Work Phone: [facility] Work Phone: Start: 10-11-2024 End: 10-11-2024 ambulatory Boy Anna DO Work Phone: [facility] Work Phone: Start: 10-11-2024 End: 10-11-2024 Patient encounter procedure Boy Anna DO Work Phone: [facility] Work Phone: Start: 09-02-2024 End: 09-02-2024 Patient encounter procedure Boy Anna DO Work Phone: [facility] Work Phone: Start: 08-18-2024 End: 08-18-2024 Bamboo flowsheet Fannie Mistry DO Work Phone: [facility] Start: 08-18-2024 End: 08-18-2024 Bamboo flowsheet Fannie Mistry DO Work Phone: [facility] Start: 08-18-2024 End: 08-18-2024 ambulatory FANNIE MISTRY Not Available Start: 08-16-2024 Non-patient / Non-visit Benjam in Ball DO Work Phone: [facility] Physician [facility] [employer] Work Phone: Start: 08-02-2024 End: 08-02-2024 ambulatory Boy Ball DO Work Phone: [facility] Work Phone: Start: 08-02-2024 End: 08-02-2024 Departed Referred Boy Ball DO Work Phone: [facility] Start: 08-02-2024 Non-patient / Non-visit Benjam in Ball DO Work Phone: [facility] Physician [facility] Work Phone: Start: 07-07-2024 End: 07-07-2024 Bamboo flowsheet Fannie Mistry DO Work Phone: [facility] Start: 07-07-2024 End: 07-07-2024 Bamboo flowsheet Fannie Mistry DO Work Phone: [facility] Start: 07-07-2024 End: 07-07-2024 ambulatory FANNIE MISTRY Not Available Start: 06-07-2024 End: 06-07-2024 ambulatory [facility] Work Phone: Start: 06-07-2024 End: 06-07-2024 Patient encounter procedure [facility] Physician [facility] Work Phone: Start: 05-10-2024 Non-patient / Non-visit [facility] Work Phone: Start: 04-13-2024 End: 04-13-2024 ambulatory [facility] Work Phone: Start: 04-13-2024 End: 04-13-2024 Patient encounter procedure [facility] Physician [facility] Work Phone: Start: 02-17-2024 End: 02-17-2024 ambulatory [facility] Work Phone: Start: 02-17-2024 End: 02-17-2024 Patient encounter procedure [facility] Work Phone: Start: 04-10-2023 End: 04-10-2023 ambulatory Boy Anna Other [employer] Other Start: 04-10-2023 Telephone encounter Boy MENDOZA [facility] Start: 04-09-2023 End: 04-09-2023 ambulatory Boy Anna Other [employer] Other Start: 04-09-2023 Telephone encounter Boy MENDOZA [facility] Start: 04-04-2023 End: 04-04-2023 ambulatory Boy Anna Other [employer] Other Start: 04-04-2023 Telephone encounter Boy MEDNOZA [facility] Start: 04-03-2023 End: 04-03-2023 ambulatory Boy Anna Other [employer] Other Start: 04-03-2023 Patient encounter procedure Boy Anna [facility] Start: 11-20-2021 End: 11-21-2021 ambulatory NONE LISTED REQUEST Facility: Start: 03-19-2017 End: 03-20-2017 Ambulatory DARRICK WILLIS [facility] Procedures Date Procedure Procedure Detail Performing Clinician Start: 10-18-2024 X-ray of left knee, three views Boy Anna DO Work Phone: Start: 08-18-2024 End: 08-18-2024 Ophth medical xm&eval intermediate estab pt Age-related nuclear cataract of both eyes Fannie Mistry DO Work Phone: Comment on above: Age-related nuclear cataract of both eyes (Primary Dx); Superficial keratitis of both eyes; 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 degeneration of both eyes Start: 07-07-2024 Computerized ophthal cynthia imaging retina [...] Treatment Date Care Activity Detail Author Start: 10-18-2024 X-ray of left knee, three views XR knee LT 3V - NOT FOR ER USE [facility] Start: 10-18-2024 XR Knee - left 3 Views [facility] Start: 08-18-2024 End: 08-18-2024 Patient encounter procedure [facility] Comment on above: Arrived Start: 07-07-2024 End: 07-07-2024 Patient encounter procedure 07/07/2024 9:15 AM EDT Office Visit [facility] [address] [place] [address] Fannie Mistry, [address] [place] [address] Arrived [facility] Comment on above: Arrived Comprehensive metabo lic 2000 panel - Serum or Plasma [facility] MG Breast - bilatera l Screening [facility] MR Lumbar spine WO contrast [facility] Patient Education Low back pain in adults [facility] Work Phone: XR Hip - left 2 Views [facility] XR Lumbar spine Views [facility] Immunizations Immunization Date Immunization Notes Care Provider Haseeb taylor 04-06-2019 diphtheria, tetanus toxoids and acellular pertussis vaccine, unspecified formulation [facility] Payers Date Payer Category Payer Self-pay 2023 Medicaid [employer] MED[employer]ARE A DV[employer]AGE [id number] 2023 Private Health Insurance 101 [id number] 1958 Medicare [id number] 1958 Self-pay [id number] 1950 Unknown [id number] 1950 Unknown [id number] 1950 Unknown [id number] Unknown [id number] Unknown [id number] Unknown [id number] Social History Date Type Detail Facility Start: 07-07-2024 Sex Assigned At N [facility] [employer] Other Start: 04-02-2023 End: 04-02-2023 Tobacco smoking status LAIS Never smoked tobacco (finding) [facility] Start: 1950 Sex Assigned At Female F [facility] Start: 1950 Sex assigned at Not on file [facility] Start: 07-07-2024 Tobacco use and exposure Smokeless tobacco non-user [facility] Start: 07-07-2024 History of Social function [facility] Start: 08-03-2024 End: 10-19-2024 Sex Female (finding) [facility] Clinical Notes 04-03-2023 to 09-02-2024 Note Date & Type Note Facility 09-02-2024 Evaluation note Diagnosis Onset Date Resolution Chronic pain acute August 9:11am Lumbar spondylosis acute Decemb er 2023 9:11am Lumbosacral spondylosis with radiculopathy acute August 9:11am [facility] Work Phone: 1(261) 584-275512-12-2024 Evaluation note* Diagnosis Onset Date Resolution Status Admit Date Chronic pain acute August 9:11am Lumbar spondylosis acute Decemb er 2023 9:11am Lumbosacral spondylosis with radiculopathy acute September 02 9:11am Chronic pain acute September 10:12am Lumbar spondylosis acute 2024 10:12am Lumbosacral spondylosis with radiculopathy acute October 18 10:12am [facility] Work Phone: 1(844) 850-776911-27-2024 History of Present illness Narrative* Fannie Mistry, DO - 08/18/2024 8:30 AM EST Images from the original note were not included. Assessment/Plan Diagnoses and all orders for this visit: Superficial keratitis of both eyes - Resolved. Ms. Bustillo has been out of contact lens (CL) usage and compliant to Loteprednol both eyes (OU) TID since last seen. The SEIs have resolved. Decrease drops (gtts) both eyes (OU) BID until out. 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 degeneration [...] us if any change or worsening of vision. - Measured with ARGOS today since out of contact lens (CL) for 6 wks. - Will assess level of vision involvement after the cornea clears. I believe the asymmetry of the vision in order of source is age-related macular degeneration (ARMD) --> Keratitis ---> Cataract [facility] [id number] NoteRight Eye Quality was good. Scan locations included subfoveal. Progression has been stable. Findings include normal observations. Left Eye Quality was good. Scan locations included subfoveal. Progression has been stable. Findings include subretinal scarring. Notes Good scan with normal [id number] History of Present illness Narrative* Fannie Mistry DO - 07/07/2024 9:15 AM EDT Images from the original note were not [...] --> Keratitis ---> Cataract documented in this encounterDoctors [facility] [id number] Evaluation note* Diagnosis Onset Date Resolution Status Admit Date Low back pain acute May 232023 2:05pm Lumbar spondylosis acute Sept2023 2:05pm Obesity acute May 2:05pm [facility] Work Phone: [phone]) 260-386407-14-2023 Evaluation note* Encounter Date Diagnosis Assessment Notes Treatment Notes Treatment Clinical Notes Mar, Right hip pain (ICD-10 - M25.551) [employer] Other 07-13-2023 Evaluation note* Encounter Date Diagnosis [...] diet, exercise, Ca and Vitamin D supplements [employer] Other Evaluation noteNo [facility]Del[facility] [employer] Other Evaluation note* Diagnosis Onset Date Resolution Status Left hip pain acute Low back pain acute Lumbar spondylosis acute Obesity acute Primary osteoarthritis of left hip acute [facility] Work Phone: Evaluation note* Diagnosis Onset [...] noneactive Screening mammogram for breast cancer noneactive [facility] Work Phone: Evaluation note* Diagnosis Onset Date Resolution Status Hypercholesterolemia acute Hypothyroidism acute Impaired fasting glucose acu te Metabolic dysfunction-associ ated steatotic liver disease (MASLD) acute ELIDA (obstructive sleep apnea) acute Screening for colon cancer a cute Medicare annual wellness visit, subsequent noneactive Screening mammogram for breast cancer noneactive Left hip pain acute Low back pain acute Lumbar spondylosis acute Obesity acute [facility] Work Phone: Evaluation note* Diagnosis Superficial keratitis of both eyes- Primary 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 degeneration of both eyes Age-related nuclear cataract of both eyes documented in this encounter [facility] Healthcare[facility]* Diagnosis Age-related nuclear cataract of both eyes- Primary Superficial keratitis of both eyes 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 degeneration of both eyes documented in this encounter [...] elbow surgery Hospitalization History SEE ABOVE SURGERY [facility] [employer] Other History general [facility]ative - [facility] [employer] Other Summary Purpose Family History No Family [...] 2024 2:05pm Obesity June 07, 2024 2:05pm Chief Complaint Admit Date Unknown August 02, 2024 9:34am REFF BY DR. BOY ANNA September 02, 2024 9:11am LEFT LUMBAR TRANSFORAMINAL L3 L4/DS J anuary 2024 11:45am Reason for Visit Admit Date Chronic pain September 02, 2024 9:11am Lumbar spondylosis September 02, 2024 9:11am Lumbosacral spondylosis with radiculopat hy September 02, 2024 9:11am Chief Complaint Admit Date Unknown August 02, 2024 9:34am REFF BY DR. BOY ANNA September 02, 2024 9:11am LEFT LUMBAR TRANSFORAMINAL L3 L4/DS J anuary 2024 11:45am FOLLOW UP L LUMBAR TRANSFORAMINAL Januar y 2024 10:12am G89.29 - Other chronic pain September 10:56am Reason for Visit Admit Date Chronic pain September 02, 2024 9:11am Lumbar spondylosis September 02, 2024 9:11am Lumbosacral spondylosis with radiculopat hy September 02, 2024 9:11am Chronic pain October 18, 2024 1 0:12am Lumbar spondylosis October 18, 2024 1 0:12am Lumbosacral spondylosis with radiculopat hy October 18, 2024 10:12am Additional Source Comments INFORMATION SOURCE (unrecogn ized section and content) DATE CREATED AUTHOR 03/18/2018 [facility] DATE CREATED AUTHOR AUTHOR'S ORGANIZ ATION 11/21/2021 [facility] DATE CREATED AUTHOR AUTHOR'S ORGANIZ ATION 08/20/2024 [facility] EPIC DATE CREATED AUTHOR AUTHOR'S ORGANIZ ATION 10/23/2024 [facility] REASON FOR VISIT (unrecogniz ed section and content) Reason Comments Cataract Reason Comments Follow-up Care Teams (unrecognized sec tion and content) Team Status: Active Member Role Status Dates Boy Anna DO Primary Care Provider Active Team Status: Active Member Role Status Dates Boy Ball , DO Primary Care Provide r, Attending Provider Active Start: May 10, 2024 Team Status: Inactive Member Role Status Dates Boy Anna , DO Primary Care Provide r, Attending Provider Active Start: June 07, 2024 End: June 07, 2024 Team Status: Active Member Role Status Josette Anna DO Primary Care Provide r, Attending Provider Active Start: August 02, 2024 Team Status: Inactive Member Role Status Josette Anna DO Primary Care Provide r, Attending Provider Active Start: August 02, 2024 End: August 02, 2024 Team Status: Inactive Member Role Status Josette Anna DO Primary Care Provide r, Attending Provider Active Start: February 17, 2024 End: February 17, 2024 Team Status: Inactive Member Role Status Josette Anna DO Primary Care Provide r, Attending Provider Active Start: April 13, 2024 End: April 13, 2024 Team Status: Active Member Role Status Josette Anna DO Primary Care Provide r, Attending Provider Active Start: August 16, 2024 Team Status: Inactive Member Role Status Josette Anna DO Primary Care Provide r, Referring Provider Active Start: September 02, 2024 End: September 02, 2024 Felipe Akbar MD Attending Provider Active Sta rt: September 02, 2024 End: September 02, 2024 Team Status: Inactive Member Role Status Josette Anna DO Primary Care Provider Active Start: October 11, 2024 End: October 11, 2024 Felipe Akbar MD Attending Provider Active Sta rt: October 11, 2024 End: October 11, 2024 Team Status: Active Member Role Status Josette Anna DO Primary Care Provider Active Start: October 11, 2024 Felipe Akbar MD Attending Provider Active Sta rt: October 11, 2024 Team Status: Inactive Member Role Status Josette Anna DO Primary Care Provider Active Start: October 18, 2024 End: October 18, 2024 Felipe Akbar MD Attending Provider Active 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, 2024 End: October 18, 2024 Team Status: Active Member Role Status Josette Anna DO Primary Care Provider Active Start: October 18, 2024 Felipe Akbar MD Attending Provider Active 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, 2024 Goals (unrecognized section and content) Goals [...] BE BASED ON THE PRIMARY CLINICAL RECORDS. [facility] [email or web address] [facility]. provides no warranty or guarantee of the accuracy or completeness of information in this document.
== END 2024-11-10 09:45 | disposition home or self-care (01) ==
LOC: LAB 09:47
PROVIDERS: PCP Internal Medicine; Visit Provider Internal Medicine
DX: D69.6 Thrombocytopenia, unspecified (principal)
CPT/HCPCS: 36415; 85025

== ENCOUNTER 2025-06-09 11:04 | Outpatient (OUT) | payer MEDICARE, SELFPAY ==
--- OUTSIDE RECORDS SUMMARY | 2025-06-02 06:22 | XMS_ITS | Continuity of Care Document ---
Author Organization [facility] Address [address] [place] [address] Phone Care Team Providers Care Special Distribution Clerk Name Role Phone Boy Anna DO Primary Care Provider [phone] Felipe Akbar MD Attending Provider [phone] Junior Bravo MD Attending Provider [phone] Boy Anna DO Attending Provider Care Teams Patient Care Team Team Status: Active Member Role Status Dates Boy Anna DO Primary Care Provider Active Visit Care Team Team Status: Inactive Member Role Status Dates Boy Anna DO Primary Care Provider Active Start: May 10, 2025 End: May 10, 2025 Felipe Akbar MD Attending Provider Active Sta rt: May 10, 2025 End: May 10, 2025 Visit Care Team Team Status: Inactive Member Role Status Josette nAna DO Primary Care Provider Active Start: May 10, 2025 End: May 10, 2025 Felipe Akbar MD Attending Provider Active Sta rt: May 10, 2025 End: May 10, 2025 Visit Care Team Team Status: Active Member Role Status Josette Anna DO Primary Care Provider Active Start: May 20, 2025 Junior Bravo MD Attending Provider Active Start: May 20, 2025 Visit Care Team Team Status: Inactive Member Role Status Dates Boy Anna DO Primary Care Provider Active Start: May 25, 2025 End: May 25, 2025 Felipe Akbar MD Attending Provider Active Sta rt: May 25, 2025 End: May 25, 2025 Visit Care Team Team Status: Active Member Role Status Dates Boy Anna DO Primary Care Provider Active Start: May 25, 2025 Felipe Akbar MD Attending Provider Active Sta rt: May 25, 2025 Visit Care Team Team Status: Inactive Member Role Status Dates Boy Anna DO Primary Care Provider Active Start: June 01, 2025 End: June 01, 2025 Felipe Akbar MD Attending Provider Active Sta rt: June 01, 2025 End: June 01, 2025 Patient Care Team Team Status: Inactive Member Role Status Dates Boy Anna DO Primary Care Provider Active Start: June 02, 2025 End: June 02, 2025 Boy Anna DO Attending Provider Active Sta rt: June 02, 2025 End: June 02, 2025 Chief Complaint and Reason for Visit Chief Complaint Admit Date F/U 3 MO LEFT LUMB TRANS May 10 1:36pm M25.559 - Pain in unspecified hip May 10, 2025 2:05pm LEFT INTRA-ARTICULAR HIP JOINT INJECTI ON May 25, 2025 11:37am F/U LEFT INTRA-ARTICULAR HIP JOINT INJEC TION June 01, 2025 9:09am Wellness June 02, 2025 9:26am Reason for Visit Admit Date Chronic pain May 10, 2025 1: 36pm Lumbosacral spondylosis with radiculopat hy May 10, 2025 1:36pm Osteoarthritis of left hip May 10, 2025 1:36pm Chronic pain June 01, 2025 9:09am Lumbosacral spondylosis with radiculopat hy June 01, 2025 9:09am Osteoarthritis of left hip May 9:09am Chronic pain June 02, 2025 9:26am Hypercholesterolemia June 02 9:26am Hypothyroidism June 02, 2025 9:26am Impaired fasting glucose June 02, 2025 9:26am Lumbosacral spondylosis with radiculopat hy June 02, 2025 9:26am Metabolic dysfunction-associ ated steatotic liver disease (MASLD) June 02, 2025 9:26am ELIDA (obstructive sleep apnea) June 02, 2025 9:26am Osteoarthritis of left hip May 9:26am Primary osteoarthritis of left hip Septe mb 2024 9:26am Screening for colon cancer May 9:26am Medicare annual wellness visit, subseque nt June 02, 2025 9:26am Screening mammogram for breast cancer Se ptember 2024 9:26am Reason for Referral Referring Provider Name Referring Provider Address Referring Provider Phone Referral Date Requested Appointment Date Referral Reason Felipe Akbar [address] [facility] [address] Work Phone: June 01, 2025 M16.12 - Unilateral primary osteoarthritis , left hip May M16.12 - Unilateral primary osteoarthritis , left hip Allergies, Adverse Reactions, Alerts Allergen Type Severity Reaction Last Updated Verified Status cephalexin Allergy Unknown Unknown Reaction Septembe r 2024 9:29am Yes Active Social History Smoking Status Status Start Date End Date Date of Observa tion Never smoked tobacco (finding) April 02, 2023 3:24pm Observation Status Observation Response Date of Response Legal Sex Female (finding) Sex Assigned At Female 1950 Family History Relationship Condition Age at Onset Recorded Date/T valeriy brother Malignant neoplasm Unknown father Hypertension Unknown Heart disease Unknown Malignant neoplasm Unknown mother Unknown Alzheimer's disease Unknown Family history of mental disorder Unknown Problems Active Problems Medical Problem Onset Date Status Lumbosacral spondylosis with radiculopathy Unkno wn Active Metabolic dysfunction-associated steatotic liver disease (MASLD) Unknown Active ELIDA (obstructive sleep apnea) Unknown Ac tive Screening for colon cancer Unknown Activ e Primary osteoarthritis of left hip Unknown Active Low back pain Unknown Active BPPV (benign paroxysmal positional vertigo) Unkn own Active Chronic pain Unknown Active Osteoarthritis of left hip Unknown Activ e Hypercholesterolemia Unknown Active Hypothyroidism Unknown Active Impaired fasting glucose Unknown Active Thrombocytopenia Unknown Active Macrocytosis without anemia Unknown Acti ve Left hip pain Unknown Active Hip pain Unknown Active Vitamin D deficiency Unknown Active Lumbar spondylosis Unknown Active Obesity Unknown Active Medications Medication Status Dose Units Route Directions Qty Days St art Date Stop Date End Date Instructions Adherence Diazepam 5 mg tablet Active 2.5 MG PO Every 6 hours as needed for vertigo ry 2023 1:00am Complies with drug therapy Levothyroxi ne 112 mcg tablet Active 0 .ROUTE .COMPLEX 98 Decemb er 2023 8:37am TAKE 1 TABLET DAILY, EXCEPT INSTRUCTED TO TAKE ONE AND ONE-HALF TABLETS EVERY FRIDAY Complies with drug therapy Levothyroxi ne 112 mcg tablet Discont inued 112 MCG PO Daily February 13, 2024 12:00a m Decem seng 16th, 2024 8:37a m EXCEPT INSTRUCTED TO TAKE ONE AND ONE-HALF TABLETS EVERY FRIDAY Semaglutide (Ozempic) 0.25 mg or 0.5 mg (2 mg/3 mL) pen injector Discont inued 0.25 MG SUBCUT every week February 13, 2024 12:00a m April 13, 2024 9:30a m Calcium-Vit lino D3-Vitamin K 500-500-40 mg-unit-mcg tablet,chew able Active 1 TAB PO Daily February 13, 2024 12:00a m Complies with drug therapy Etodolac 500 mg tablet Discont inued 500 MG PO Twice daily February 17, 2024 12:00a m April 13, 2024 9:30a m Immunizations Immunization Event Date Not Given Reason Dose Number Lo[employer] Lot Number Vaccine Information Statement (VIS) Detail Administration Location DTap, unspecified April 06, 2019 Procedures Procedure Date Performed Status XR hip LT min 2V(w/wo pelvis)* May 10, 2025 2:05pm completed Relevant Diagnostic Tests and/or Laboratory Data Laboratory Results Test Collection Date/Time Result Date/Time Result Interpretation Reference Range Result Comment Performing Site Alanine Aminotran sferase (ALT/SGPT ) May 20, 2025 10:05am May 20, 2025 10:05am 10 U/L 7-38 Basophils # (Auto) May 20, 2025 10:05am May 20, 2025 10:05am 0.04 k/uL <0.11 Albumin May 20, 2025 10:05am May 20, 2025 10:05am 4.1 g/dL 3.9-4.9 Basophils (%) (Auto) May 20, 2025 10:05am May 20, 2025 10:05am 0.7 % Aspartate Amino Transf (AST/SGOT ) May 20, 2025 10:05am May 20, 2025 10:05am 20 U/L 13-35 Eosinophi ls # (Auto) May 20, 2025 10:05am May 20, 2025 10:05am 0.15 k/uL <0.46 Total Bilirubin May 20, 2025 10:05am May 20, 2025 10:05am 0.6 mg/dL 0.2-1.3 Eosinophi ls (%) (Auto) May 20, 2025 10:05am May 20, 2025 10:05am 2.5 % Carbon Dioxide Level May 20, 2025 10:05am May 20, 2025 10:05am 27 mmol/L 22-30 Hemoglobi n May 20, 2025 10:05am May 20, 2025 10:05am 12.7 g/dL 11.5-15.5 Chloride Level May 20, 2025 10:05am May 20, 2025 10:05am 101 mmol/L 98-107 Lymphocyt es # (Auto) May 20, 2025 10:05am May 20, 2025 10:05am 1.10 k/uL 1.00-4.00 Creatinin e May 20, 2025 10:05am May 20, 2025 10:05am 0.81 mg/dL 0.58-0.96 Lymphocyt es (%) (Auto) May 20, 2025 10:05am May 20, 2025 10:05am 18.3 % Glucose Level May 20, 2025 10:05am May 20, 2025 10:05am 105 mg/dL Above high normal 74-99 The [place] [employer] (ADA) provides guidance for cutoff values for fasting glucose and random glucose. The ADA defines fasting as no caloric intake for at least 8 hours. Fasting plasma glucose results between 100 to 125 mg/dL indicate increased risk for diabetes (prediabetes ).Fasting plasma glucose results greater than or equal to 126 mg/dL meet the criteria for diagnosis of diabetes. In the absence of unequivocal hyperglycemi a, results should be confirmed by repeat testing. In a patient with classic symptoms of hyperglycemi a or hyperglycemi c crisis, random plasma glucose results greater than or equal to 200 mg/dL meet the criteria for diagnosis of diabetes.Ref erence: Standards of Medical Care in Diabetes 2016, [place] [employer]. Diabetes Care. 2016.39(Supp l 1). Monocytes # (Auto) May 20, 2025 10:05am May 20, 2025 10:05am 0.33 k/uL <0.87 Potassium Level May 20, 2025 10:05am May 20, 2025 10:05am 4.2 mmol/L 3.7-5.1 Neutrophi ls # (Auto) May 20, 2025 10:05am May 20, 2025 10:05am 4.35 k/uL 1.45-7.50 Serum Total Protein May 20, 2025 10:05am May 20, 2025 10:05am 7.0 g/dL 6.3-8.0 Neutrophi ls (%) (Auto) May 20, 2025 10:05am May 20, 2025 10:05am 72.3 % Sodium Level May 20, 2025 10:05am May 20, 2025 10:05am 139 mmol/L 136-144 Nucleated Red Blood Cells # May 20, 2025 10:05am May 20, 2025 10:05am <0.01 k/uL <0.01 Blood Urea Nitrogen May 20, 2025 10:05am May 20, 2025 10:05am 16 mg/dL 7-21 Platelet Count May 20, 2025 10:05am May 20, 2025 10:05am 123 k/uL Below low normal 150-400 Alkaline Phosphata se May 20, 2025 10:05am May 20, 2025 10:05am 102 U/L 34-123 Mean Corpuscul ar Hemoglobi n May 20, 2025 10:05am May 20, 2025 10:05am 33.7 pg 26.0-34.0 Calcium Level May 20, 2025 10:05am May 20, 2025 10:05am 9.4 mg/dL 8.5-10.2 Mean Corpuscul ar Hemoglobi n Concent May 20, 2025 10:05am May 20, 2025 10:05am 33.5 g/dL 30.5-36.0 Anion Gap May 20, 2025 10:05am May 20, 2025 10:05am 11 mmol/L 8-15 Mean Corpuscul ar Volume May 20, 2025 10:05am May 20, 2025 10:05am 100.5 fL Above high normal 80.0-100.0 Estimated GFR (CKD-EPI) May 20, 2025 10:05am May 20, 2025 10:05am 76 mL/min/ 1.73m?? ? >=60 Estimated Glomerular Filtration Rate (eGFR) is calculated using the 2020 CKD-EPI creatinine equation. This equation utilizes serum creatinine, sex, and age as parameters. The creatinine assay has traceable calibration to isotope dilution-mas s spectrometry . Refer to KDIGO guidelines for clinical interpretati on. In patients with unstable renal function, e.g. those with acute kidney injury, the eGFR may not accurately reflect actual GFR. Red Blood Count May 20, 2025 10:05am May 20, 2025 10:05am 3.77 m/uL Below low normal 3.90-5.20 Hematocri t May 20, 2025 10:05am May 20, 2025 10:05am 37.9 % 36.0-46.0 Monocytes (%) (Auto) May 20, 2025 10:05am May 20, 2025 10:05am 5.5 % Corrected White Blood Count May 20, 2025 10:05am May 20, 2025 10:05am 6.01 k/uL 3.70-11.00 Nucleated RBC Relative Count (auto) May 20, 2025 10:05am May 20, 2025 10:05am 0.0 /100{WB C} Red Cell Distribut ion Width May 20, 2025 10:05am May 20, 2025 10:05am 13.5 % 11.5-15.0 Mean Platelet Volume May 20, 2025 10:05am May 20, 2025 10:05am 12.5 fL 9.0-12.7 Different ial Comment May 20, 2025 10:05am May 20, 2025 10:05am Auto Immature Granulocy te # (Auto) May 20, 2025 10:05am May 20, 2025 10:05am 0.04 k/uL <0.10 Immature Granulocy te % (Auto) May 20, 2025 10:05am May 20, 2025 10:05am 0.7 % Diagnostic Imaging Reports Author Tommy España [facility] Authored May 10, 2025 10 :45pm Report Dictated Date/Time Dictated By Status Radiology Report May 10, 2025 10:45pm Tommy holt , DO completed [facility] [address] [place] [address] XRay Report Signed Patient: Serenity Bustillo MR#: [id number] : 1950 Acct:[id number] Age/Sex: 75 / F ADM Date: 5 [place] [facility]: Type: [facility] Attending Dr: Felipe Akbar MD Copies to: Felipe Akbar MD~ Ordering Provider: Felipe Akbar MD Date of Service: 05/10/25 XR/XR hip LT min 2V(w/wo pelvis)*: M25.559 - Pain in unspecified hip 2 views left hip a single view pelvis plain film COMPARISON: 02/18/2024 HISTORY: Left hip pain. Worsening ACUTE FINDINGS: None DEGENERATIVE CHANGE: Worsening narrowing of the right hip joint spaces. Marginal spurring. No articular collapse. No AVN. Sclerotic changes of SI joints. Mild right hip degeneration SOFT TISSUE FINDINGS: Unremarkable JOINT EFFUSION: None POSTOP CHANGES: None BONY MINERALIZATION: Adequate XR/XR hip LT min 2V(w/wo pelvis)* IMPRESSION: Progression of extensive left hip degeneration Impression dictated by: Tommy España M.D. 05/10/2025 10:46 PM Dictation Location: [place] [address] Transcribed By: [facility] 05/10/252245 Dictated By: Tommy España DO 05/10/252244 Signed By: <Electronically signed by Tommy España DO in [place]> 05/10/252245 Vital Signs Vital Reading Result Reference Range Collection Date/Time Height 63 [in_i] June 02, 2025 9:35am Weight 89.92 kg June 02, 2025 9:35am Heart Rate 79 /min 60-100 June 02, 2025 9:35am Respiratory rate 12 /min 12-24 May 232024 9:35am BP Systolic 118 mm[Hg] 100-140 June 02, 2025 9:35am BP Diastolic 78 mm[Hg] 60-100 June 02, 2025 9:35am BMI (Body Mass Index) 35.1 kg/m2 Sept2024 9:35am Advance Directives Advance Directive Response Recorded Date/ Time Advance Directives No January 14 024 11:56am Insurance Providers Guarantor Serenity Bustillo Address [address] [place] [address] Contact Info. Home Phone: Payer Policy Id Subscriber's Name Subscriber Id Effectiv e Date Expiration Date [employer] ALINA PFAGUILA [id number] Serenity Bustillo [id number] Encounters Encounter Location(s) Arrival/Admit Date Discharge /Depart Date Provider(s) Departed Physician/Prov ider Office Visit -[facility] May 10, 2025 1:36pm May 10, 2025 2:18pm Kayla Rios MD Departed Clinical -[facility] May 10, 2025 2:05pm May 10, 2025 2:06pm Kayla Rios MD Non-patient / Non-visit -[facility] May 20, 2025 10:05am Juniro Bravo MD Departed Physician/Prov ider Office Visit -[facility] May 25, 2025 11:37am May 25, 2025 11:59pm Kayla Rios MD Non-patient / Non-visit -[facility] May 25, 2025 1:15pm Kayla Rios MD Departed Physician/Prov ider Office Visit -[facility] June 01, 2025 9:09am June 01, 2025 9:37am Kayla Rios MD Departed Physician/Prov ider Office Visit -[facility] June 02, 2025 9:26am June 02, 2025 10:21am Boy Anna DO Recent Diagnosis Onset Date Admit Date Chronic pain Unknown May 10 1:36pm Lumbosacral spondylosis with radiculopathy Unkno wn May 10, 2025 1:36pm Osteoarthritis of left hip Unknown Augus t 2024 1:36pm Chronic pain Unknown June 01, 2025 9:09am Lumbosacral spondylosis with radiculopathy Unkno wn June 01, 2025 9:09am Osteoarthritis of left hip Unknown Maye 2024 9:09am Chronic pain Unknown June 02, 2025 9:26am Hypercholesterolemia Unknown May 232024 9:26am Hypothyroidism Unknown June 02, 2025 9:26am Impaired fasting glucose Unknown 2024 9:26am Lumbosacral spondylosis with radiculopathy Unkno wn June 02, 2025 9:26am Metabolic dysfunction-associ ated steatotic liver disease (MASLD) Unknown June 02, 2025 9:26am ELIDA (obstructive sleep apnea) Unknown Se pt2024 9:26am Osteoarthritis of left hip Unknown 2024 9:26am Primary osteoarthritis of left hip Unknown June 02, 2025 9:26am Screening for colon cancer Unknown 2024 9:26am Medicare annual wellness visit, subsequent Unkno wn June 02, 2025 9:26am Screening mammogram for breast cancer Unknown June 02, 2025 9:26am Assessments Diagnosis Onset Date Resolution Status Admit Date Chronic pain acute May 10, 2025 1:36pm Lumbosacral spondylosis with radiculopathy acute May 10 1:36pm Osteoarthritis of left hip acute May 10, 2025 1:36pm Chronic pain acute June 012024 9:09am Lumbosacral spondylosis with radiculopathy acute June 01, 2025 9:09am Osteoarthritis of left hip acute June 01, 2025 9:09am Chronic pain acute June 022024 9:26am Hypercholesterolemia acute May 9:26am Hypothyroidism acute June 02, 2025 9:26am Impaired fasting glucose acute June 02, 2025 9:26am Lumbosacral spondylosis with radiculopathy acute June 02, 2025 9:26am Metabolic dysfunction-associ ated steatotic liver disease (MASLD) acute June 02, 2025 9:26am ELIDA (obstructive sleep apnea) acute June 02, 2025 9:26am Osteoarthritis of left hip acute June 02, 2025 9:26am Primary osteoarthritis of le ft hip acute June 02, 2025 9:26am Screening for colon cancer acute June 02, 2025 9:26am Medicare annual wellness vis it, subsequent noneactive June 02, 2025 9:26am Screening mammogram for [facility] cancer noneactive June 02, 2025 9:26am Plan of Treatment Author Boy Anna [facility] Authored May 30, 2025 10:42pm I have instructed this patie nt on the recommended lifestyle changes, which includes a low fat, high fiber diet along with a regular exercise routine. I have also reviewed the recommended age-appropriate preventive testing for this patient. I have also reviewed the recommended vaccines for their age and risk factors. His A1C is between 5.7-6.5%. Instructed on low carb, high fiber diet. Instructed on routine exercise program for 30-60min three times weekly. Instructed on correlation between obesity and insulin resistance and encouraged to lose weight. Monitor A1C every 6 months. Instructed on low fat, high fiber diet. Instructed on benefits of exercise and weight loss on reversing this condition. Instructed on the association of MDSLD and fibrosis, cirrhosis and HCC. Clinically euthyroid, monitor TSH yearly Continue Levothyroxine without interruption I have instructed this patient on a low fat, high fiber diet and exercise. I have discussed the primary and secondary prevention benefits attributed to lowering LDL cholesterol. I have also discussed the medical treatment of elevated cholesterol, which is based on the 10 year ASCVD risk. This patient is aware of the benefits associated with treatment of ELIDA: With continued use, the patient reduces the risk for [place], CVA, HTN, cardiac dysrhythmias and sudden cardiac deaths. The patient is also aware of the association between ELIDA and morning headaches, daytime somnolence, fatigue and obesity, which also has been improved with continued use. The patient is compliant with treatment, wearing the equipment every night for greater than 4 hours. The patient is instructed to continue use of the CPAP for ELIDA treatment. I have instructed this patient on monthly SBE and recommended yearly mammograms. This patient is an asymptomatic, low risk patient due for a screening. They deny any change in appetite, weight or bowel habits. They deny abdominal pain, heartburn, dysphagia, melena or hematochezia. I have instructed this patient to avoid bending, twisting or lifting. I have also instructed on use of intermittent heat and ice as needed. They may schedule a massage or gentle manipulation. I instructed them on the safe use of Tylenol, Lidocaine and stretching exercises. I informed them of alternative modes of treatment for severe pain, which may include referral to physical therapy or pain management. Instructed on ROM exercises, ice/heat and Tylenol. Patients primary complaint today is severe left hip and thigh/ groin pain. Left hip x-rays were updated and reviewed personally, significant degenerative changes without acute findings, progressed from comparison imaging last year. It was explained that these would be reviewed by radiology as well. We discussed a referral to orthopedics vs conservative treatment; patient wishes to proceed conservatively and is a reasonable candidate to try a left intra-articular hip injection. Risks and benefits of procedure explained to patient; patient verbalizes understanding. We will follow up with the patient one week following her procedure. Anatomy discussed in detail with patient in regards to patients condition. Above note written by Garcia Dawson CMA, [employer]. Edited and approved by Dr. Felipe Akbar MD Author Felipe Akbra [facility] Authored June 01, 2025 9:44am Patient continues to benefit from a previous left lumbar transforaminal epidural steroid injection. We will continue to monitor and proceed with repeat treatment to the area as needed. Anatomy of spine discussed in detail with patient in regards to patients condition. Overall, patient believes their lumbar pain is reasonably well controlled and she is in agreement with our treatment plan. Patient notes considerable improvement in their symptoms following a recent left hip injection, however, does report some returning pain. Patient would like to establish with orthopedics to discuss possible surgical intervention which is reasonable; this referral was facilitated today. She was advised of the importance of activity modification and limitations. We will follow up with the patient in three months, sooner if needed. Above note written by Garcia Dawson CMA, [employer]. Edited and approved by Dr. Felipe Akbar MD Author [facility] Authored May 10, 2025 2: 18pm Patient notes considerable i mprovement in their symptoms following a recent left lumbar transforaminal epidural steroid injection. We will continue to monitor and proceed with repeat treatment to the area as needed. She was advised of the importance of activity modification and limitations. We will follow up with the patient in three months, sooner if needed. Anatomy of spine discussed in detail with patient in regards to patients condition. Overall, patient believes their pain is reasonably well controlled and she is in agreement with our treatment plan. Patients primary complaint today is severe left hip and thigh/ groin pain. Left hip x-rays were updated and reviewed personally, significant degenerative changes without acute findings, progressed from comparison imaging last year. It was explained that these would be reviewed by radiology as well. We discussed a referral to orthopedics vs conservative treatment; patient wishes to proceed conservatively and is a reasonable candidate to try a left intra-articular hip injection. Risks and benefits of procedure explained to patient; patient verbalizes understanding. We will follow up with the patient one week following her procedure. Anatomy discussed in detail with patient in regards to patients condition. Above note written by Garcia Dawson CMA, [employer]. Edited and approved by Dr. Felipe Akbar MD Future Tests Future scheduled test information is unavailable Pending Tests Test Name Ordered Date Scheduled Date Comprehensive Metabolic Panel June 02 10:16am MM screening mammo BI w/CAD June 02, 2025 10:15am Future Visits Future appointment information is unavailable Referrals to Other Providers Reason for Referral Referral Start Date Provider Provider Contact Information Provider Address M16.12 - Unilateral primary osteoarthritis, left hip June 01, 2025 Mary Osorio MD Work Phone: [facility] [address] [employer] [facility] [address] Future Procedures Procedure Name Ordered Date Scheduled Date A1C with Estimated Average Glu June 02 025 10:16am Complete Blood Count Auto Diff June 02 025 10:16am Lipid Panel June 02, 2025 10:16am Thyroid Stimulating Hormone June 02, 2025 10:16am Vitamin D 25 Hydroxy Total June 02, 2025 10:16am Future Medications Future medication information is unavailable Patient Instructions Patient instructions are unavailable
--- OUTSIDE RECORDS SUMMARY | 2025-06-09 11:11 | XMS_ITS | Encounter Summary ---
Author Organization [facility] Address [address] [place] [id number] Care Team Providers Care Manager Intensive Care Name Role Phone Boy Anna DO Primary Care Provider [phone] Source Comments In the event this information is protected by the Federal Confidentiality of Alcohol and Drug AbusePatient Records regulations: The Federal rules restrict any use of the information to criminally investigate or prosecute any alcohol or drug abuse patient.[facility] Encounter Details Date Type Department Care Team (Latest Contact Info) Description 11/17/2024 H&P External-NonCCF Provider, External, MIESHA Do not enter address information under generic External Provider. Social History Tobacco Use Types Packs/Day Years Used Date Smoking Tobacco: Never Smokeless Tobacco: Never Alcohol Use Standard Drinks/Week Comments No 0 (1 standard drink = 0.6 oz pur e alcohol) Comments No Sex and Gender Information Value Date Recorded Sex Assigned at Not on file Legal Sex Female 2:54 PM EDT Gender Identity Not on file Sexual Orientation Not on file documented as of this encounter Plan of Treatment Upcoming Encounters Date Type Department Care Team (Late st Contact Info) Description 11/21/2025 9:45 AM EST Office Visit [facility] [address] [place] [address] [place] [address] 9 month follow up 11/21/2025 10:00 AM EST Visit (SP) Office Hematology/Oncology [address] [facility] [facility] [place] [address] Junior Bravo MD [address] [place] [address] [place] [address] 9 month follow up documented as of this encounter Visit Diagnoses Not on filedocumented in this encounter Care Teams Manager Intensive Care Relationship Specialty Start Date End Date Boy Anna DO PCP - General Internal Medicine 12/29/12 documented as of this encounter
--- OUTSIDE RECORDS SUMMARY | 2025-06-09 11:11 | XMS_ITS | Clinical Summary ---
Author Organization [facility] Address [address] [facility] [place] [address] Care Team Providers Care Carpenter Foreman Name Role Phone Unavailable Primary Care Provider Unavailabl e Allergies Active Allergy Reactions Criticality Noted Date Comments Cephalexin 06/07/2024 Other Reaction(s): Unknown Reaction Medications levothyroxine (Synthroid, Levoxyl) 112 MCG tablet Daily 4 Active loteprednol (Lotemax) 0.5 % ophthalmic suspensionIndic ations:Superfic ial keratitis of both eyes Administer 1 drop into both eyes in the morning and 1 drop in the evening and 1 drop before bedtime. 5 mL 2 Active Additional Information Patient not taking.Reported on 12/22/2024 Active Problems Problem Noted Date Diagnosed Date Age-related nuclear cataract of both eyes 2023 Superficial keratitis of both eyes 07/07/2024 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 degeneration of both eyes 07/07/2024 Social History Tobacco Use Types Packs/Day Years Used Date Smoking Tobacco: Never Smokeless Tobacco: Never Tobacco Cessation:Counseling Given: Not Answered Comments Unknown Sex and Gender Information Value Date Recorded Sex Assigned at Not on file Legal Sex Female 7:00 PM EDT Gender Identity Not on file Sexual Orientation Not on file Plan of Treatment Upcoming Encounters Date Type Department Care Team (Late st Contact Info) Description 06/24/2025 8:45 AM EDT Office Visit [facility] [address] [place] [id number] Nam Mistry, DO [address] [place] [address] Insurance [employer] MEDICARE ADVANTAGE
--- OUTSIDE RECORDS SUMMARY | 2025-06-09 11:11 | XMS_ITS | Clinical Summary ---
Author Organization [facility] Address [address] [place], [place] [id number] Care Team Providers Care Sterilization Tech Name Role Phone Boy Anna DO Primary Care Provider [phone] Allergies Active Allergy Reactions Criticality Noted Date Comments Cephalexin Unknown 06/07/2024 Other Reaction(s): Unknown Reaction Medications levothyroxine (SYNTHROID) 112 mcg tablet Take 100 mcg by mouth daily before breakfast. Active ZINC ORAL Take by mouth. Active Active Problems Problem Noted Date Diagnosed Date Hypertension 01/11/2013 Hypothyroid 01/11/2013 Thrombocytopenia Encounters Date Type Department Care Team Description 05/20/2025 10:20 AM EDT Visit (SP) Office Hematology/Oncolog y [address] [place] [address] [place] [address] Junior Bravo MD Thrombocytopenia (Primary Dx) 05/20/2025 Travel 05/16/2025 Telephone Hematology/Oncolog y [address] [place] [address] [place] [address] Junior Bravo MD Lab Orders from Last 3 Months Family History Medical History Relation Comments Cancer Brother Heart Father Hypertension Father Alzheimer's Disease Mother Relation Status Comments Brother Father Mother Social History Tobacco Use Types Packs/Day Years Used Date Smoking Tobacco: Never Smokeless Tobacco: Never Alcohol Use Standard Drinks/Week Comments No 0 (1 standard drink = 0.6 oz pur e alcohol) PHQ-2 Answer Date Recorded PHQ-2 score 0 05/20/2025 Area Deprivation Index Answer Date Александр rded National Score (1-100), lower number is lower ri sk 86 11/23/2024 State Score (1-10), lower number is lower risk 8 11/23/2024 Data from: https://www.neighborhoodatlas.[facility]/. Last address used for calculation [address] 11/23/2024 Comments No Sex and Gender Information Value Date Recorded Sex Assigned at Not on file Legal Sex Female 2:54 PM EDT Gender Identity Not on file Sexual Orientation Not on file Last Filed Vital Signs Vital Sign Reading Time Taken Comments Blood Pressure 134/87 05/20/2025 10:16 AM EDT Pulse 86 05/20/2025 10:16 AM EDT Temperature 36.5 C (97.7 F) 05/20/2025 10:16 AM EDT Respiratory Rate 16 05/20/2025 10:16 AM EDT Oxygen Saturation 97% 05/20/2025 10:16 AM EDT Inhaled Oxygen Concentration - - Weight 92.2 kg (203 lb 4.2 oz) 05/20/2025 10:16 AM EDT Height 165.1 cm (5' 5 ) 05/20/2025 10:16 AM EDT Body Mass Index 33.82 05/20/2025 10:16 AM EDT Plan of Treatment Upcoming Encounters Date Type Department Care Team (Late st Contact Info) Description 11/21/2025 9:45 AM EST Office Visit [facility] [address] [place] [address] 9 month follow up 11/21/2025 10:00 AM EST Visit (SP) Office Hematology/Oncology [address] [facility] [place] [address] Junior Bravo MD [address] [place] [place] [address] 9 month follow up Health Maintenance Due Date Last Done Comments Annual PCP Team Chronic Dise ase Visit 1969 Anxiety Screening 1969 Depression Screening 1969 Hepatitis C Screening 1969 DTaP,Tdap,Td Vaccine (1 - Tdap) [address] Colonography 1996 Colonoscopy 1996 Fecal Occult Blood 1996 Lipid Screening 1996 Sigmoidoscopy 1996 Pneumococcal Vaccine: 50+ (1 of 1 - PCV) 2001 Shingrix Vaccine (1 of 2) 2001 Bone Density Screening 2016 Advance Directive Discussion 09/22/2024 Medicare Advantage Annual We ethanness Visit 09/22/2024 Influenza Vaccine (#1) 2025 RSV Vaccine (1 - 1-dose 75+ series) 2026 Cologuard (FIT-DNA) 04/22/2027 04/22/2024, Colorectal Cancer Screening 04/22/2027 Diabetes Screening 05/20/2028 05/20/2025, 0 11/23/2024, 03/19/2017, Additional history exists Procedures Procedure Name Priority Date/Time Associated Diagnosis Comments COMPREHENSIVE METABOLIC PANEL Routine 05/20/2025 10:05 AM EDT Thrombocytopenia CBC + DIFF Routine 05/20/2025 10:05 AM EDT Thrombocytopenia from Last 3 Months Results * (ABNORMAL) COMPREHENSIVE METABOLIC PANEL (05/20/2025 10:05 AM EDT) Pathologist [facility] Protein, Total 7.0 6.3 - 8.0 g/dL 05/20/2025 10:27 AM EDT [facility] Albumin 4.1 3.9 - 4.9 g/dL 05/20/2025 10:27 AM EDT [facility] Calcium, Total 9.4 8.5 - 10.2 mg/dL 05/20/2025 10:27 AM EDT [facility] Bilirubin, Total 0.6 0.2 - 1.3 mg/dL 05/20/2025 10:27 AM EDT [facility] Alkaline Phosphatase 102 34 - 123 U/L 05/20/2025 10:27 AM EDT [facility] AST 20 13 - 35 U/L 05/20/2025 10:27 AM EDT [facility] ALT 10 7 - 38 U/L 05/20/2025 10:27 AM EDT [facility] Glucose 105(H) 74 - 99 mg/dL 05/20/2025 10:27 AM [facility] Comment: The [place] Diabetes Association (ADA) provides guidance for cutoff values for fasting glucose and random glucose. The ADA defines fasting as no caloric intake for at least 8 hours. Fasting plasma glucose results between 100 to 125 mg/dL indicate increased risk for diabetes (prediabetes). Fasting plasma glucose results greater than or equal to 126 mg/dL meet the criteria for diagnosis of diabetes. In the absence of unequivocal hyperglycemia, results should be confirmed by repeat testing. In a patient with classic symptoms of hyperglycemia or hyperglycemic crisis, random plasma glucose results greater than or equal to 200 mg/dL meet the criteria for diagnosis of diabetes. Reference: Standards of Medical Care in Diabetes 2016, French Diabetes Association. Diabetes Care. 2016.39(Suppl 1). BUN 16 7 - 21 mg/dL 05/20/2025 10:27 AM [facility] Creatinine 0.81 0.58 - 0.96 mg/dL 05/20/2025 10:27 AM [facility] Sodium 139 136 - 144 mmol/L 05/20/2025 10:27 AM [facility] Potassium 4.2 3.7 - 5.1 mmol/L 05/20/2025 10:27 AM [facility] Chloride 101 98 - 107 mmol/L 05/20/2025 10:27 AM [facility] CO2 27 22 - 30 mmol/L 05/20/2025 10:27 AM [facility] Anion Gap 11 8 - 15 mmol/L 05/20/2025 10:27 AM [facility] Estimated Glomerular Filtration Rate 76 >=60 mL/min/1. 73m 05/20/2025 10:27 AM [facility] Comment:Estimated Glomerular Filtration Rate (eGFR) is calculated using the 2020 CKD-EPI creatinine equation. This equation utilizes serum creatinine, sex, and age as parameters. The creatinine assay has traceable calibration to isotope dilution- mass spectrometry. Refer to KDIGO guidelines for clinical interpretation. In patients with unstable renal function, e.g. those with acute kidney injury, the eGFR may not accurately reflect actual GFR. Blood BLOOD SPECIMEN / Unknown Venipuncture / Unknown 05/20/2025 10:05 AM EDT 05/20/2025 10:05 AM EDT us Junior Bravo MD LABORATORY Final Res ult [facility] [address] [place] [address] * (ABNORMAL) COMPLETE BLOOD COUNT AND DIFFERENTIAL (05/20/2025 10:05 AM EDT) WBC 6.01 3.70 - 11.00 k/uL 05/20/2025 10:11 AM EDT [facility] RBC 3.77(L) 3.90 - 5.20 m/uL 05/20/2025 10:11 AM EDT [facility] Hemoglobin 12.7 11.5 - 15.5 g/dL 05/20/2025 10:11 AM EDT [facility] Hematocrit 37.9 36.0 - 46.0 % 05/20/2025 10:11 AM EDT [facility] MCV 100.5(H) 80.0 - 100.0 fL 05/20/2025 10:11 AM EDT [facility] MCH 33.7 26.0 - 34.0 pg 05/20/2025 10:11 AM EDT [facility] MCHC 33.5 30.5 - 36.0 g/dL 05/20/2025 10:11 AM EDT [facility] RDW-CV 13.5 11.5 - 15.0 % 05/20/2025 10:11 AM EDT [facility] Platelet Count 123(L) 150 - 400 k/uL 05/20/2025 10:11 AM EDT [facility] MPV 12.5 9.0 - 12.7 fL 05/20/2025 10:11 AM EDT [facility] Neutrophils % 72.3 % 05/20/2025 10:11 AM EDT [facility] Abs Neut 4.35 1.45 - 7.50 k/uL 05/20/2025 10:11 AM EDT [facility] Lymphocytes % 18.3 % 05/20/2025 10:11 AM EDT [facility] Abs Lymph 1.10 1.00 - 4.00 k/uL 05/20/2025 10:11 AM EDT [facility] Monocytes % 5.5 % 05/20/2025 10:11 AM EDT [facility] Abs [place] 0.33 <0.87 k/uL 05/20/2025 10:11 AM EDT [facility] Eosinophils % 2.5 % 05/20/2025 10:11 AM EDT [facility] Abs Eosin 0.15 <0.46 k/uL 05/20/2025 10:11 AM EDT [facility] Basophils % 0.7 % 05/20/2025 10:11 AM EDT [facility] Abs Baso 0.04 <0.11 k/uL 05/20/2025 10:11 AM EDT [facility] Immature Granulocytes % 0.7 % 05/20/2025 10:11 AM EDT [facility] Abs Immature Gran 0.04 <0.10 k/uL 05/20/2025 10:11 AM EDT [facility] NRBC 0.0 /100 WBC 05/20/2025 10:11 AM EDT [facility] Absolute nRBC <0.01 <0.01 k/uL 05/20/2025 10:11 AM EDT [facility] Diff Type Auto 05/20/2025 10:11 AM [facility] Blood BLOOD SPECIMEN / Unknown Venipuncture / Unknown 05/20/2025 10:05 AM EDT 05/20/2025 10:05 AM EDT us Junior Bravo MD LABORATORY Final Res ult [facility] [address] [place] [address] from Last 3 Months Insurance [employer] MEDICARE Care Teams Sterilization Tech Relationship Specialty Start Date End Date Boy Anna DO PCP - General Internal Medicine 12/29/12
--- NOTE | 2025-06-09 11:17 | MM_ITS ---
Patient Name: ANNABELLE CURRY MR#: [id number] : 1950 Exam Date: 06/09/2025 Ordering Doctor: DR CARLYLE ESTEVEZ D.O. RADIOLOGY REPORT PROCEDURE: MM TOMOSYNTHESIS SCREENING BI COMPARISON: MM TOMOSYNTHESIS SCREENING BI, 04/09/2023. MG MAMM SCREEN MARCELLE W CAD, 08/18/2018. MG MAMM MARCELLE SCRN W CAD DIG, 07/31/2016. INDICATIONS: Screening Calculator Name NCI Breast Cancer Risk Assessment Tool 5 Year Breast Cancer Risk 2.00% Lifetime Breast Cancer Risk 4.50% Personal Breast Cancer No Personal Ovarian Cancer No Treatments None Family Cancers Father with prostate cancer at age 80; Brother with prostate cancer at age 62. LOCATION: [facility] BREAST COMPOSITION: There are scattered areas of fibroglandular density. FINDINGS: DIAGNOSTIC CATEGORY 1--NEGATIVE. RIGHT BREAST: No significant suspicious finding. LEFT BREAST: No significant suspicious finding. RECOMMENDATIONS: ROUTINE MAMMOGRAM AND CLINICAL EVALUATION IN 12 MONTHS. Dictated by: Yunior Nick MD on 06/09/2025 at 13:56 Approved by: Yunior Nick MD on 06/09/2025 at 14:02
--- OUTSIDE RECORDS SUMMARY | 2025-06-09 11:22 | XMS_ITS | CCD ---
Author Organization [facility] Care Team Providers Care Bookkeeping Manager Name Role Phone REQUEST, DR NONE LISTED Attending Unavaila ble REQUEST, DR JANE LISTED Admitting Unavaila ble REQUEST, NONE LISTED Consulting Unavaila ble BALL, DR TADEO Admitting Unavailable BALL, DR TADEO Consulting Unavailable BALL, DR TADEO Attending Unavailable Boy Anna Unavailable Unavailable Primary Care Provider Unavailabl Boy Tam DO Primary Care Provider Boy Anna DO Attending Provider Felipe Akbar MD Attending Provider [phone] Boy Anna DO Primary Care Provider Boy Anna DO Primary Care Provider [phone] Felipe Akbar MD Attending Provider FANNIE MISTRY Attending Unavailable FANNIE MISTRY Attending Unavailable BART CRUZ Referring Unavailable FANNIE MISTRY Attending Unavailable Boy Anna DO Primary Care Provider Felipe Akbar MD Attending Provider BOY ANNA Primary Care Unavailable VENNEPUREDDY, JUNIOR Referring Unavailable VENNEPUREDDY, JUNIOR Attending Unavailable BOY ANNA Primary Care Unavailable VENNEPUREDDY, JUNIOR Referring Unavailable BOY ANNA Primary Care Unavailable VENNEPUREDDY, JUNIOR Referring Unavailable VENNEPUREDDY, JUNIOR Attending Unavailable BOY ANNA Primary Care Unavailable VENNEPUREDDY, JUNIOR Referring Unavailable VennepuredJunior panda MD Attending Provider Boy Anna Attending Unavailable Boy Anna Primary Care Unavailable Boy Anna Admitting Unavailable Felipe Akbar Attending Unavailable Felipe Akbar Admitting Unavailable Boy Anna Primary Care Unavailable Felipe Akbar Attending Unavailable Felipe Akbar Admitting Unavailable Boy Anna Primary Care Unavailable Boy Anna DO Attending Provider [phone] Allergies Allergy Classification Reported Allergen(s) Allergy Type Date of Onset Reaction(s) Facility (15 sources) Cephalexin; Translations: [CEPHALEXIN] Drug Allergy 06-07-2024 Unknown [facility] Work Phone: (1 source) Cephalexin Drug Allergy 05-10-2025 [facility] Rep[facility] Medications Current Medications Medication Drug Class(es) Dates Sig (Normalized) Sig (Original) 0.25 MG, 0.5 MG Dose 3 ML semaglutide 0.68 MG/ML Pen Injector [Ozempic] (4 sources) Start: 04-03-2023 Start: 04-03-2023 Ozempic (0.25 or 0.5 MG/DOSE) 2 MG/3ML 0.25mg Subcutaneous weekly for 28 days Mar, Active calcium carbonate 1250 mg / cholecalciferol 500 unt / vitamin k1 0.04 mg chewable tablet (15 sources) Vitamin D, Warfarin Reversal Agent, Vitamin K Start: 02-13-2024 take 1 tablet by mouth once daily Calcium-Vitamin D3-Vitamin K 500-500-40 mg-unit-mcg tablet,chewable Active 1 TAB PO Daily February 13, 2024 12:00am Complies with drug therapy diazePAM 5 mg oral tablet (17 sources) Benzodiazepine Start: 11-19-2023 End: 11-23-2024 take 2.5 mg by mouth every six hours as needed Diazepam 5 mg tablet Active 2.5 MG PO Every 6 hours as needed for vertigo November 19, 2023 1:00am Complies with drug therapy Start: 11-19-2023 take 2.5 mg by mouth every six hours Diazepam Active 2.5 MG PO Every 6 hours November 19, 2023 1:00am levothyroxine sodium 0.112 mg oral tablet (20 sources) l-Thyroxine Start: 09-06-2024 Levothyroxine 112 mcg tablet Active 0 .ROUTE .COMPLEX September 06, 2024 8:37am TAKE 1 TABLET DAILY, EXCEPT INSTRUCTED TO TAKE ONE AND ONE-HALF TABLETS EVERY FRIDAY Complies with drug therapy Start: 02-13-2024 End: 09-06-2024 take 1 tablet by mouth once daily, then take 0.5 tablet by mouth once Levothyroxine 112 mcg tablet Discontinued 112 MCG PO Daily February 13, 2024 12:00am September 06, 2024 8:37am EXCEPT INSTRUCTED TO TAKE ONE AND ONE-HALF TABLETS EVERY FRIDAY levothyroxine (S YNTHROID) 112 mcg tablet Take 100 mcg by mouth daily before breakfast. Active loteprednol etabonate 5 mg/ml ophthalmic suspension (5 sources) Start: 07-07-2024 take 1 drop(s) into [...] a meal Orally Once a day Active Zinc (4 sources) ZINC ORAL Take b y mouth. Active Completed/Discontinued Medications Medication Drug Class(es) Dates Sig (Normalized) Sig (Original) Borage extract (4 sources) Borage 1000 1000 MG Orally Not-Taking Calcium (2 sources) Phosphate Binder, Calcium End: 11-23-2024 CALCIUM ORAL Take by mouth. 11/23/2024 Discontinued (Discontinued by Patient) CALCIUM ORAL Dimas e by mouth. Active cholecalciferol 0.025 mg oral capsule (2 sources) Vitamin D Start: 01-05-2013 End: 11-23-2024 take 1 capsule by mouth once daily Cholecalciferol, Vitamin D3, (VITAMIN D) 1,000 unit cap Take 1 capsule by mouth once daily. 0 01/05/2013 11/23/2024 Discontinued (Discontinued by Patient) etodolac 500 mg oral tablet (15 sources) Nonsteroidal Anti-inflammatory Drug Start: 02-17-2024 End: [...] tablet by mouth every twelve hours Semaglutide (15 sources) Start: 02-13-20 End: 04-13-20 Semaglutide (Ozempic) [...] SUBCUT every week February 13, 2024 12:00am VITAMIN E ORAL (2 sources) End: 11-23-2024 VITAMIN E ORAL Take by mouth . 11/23/2024 Discontinued (Discontinued by Patient) VITAMIN E ORAL T mara by mouth. Active Problems Problem Classification Problem Date Documented Date Episodic/Chronic Cataract (8 sources) Bilateral age-related nuclear cataracts; Translations: [Age-related nuclear cataract, bilateral] Onset: 07-07-2024 07-07-2024 Chronic Coagulation and hemorrhagic disorders (20 sources) Thrombocytopenic disorder; Translations: [Thrombocytopenia, unspecified] Onset: 01-05-2013 05-10-2024 Chronic Conditions associated with dizziness or vertigo (15 sources) Benign paroxysmal positional vertigo; Translations: [Benign paroxysmal vertigo, unspecified ear] 11-19-2023 Episodic Diabetes mellitus without complication (18 sources) Impaired fasting glucose; Translations: [Impaired fasting glycemia] Episodic Diseases of white blood cells (2 sources) Leukopenia; Translations: [Decreased white blood cell count, unspecified] 05-10-2024 Chronic Disorders of lipid metabolism (20 sources) Hypercholesterolemia; Translations: [Pure hypercholesterolemia, unspecified] Chronic Essential hypertension (5 sources) Hypertensive disorder; Translations: [Essential (primary) hypertension] Onset: 01-11-2013 01-11-2013 Chronic Inflammation; infection of eye (except that caused by tuberculosis or sexually transmitteddisease) (8 sources) Bilateral superficial keratitis; Translations: [Unspecified superficial keratitis, bilateral] Onset: 07-07-2024 07-07-2024 Episodic Nutritional deficiencies (19 sources) Vitamin D deficiency; Translations: [Vitamin D deficiency, unspecified] 02-13-2024 Chronic Osteoarthritis (20 sources) Osteoarthritis of left hip joint; Translations: [Unilateral primary osteoarthritis, left hip] 02-17-2024 Chronic Other hematologic conditions (8 sources) Macrocytosis - no anemia; Translations: [Other specified diseases of blood and blood-forming organs] 11-15-2024 Chronic Other liver diseases (20 sources) Fatty (change of) liver, not elsewhere classified; Translations: [Other chronic nonalcoholic liver disease] Onset: 11-20-2021 Chronic Other liver diseases (6 sources) Steatosis of liver; Translations: [Fatty (change of) liver, not elsewhere classified] 04-11-2024 Chronic Other nervous system disorders (20 sources) Chronic pain; Translations: [Other chronic pain] 09-02-2024 Chronic Other nervous system disorders (14 sources) Other chronic pain; Translations: [Other chronic pain] Onset: 10-18-2024 Chronic Other non-traumatic joint disorders (5 sources) Pain in right knee; Translations: [Pain in right knee] Episodic Other non-traumatic joint disorders (1 source) Pain in right hip Episodic Other non-traumatic joint disorders (20 sources) Hip pain; Translations: [Pain in left hip] 02-17-2024 Episodic Other non-traumatic joint disorders (4 sources) Pain in left hip; Translations: [Pain in joint, pelvic region and thigh] Onset: 05-10-2025 02-17-2024 Episodic Other nutritional; endocrine; and metabolic disorders (19 sources) Obesity; Translations: [Obesity, unspecified] 02-17-2024 Chronic Other nutritional; endocrine; and metabolic disorders (4 sources) Obesity, unspecified; Translations: [Obesity, unspecified] 02-17-2024 Chronic Other screening for suspected conditions (not mental disorders or infectious disease) (20 sources) Patient encounter status; Translations: [Encounter for screening mammogram for malignant neoplasm of breast] Episodic Residual codes; unclassified (19 sources) Obstructive sleep apnea syndrome; Translations: [Obstructive sleep apnea (adult) (pediatric)] 04-11-2024 Chronic Residual codes; unclassified (3 sources) Obstructive sleep apnea (adult) (pediatric); Translations: [Obstructive sleep apnea (adult)(pediatric)] Chronic Retinal detachments; defects; vascular occlusion; and retinopathy (8 sources) Nonexudative age-related macular degeneration; Translations: [Nonexudative age-related macular degeneration, bilateral, early dry stage] Onset: 07-07-2024 07-07-2024 Chronic Spondylosis; intervertebral disc disorders; other back problems (20 sources) Lumbar spondylosis; Translations: [Spondylosis without myelopathy or radiculopathy, lumbar region] 02-17-2024 Chronic Spondylosis; intervertebral disc disorders; other back problems (19 sources) Low back pain; Translations: [Low back pain] 02-17-2024 Episodic Thyroid disorders (20 sources) Autoimmune thyroiditis; Translations: [Autoimmune thyroiditis] Onset: 01-11-2013 Chronic Unclassified (1 source) Thrombocytopenia Onset: 05-20-2025 Unclassified (1 source) M16.12 - Unilateral primary osteoarthritis, left hip Results Test Name Value Interpretation Reference Range Facility Basophils Auto (Bld) [#/Vol] Ordered By: Junior Bravo on 05-20-2025 Basophils (Bld) [#/Vol] 0.04 10*3/uL <0.11 [facility] Basophils/100 WBC Auto (Bld) Ordered By: Junior Bravo on 05-20-2025 Basophils/100 WBC (Bld) 0.7 % F [facility] Blood manual differential co mment interpretation narrativeOrdered By: Junior Bravo on 05-20-2025 Manual differential comment Jed (Bld) [Interp] Auto [facility] CBC W Auto Differential pane l (Bld)on 05-20-2025 Basophils (Bld) [#/Vol] 0.04 10*3/uL Normal <0.11 [facility] Comment on above: Order Comment: Speci men Type: BLOOD SPECIMEN Ordering Facility: [facility] Address: [address] [place] [address] Performed By: #### 5 7021-8 #### [facility] CLIA [id number] [address] [place] [address] 83306 Basophils/100 WBC (Bld) 0.7 % Normal C [facility] Comment on above: Order Comment: Speci men Type: BLOOD SPECIMEN Ordering Facility: [facility] Address: [address] [place] [address] Performed By: #### 5 7021-8 #### [facility] CLIA [id number] [address] [place] [address] 37538 Differential cell count method Nom (Bld) Auto Normal [facility] Comment on above: Order Comment: Speci men Type: BLOOD SPECIMEN Ordering Facility: [facility] Address: [address] [place] [address] Performed By: #### 5 7021-8 #### [facility] CLIA [id number] [address] [place] [address] 85620 Eosinophils (Bld) [#/Vol] 0.15 10*3/uL Normal <0.46 [facility] Comment on above: Order Comment: Speci men Type: BLOOD SPECIMEN Ordering Facility: [facility] Address: [address] [place] [address] Performed By: #### 5 7021-8 #### [facility] CLIA [id number] [address] [place] [address] 85250 Eosinophils/100 WBC (Bld) 2.5 % Normal [facility] Comment on above: Order Comment: Speci men Type: BLOOD SPECIMEN Ordering Facility: [facility] Address: [address] [place] [address] Performed By: #### 5 7021-8 #### [facility] CLIA [id number] [address] [place] [address] 71065 Erythrocyte distribution width (RBC) [Ratio] 13.5 % Normal 11.5-15.0 [facility] Comment on above: Order Comment: Speci men Type: BLOOD SPECIMEN Ordering Facility: [facility] Address: [address] [place] [address] Performed By: #### 5 7021-8 #### [facility] CLIA [id number] [address] [place] [address] 71549 Hematocrit (Bld) [Volume fraction] 37.9 % Normal 36.0-46.0 [facility] Comment on above: Order Comment: Speci men Type: BLOOD SPECIMEN Ordering Facility: [facility] Address: [address] [place] [address] Performed By: #### 5 7021-8 #### [facility] CLIA [id number] [address] [place] [address] 32567 Hemoglobin (Bld) [Mass/Vol] 12.7 g/dL Normal 11.5-15.5 [facility] Comment on above: Order Comment: Speci men Type: BLOOD SPECIMEN Ordering Facility: [facility] Address: [address] [place] [address] Performed By: #### 5 7021-8 #### [facility] CLIA [id number] [address] [place] [address] 72027 Immature granulocytes (Bld) [#/Vol] 0.04 10*3/uL Normal <0.10 [facility] Comment on above: Order Comment: Speci men Type: BLOOD SPECIMEN Ordering Facility: [facility] Address: [address] [place] [address] Performed By: #### 5 7021-8 #### [facility] CLIA [id number] [address] [place] [address] 43914 Immature granulocytes/100 WBC (Bld) 0.7 % Normal [facility] Comment on above: Order Comment: Speci men Type: BLOOD SPECIMEN Ordering Facility: [facility] Address: [address] [place] [address] Performed By: #### 5 7021-8 #### [facility] CLIA [id number] [address] [place] [address] 91262 Lymphocytes (Bld) [#/Vol] 1.10 10*3/uL Normal 1.00-4.00 [facility] Comment on above: Order Comment: Speci men Type: BLOOD SPECIMEN Ordering Facility: [facility] Address: [address] [place] [address] Performed By: #### 5 7021-8 #### [facility] CLIA [id number] [address] [place] [address] 75073 Lymphocytes/100 WBC (Bld) 18.3 % Normal [facility] Comment on above: Order Comment: Speci men Type: BLOOD SPECIMEN Ordering Facility: [facility] Address: [address] [place] [address] Performed By: #### 5 7021-8 #### [facility] CLIA [id number] [address] [place] [address] 78490 MCH (RBC) [Entitic mass] 33.7 pg Normal 26.0-34.0 [facility] Comment on above: Order Comment: Speci men Type: BLOOD SPECIMEN Ordering Facility: [facility] Address: [address] [place] [address] Performed By: #### 5 7021-8 #### [facility] CLIA [id number] [address] [place] [address] 50402 MCHC (RBC) [Mass/Vol] 33.5 g/dL Normal 30.5-36.0 [facility] Comment on above: Order Comment: Speci men Type: BLOOD SPECIMEN Ordering Facility: [facility] Address: [address] [place] [address] Performed By: #### 5 7021-8 #### [facility] CLIA [id number] [address] [place] [address] 75649 MCV (RBC) [Entitic vol] 100.5 fL High 80.0-100.0 C [facility] Comment on above: Order Comment: Speci men Type: BLOOD SPECIMEN Ordering Facility: [facility] Address: [address] [place] [address] Performed By: #### 5 7021-8 #### [facility] CLIA [id number] [address] [place] [address] Monocytes (Bld) [#/Vol] 0.33 10*3/uL Normal <0.87 [facility] Comment on above: Order Comment: Speci men Type: BLOOD SPECIMEN Ordering Facility: [facility] Address: [address] [place] [address] Performed By: #### 5 7021-8 #### [facility] CLIA [id number] [address] [place] [address] 80011 Monocytes/100 WBC (Bld) 5.5 % Normal [facility] Comment on above: Order Comment: Speci men Type: BLOOD SPECIMEN Ordering Facility: [facility] Address: [address] [place] [address] Performed By: #### 5 7021-8 #### [facility] CLIA [id number] [address] [place] [address] 15874 Neutrophils (Bld) [#/Vol] 4.35 10*3/uL Normal 1.45-7.50 [facility] Comment on above: Order Comment: Speci men Type: BLOOD SPECIMEN Ordering Facility: [facility] Address: [address] [place] [address] Performed By: #### 5 7021-8 #### [facility] CLIA [id number] [address] [place] [address] 41251 Neutrophils/100 WBC (Bld) 72.3 % Normal [facility] Comment on above: Order Comment: Speci men Type: BLOOD SPECIMEN Ordering Facility: [facility] Address: [address] [place] [address] Performed By: #### 5 7021-8 #### [facility] CLIA [id number] [address] [place] [address] 15774 Nucleated RBC (Bld) [#/Vol] 10*3/uL Normal <0.01 [facility] Comment on above: Order Comment: Speci men Type: BLOOD SPECIMEN Ordering Facility: [facility] Address: [address] [place] [address] Performed By: #### 5 7021-8 #### [facility] CLIA [id number] [address] [place] [address] Nucleated RBC/100 WBC (Bld) [Ratio] 0.0 /100 WBC Normal [facility] Comment on above: Order Comment: Speci men Type: BLOOD SPECIMEN Ordering Facility: [facility] Address: [address] [place] [address] Performed By: #### 5 7021-8 #### [facility] CLIA [id number] [address] [place] [address] 20253 Platelet mean volume (Bld) [Entitic vol] 12.5 fL Normal 9.0-12.7 [facility] Comment on above: Order Comment: Speci men Type: BLOOD SPECIMEN Ordering Facility: [facility] Address: [address] [place] [address] Performed By: #### 5 7021-8 #### [facility] CLIA [id number] [address] [place] [address] 03434 Platelets (Bld) [#/Vol] 123 10*3/uL Low 150-400 [facility] Comment on above: Order Comment: Speci men Type: BLOOD SPECIMEN Ordering Facility: [facility] Address: [address] [place] [address] Performed By: #### 5 7021-8 #### [facility] CLIA [id number] [address] [place] [address] 71340 RBC (Bld) [#/Vol] 3.77 10*6/uL Low 3.90-5.20 [facility] Comment on above: Order Comment: Speci men Type: BLOOD SPECIMEN Ordering Facility: [facility] Address: [address] [place] [address] Performed By: #### 5 7021-8 #### [facility] CLIA [id number] [address] [place] [address] 16333 WBC (Bld) [#/Vol] 6.01 10*3/uL Normal 3.70-11.00 [facility] Comment on above: Order Comment: Speci men Type: BLOOD SPECIMEN Ordering Facility: [facility] Address: [place] [address] Performed By: #### 5 7021-8 #### [facility] CLIA [id number] [address] [place] [address] 58697 CNOVSPon 05-20-2025 CNOVSP Visit (SP) Office ([facility]) SERENITY BUSTILLO ([id number]) 1950 F Date Time Provider Department 05/20/25 10:20 AM JUNIOR BRAVO During your visit today, we recorded the following information about you: Temperature Pulse Respiration Blood pressure 97.7 degrees 86/minute 16/minute 134/87 Weight Height 92.2 kg 1.651 m Junior Bravo MD 05/20/2025 10:50 AM Signed PATIENT NAME: Serenity Bustillo CLINIC NO.: [id number] ATTENDING PHYSICIAN: Junior Bravo MD DATE OF SERVICE: 05/20/2025 Dear Boy Goyal. CHIEF COMPLAINT: Thrombocytopenia Some of the elements of this note have been copied from my previous progress note dated 11/23/24 . All the information has been reviewed carefully. HPI: Serenity Bustillo is a 74 year old year old female with PMH of hypothyroidism referred to us for thrombocytopenia. No smoking. No alcohol. Family h/o thrombocytopenia in Mother and brother. Last mammogram in 2023. Cologuard in 04/2024 was negative. No bleeding. Doing well No major complaints. 05/20/25: - Doing well - No major complaints. Current Outpatient Medications Medication Sig ZINC ORAL Take by mouth. levothyroxine (SYNTHROID) 112 mcg tablet Take 100 mcg by mouth daily before breakfast. No current facility-administere d medications for this visit. 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 No night sweats. HEENT: Negative for headaches, No changes in hearing or vision, no nose bleeds or other nasal problems. RESPIRATORY: Negative for cough, wheezing and shortness of breath CARDIOVASCULAR: Negative for chest pain, leg swelling and palpitations GI: Negative for abdominal discomfort, blood in stools or black stools and change in bowel habits : Negative for dysuria, frequency and incontinence MUSCULOSKELETAL: Negative for joint pain or swelling, back pain, and muscle pain. SKIN: Negative for lesions, rash, and itching. HEMATOLOGY/LYMPHOLOG Y Negative for prolonged bleeding, bruising easily, and swollen nodes. NEURO: Negative for numbness or tingling of hands/feet. No weakness. PHYSICAL EXAMINATION: There were no vitals taken for this visit. There were no vitals taken for this visit. Last 3 Encounter Wt Readings: Date: Wt: 03/19/2017 96.6 kg (213 lb) 02/04/2013 93 kg (205 lb) 01/07/2013 93.3 kg (205 lb 9.6 oz) General appearance:ECOG PERFORMANCE STATUS: 0- Fully active, able to carry on all pre-disease performance w/o restriction. Patient in NAD. Skin: Skin color, texture, turgor normal. No rashes or lesions. Eyes: Anicteric sclera. Pupils are equally round and reactive to light. Extraocular movements are intact. Breast: No palpable breast masses. No nipple change or discharge. Lymph Nodes: No cervical, supraclavicular, axillary or inguinal adenopathy. Oropharynx: Lips, mucosa, and tongue normal. Back: No pain to percussion. Negative SLR test Lungs clear to auscultation, No wheezing or rhonchi Heart: RRR without murmur, gallop, or rubs. Abdomen soft, non-tender. No masses, organomegaly Extremities: No deformities. No edema Neuro: Gait and speech normal. Reflexes normal and symmetric. Muscular strength intact. Sensation grossly intact. Rectal: Deferred : Deferred LABS: Glucose (mg/dL) Date Value 11/23/2024 108 03/19/2017 82 Potassium (mmol/L) Date Value 11/23/2024 4.3 03/19/2017 3.9 Sodium (mmol/L) Date Value 11/23/2024 141 03/19/2017 139 Chloride (mmol/L) Date Value 11/23/2024 103 03/19/2017 99 CO2 (mmol/L) Date Value 11/23/2024 28 03/19/2017 25 Creatinine (mg/dL) Date Value 11/23/2024 0.89 03/19/2017 1.16 BUN (mg/dL) Date Value 11/23/2024 13 03/19/2017 18 Anion Gap (mmol/L) Date Value 11/23/2024 10 03/19/2017 15 Calcium (mg/dL) Date Value 03/19/2017 9.4 Calcium, Total (mg/dL) Date Value 11/23/2024 9.7 Protein, Total (g/dL) Date Value 11/23/2024 6.8 03/19/2017 6.8 Albumin (g/dL) Date Value 11/23/2024 4.0 03/19/2017 4.1 (more content not included)... Normal [facility] Comprehensive metabolic 2000 panelon 05-20-2025 Albumin [Mass/Vol] 4.1 g/dL Normal 3.9-4.9 [facility] Comment on above: Order Comment: Speci men Type: BLOOD SPECIMEN Ordering Facility: [facility] [address] [place] [address] Performed By: #### 2 4323-8 #### [facility] CLIA [id number] [address] [place] [address] ALP [Catalytic activity/Vol] 102 U/L Normal 34-123 [facility] Comment on above: Order Comment: Speci men Type: BLOOD SPECIMEN Ordering Facility: [facility] Address: [address] [place] [address] Performed By: #### 2 4323-8 #### [facility] CLIA [id number] [address] [place] [address] ALT [Catalytic activity/Vol] 10 U/L Normal 7-38 [facility] Comment on above: Order Comment: Speci men Type: BLOOD SPECIMEN Ordering Facility: [facility] Address: [address] [place] [address] Performed By: #### 2 4323-8 #### [facility] CLIA [id number] [address] [place] [address]3935 Anion gap [Moles/Vol] 11 mmol/L Normal 8-15 [facility] Comment on above: Order Comment: Speci men Type: BLOOD SPECIMEN Ordering Facility: [facility] Address: [address] [place] [id number] Performed By: #### 2 4323-8 #### [facility] CLIA [id number] [address] [place] [address] 17453 AST [Catalytic activity/Vol] 20 U/L Normal 13-35 [facility] Comment on above: Order Comment: Speci men Type: BLOOD SPECIMEN Ordering Facility: [facility] Address: [address] [place] [id number] Performed By: #### 2 4323-8 #### [facility] CLIA [id number] [address] [place] [address] 76069 Bilirubin [Mass/Vol] 0.6 mg/dL Normal 0.2-1.3 [facility] Comment on above: Order Comment: Speci men Type: BLOOD SPECIMEN Ordering Facility: [facility] Address: [address] [place], [place] [address] Performed By: #### 2 4323-8 #### [facility] CLIA [id number] [address] [place] [address] 22828 Calcium [Mass/Vol] 9.4 mg/dL Normal 8.5-10.2 [facility] Comment on above: Order Comment: Speci men Type: BLOOD SPECIMEN Ordering Facility: [facility] Address: [address] [place] [address] Performed By: #### 2 4323-8 #### [facility] CLIA [id number] [address] [place] [address] Chloride [Moles/Vol] 101 mmol/L Normal 98-107 [facility] Comment on above: Order Comment: Speci men Type: BLOOD SPECIMEN Ordering Facility: [facility] Address: [address] [place] [address] Performed By: #### 2 4323-8 #### [facility] CLIA [id number] [address] [place] [address]958 CO2 [Moles/Vol] 27 mmol/L Normal 22-30 [facility] Comment on above: Order Comment: Speci men Type: BLOOD SPECIMEN Ordering Facility: [facility] Address: [address] [place] [address] Performed By: #### 2 4323-8 #### [facility] CLIA [id number] [address] [place] [address] Creatinine [Mass/Vol] 0.81 mg/dL Normal 0.58-0.96 [facility] Comment on above: Order Comment: Speci men Type: BLOOD SPECIMEN Ordering Facility: [facility] Address: [address] [place] [address] Performed By: #### 2 4323-8 #### [facility] CLIA [id number] [address] [place] [address]376 eGFRcr SerPlBld CKD-EPI 2020 76 mL/min/1.73m??? Normal >=60 [facility] Comment on above: Order Comment: Speci men Type: BLOOD SPECIMEN Ordering Facility: [facility] Address: [address] [place] [address] Result Comment: Julia mated Glomerular Filtration Rate (eGFR) is calculated using the 2020 CKD-EPI creatinine equation. This equation utilizes serum creatinine, sex, and age as parameters. The creatinine assay has traceable calibration to isotope dilution-mass spectrometry. Refer to KDIGO guidelines for clinical interpretation. In patients with unstable renal function, e.g. those with acute kidney injury, the eGFR may not accurately reflect actual GFR. Performed By: #### 2 4323-8 #### [facility] CLIA [id number] [address] [place] [address] Glucose [Mass/Vol] 105 mg/dL High 74-99 [facility] Comment on above: Order Comment: Specbrian andrade Type: BLOOD SPECIMEN Ordering Facility: [facility] Address: [address] [place] [address] Result Comment: The [place] Diabetes Association (ADA) provides guidance for cutoff [...] Standards of Medical Care in Diabetes 2016, [place] [employer]. Diabetes Care. 2016.39(Suppl 1). Performed By: #### 2 4323-8 #### [facility] CLIA [id number] [address] [place] [address] Potassium [Moles/Vol] 4.2 mmol/L Normal 3.7-5.1 [facility] Comment on above: Order Comment: Caleb andrade Type: BLOOD SPECIMEN Ordering Facility: [facility] Address: [address] [place] [address] Performed By: #### 2 4323-8 #### [facility] CLIA [id number] [address] [place] [address] Protein [Mass/Vol] 7.0 g/dL Normal 6.3-8.0 [facility] Comment on above: Order Comment: Speci men Type: BLOOD SPECIMEN Ordering Facility: [facility] Address: [address] [place] [address] Performed By: #### 2 4323-8 #### [facility] CLIA [id number] [address] [place] [address] Sodium [Moles/Vol] 139 mmol/L Normal 136-144 [facility] Comment on above: Order Comment: Speci men Type: BLOOD SPECIMEN Ordering Facility: [facility] Address: [address] [place] [address] Performed By: #### 2 4323-8 #### [facility] CLIA [id number] [address] [place] [address]88 Urea nitrogen [Mass/Vol] 16 mg/dL Normal 7-21 [facility] Comment on above: Order Comment: Speci men Type: BLOOD SPECIMEN Ordering Facility: [facility] Address: [address] [place] [address] Performed By: #### 2 4323-8 #### [facility] CLIA [id number] [address] [place] [address]87 Eosinophils/100 WBC Auto (Bl d)Ordered By: Junior Bravo on 05-20-2025 Eosinophils/100 WBC (Bld) 2.5 % [facility] Erythrocyte distribution wid th Auto (RBC) [Ratio]Ordered By: Junior Bravo on 05-20-2025 Erythrocyte distribution width (RBC) [Ratio] 13.5 % 11.5-15.0 [facility] Glomerular filtration rate [ Volume Rate/Area] in Serum, Plasma or Blood by CreatinineOrdered By: Junior Bravo on 05-20-2025 Glomerular filtration rate [Volume Rate/Area] in Serum, Plasma or Blood by Creatinine 76 mL/min/1.73m??? >=60 [facility] Comment on above: Estimated Glomerular Filtration Rate (eGFR) is calculated using the 2020 CKD-EPI creatinine equation. This equation utilizes serum creatinine, sex, and age as parameters. The creatinine assay has traceable calibration to isotope dilution-mass spectrometry. Refer to KDIGO guidelines for clinical interpretation. In patients with unstable renal function, e.g. those with acute kidney injury, the eGFR may not accurately reflect actual GFR. Hematocrit Auto (Bld) [Volum e fraction]Ordered By: Juinor Bravo on 05-20-2025 Hematocrit (Bld) [Volume fraction] 37.9 % 36.0-46.0 [facility] Hemoglobin [Mass/volume] in BloodOrdered By: Junior Bravo on 05-20-2025 Hemoglobin (Bld) [Mass/Vol] 12.7 g/dL 11.5-15.5 [facility] - Chemistry and C hemistry - challengeOrdered By: Junior Bravo on 05-20-2025 Albumin [Mass/Vol] 4.1 g/dL 3.9-4.9 [facility] ALP [Catalytic activity/Vol] 102 U/L 34-123 [facility] ALT [Catalytic activity/Vol] 10 U/L 7-38 [facility] AST [Catalytic activity/Vol] 20 U/L 13-35 [facility] Bilirubin [Mass/Vol] 0.6 mg/dL 0.2-1.3 [facility] Calcium [Mass/Vol] 9.4 mg/dL 8.5-10.2 [facility] Chloride [Moles/Vol] 101 mmol/L 98-107 [facility] CO2 [Moles/Vol] 27 mmol/L 22-30 [facility] Creatinine [Mass/Vol] 0.81 mg/dL 0.58-0.96 [facility] Glucose [Mass/Vol] 105 mg/dL High 74-99 [facility] Comment on above: The [place] Diabete s Association (ADA) provides guidance for cutoff values [...] Standards of Medical Care in Diabetes 2016, [place] [employer]. Diabetes Care. 2016.39(Suppl 1). Potassium [Moles/Vol] 4.2 mmol/L 3.7-5.1 [facility] Sodium [Moles/Vol] 139 mmol/L 136-144 [facility] Urea nitrogen [Mass/Vol] 16 mg/dL 7- [facility] - Hematology and Cell countsOrdered By: Junior Bravo on 05-20-2025 Eosinophils (Bld) [#/Vol] 0.15 10*3/uL <0.46 [facility] Immature granulocytes (Bld) [#/Vol] 0.04 10*3/uL <0.10 [facility] Immature granulocytes/100 WBC (Bld) 0.7 % [facility] Leukocytes [#/volume] correc winter for nucleated erythrocytes in Blood by Automated counOrdered By: Junior Bravo on 05-20-2025 WBC corrected for nucl RBC Auto (Bld) [#/Vol] 6.01 k/uL 3.70-11.00 [facility] Lymphocytes Auto (Bld) [#/Vo l]Ordered By: Junior Bravo on 05-20-2025 Lymphocytes (Bld) [#/Vol] 1.10 10*3/uL 1.00-4.00 [facility] Lymphocytes/100 WBC Auto (Bl d)Ordered By: Junior Bravo on 05-20-2025 Lymphocytes/100 WBC (Bld) 18.3 % [facility] MCH Auto (RBC) [Entitic mass ]Ordered By: Junior Bravo on 05-20-2025 MCH (RBC) [Entitic mass] 33.7 pg 26.0-34.0 [facility] MCHC Auto (RBC) [Mass/Vol]Or dered By: Junior Bravo on 05-20-2025 MCHC (RBC) [Mass/Vol] 33.5 g/dL 30.5-36.0 [facility] MCV Auto (RBC) [Entitic vol] Ordered By: Junior Bravo on 05-20-2025 MCV (RBC) [Entitic vol] 100.5 fL High 80.0-100.0 F [facility] Monocytes Auto (Bld) [#/Vol] Ordered By: Junior Bravo on 05-20-2025 Monocytes (Bld) [#/Vol] 0.33 10*3/uL <0.87 [facility] Monocytes/100 WBC Auto (Bld) Ordered By: Junior Bravo on 05-20-2025 Monocytes/100 WBC (Bld) 5.5 % F [facility] Neutrophils Auto (Bld) [#/Vo l]Ordered By: Junior Bravo on 05-20-2025 Neutrophils (Bld) [#/Vol] 4.35 10*3/uL 1.45-7.50 [facility] Neutrophils/100 WBC Auto (Bl d)Ordered By: Junior Bravo on 05-20-2025 Neutrophils/100 WBC (Bld) 72.3 % [facility] Nucleated RBC Auto (Bld) [#/ Vol]Ordered By: Junior Bravo on 05-20-2025 Nucleated RBC (Bld) [#/Vol] 10*3/uL <0.01 [facility] Nucleated erythrocytes [Pres ence] in Blood by Automated countOrdered By: Junior Bravo on 05-20-2025 Nucleated RBC Auto Ql (Bld) 0.0 /100{WBC} [facility] Platelet mean volume Auto (B ld) [Entitic vol]Ordered By: Junior Bravo on 05-20-2025 Platelet mean volume (Bld) [Entitic vol] 12.5 fL 9.0-12.7 [facility] Platelets Auto (Bld) [#/Vol] Ordered By: Junior Bravo on 05-20-2025 Platelets (Bld) [#/Vol] 123 10*3/uL Low 150-400 [facility] Protein [Mass/volume] in Ser um or PlasmaOrdered By: Junior Bravo on 05-20-2025 Protein [Mass/Vol] 7.0 g/dL 6.3-8.0 [facility] RBC Auto (Bld) [#/Vol]Ordere d By: Junior Bravo on 05-20-2025 RBC (Bld) [#/Vol] 3.77 10*6/uL Low 3.90-5.20 [facility] Serum or plasma anion gap de terminationOrdered By: Junior Bravo on 05-20-2025 Anion gap [Moles/Vol] 11 mmol/L 8-15 [facility] CNPNon 05-16-2025 CNPN Telephone (HEMASA) SERENITY BUSTILLO ([id number]) 1950 F Date Time Provider Department 05/16/25 JUNIOR BRAVO During your visit today, we recorded the following information about you: Kimberley Dawson MA 05/16/2025 4:24 PM Signed Patient coming in Friday05/20/25 for follow up labs. Please add lab orders. Thanks. Kimberley Dawson MA Allergies As of Date: 05/16/2025 Noted Allergy Reaction CEPHALEXIN 06/07/2024 16 - Unknown Comments: Other Reaction(s): Unknown Reaction Date Reviewed: 11/23/2024 Reviewed by: Irene Last MA - Fully Assessed Reason for Visit: Lab Orders [1688] Primary Visit Diagnosis:Thrombocyt openia [D69.6] Order(s):COMPLETE BLOOD COUNT AND DIFFERENTIAL [SQCBCDIF] Order #: [id number] FUTURE COMPREHENSIVE METABOLIC PANEL [SQCMP] Order #: [id number] FUTURE Prescriptions as of 05/16/2025 - ZINC ORAL Take by mouth. - levothyroxine (SYNTHROID) 112 mcg tablet Take 100 mcg by mouth daily before breakfast. Problem List As Of Date 05/16/2025 Noted Resolved Thrombocytopenia [D69.6] Hypertension [I10] 01/11/2013 Hypothyroid [E03.9] 01/11/2013 Encounter Status:Closed by MAGGY RENE on 05/16/25 Normal [facility] X-ray reportOrdered By: Walt España on 05-10-2025 Study report [facility] [address] [place] [address] XRay Report Signed Patient: Serenity Bustillo MR#: [id number] : 1950 Acct:[id number] Age/Sex: 75 / F ADM Date: 5 Loc: [facility] Room: Type: [facility] Attending Dr: Felipe Akbar MD Copies to: [...] España M.D. 05/10/2025 10:46 PM Dictation Location: [place] [address] Transcribed By: [facility] 05/10/252245 Dictated By: Tommy España DO 05/10/252244 Signed By: 05/10/252245 [facility] XR hip LT min 2V(w/wo pelvis )*on 05-10-2025 XR hip LT min 2V(w/wo pelvis)* [facility] [address] [place] [address] XRay Report Signed Patient: Serenity Bustillo MR#: [id number] : 1950 Acct:[id number] Age/Sex: 75 / F ADM Date: 05/10/25 Loc: [facility] Room: Type: [facility] Attending Dr: Felipe Akbar MD Copies to: [...] España M.D. 05/10/2025 10:46 PM Dictation Location: RADIO-PC-20 Transcribed By: [facility] 05/10/252245 Dictated By: Tommy España DO 05/10/252244 Signed By: 05/10/252245 Normal [facility] Optical coherence tomography study reporton 12-22-2024 [facility] Study observation (narrative) [facility] CNPNon 11-24-2024 CNPN Telephone (NCCAP) SERENITY BUSTILLO ([id number]) 1950 F Date Time Provider Department 11/24/24 JUNIOR BRAVO During your visit today, we recorded the following information about you: Azalia La 11/24/2024 9:02 AM Signed Called and left patient a message to call our office back. We would like to get her scheduled for her 6 Month Follow Up with Dr Shepherd in May. PSS: When patient calls back please schedule her in early May 2025 for a 6 Month Follow Up and Labs with Dr Shepherd. Thank you. Heavenly Hernandez 11/26/2024 10:17 AM Signed Follow up and lab scheduled for 05/24/25 Allergies As of Date: 11/24/2024 Noted Allergy Reaction CEPHALEXIN 06/07/2024 16 - Unknown Comments: Other Reaction(s): Unknown Reaction Date Reviewed: 11/23/2024 Reviewed by: Irene Last MA - Fully Assessed Prescriptions as of 11/26/2024 - ZINC ORAL Take by mouth. - levothyroxine (SYNTHROID) 112 mcg tablet Take 100 mcg by mouth daily before breakfast. Problem List As Of Date 11/24/2024 Noted Resolved Thrombocytopenia [D69.6] Hypertension [I10] 01/11/2013 Hypothyroid [E03.9] 01/11/2013 Encounter Status:Closed by AZALIA LA on 11/24/24 Normal [facility] Basophils Auto (Bld) [#/Vol] on 11-23-2024 Basophils (Bld) [#/Vol] Automated basoph il count <0.11 [facility] Basophils/100 WBC Auto (Bld) on 11-23-2024 Basophils/100 WBC (Bld) Automated basophil % [facility] Blood manual differential co mment interpretation narrativeon 11-23-2024 Manual differential comment Jed (Bld) [Interp] Blood manual differential comment interpretation narrative [facility] CBC W Auto Differential pane l (Bld)on 11-23-2024 Basophils (Bld) [#/Vol] 0.04 10*3/uL [facility] Basophils/100 WBC (Bld) 0.7 % C [facility] Differential cell count method Nom (Bld) Auto [facility] Eosinophils (Bld) [#/Vol] 0.16 10*3/uL [facility] Eosinophils/100 WBC (Bld) 2.7 % [facility] Erythrocyte distribution width (RBC) [Ratio] 14 % 11.5 - 15.0 % [facility] Hematocrit (Bld) [Volume fraction] 38.2 % 36.0 - 46.0 % [facility] Hemoglobin (Bld) [Mass/Vol] 12.9 g/dL 11.5 - 15.5 g/dL [facility] Immature granulocytes (Bld) [#/Vol] 0.03 10*3/uL [facility] Immature granulocytes/100 WBC (Bld) 0.5 % [facility] Interpretation and review of laboratory results Abnormal [facility] Lymphocytes (Bld) [#/Vol] 0.95 10*3/uL Low [facility] Lymphocytes/100 WBC (Bld) 16.3 % [facility] MCH (RBC) [Entitic mass] 33.6 pg 26. 0 - 34.0 pg [facility] MCHC (RBC) [Mass/Vol] 33.8 g/dL 30.5 - 36.0 g/dL [facility] MCV (RBC) [Entitic vol] 99.5 fL 80.0 - 100.0 fL [facility] Monocytes (Bld) [#/Vol] 0.22 10*3/uL [facility] Monocytes/100 WBC (Bld) 3.8 % C [facility] Neutrophils (Bld) [#/Vol] 4.43 10*3/uL [facility] Neutrophils/100 WBC (Bld) 76 % [facility] Nucleated RBC (Bld) [#/Vol] [facility] Nucleated RBC/100 WBC (Bld) [Ratio] 0 % /100 WBC [facility] Platelet mean volume (Bld) [Entitic vol] 12.5 fL 9.0 - 12.7 fL [facility] Platelets (Bld) [#/Vol] 118 10*3/uL Low [facility] RBC (Bld) [#/Vol] 3.84 10*6/uL Low 3.90 - 5.2 0 m/uL [facility] WBC (Bld) [#/Vol] 5.83 10*3/uL [facility] Basophils (Bld) [#/Vol] 0.04 10*3/uL Normal <0.11 [facility] Comment on above: Order Comment: Speci men Type: BLOOD SPECIMEN Ordering Facility: [facility] Address: [address] [place], [place] [address] Performed By: #### 5 7021-8 #### [facility] CLIA [id number] [address] [place] [address] Basophils/100 WBC (Bld) 0.7 % Normal [facility] Comment on above: Order Comment: Speci men Type: BLOOD SPECIMEN Ordering Facility: [facility] Address: [address] [place] [address] Performed By: #### 5 7021-8 #### [facility] CLIA [id number] [address] [place] [address]21 Differential cell count method Nom (Bld) Auto Normal [facility] Comment on above: Order Comment: Speci men Type: BLOOD SPECIMEN Ordering Facility: [facility] Address: [address] [place] [address] Performed By: #### 5 7021-8 #### [facility] CLIA [id number] [address] [place] [address]97 Eosinophils (Bld) [#/Vol] 0.16 10*3/uL Normal <0.46 [facility] Comment on above: Order Comment: Speci men Type: BLOOD SPECIMEN Ordering Facility: [facility] Address: [address] [place] [address] Performed By: #### 5 7021-8 #### [facility] CLIA [id number] [address] [place] [address] Eosinophils/100 WBC (Bld) 2.7 % Normal [facility] Comment on above: Order Comment: Speci men Type: BLOOD SPECIMEN Ordering Facility: [facility] Address: [address] [place] [address] Performed By: #### 5 7021-8 #### [facility] CLIA [id number] [address] [place] [address] Erythrocyte distribution width (RBC) [Ratio] 14.0 % Normal 11.5-15.0 [facility] Comment on above: Order Comment: Speci men Type: BLOOD SPECIMEN Ordering Facility: [facility] Address: [address] [place] [address] Performed By: #### 5 7021-8 #### [facility] CLIA [id number] [address] [place] [address] Hematocrit (Bld) [Volume fraction] 38.2 % Normal 36.0-46.0 [facility] Comment on above: Order Comment: Speci men Type: BLOOD SPECIMEN Ordering Facility: [facility] Address: [address] [place] [address] Performed By: #### 5 7021-8 #### [facility] CLIA [id number] [address] [place] [address] Hemoglobin (Bld) [Mass/Vol] 12.9 g/dL Normal 11.5-15.5 [facility] Comment on above: Order Comment: Speci men Type: BLOOD SPECIMEN Ordering Facility: [facility] Address: [address] [place] [address] Performed By: #### 5 7021-8 #### [facility] CLIA [id number] [address] [place] [address]32 Immature granulocytes (Bld) [#/Vol] 0.03 10*3/uL Normal <0.10 [facility] Comment on above: Order Comment: Speci men Type: BLOOD SPECIMEN Ordering Facility: [facility] Address: [address] [place] [address] Performed By: #### 5 7021-8 #### [facility] CLIA [id number] [address] [place] [address] 52927 Immature granulocytes/100 WBC (Bld) 0.5 % Normal [facility] Comment on above: Order Comment: Speci men Type: BLOOD SPECIMEN Ordering Facility: [facility] Address: [address] [place] [address] Performed By: #### 5 7021-8 #### [facility] CLIA [id number] [address] [place] [address]77 Lymphocytes (Bld) [#/Vol] 0.95 10*3/uL Low 1.00-4.00 [facility] Comment on above: Order Comment: Speci men Type: BLOOD SPECIMEN Ordering Facility: [facility] Address: [address] [place] [address] Performed By: #### 5 7021-8 #### [facility] CLIA [id number] [address] [place] [address] 12612 Lymphocytes/100 WBC (Bld) 16.3 % Normal [facility] Comment on above: Order Comment: Speci men Type: BLOOD SPECIMEN Ordering Facility: [facility] Address: [address] [place] [address] Performed By: #### 5 7021-8 #### [facility] CLIA [id number] [address] [place] [address] 22974 MCH (RBC) [Entitic mass] 33.6 pg Normal 26.0-34.0 [facility] Comment on above: Order Comment: Speci men Type: BLOOD SPECIMEN Ordering Facility: [facility] Address: [address] [place] [address] Performed By: #### 5 7021-8 #### [facility] CLIA [id number] [address] [place] [address]2081 MCHC (RBC) [Mass/Vol] 33.8 g/dL Normal 30.5-36.0 [facility] Comment on above: Order Comment: Speci men Type: BLOOD SPECIMEN Ordering Facility: [facility] Address: [address] [place] [address] Performed By: #### 5 7021-8 #### [facility] CLIA [id number] [address] [place] [address] 28301 MCV (RBC) [Entitic vol] 99.5 fL Normal 80.0-100.0 C [facility] Comment on above: Order Comment: Speci men Type: BLOOD SPECIMEN Ordering Facility: [facility] Address: [address] [place] [address] Performed By: #### 5 7021-8 #### [facility] CLIA [id number] [address] [place] [address] 36898 Monocytes (Bld) [#/Vol] 0.22 10*3/uL Normal <0.87 [facility] Comment on above: Order Comment: Speci men Type: BLOOD SPECIMEN Ordering Facility: [facility] Address: [address] [place] [address] Performed By: #### 5 7021-8 #### [facility] CLIA [id number] [address] [place] [address] 42543 Monocytes/100 WBC (Bld) 3.8 % Normal [facility] Comment on above: Order Comment: Speci men Type: BLOOD SPECIMEN Ordering Facility: [facility] Address: [address] [place] [address] Performed By: #### 5 7021-8 #### [facility] CLIA [id number] [address] [place] [address] 41037 Neutrophils (Bld) [#/Vol] 4.43 10*3/uL Normal 1.45-7.50 [facility] Comment on above: Order Comment: Speci men Type: BLOOD SPECIMEN Ordering Facility: [facility] Address: [address] [place] [address] Performed By: #### 5 7021-8 #### [facility] CLIA [id number] [address] [place] [address]88 Neutrophils/100 WBC (Bld) 76.0 % Normal [facility] Comment on above: Order Comment: Speci men Type: BLOOD SPECIMEN Ordering Facility: [facility] Address: [address] [place] [address] Performed By: #### 5 7021-8 #### [facility] CLIA [id number] [address] [place] [address] 26624 Nucleated RBC (Bld) [#/Vol] 10*3/uL Normal <0.01 [facility] Comment on above: Order Comment: Speci men Type: BLOOD SPECIMEN Ordering Facility: [facility] Address: [address] [place] [address] Performed By: #### 5 7021-8 #### [facility] CLIA [id number] [address] [place] [address] Nucleated RBC/100 WBC (Bld) [Ratio] 0.0 /100 WBC Normal [facility] Comment on above: Order Comment: Speci men Type: BLOOD SPECIMEN Ordering Facility: [facility] Address: [address] [place] [address] Performed By: #### 5 7021-8 #### [facility] CLIA [id number] [address] [place] [address] Platelet mean volume (Bld) [Entitic vol] 12.5 fL Normal 9.0-12.7 [facility] Comment on above: Order Comment: Speci men Type: BLOOD SPECIMEN Ordering Facility: [facility] Address: [address] [place] [address] Performed By: #### 5 7021-8 #### [facility] CLIA [id number] [address] [place] [address] Platelets (Bld) [#/Vol] 118 10*3/uL Low 150-400 [facility] Comment on above: Order Comment: Speci men Type: BLOOD SPECIMEN Ordering Facility: [facility] Address: [address] [place] [address] Performed By: #### 5 7021-8 #### [facility] CLIA [id number] [address] [place] [address] 64050 RBC (Bld) [#/Vol] 3.84 10*6/uL Low 3.90-5.20 [facility] Comment on above: Order Comment: Speci men Type: BLOOD SPECIMEN Ordering Facility: [facility] Address: [address] [place] [address] Performed By: #### 5 7021-8 #### [facility] CLIA [id number] [address] [place] [address] 21828 WBC (Bld) [#/Vol] 5.83 10*3/uL Normal 3.70-11.00 [facility] Comment on above: Order Comment: Speci men Type: BLOOD SPECIMEN Ordering Facility: [facility] Address: [address] [place] [address] Performed By: #### 5 7021-8 #### [facility] CLIA [id number] [address] [place] [address]03 CNOVSPon 11-23-2024 CNOVSP Visit (SP) Office ([place]) SERENITY BUSTILLO ([id number]) 1950 F Date Time Provider Department 11/23/24 11:00 AM JUNIOR BRAVO During your visit today, we recorded the following information about you: Temperature Pulse Respiration Blood pressure 97.6 degrees 85/minute 16/minute 126/85 Weight 95 kg Junior Bravo MD 11/23/2024 11:34 AM Signed PATIENT NAME: Serenity Bustillo CLINIC NO.: [id number] ATTENDING PHYSICIAN: Junior Bravo MD DATE OF SERVICE: 11/23/2024 Dear Boy Goyal. CHIEF COMPLAINT: Thrombocytopenia HPI: Serenity Bustillo is a 74 year old year old female with PMH of hypothyroidism referred to us for thrombocytopenia. No smoking. No alcohol. Family h/o thrombocytopenia in Mother and brother. Last mammogram in 2023. Cologuard in 04/2024 was negative. No bleeding. Doing well No major complaints. Current Outpatient Medications Medication Sig ZINC ORAL Take by mouth. levothyroxine (SYNTHROID) 112 mcg tablet Take 100 mcg by mouth daily before breakfast. No current facility-administere d medications for this visit. 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 No night sweats. HEENT: Negative for headaches, No changes in hearing or vision, no nose bleeds or other nasal problems. RESPIRATORY: Negative for cough, wheezing and shortness of breath CARDIOVASCULAR: Negative for chest pain, leg swelling and palpitations GI: Negative for abdominal discomfort, blood in stools or black stools and change in bowel habits : Negative for dysuria, frequency and incontinence MUSCULOSKELETAL: Negative for joint pain or swelling, back pain, and muscle pain. SKIN: Negative for lesions, rash, and itching. HEMATOLOGY/LYMPHOLOG Y Negative for prolonged bleeding, bruising easily, and swollen nodes. NEURO: Negative for numbness or tingling of hands/feet. No weakness. PHYSICAL EXAMINATION: BP 126/85 Pulse 85 Temp 36.4 ?C (97.6 ?F) (Temporal) Resp 16 Wt 95 kg (209 lb 7 oz) SpO2 96% BMI 34.85 kg/m? There were no vitals taken for this visit. Last 3 Encounter Wt Readings: Date: Wt: 03/19/2017 96.6 kg (213 lb) 02/04/2013 93 kg (205 lb) 01/07/2013 93.3 kg (205 lb 9.6 oz) General appearance:ECOG PERFORMANCE STATUS: 0- Fully active, able to carry on all pre-disease performance w/o restriction. Patient in NAD. Skin: Skin color, texture, turgor normal. No rashes or lesions. Eyes: Anicteric sclera. Pupils are equally round and reactive to light. Extraocular movements are intact. Breast: No palpable breast masses. No nipple change or discharge. Lymph Nodes: No cervical, supraclavicular, axillary or inguinal adenopathy. Oropharynx: Lips, mucosa, and tongue normal. Back: No pain to percussion. Negative SLR test Lungs clear to auscultation, No wheezing or rhonchi Heart: RRR without murmur, gallop, or rubs. Abdomen soft, non-tender. No masses, organomegaly Extremities: No deformities. No edema Neuro: Gait and speech normal. Reflexes normal and symmetric. Muscular strength intact. Sensation grossly intact. Rectal: Deferred : Deferred LABS: Glucose (mg/dL) Date Value 03/19/2017 82 Potassium (mmol/L) Date Value 03/19/2017 3.9 Sodium (mmol/L) Date Value 03/19/2017 139 Chloride (mmol/L) Date Value 03/19/2017 99 CO2 (mmol/L) Date Value 03/19/2017 25 Creatinine (mg/dL) Date Value 03/19/2017 1.16 BUN (mg/dL) Date Value 03/19/2017 18 Anion Gap (mmol/L) Date Value 03/19/2017 15 Calcium (mg/dL) Date Value 03/19/2017 9.4 Protein, Total (g/dL) Date Value 03/19/2017 6.8 Albumin (g/dL) Date Value 03/19/2017 4.1 Bilirubin, Total (mg/dL) Date Value 03/19/2017 0.3 Alkaline Phosphatase (U/L) Date Value 03/19/2017 88 AST (U/L) Date Value 03/19/2017 23 ALT (U/L) Date Value 03/19/2017 16 WBC Date Value Ref Range Status 11/23/2024 5.83 3.70 - 11.00 k/uL Final RBC Date Value Ref Range Status 11/23/2024 3.84 (L) 3.90 - 5.20 m/uL Final Hemog (more content not included)... Normal [facility] Comprehensive metabolic 2000 panelOrdered By: Kim Pineda on 11-23-2024 Albumin [Mass/Vol] 4 g/dL 3.9 - 4.9 g/dL [facility] ALP [Catalytic activity/Vol] 106 U/L 34 - 123 U/L [facility] ALT [Catalytic activity/Vol] 9 U/L 7 - 38 U/L [facility] Anion gap [Moles/Vol] 10 mmol/L 8 - 15 mmol/L [facility] AST [Catalytic activity/Vol] 13 U/L 13 - 35 U/L [facility] Bilirubin [Mass/Vol] 0.5 mg/dL 0.2 - 1 .3 mg/dL [facility] Calcium [Mass/Vol] 9.7 mg/dL 8.5 - 10. 2 mg/dL [facility] Chloride [Moles/Vol] 103 mmol/L 98 - 10 7 mmol/L [facility] CO2 [Moles/Vol] 28 mmol/L 22 - 30 mmol/L [facility] Creatinine [Mass/Vol] 0.89 mg/dL 0.58 - 0.96 mg/dL [facility] GFR/1.73 sq M.predicted among non-blacks MDRD (S/P/Bld) [Vol rate/Area] 69 mL/min/{1.73_m2} - PINF [facility] Comment on above: Estimated Glomerular Filtration Rate (eGFR) is calculated using the 2020 CKD-EPI creatinine equation. This equation utilizes serum creatinine, sex, and age as parameters. The creatinine assay has traceable calibration to isotope dilution-mass spectrometry. Refer to KDIGO guidelines for clinical interpretation. In patients with unstable renal function, e.g. those with acute kidney injury, the eGFR may not accurately reflect actual GFR. Glucose [Mass/Vol] 108 mg/dL High 74 - 99 mg/dL [facility] Comment on above: The [place] Diabete s Association (ADA) provides guidance for cutoff values [...] Standards of Medical Care in Diabetes 2016, [place] [employer]. Diabetes Care. 2016.39(Suppl 1). Interpretation and review of laboratory results Abnormal [facility] Potassium [Moles/Vol] 4.3 mmol/L 3.7 - 5.1 mmol/L [facility] Protein [Mass/Vol] 6.8 g/dL 6.3 - 8.0 g/dL [facility] Sodium [Moles/Vol] 141 mmol/L 136 - 144 mmol/L [facility] Urea nitrogen [Mass/Vol] 13 mg/dL 7 - 21 mg/d L [facility] Comprehensive metabolic 2000 panelon 11-23-2024 Albumin [Mass/Vol] 4.0 g/dL Normal 3.9-4.9 [facility] Comment on above: Order Comment: Speci men Type: BLOOD SPECIMEN Ordering Facility: [facility] Address: [address] [id number] Performed By: #### 2 4323-8 #### [facility] CLIA [id number] [address] [place] [address]474 ALP [Catalytic activity/Vol] 106 U/L Normal 34-123 [facility] Comment on above: Order Comment: Speci men Type: BLOOD SPECIMEN Ordering Facility: [facility] Address: [address] [place] [address] Performed By: #### 2 4323-8 #### [facility] CLIA [id number] [address] [place] [address]956 ALT [Catalytic activity/Vol] 9 U/L Normal 7-38 [facility] Comment on above: Order Comment: Speci men Type: BLOOD SPECIMEN Ordering Facility: [facility] Address: [address] [place] [address] Performed By: #### 2 4323-8 #### [facility] CLIA [id number] [address] [place] [address]24 Anion gap [Moles/Vol] 10 mmol/L Normal 8-15 [facility] Comment on above: Order Comment: Speci men Type: BLOOD SPECIMEN Ordering Facility: [facility] Address: [address] [place] [address] Performed By: #### 2 4323-8 #### [facility] CLIA [id number] [address] [place] [address] 03598 AST [Catalytic activity/Vol] 13 U/L Normal 13-35 [facility] Comment on above: Order Comment: Speci men Type: BLOOD SPECIMEN Ordering Facility: [facility] Address: [address] [place] [address] Performed By: #### 2 4323-8 #### [facility] CLIA [id number] [address] [place] [address] Bilirubin [Mass/Vol] 0.5 mg/dL Normal 0.2-1.3 [facility] Comment on above: Order Comment: Speci men Type: BLOOD SPECIMEN Ordering Facility: [facility] Address: [address] [place] [address] Performed By: #### 2 4323-8 #### [facility] CLIA [id number] [address] [place] [address] Calcium [Mass/Vol] 9.7 mg/dL Normal 8.5-10.2 [facility] Comment on above: Order Comment: Speci men Type: BLOOD SPECIMEN Ordering Facility: [facility] Address: [address] [place] [address] Performed By: #### 2 4323-8 #### [facility] CLIA [id number] [address] [place] [address] Chloride [Moles/Vol] 103 mmol/L Normal 98-107 [facility] Comment on above: Order Comment: Speci men Type: BLOOD SPECIMEN Ordering Facility: [facility] Address: [address] [place] [address] Performed By: #### 2 4323-8 #### [facility] CLIA [id number] [address] [place] [address] CO2 [Moles/Vol] 28 mmol/L Normal 22-30 [facility] Comment on above: Order Comment: Speci men Type: BLOOD SPECIMEN Ordering Facility: [facility] Address: [address] [place] [address] Performed By: #### 2 4323-8 #### [facility] CLIA [id number] [address] [place] [address] Creatinine [Mass/Vol] 0.89 mg/dL Normal 0.58-0.96 [facility] Comment on above: Order Comment: Speci men Type: BLOOD SPECIMEN Ordering Facility: [facility] Address: [address] [place] [address] Performed By: #### 2 4323-8 #### [facility] CLIA [id number] [address] [place] [address] Creatinine and Glomerular filtration rate.predicted panel (S/P/Bld) 69 mL/min/1.73m??? Normal >=60 [facility] Comment on above: Order Comment: Caleb andrade Type: BLOOD SPECIMEN Ordering Facility: [facility] Address: [address] [place] [address] Result Comment: Julia mated Glomerular Filtration Rate (eGFR) is calculated using the 2020 CKD-EPI creatinine equation. This equation utilizes serum creatinine, sex, and age as parameters. The creatinine assay has traceable calibration to isotope dilution-mass spectrometry. Refer to KDIGO guidelines for clinical interpretation. In patients with unstable renal function, e.g. those with acute kidney injury, the eGFR may not accurately reflect actual GFR. Performed By: #### 2 4323-8 #### [facility] CLIA [id number] [address] [place] [address]73 Glucose [Mass/Vol] 108 mg/dL High 74-99 [facility] Comment on above: Order Comment: Caleb andrade Type: BLOOD SPECIMEN Ordering Facility: [facility] Address: [address] [place] [address] Result Comment: The [place] Diabetes Association (ADA) provides guidance for cutoff [...] Standards of Medical Care in Diabetes 2016, [place] [employer]. Diabetes Care. 2016.39(Suppl 1). Performed By: #### 2 4323-8 #### [facility] CLIA [id number] [place] [address] Potassium [Moles/Vol] 4.3 mmol/L Normal 3.7-5.1 [facility] Comment on above: Order Comment: Speci men Type: BLOOD SPECIMEN Ordering Facility: [facility] Address: [address] [place] [address] Performed By: #### 2 4323-8 #### [facility] CLIA [id number] [address] [place] [address] Protein [Mass/Vol] 6.8 g/dL Normal 6.3-8.0 [facility] Comment on above: Order Comment: Speci men Type: BLOOD SPECIMEN Ordering Facility: [facility] Address: [address] [place] [address] Performed By: #### 2 4323-8 #### [facility] CLIA [id number] [address] [place] [address] Sodium [Moles/Vol] 141 mmol/L Normal 136-144 [facility] Comment on above: Order Comment: Speci men Type: BLOOD SPECIMEN Ordering Facility: [facility] Address: [address] [place] [address] Performed By: #### 2 4323-8 #### [facility] CLIA [id number] [address] [place] [address] Urea nitrogen [Mass/Vol] 13 mg/dL Normal 7-21 [facility] Comment on above: Order Comment: Speci men Type: BLOOD SPECIMEN Ordering Facility: [facility] Address: [address] [place] [address] Performed By: #### 2 4323-8 #### [facility] CLIA [id number] [address] [place] [address] 31395 Eosinophils/100 WBC Auto (Bl d)on 11-23-2024 Eosinophils/100 WBC (Bld) Automated eosinophil % [facility] Erythrocyte distribution wid th Auto (RBC) [Ratio]on 11-23-2024 Erythrocyte distribution width (RBC) [Ratio] Erythrocyte distribution width [Ratio] by Automated count 11.5-15.0 [facility] Ferritin SerPl-mCncon 2024 Ferritin [Mass/Vol] 95.5 ng/mL Normal 14.7-205.1 [facility] Comment on above: Order Comment: Speci men Type: BLOOD SPECIMEN Ordering Facility: [facility] Address: [address] [place] [address] Performed By: #### 5 0190-8, 9, 4, 8 #### [facility] CLIA [id number] [address] [place] [address] [place] [facility] Folate [Mass/Vol] 10.5 ng/mL Normal >4.7 [facility] Comment on above: Order Comment: Speci men Type: BLOOD SPECIMEN Ordering Facility: [facility] Address: [address] [place] [address] Performed By: #### 5 0190-8, 9, 2275-12, 8 #### [facility] CLIA [id number] [address] [place] [address] [place] Hematocrit Auto (Bld) [Volum e fraction]on 11-23-2024 Hematocrit (Bld) [Volume fraction] Hematocrit [Volume Fraction] of Blood by Automated count 36.0-46.0 [facility] Hemoglobin [Mass/volume] in Bloodon 11-23-2024 Hemoglobin (Bld) [Mass/Vol] Hemoglobin [Mass/volume] in Blood 11.5-15.5 [facility] Iron and Iron binding capaci ty panelon 11-23-2024 Iron [Mass/Vol] 60 ug/dL Normal 41-186 [facility] Comment on above: Order Comment: Speci men Type: BLOOD SPECIMEN Ordering Facility: [facility] Address: [address] [place] [address] Performed By: #### 5 0190-8, 9, 4, 8 #### [facility] CLIA [id number] [address] [place] [address] [place] Iron binding capacity [Mass/Vol] 262 ug/dL Normal 232-386 [facility] Comment on above: Order Comment: Speci men Type: BLOOD SPECIMEN Ordering Facility: [facility] Address: [address] [place] [address] Performed By: #### 5 0190-8, 2131-9, 2275-4, 8 #### [facility] CLIA [id number] [address] [place] [address] [place] Iron/TIBC [Molar ratio] 22.9 % Normal 15.0-57.0 [facility] Comment on above: Order Comment: Speci men Type: BLOOD SPECIMEN Ordering Facility: [facility] Address: [address] [place] [address] Performed By: #### 5 0190-8, 9, 2275-12, 8 #### [facility] CLIA [id number] [address] [place] [address] [place] Iron binding capacity [Mass/ volume] in Serum or Plasmaon 11-23-2024 Iron binding capacity [Mass/Vol] Iron binding capacity [Mass/volume] in Serum or Plasma 232-386 [facility] Iron saturation [Mass Fracti on] in Serum or Plasmaon 11-23-2024 Iron saturation [Mass fraction] Iron saturation [Mass Fraction] in Serum or Plasma 15.0-57.0 [facility] - Chemistry and C hemistry - challengeon 11-23-2024 Albumin [Mass/Vol] 4.0 g/dL 3.9-4.9 [facility] ALP [Catalytic activity/Vol] 106 U/L 34-123 [facility] ALT [Catalytic activity/Vol] 9 U/L 7-38 [facility] AST [Catalytic activity/Vol] 13 U/L 13-35 [facility] Bilirubin [Mass/Vol] 0.5 mg/dL 0.2-1.3 [facility] Calcium [Mass/Vol] 9.7 mg/dL 8.5-10.2 [facility] Chloride [Moles/Vol] 103 mmol/L 98-107 [facility] CO2 [Moles/Vol] 28 mmol/L 22-30 [facility] Cobalamin (Vitamin B12) [Mass/Vol] 412 pg/mL 232-1245 [facility] Creatinine [Mass/Vol] 0.89 mg/dL 0.58-0.96 [facility] Ferritin [Mass/Vol] 95.5 ng/mL 14.7-205.1 [facility] Glucose [Mass/Vol] 108 mg/dL High 74-99 [facility] Comment on above: The [place] Diabete s Association (ADA) provides guidance for cutoff values [...] Standards of Medical Care in Diabetes 2016, [place] [employer]. Diabetes Care. 2016.39(Suppl 1). Iron [Mass/Vol] 60 ug/dL 41-186 [facility] Potassium [Moles/Vol] 4.3 mmol/L 3.7-5.1 [facility] Sodium [Moles/Vol] 141 mmol/L 136-144 [facility] Urea nitrogen [Mass/Vol] 13 mg/dL 7-21 [facility] - Hematology and Cell countson 11-23-2024 Eosinophils (Bld) [#/Vol] 0.16 10*3/uL <0.46 [facility] Immature granulocytes (Bld) [#/Vol] 0.03 10*3/uL <0.10 [facility] Immature granulocytes/100 WBC (Bld) 0.5 % [facility] Leukocytes [#/volume] correc winter for nucleated erythrocytes in Blood by Automated counon 11-23-2024 WBC corrected for nucl RBC Auto (Bld) [#/Vol] Leukocytes [#/volume] corrected for nucleated erythrocytes in Blood by Automated coun 3.70-11.00 [facility] Lymphocytes Auto (Bld) [#/Vo l]on 11-23-2024 Lymphocytes (Bld) [#/Vol] Lymphocytes [#/volume] in Blood by Automated count Low 1.00-4.00 [facility] Lymphocytes/100 WBC Auto (Bl d)on 11-23-2024 Lymphocytes/100 WBC (Bld) Lymphocytes/100 leukocytes in Blood by Automated count [facility] MCH Auto (RBC) [Entitic mass ]on 11-23-2024 MCH (RBC) [Entitic mass] MCH [Entitic ma ss] by Automated count 26.0-34.0 [facility] MCHC Auto (RBC) [Mass/Vol]on 11-23-2024 MCHC (RBC) [Mass/Vol] MCHC [Mass/volume] by Automated count 30.5-36.0 [facility] MCV Auto (RBC) [Entitic vol] on 11-23-2024 MCV (RBC) [Entitic vol] MCV [Entitic vol ume] by Automated count 80.0-100.0 [facility] Monocytes Auto (Bld) [#/Vol] on 11-23-2024 Monocytes (Bld) [#/Vol] Automated blood monocyte count <0.87 [facility] Monocytes/100 WBC Auto (Bld) on 11-23-2024 Monocytes/100 WBC (Bld) Automated monocyte % [facility] Neutrophils Auto (Bld) [#/Vo l]on 11-23-2024 Neutrophils (Bld) [#/Vol] Neutrophils [#/volume] in Blood by Automated count 1.45-7.50 [facility] Neutrophils/100 WBC Auto (Bl d)on 11-23-2024 Neutrophils/100 WBC (Bld) Automated neutrophil % [facility] No Panel Informationon 11-23 Estimated GFR (CKD-EPI) 69 mL/min/1.73m??? >=60 [facility] Comment on above: Estimated Glomerular Filtration Rate (eGFR) is calculated using the 2020 CKD-EPI creatinine equation. This equation utilizes serum creatinine, sex, and age as parameters. The creatinine assay has traceable calibration to isotope dilution-mass spectrometry. Refer to KDIGO guidelines for clinical interpretation. In patients with unstable renal function, e.g. those with acute kidney injury, the eGFR may not accurately reflect actual GFR. Folate 10.5 ng/mL >4.7 [facility] Nuclear Ab IA Ql (S)on 11-23 ANTIONE SCR QUAL Negative Normal Negative [facility] Comment on above: Order Comment: Speci men Type: BLOOD SPECIMEN Ordering Facility: [facility] Address: [address] [place] [address] Result Comment: The qualitative antinuclear antibody screen test performed using the following antigens: dsDNA, Chromatin, Ribosomal P, SS-A 60, SS-A 52, SS-B, Sm, SmRNP, AIRPORT OPERATIONS MANAGER A, AIRPORT OPERATIONS MANAGER 68, Scl-70, Karen-1, and Centromere B. Methodology: Multiplex flow immunoassay. Performed By: #### 4 7383-5 #### [facility] CLIA [id number] [address] [place] [address] [place] Nucleated RBC Auto (Bld) [#/ Vol]on 11-23-2024 Nucleated RBC (Bld) [#/Vol] Nucleated erythrocytes [#/volume] in Blood by Automated count <0.01 [facility] Nucleated erythrocytes [Pres ence] in Blood by Automated counton 11-23-2024 Nucleated RBC Auto Ql (Bld) Nucleated erythrocytes [Presence] in Blood by Automated count [facility] Platelet mean volume Auto (B ld) [Entitic vol]on 11-23-2024 Platelet mean volume (Bld) [Entitic vol] Platelet mean volume [Entitic volume] in Blood by Automated count 9.0-12.7 [facility] Platelets Auto (Bld) [#/Vol] on 11-23-2024 Platelets (Bld) [#/Vol] Platelets [#/vol ume] in Blood by Automated count Low 150-400 [facility] Protein [Mass/volume] in Ser um or Plasmaon 11-23-2024 Protein [Mass/Vol] Protein [Mass/volume] in Serum or Plasma 6.3-8.0 [facility] RBC Auto (Bld) [#/Vol]on RBC (Bld) [#/Vol] Erythrocytes [#/volume] in Blood by Automated count Low 3.90-5.20 [facility] Serum nuclear antibody titer on 11-23-2024 Nuclear Ab (S) [Titer] Serum nuclear antibody titer Negative [facility] Comment on above: The qualitative anti nuclear antibody screen test performed using the following antigens: dsDNA, Chromatin, Ribosomal P, SS-A 60, SS-A 52, SS-B, Sm, SmRNP, AIRPORT OPERATIONS MANAGER A, AIRPORT OPERATIONS MANAGER 68, Scl-70, Karen-1, and Centromere B. Methodology: Multiplex flow immunoassay. Serum or plasma anion gap de terminationon 11-23-2024 Anion gap [Moles/Vol] Serum or plasma anion gap determination 05-06 [facility] Vit B12 SerPl-ncon 025 Cobalamin (Vitamin B12) [Mass/Vol] 412 pg/mL Normal 232-1245 [facility] Comment on above: Order Comment: Speci men Type: BLOOD SPECIMEN Ordering Facility: [facility] Address: [address] [place] [address] Performed By: #### 5 0190-8, 2132-9, 2276-4, 2284-8 #### [facility] CLIA [id number] [address] [place] [address] [place] Basophils Auto (Bld) [#/Vol] on 11-10-2024 Basophils (Bld) [#/Vol] Automated basoph il count 0.0-0.1 [facility] Basophils/100 WBC Auto (Bld) on 11-10-2024 Basophils/100 WBC (Bld) Automated basophil % 0. 2-2.0 [facility] Eosinophils/100 WBC Auto (Bl d)on 11-10-2024 Eosinophils/100 WBC (Bld) Automated eosinophil % 0.9-7.0 [facility] Erythrocyte distribution wid th Auto (RBC) [Ratio]on 11-10-2024 Erythrocyte distribution width (RBC) [Ratio] Erythrocyte distribution width [Ratio] by Automated count 11.0-15.0 [facility] Hematocrit Auto (Bld) [Volum e fraction]on 11-10-2024 Hematocrit (Bld) [Volume fraction] Hematocrit [Volume Fraction] of Blood by Automated count 36.0-48.0 [facility] Hemoglobin [Mass/volume] in Bloodon 11-10-2024 Hemoglobin (Bld) [Mass/Vol] Hemoglobin [Mass/volume] in Blood 12.0-16.0 [facility] Laboratory - Hematology and Cell countson 11-10-2024 Immature granulocytes/100 WBC (Bld) 0.5 % 0.0-0.5 [facility] Leukocytes [#/volume] correc winter for nucleated erythrocytes in Blood by Automated counon 11-10-2024 WBC corrected for nucl RBC Auto (Bld) [#/Vol] Leukocytes [#/volume] corrected for nucleated erythrocytes in Blood by Automated coun 4.0-11.0 [facility] Lymphocytes Auto (Bld) [#/Vo l]on 11-10-2024 Lymphocytes (Bld) [#/Vol] Lymphocytes [#/volume] in Blood by Automated count Low 1.2-3.8 [facility] Lymphocytes/100 WBC Auto (Bl d)on 11-10-2024 Lymphocytes/100 WBC (Bld) Lymphocytes/100 leukocytes in Blood by Automated count Low 20.5-60.0 [facility] MCH Auto (RBC) [Entitic mass ]on 11-10-2024 MCH (RBC) [Entitic mass] MCH [Entitic ma ss] by Automated count 26.7-34.0 [facility] MCHC Auto (RBC) [Mass/Vol]on 11-10-2024 MCHC (RBC) [Mass/Vol] MCHC [Mass/volume] by Automated count 29.9-35.2 [facility] MCV Auto (RBC) [Entitic vol] on 11-10-2024 MCV (RBC) [Entitic vol] MCV [Entitic vol ume] by Automated count High 81.0-99.0 [facility] Monocytes Auto (Bld) [#/Vol] on 11-10-2024 Monocytes (Bld) [#/Vol] Automated blood monocyte count 0.3-0.8 [facility] Monocytes/100 WBC Auto (Bld) on 11-10-2024 Monocytes/100 WBC (Bld) Automated monocyte % 1. 7-12.0 [facility] Neutrophils Auto (Bld) [#/Vo l]on 11-10-2024 Neutrophils (Bld) [#/Vol] Neutrophils [#/volume] in Blood by Automated count 1.4-6.5 [facility] Neutrophils/100 WBC Auto (Bl d)on 11-10-2024 Neutrophils/100 WBC (Bld) Automated neutrophil % High 43.0-75.0 [facility] No Panel Informationon 11-10 Eosinophils # (Auto) 0.1 10 3/uL 0.0-0.7 [facility] Immature Granulocyte # (Auto) 0.03 10 3/uL 0.00-0.03 [facility] Platelet mean volume Auto (B ld) [Entitic vol]on 11-10-2024 Platelet mean volume (Bld) [Entitic vol] Platelet mean volume [Entitic volume] in Blood by Automated count 9.5-13.5 [facility] Platelets Auto (Bld) [#/Vol] on 11-10-2024 Platelets (Bld) [#/Vol] Platelets [#/vol ume] in Blood by Automated count Low 150-450 [facility] RBC Auto (Bld) [#/Vol]on RBC (Bld) [#/Vol] Erythrocytes [#/volume] in Blood by Automated count Low 4.20-5.40 [facility] X-ray reportOrdered By: Marvin Steinberg on 10-18-2024 Study report [facility] [address] [place] [address] XRay Report Signed Patient: Serenity Bustillo MR#: [id number] : 1950 Acct:[id number] Age/Sex: 74 / F ADM Date: 5 Loc: SOX Room: Type: [facility] CLI Attending Dr: Felipe Akbar MD Copies to: [...] PROCESS. Impression dictated by: Micah Steinberg Jr., D.O.10/18/2024 4:07 PM Dictation Location: RADIO-PC-23 Transcribed By: ARIC 10/18/24 1607 Dictated By: Micah Steinberg Jr DO 10/18/24 1605 Signed By: 10/18/24 1607 [facility] XR knee LT 3V - NOT FOR ER U Shyann 10-18-2024 XR knee LT 3V - NOT FOR ER USE [facility] [address] [place] [address] XRay Report Signed Patient: Serenity Bustillo MR#: [id number] : 1950 Acct:[id number] Age/Sex: 74 / F ADM Date: 10/18/24 Loc: [facility] Room: Type: [facility] Attending Dr: Felipe Akbar MD Copies to: [...] PROCESS. Impression dictated by: Micah Steinberg Jr., D.O.10/18/2024 4:07 PM Dictation Location: RADIO-PC-23 Transcribed By: ARIC 10/18/24 1607 Dictated By: Micah Steinberg Jr, DO 10/18/24 1605 Signed By: 10/18/24 1607 Normal [facility] - Chemistry and C hemistry - challengeon 08-16-2024 Cobalamin (Vitamin B12) [Mass/Vol] 437 pg/mL 232-1245 [facility] Comment on above: Performed at: - [address] [id number] Director: Rehan Matos PhD, Phone: [phone] TSH Qn 0.620 m[IU]/L 0.358-3.740 [facility] No Panel Informationon 08-16 Folate 9.10 ng/mL 8.60-58.90 [facility] Basophils Auto (Bld) [#/Vol] on 08-02-2024 Basophils (Bld) [#/Vol] Automated basoph il count 0.0-0.1 [facility] Basophils/100 WBC Auto (Bld) on 08-02-2024 Basophils/100 WBC (Bld) Automated basophil % 0. 2-2.0 [facility] Eosinophils/100 WBC Auto (Bl d)on 08-02-2024 Eosinophils/100 WBC (Bld) Automated eosinophil % 0.9-7.0 [facility] Erythrocyte distribution wid th Auto (RBC) [Ratio]on 08-02-2024 Erythrocyte distribution width (RBC) [Ratio] Erythrocyte distribution width [Ratio] by Automated count 11.0-15.0 [facility] Hematocrit Auto (Bld) [Volum e fraction]on 08-02-2024 Hematocrit (Bld) [Volume fraction] Hematocrit [Volume Fraction] of Blood by Automated count 36.0-48.0 [facility] Hemoglobin [Mass/volume] in Bloodon 08-02-2024 Hemoglobin (Bld) [Mass/Vol] Hemoglobin [Mass/volume] in Blood 12.0-16.0 [facility] Ramin 08-02-2024 L Specimen: [id number] Received: 08/03/24 Status: JOSE Barrett Num: [id number] Spec Type: Impression Subm Dr: Boy Anna DO Tissues: PATHPER Procedures: PATHREVIEW Age/ Patient Sex Location Account Attending Physician Serenity Bustillo 74/F [facility] [id number] Boy Anna DO SPEC NUM: [id number] RECD: 08/03/24 STATUS: JOSE HERNANDEZBrittany NUM: [id number] ZEHRA: 08/02/24- SUBM DR: Boy Anna DO ENTERED: 08/03/24 [facility] DR: Zhane Alvarez SPEC TYPE: Impression DEPT: RHODA Garza ENTERED BY: [id number] RECV BY: [id number] ORDERED: PATHREVIEW ORDERED: PATHREVIEW Pathologist Review Abnormal [...] [id number] Received: 08/03/24 Status: JOSE Barrett Num: [id number] Spec Type: Impression Subm Dr: Boy Anna DO Tissues: PATHPER Procedures: PATHREVIEW Patient: Serenity Bustillo [id number] (Continued) Specimen: [id number] Received: 08/03/24 (Continued) Pathologist Review (Continued) Signed (signature on file) Reinier Contreras MD 08/08/24 1726 Specimen: [id number] Received: 08/03/24 Status: CONCEPCIÓNAnnemarie Barrett Num: [id number] Spec Type: Impression Subm Dr: Boy Anna DO Tissues: PATHPER Procedures: PATHREVIEW Patient: Serenity Bustillo [id number] (Continued) Specimen: [id number] Received: 08/03/24 (Continued) Pathologist Review (Continued) this time, and requiring continuous clinical correlation and hematology consultation -The cause of mild lymphocytopenia is usually due to immunocompromise, including radiation or chemotherapy induced BM suppression, or corticosteroid associated lymphocytopenia if patient do not have H/O malignancy. Other possibility may include collagen vascular disease such as SLE, or HIV infection, also requiring clinical correlation CPT: 35317 Specimen: [id number] Received: 08/03/24 Status: JOSE Arnold Num: [id number] Spec Type: Impression Subm Dr: Boy Anna DO Tissues: ZIYAD Procedures: PATHREVIEW Patient: Serenity Bustillo [id number] (Continued) Signed (signature on file) Reinier Contreras MD 08/08/24 1726 Normal [facility] - Hematology and Cell countson 08-02-2024 Immature granulocytes/100 WBC (Bld) 0.6 % High 0.0-0.5 [facility] Leukocytes [#/volume] correc winter for nucleated erythrocytes in Blood by Automated counon 08-02-2024 WBC corrected for nucl RBC Auto (Bld) [#/Vol] Leukocytes [#/volume] corrected for nucleated erythrocytes in Blood by Automated coun 4.0-11.0 [facility] Lymphocytes Auto (Bld) [#/Vo l]on 08-02-2024 Lymphocytes (Bld) [#/Vol] Lymphocytes [#/volume] in Blood by Automated count Low 1.2-3.8 [facility] Lymphocytes/100 WBC Auto (Bl d)on 08-02-2024 Lymphocytes/100 WBC (Bld) Lymphocytes/100 leukocytes in Blood by Automated count Low 20.5-60.0 [facility] MCH Auto (RBC) [Entitic mass ]on 08-02-2024 MCH (RBC) [Entitic mass] MCH [Entitic ma ss] by Automated count 26.7-34.0 [facility] MCHC Auto (RBC) [Mass/Vol]on 08-02-2024 MCHC (RBC) [Mass/Vol] MCHC [Mass/volume] by Automated count 29.9-35.2 [facility] MCV Auto (RBC) [Entitic vol] on 08-02-2024 MCV (RBC) [Entitic vol] MCV [Entitic vol ume] by Automated count High 81.0-99.0 [facility] Monocytes Auto (Bld) [#/Vol] on 08-02-2024 Monocytes (Bld) [#/Vol] Automated blood monocyte count 0.3-0.8 [facility] Monocytes/100 WBC Auto (Bld) on 08-02-2024 Monocytes/100 WBC (Bld) Automated monocyte % 1. 7-12.0 [facility] Neutrophils Auto (Bld) [#/Vo l]on 08-02-2024 Neutrophils (Bld) [#/Vol] Neutrophils [#/volume] in Blood by Automated count 1.4-6.5 [facility] Neutrophils/100 WBC Auto (Bl d)on 08-02-2024 Neutrophils/100 WBC (Bld) Automated neutrophil % High 43.0-75.0 [facility] No Panel Informationon 08-02 Add Manual Differential See comment [facility] Comment on above: SEE SCANNED REPORT Eosinophils # (Auto) 0.2 10 3/uL 0.0-0.7 [facility] Immature Granulocyte # (Auto) 0.04 10 3/uL High 0.00-0.03 [facility] Platelet mean volume Auto (B ld) [Entitic vol]on 08-02-2024 Platelet mean volume (Bld) [Entitic vol] Platelet mean volume [Entitic volume] in Blood by Automated count 9.5-13.5 [facility] Platelets Auto (Bld) [#/Vol] on 08-02-2024 Platelets (Bld) [#/Vol] Platelets [#/vol ume] in Blood by Automated count Low 150-450 [facility] RBC Auto (Bld) [#/Vol]on RBC (Bld) [#/Vol] Erythrocytes [#/volume] in Blood by Automated count Low 4.20-5.40 [facility] Optical coherence tomography study reporton 07-07-2024 [facility] Radiology Study observation (narrative) [facility] Basophils Auto (Bld) [#/Vol] on 05-10-2024 Basophils (Bld) [#/Vol] 0.0 10 3/uL 0.0-0.1 [facility] Basophils (Bld) [#/Vol] Automated basoph il count 0.0-0.1 [facility] Basophils/100 WBC Auto (Bld) on 05-10-2024 Basophils/100 WBC (Bld) 1.0 % 0.2-2.0 [facility] Basophils/100 WBC (Bld) Automated basophil % 0. 2-2.0 [facility] Cholesterol in LDL Calc [Mas s/Vol]on 05-10-2024 Cholesterol in LDL [Mass/Vol] 68.2 mg/dL [facility] Comment on above: <100 mg/dl [id number] 0-129 mg/dl NEAR OR ABOVE [id number] mg/dl BORDERLINE [id number] mg/dl HIGH>190 mg/dl VERY HIGH Cholesterol in LDL [Mass/Vol] Cholesterol in LDL [Mass/volume] in Serum or Plasma by calculation [facility] Comment on above: <100 mg/dl [id number] 0-129 mg/dl NEAR OR ABOVE [id number] mg/dl BORDERLINE [id number] mg/dl HIGH>190 mg/dl VERY HIGH Cholesterol in VLDL Calc [Ma ss/Vol]on 05-10-2024 Cholesterol in VLDL [Mass/Vol] 10.8 mg/dL [facility] Cholesterol in VLDL [Mass/Vol] Cholesterol in VLDL [Mass/volume] in Serum or Plasma by calculation [facility] Eosinophils/100 WBC Auto (Bl d)on 05-10-2024 Eosinophils/100 WBC (Bld) 3.8 % 0.9-7.0 [facility] Eosinophils/100 WBC (Bld) Automated eosinophil % 0.9-7.0 [facility] Erythrocyte distribution wid th Auto (RBC) [Ratio]on 05-10-2024 Erythrocyte distribution width (RBC) [Ratio] 13.2 % 11.0-15.0 [facility] Erythrocyte distribution width (RBC) [Ratio] Erythrocyte distribution width [Ratio] by Automated count 11.0-15.0 [facility] Estimated glomerular filtrat ion rate (GFR) non- Americanon 05-10-2024 GFR/1.73 sq M.predicted among non-blacks MDRD (S/P/Bld) [Vol rate/Area] mL/min/{1.73_m2} >=60 [facility] GFR/1.73 sq M.predicted among non-blacks MDRD (S/P/Bld) [Vol rate/Area] Estimated glomerular filtration rate (GFR) non- >=60 [facility] Globulin Calc (S) [Mass/Vol] on 05-10-2024 Globulin (S) [Mass/Vol] 3.6 g/dL [facility] Globulin (S) [Mass/Vol] Serum globulin measurement by calculation (mass/volume) [facility] Glucose mean value [Mass/vol ume] in Blood Estimated from glycated hemoglobinon 05-10-2024 Average glucose Estimated from glycated hemoglobin (Bld) [Mass/Vol] 103 mg/dL [facility] Average glucose Estimated from glycated hemoglobin (Bld) [Mass/Vol] Glucose mean value [Mass/volume] in Blood Estimated from glycated hemoglobin [facility] Hematocrit Auto (Bld) [Volum e fraction]on 05-10-2024 Hematocrit (Bld) [Volume fraction] 37.9 % 36.0-48.0 [facility] Hematocrit (Bld) [Volume fraction] Hematocrit [Volume Fraction] of Blood by Automated count 36.0-48.0 [facility] Hemoglobin [Mass/volume] in Bloodon 05-10-2024 Hemoglobin (Bld) [Mass/Vol] 12.7 g/dL 12.0-16.0 [facility] Hemoglobin (Bld) [Mass/Vol] Hemoglobin [Mass/volume] in Blood 12.0-16.0 [facility] Laboratory - Chemistry and C hemistry - challengeon 05-10-2024 Albumin [Mass/Vol] 3.2 g/dL Low 3.4-5.0 [facility] ALP [Catalytic activity/Vol] 79 U/L 46-116 [facility] ALT [Catalytic activity/Vol] 19 U/L 14-59 [facility] AST [Catalytic activity/Vol] 15 U/L 15-37 [facility] Bilirubin [Mass/Vol] 0.7 mg/dL 0.2-1.0 [facility] Calcium [Mass/Vol] 9.0 mg/dL 8.5-10.1 [facility] Chloride [Moles/Vol] 105 mmol/L 98-107 [facility] Cholesterol [Mass/Vol] 139 mg/dL <=200 [facility] Cholesterol in HDL [Mass/Vol] 60 mg/dL 40-60 [facility] Comment on above: > or =60 mg/dl - LOW CARDIOVASCULAR RISK<40 mg/dl - HIGH CARDIOVASCULAR RISK CO2 [Moles/Vol] 28.5 mmol/L 21.0-32.0 [facility] Creatinine [Mass/Vol] 0.77 mg/dL 0.55-1.02 [facility] GFR/1.73 sq M.predicted MDRD (S/P/Bld) [Vol rate/Area] mL/min/{1.73_m2} >=60 [facility] Glucose [Mass/Vol] 95 mg/dL 74-106 [facility] Potassium [Moles/Vol] 3.7 mmol/L 3.5-5.1 [facility] Protein [Mass/Vol] 6.8 g/dL 6.4-8.2 [facility] Sodium [Moles/Vol] 141 mmol/L 136-145 [facility] Triglyceride [Mass/Vol] 54 mg/dL <=150 [facility] TSH Qn 0.967 m[IU]/L 0.358-3.740 [facility] Urea nitrogen [Mass/Vol] 14.0 mg/dL 7.0-18.0 [facility] Urea nitrogen/Creatinine [Mass ratio] 18.2 mg/mg [facility] Laboratory - Hematology and Cell countson 05-10-2024 HbA1c (Bld) [Mass fraction] 5.2 % 4.5-6.2 [facility] Comment on above: ADA RECOMMENDED LIMI T 4.0 - 6.0ADA THERAPEUTIC TARGET < 7.0ACTION SUGGESTED> 7.0 Immature granulocytes/100 WBC (Bld) 0.5 % 0.0-0.5 [facility] Leukocytes [#/volume] correc winter for nucleated erythrocytes in Blood by Automated counon 05-10-2024 WBC corrected for nucl RBC Auto (Bld) [#/Vol] 3.9 10 3/uL Low 4.0-11.0 [facility] WBC corrected for nucl RBC Auto (Bld) [#/Vol] Leukocytes [#/volume] corrected for nucleated erythrocytes in Blood by Automated coun Low 4.0-11.0 [facility] Lymphocytes Auto (Bld) [#/Vo l]on 05-10-2024 Lymphocytes (Bld) [#/Vol] 0.8 10 3/uL Low 1.2-3.8 [facility] Lymphocytes (Bld) [#/Vol] Lymphocytes [#/volume] in Blood by Automated count Low 1.2-3.8 [facility] Lymphocytes/100 WBC Auto (Bl d)on 05-10-2024 Lymphocytes/100 WBC (Bld) 20.2 % Low 20.5-60.0 [facility] Lymphocytes/100 WBC (Bld) Lymphocytes/100 leukocytes in Blood by Automated count Low 20.5-60.0 [facility] MCH Auto (RBC) [Entitic mass ]on 05-10-2024 MCH (RBC) [Entitic mass] 33.2 pg 26.7-34.0 [facility] MCH (RBC) [Entitic mass] MCH [Entitic ma ss] by Automated count 26.7-34.0 [facility] MCHC Auto (RBC) [Mass/Vol]on 05-10-2024 MCHC (RBC) [Mass/Vol] 33.5 g/dL 29.9-35.2 [facility] MCHC (RBC) [Mass/Vol] MCHC [Mass/volume] by Automated count 29.9-35.2 [facility] MCV Auto (RBC) [Entitic vol] on 05-10-2024 MCV (RBC) [Entitic vol] 99.2 fL High 81.0-99.0 [facility] MCV (RBC) [Entitic vol] MCV [Entitic vol ume] by Automated count High 81.0-99.0 [facility] Monocytes Auto (Bld) [#/Vol] on 05-10-2024 Monocytes (Bld) [#/Vol] 0.2 10 3/uL Low 0.3-0.8 [facility] Monocytes (Bld) [#/Vol] Automated blood monocyte count Low 0.3-0.8 [facility] Monocytes/100 WBC Auto (Bld) on 05-10-2024 Monocytes/100 WBC (Bld) 5.1 % 1.7-12.0 [facility] Monocytes/100 WBC (Bld) Automated monocyte % 1. 7-12.0 [facility] Neutrophils Auto (Bld) [#/Vo l]on 05-10-2024 Neutrophils (Bld) [#/Vol] 2.7 10 3/uL 1.4-6.5 [facility] Neutrophils (Bld) [#/Vol] Neutrophils [#/volume] in Blood by Automated count 1.4-6.5 [facility] Neutrophils/100 WBC Auto (Bl d)on 05-10-2024 Neutrophils/100 WBC (Bld) 69.4 % 43.0-75.0 [facility] Neutrophils/100 WBC (Bld) Automated neutrophil % 43.0-75.0 [facility] No Panel Informationon 05-10 Eosinophils # (Auto) 0.2 10 3/uL 0.0-0.7 [facility] Immature Granulocyte # (Auto) 0.02 10 3/uL 0.00-0.03 [facility] Platelet mean volume Auto (B ld) [Entitic vol]on 05-10-2024 Platelet mean volume (Bld) [Entitic vol] 12.7 fL 9.5-13.5 [facility] Platelet mean volume (Bld) [Entitic vol] Platelet mean volume [Entitic volume] in Blood by Automated count 9.5-13.5 [facility] Platelets Auto (Bld) [#/Vol] on 05-10-2024 Platelets (Bld) [#/Vol] 110 10 3/uL Low 150-450 [facility] Platelets (Bld) [#/Vol] Platelets [#/vol ume] in Blood by Automated count Low 150-450 [facility] RBC Auto (Bld) [#/Vol]on RBC (Bld) [#/Vol] 3.82 10 6/uL Low 4.20-5.40 [facility] RBC (Bld) [#/Vol] Erythrocytes [#/volume] in Blood by Automated count Low 4.20-5.40 [facility] Serum or plasma albumin/glob ulin mass ratioon 05-10-2024 Albumin/Globulin [Mass ratio] 0.9 {ratio} [facility] Albumin/Globulin [Mass ratio] Serum or plasma albumin/globulin mass ratio [facility] Serum or plasma anion gap de terminationon 05-10-2024 Anion gap [Moles/Vol] 11.2 [facility] Anion gap [Moles/Vol] Serum or plasma anion gap determination [facility] Serum or plasma total choles terol/high density lipoprotein (HDL) cholesterol mass jovanny 05-10-2024 Cholesterol.total/Choles terol in HDL [Mass ratio] 2.3 {ratio} [facility] Comment on above: 3.3 - 4.4 LOW RISK4. 4 - 7.1 AVERAGE RISK7.1 - 11.0 MODERATE RISK>11.0 HIGH RISK Cholesterol.total/Choles terol in HDL [Mass ratio] Serum or plasma total cholesterol/high density lipoprotein (HDL) cholesterol mass [facility] Comment on above: 3.3 - 4.4 LOW RISK4. 4 - 7.1 AVERAGE RISK7.1 - 11.0 MODERATE RISK>11.0 HIGH RISK CBC AUTO DIFFon 11-20-2021 BASO # 0.0 103/ul Normal 0.0-0.1 [facility] Comment on above: Performed By: #### D ATCBC #### [facility] [address] [place] [address] Dr. Tatiana Contrersa Basophils/100 WBC (Bld) 0.6 % Normal 0.2-2.0 [facility] Comment on above: Performed By: #### D ATCBC #### [facility] [address] [address] [address] Tatiana Contreras EO # 0.2 103/ul Normal 0.0-0.7 [facility] Comment on above: Performed By: #### D ATCBC #### [facility] [address] [address] [address] Tatiana Contreras Eosinophils/100 WBC (Bld) 5.2 % Normal 0.9-7.0 [facility] Comment on above: Performed By: #### D ATCBC #### [facility] [address] [address] [address] Tatiana Contreras Erythrocyte distribution width (RBC) [Ratio] 13.8 % Normal 11.0-15.0 [facility] Comment on above: Performed By: #### D ATCBC #### [facility] [address] [place] [address] Dr. Tatiana Contreras Hematocrit (Bld) [Volume fraction] 41.7 % Normal 36.0-48.0 [facility] Comment on above: Performed By: #### D ATCBC #### [facility] [address] [address] [address] Tatiana Contreras Hemoglobin (Bld) [Mass/Vol] 13.7 g/dL Normal 12.0-16.0 [facility] Comment on above: Performed By: #### D ATCBC #### [facility] [address] [place] [address] Dr. Tatiana Contreras IG # 0.02 10e3/ul Normal 0.00-0.03 [facility] Comment on above: Performed By: #### D ATCBC #### [facility] [address] [place] [address] Dr. Tatiana Contreras IG % 0.4 % Normal 0.0-0.5 [facility] Comment on above: Performed By: #### D ATCBC #### [facility] [address] [place] [address] Dr. Tatiana Contreras LYMPH # 0.7 103/ul Critically low 1.2-3.8 [facility] Comment on above: Performed By: #### D ATCBC #### [facility] [address] [place] [address] Dr. Tatiana Contreras Lymphocytes/100 WBC (Bld) 15.6 % Critically low 20.5-60.0 [facility] Comment on above: Performed By: #### D ATCBC #### [facility] [address] [place] [address] Dr. Tatiana Contreras MCH (RBC) [Entitic mass] 31.4 pg Normal 26.7-34.0 [facility] Comment on above: Performed By: #### D ATCBC #### [facility] [address] [place] [address] Dr. Tatiana Contreras MCHC (RBC) [Mass/Vol] 32.9 g/dL Normal 29.9-35.2 [facility] Comment on above: Performed By: #### D ATCBC #### [facility] [address] [place] [address] Dr. Tatiana Contreras MCV (RBC) [Entitic vol] 95.6 fL Normal 81.0-99.0 [facility] Comment on above: Performed By: #### D ATCBC #### [facility] [address] [place] [address] Dr. Tatiana Contreras MONO # 0.3 103/ul Normal 0.3-0.8 [facility] Comment on above: Performed By: #### D ATCBC #### [facility] [address] [place] [address] Dr. Tatiana Contreras Monocytes/100 WBC (Bld) 5.8 % Normal 1.7-12.0 [facility] Comment on above: Performed By: #### D ATCBC #### [facility] [address] [place] [address] Dr. Tatiana Contreras NEUT # 3.4 103/ul Normal 1.4-6.5 [facility] Comment on above: Performed By: #### D ATCBC #### [facility] [address] [place] [address] Dr. Tatiana Contreras Neutrophils/100 WBC (Bld) 72.4 % Normal 43.0-75.0 [facility] Comment on above: Performed By: #### D ATCBC #### [facility] [facility] [address] [place] [address] Dr. Tatiana Contreras Platelet mean volume (Bld) [Entitic vol] 12.4 fL Normal 9.5-13.5 [facility] Comment on above: Performed By: #### D ATCBC #### [facility] [address] [place] [address] Dr. Tatiana Contreras PLT 109 103/ul Critically low 150-450 [facility] Comment on above: Performed By: #### D ATCBC #### [facility] [address] [place] [address] Dr. Tatiana Contreras RBC 4.36 106/ul Normal 4.20-5.40 [facility] Comment on above: Performed By: #### D ATCBC #### [facility] [address] [place] [address] Dr. Tatiana Contreras WBC 4.6 103/ul Normal 4.0-11.0 [facility] Comment on above: Performed By: #### D ATCBC #### [facility] [address] [place] [address] Dr. Tatiana Contreras ADALID - TSHon 11-20-2021 TSH 1.795 uIU/mL Normal 0.470-4.680 [facility] Comment on above: Performed By: #### D ATTSH, DATBMP #### [facility] [address] [place] [address] Dr. Tatiana Contreras TSH RANGE SEE BELOW Normal [facility] Comment on above: Result Comment: <0.3 4 UIU/ml HYPERTHYROID 0.34-5.60 UIU/ml EUTHYROID >5.60 UIU/ml HYPOTHYROID Performed By: #### D ATTSH, DATBMP #### [facility] [address] [place] [address] Dr. Tatiana Contreras ADALID- BMP WITH LIPIDon 2021 Anion gap [Moles/Vol] 9.3 mmol/L Normal [facility] Comment on above: Performed By: #### D ATTSH, DATBMP #### [facility] [address] [place] [address] Dr. Tatiana Contreras Calcium [Mass/Vol] 8.7 mg/dL Normal 8.4-10.2 [facility] Comment on above: Performed By: #### D ATTSH, DATBMP #### [facility] [address] [place] [address] Dr. Tatiana Contreras Chloride [Moles/Vol] 103 mmol/L Normal 98-107 [facility] Comment on above: Performed By: #### D ATTSH, DATBMP #### [facility] [address] [place] [address] Dr. Tatiana Contreras Cholesterol [Mass/Vol] 123 mg/dL Normal <=200 [facility] Comment on above: Performed By: #### D ATTSH, DATBMP #### [facility] [address] [place] [address] Dr. Tatiana Contreras Cholesterol in HDL [Mass/Vol] 64 mg/dL Normal [facility] Comment on above: Performed By: #### D ATTSH, DATBMP #### [facility] [address] [address] [address] Tatiana Contreras Cholesterol in LDL [Mass/Vol] 50.0 mg/dL Normal [facility] Comment on above: Performed By: #### D ATTSH, DATBMP #### [facility] [address] [address] [address] Tatiana Contreras CO2 [Moles/Vol] 29.7 mmol/L Normal 22.0-30.0 [facility] Comment on above: Performed By: #### D ATTSH, DATBMP #### [facility] [address] [place] [address] Dr. Tatiana Contreras Creatinine [Mass/Vol] 0.88 mg/dL Normal 0.52-1.04 [facility] Comment on above: Performed By: #### D ATTSH, DATBMP #### [facility] [address] [place] [address] Dr. Tatiana Contreras EGFR-AF SIERRA LEONEAN >60 Normal >=60 [facility] Comment on above: Performed By: #### D ATTSH, DATBMP #### [facility] [address] [place] [address] Dr. Tatiana Contreras EGFR-NON AF SIERRA LEONEAN >60 Normal >=60 [facility] Comment on above: Performed By: #### D ATTSH, DATBMP #### [facility] [address] [address] [address] Tatiana Contreras Glucose [Mass/Vol] 101 mg/dL Normal 74-106 [facility] Comment on above: Performed By: #### D ATTSH, DATBMP #### [facility] [address] [place] [address] Dr. Tatiana Contreras HDL NORMAL > or = 60 mg/dl - LOW CARDIOVASCULAR RISK <40 mg/dl - HIGH CARDIOVASCULAR RISK Normal [facility] Comment on above: Performed By: #### D ATTSH, DATBMP #### [facility] [address] [place] [address] Dr. Tatiana Contreras LDL CALC NORMAL SEE BELOW Normal [facility] Comment on above: Result Comment: <100 mg/dl OPTIMAL 100 - 129 mg/dl NEAR OR ABOVE OPTIMAL 130 - 159 mg/dl BORDERLINE HIGH 160 - 189 mg/dl HIGH >190 mg/dl VERY HIGH Performed By: #### D ATTSH, DATBMP #### [facility] [address] [address] [address] Tatiana Contreras Potassium [Moles/Vol] 4.0 mmol/L Normal 3.4-5.0 [facility] Comment on above: Performed By: #### D ATTSH, DATBMP #### [facility] [address] [address] [address] Tatiana Contreras Sodium [Moles/Vol] 138 mmol/L Normal 137-145 [facility] Comment on above: Performed By: #### D ATTSH, DATBMP #### [facility] [address] [address] [address] Tatiana Contreras Triglyceride [Mass/Vol] 45 mg/dL Normal <=150 T [facility] Comment on above: Performed By: #### D ATTSH, DATBMP #### [facility] [address] [address] [address] Tatiana Contreras Urea nitrogen [Mass/Vol] 18.0 mg/dL Critically high 7.0-17 .0 [facility] Comment on above: Performed By: #### D ATTSH, DATBMP #### [facility] [address] [address] [address] Tatiana Contreras Urea nitrogen/Creatinine [Mass ratio] 20.5 mg/mg Normal [facility] Comment on above: Performed By: #### D ATTSH, DATBMP #### [facility] [address] [address] [address] Tatiana Contreras VLDL CALC 9.0 mg/dL Normal [facility] Comment on above: Performed By: #### D ATTSH, DATBMP #### [facility] [address] [address] [address] Tatiana Contreras LIVER PROFILEon 11-20-2021 Albumin [Mass/Vol] 3.4 g/dL Critically low 3.5-5.0 Th e [facility] Comment on above: Performed By: #### L IVER #### [facility] [address] [place] [address] Dr. Tatiana Contreras Albumin/Globulin [Mass ratio] 0.9 {ratio} Normal [facility] Comment on above: Performed By: #### L IVER #### [facility] [address] [address] [address] Tatiana Contreras ALP [Catalytic activity/Vol] 94 U/L Normal 38-126 [facility] Comment on above: Performed By: #### L IVER #### [facility] [address] [place] [address] Dr. Tatiana Contreras ALT [Catalytic activity/Vol] 28 U/L Normal 9-52 [facility] Comment on above: Performed By: #### L IVER #### [facility] [address] [place] [address] Dr. Tatiana Contreras AST [Catalytic activity/Vol] 18 U/L Normal 14-36 [facility] Comment on above: Performed By: #### L IVER #### [facility] [address] [place] [address] Dr. Tatiana Contreras BILI, CONJUGATED 0.2 mg/dL Normal 0.0-0.3 [facility] Comment on above: Performed By: #### L IVER #### [facility] [address] [place] [address] Dr. Tatiana Contreras Bilirubin [Mass/Vol] 0.6 mg/dL Normal 0.2-1.3 [facility] Comment on above: Performed By: #### L IVER #### [facility] [address] [address] [address] Tatiana Contreras Globulin (S) [Mass/Vol] 3.9 g/dL Normal T [facility] Comment on above: Performed By: #### L IVER #### [facility] [address] [place] [address] Dr. Tatiana Contreras Protein [Mass/Vol] 7.3 g/dL Normal 6.1-8.2 [facility] Comment on above: Performed By: #### L MAYELA #### [facility] [address] [place] [address] Dr. Tatiana Contreras Vital Signs Date Time Vital Sign Value Performing Clinician Catracho knowles 06-02-2025 09:35-0400 Body height 160.02 cm Byo Ball DO Work Phone: [facility] 06-02-2025 09:35-0400 Body mass index (BMI) [Ratio] 35.1 kg/m2 Boy Ball DO Work Phone: [facility] 06-02-2025 09:35-0400 Body weight 89.92 kg Boy Ball DO Work Phone: [facility] 06-02-2025 09:35-0400 Diastolic blood pressure 78 mm[Hg] Boy Ball DO Work Phone: [facility] 06-02-2025 09:35-0400 Heart rate 79 /min Oby Ball DO Work Phone: [facility] 06-02-2025 09:35-0400 Respiratory rate 12 /min Boy Ball DO Work Phone: [facility] 06-02-2025 09:35-0400 Systolic blood pressure 118 mm[Hg] Boy Ball DO Work Phone: [facility] 05-20-2025 10:16-0400 Body height 165.1 cm Junior Bravo MD Work Phone: [facility] 05-20-2025 10:16-0400 Body mass index (BMI) [Ratio] 33.82 kg/m2 Junior Bravo MD Work Phone: [facility] 05-20-2025 10:16-0400 Body temperature 97.7 [degF] Junior Bravo MD Work Phone: [facility] 05-20-2025 10:16-0400 Body weight 92.2 kg Junior Bravo MD Work Phone: [facility] 05-20-2025 10:16-0400 Diastolic blood pressure 87 mm[Hg] Junior Bravo MD Work Phone: [facility] 05-20-2025 10:16-0400 Heart rate 86 /min Junior Bravo MD Work Phone: [facility] 05-20-2025 10:16-0400 Respiratory rate 16 /min Junior Bravo MD Work Phone: [facility] 05-20-2025 10:16-0400 SaO2% (BldA) [Mass fraction] 97 % Junior Bravo MD Work Phone: [facility] 05-20-2025 10:16-0400 Systolic blood pressure 134 mm[Hg] Junior Bravo MD Work Phone: [facility] 11-23-2024 10:49-0500 Body mass index (BMI) [Ratio] 34.85 kg/m2 Junior Bravo MD Work Phone: [facility] 11-23-2024 10:49-0500 Body temperature 97.59 [degF] Junior Bravo MD Work Phone: [facility] 11-23-2024 10:49-0500 Body weight 95 kg Junior Bravo MD Work Phone: [facility] 11-23-2024 10:49-0500 Diastolic blood pressure 85 mm[Hg] Junior Bravo MD Work Phone: [facility] 11-23-2024 10:49-0500 Heart rate 85 /min Junior Bravo MD Work Phone: [facility] 11-23-2024 10:49-0500 Respiratory rate 16 /min Junior Bravo MD Work Phone: [facility] 11-23-2024 10:49-0500 SaO2% (BldA) [Mass fraction] 96 % Junior Bravo MD Work Phone: [facility] 11-23-2024 10:49-0500 Systolic blood pressure 126 mm[Hg] Junior Bravo MD Work Phone: [facility] 06-07-2024 14:31-0400 Body height 160.02 cm [facility] 06-07-2024 14:31-0400 Body mass index (BMI) [Ratio] 36.9 kg/m2 [facility] 06-07-2024 14:31-0400 Body weight 94.51 kg [facility] 06-07-2024 14:31-0400 Diastolic blood pressure 84 mm[Hg] [facility] 06-07-2024 14:31-0400 Heart rate 89 /min [facility] 06-07-2024 14:31-0400 Respiratory rate 12 /min [facility] 06-07-2024 14:31-0400 Systolic blood pressure 142 mm[Hg] [facility] 04-13-2024 09:14-0400 Body height 160.02 cm [facility] 04-13-2024 09:14-0400 Body mass index (BMI) [Ratio] 37.5 kg/m2 [facility] 04-13-2024 09:14-0400 Body weight 96.27 kg [facility] 04-13-2024 09:14-0400 Diastolic blood pressure 80 mm[Hg] [facility] 04-13-2024 09:14-0400 Heart rate 90 /min [facility] 04-13-2024 09:14-0400 Respiratory rate 12 /min [facility] 04-13-2024 09:14-0400 Systolic blood pressure 125 mm[Hg] [facility] 02-17-2024 15:05-0400 Body height 160.02 cm [facility] 02-17-2024 15:05-0400 Body mass index (BMI) [Ratio] 38.9 kg/m2 [facility] 02-17-2024 15:05-0400 Body weight 99.79 kg [facility] 02-17-2024 15:05-0400 Diastolic blood pressure 87 mm[Hg] [facility] 02-17-2024 15:05-0400 Heart rate 82 /min [facility] 02-17-2024 15:05-0400 Respiratory rate 12 /min [facility] 02-17-2024 15:05-0400 Systolic blood pressure 126 mm[Hg] [facility] 04-03-2023 08:30-0400 Body height 160.02 cm Boy Anna Other [facility] [employer] Other 04-03-2023 08:30-0400 Body mass index (BMI) [Ratio] 38.65 kg/m2 Boy Ball Other [facility] Other 04-03-2023 08:30-0400 Body weight 98.98 kg Boy Wilfrido Other [facility] Other 04-03-2023 08:30-0400 Diastolic blood pressure 84 mm[Hg] Boy Wilfrido Other [facility] Other 04-03-2023 08:30-0400 Systolic blood pressure 129 mm[Hg] Boy Ball Other [facility] Other Encounters Encounter Date Encounter Type Care Provider Facility Start: 06-02-2025 End: 06-02-2025 ambulatory Boy Ball DO Work Phone: [facility] Work Phone: Start: 06-02-2025 End: 06-02-2025 Patient encounter procedure Boy Ball DO -[facility] Work Phone: Start: 06-01-2025 End: 06-01-2025 ambulatory Boy Ball DO Work Phone: [facility] Work Phone: Start: 06-01-2025 End: 06-01-2025 Patient encounter procedure Felipe Garza MD -[facility] Work Phone: Start: 05-25-2025 Non-patient / Non-visit Felipe Garza MD -[facility] Work Phone: Start: 05-25-2025 End: 05-25-2025 ambulatory Boy Ball DO Work Phone: [facility] Work Phone: Start: 05-25-2025 End: 05-25-2025 Patient encounter procedure Felipe Garza MD -[facility] Work Phone: Start: 05-20-2025 End: 05-20-2025 Office outpatient visit 15 minutes Junior Bravo MD Work Phone: Hematology/Oncology Comment on above: Thrombocytopenia (Pr imary Dx) Start: 05-20-2025 Non-patient / Non-visit Junior Bravo MD -[facility] Work Phone: Start: 05-20-2025 End: 05-20-2025 ambulatory JUNIOR BRAVO Facility:[facility] Start: 05-16-2025 End: 05-16-2025 Telephone encounter Junior Bravo MD Work Phone: Hematology/Oncology Comment on above: Lab Orders Start: 05-10-2025 End: 05-10-2025 ambulatory Boy Ball DO Work Phone: [facility] Work Phone: Start: 05-10-2025 End: 05-10-2025 Patient encounter procedure Felipe Garza MD -[facility] Work Phone: Start: 01-31-2025 End: 01-31-2025 ambulatory [facility] Work Phone: Start: 01-31-2025 End: 01-31-2025 Patient encounter procedure [facility] Work Phone: Start: 01-13-2025 End: 01-13-2025 ambulatory Boy Ball DO Work Phone: [facility] Work Phone: Start: 01-13-2025 End: 01-13-2025 Patient encounter procedure Boy Ball DO Work Phone: [facility] Work Phone: Start: 12-22-2024 End: 12-22-2024 Bamboo flowsheet Fannie Mistry DO Work Phone: [facility] Start: 12-22-2024 End: 12-22-2024 Bamboo flowsheet Fannie Maloneer DO Work Phone: [facility] Start: 12-22-2024 End: 12-22-2024 ambulatory FANNIE MISTRY Not Available Start: 12-06-2024 End: 12-06-2024 ambulatory Boy Ball DO Work Phone: [facility] Work Phone: Start: 12-06-2024 End: 12-06-2024 Patient encounter procedure Boy Anna DO Work Phone: [facility] Work Phone: Start: 11-24-2024 End: 11-24-2024 Telephone encounter Junior Bravo MD Work Phone: [facility] Start: 11-23-2024 Non-patient / Non-visit Benjam in Ball DO Work Phone: [facility] Work Phone: Start: 11-23-2024 End: 11-23-2024 ambulatory BOY ANNA Facility:[facility] Start: 11-23-2024 End: 11-23-2024 Office outpatient new 45 minutes Junior Bravo MD Work Phone: Hematology/Oncology Comment on above: Thrombocytopenia (HC C) (Primary Dx) Start: 11-22-2024 End: 11-22-2024 Chart abstracting Junior Bravo MD Work Phone: Hematology/Oncology Start: 11-10-2024 Non-patient / Non-visit Benjam in Ball DO Work Phone: [facility] Work Phone: Start: 10-18-2024 End: 10-18-2024 ambulatory Boy Ball DO Work Phone: [facility] Work Phone: Start: 10-18-2024 End: 10-18-2024 Patient encounter procedure Boy Ball DO Work Phone: [facility] Work Phone: Start: 10-11-2024 Non-patient / Non-visit Benjam in Ball DO Work Phone: [facility] Physician [facility] Work Phone: Start: 10-11-2024 End: 10-11-2024 ambulatory Boy Ball DO Work Phone: [facility] Work Phone: Start: 10-11-2024 End: 10-11-2024 Patient encounter procedure Boy Ball DO Work Phone: [facility] Work Phone: Start: 09-02-2024 End: 09-02-2024 Patient encounter procedure Boy Ball DO Work Phone: [facility] Work Phone: Start: 08-18-2024 End: 08-18-2024 Bamboo flowsheet Fannie Mistry DO Work Phone: [facility] Start: 08-18-2024 End: 08-18-2024 Bamboo flowsheet Fannie Mistry DO Work Phone: [facility] Start: 08-18-2024 End: 08-18-2024 ambulatory FANNIE MISTRY Not Available Start: 08-16-2024 Non-patient / Non-visit Benjam in Ball DO Work Phone: [facility] Work Phone: Start: 08-02-2024 End: 08-02-2024 ambulatory Boy Ball DO Work Phone: [facility] Work Phone: Start: 08-02-2024 End: 08-02-2024 Departed Referred Boy Ball DO Work Phone: [facility] Start: 08-02-2024 Non-patient / Non-visit Benjam in Ball DO Work Phone: [facility] Work Phone: Start: 07-07-2024 End: 07-07-2024 Bamboo flowsheet Fannie Maloneer DO Work Phone: [facility] Start: 07-07-2024 End: 07-07-2024 Bamboo flowsheet Fannie Maloneer DO Work Phone: [facility] Start: 07-07-2024 End: 07-07-2024 ambulatory FANNIE MISTRY Not Available Start: 06-07-2024 End: 06-07-2024 ambulatory [facility] Work Phone: Start: 06-07-2024 End: 06-07-2024 Patient encounter procedure [facility] Work Phone: Start: 05-10-2024 Non-patient / Non-visit [facility] Work Phone: Start: 04-13-2024 End: 04-13-2024 ambulatory [facility] Work Phone: Start: 04-13-2024 End: 04-13-2024 Patient encounter procedure [facility] Work Phone: Start: 02-17-2024 End: 02-17-2024 ambulatory [facility] Work Phone: Start: 02-17-2024 End: 02-17-2024 Patient encounter procedure [facility] Work Phone: Start: 04-10-2023 End: 04-10-2023 ambulatory Boy Anna Other [facility] Other Start: 04-10-2023 Telephone encounter Boy Anna [facility] Start: 04-09-2023 End: 04-09-2023 ambulatory Boy Anna Other [facility] Other Start: 04-09-2023 Telephone encounter Boy Anna FP [facility] Start: 04-04-2023 End: 04-04-2023 ambulatory Boy Anna Other [facility] Other Start: 04-04-2023 Telephone encounter Boy Anna FP [facility] Start: 04-03-2023 End: 04-03-2023 ambulatory Boy Anna Other [facility] Other Start: 04-03-2023 Patient encounter procedure Boy Anna [facility] Start: 11-20-2021 End: 11-21-[address] NONE LISTED REQUEST Facility: Procedures Date Procedure Procedure Detail Performing Clinician Start: 05-10-2025 Plain X-ray of left hip Boy Anna DO Work Phone: Start: 12-22-2024 Computerized ophthal cynthia imaging retina Fannie Mistry DO Work Phone: Start: 12-22-2024 End: 12-22-2024 [facility] medical xm&eval comprhnsv estab pt 1/> Age-related nuclear cataract of both eyes Fannie Mistry DO Work Phone: Comment on above: Age-related nuclear cataract of both eyes (Primary Dx); 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 degeneration of both eyes; Superficial keratitis of both eyes Start: 10-18-2024 X-ray of left knee, three views Boy Anna DO Work Phone: Start: 08-18-2024 End: 08-18-2024 [facility] medical xm&eval intermediate estab pt Age-related nuclear cataract of both eyes Fannie Jerniganclarencevincent DO Work Phone: Comment on above: Age-related nuclear cataract of both eyes (Primary Dx); Superficial keratitis of both eyes; 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 degeneration of both eyes Start: 07-07-2024 Computerized ophthal cynthia imaging retina Fannie Jerniganclarencevincent DO Work Phone: Start: 07-07-2024 End: 07-07-2024 [facility]&eval compre new pt 1/> vst Superficial keratitis of both eyes Fannie Jernigandarlene DO Work Phone: Comment on above: Superficial keratiti s of both eyes (Primary Dx); 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 degeneration of both eyes; Age-related nuclear cataract of both eyes Plan of Treatment Date Care Activity Detail Author Start: 05-20-2028 Diabetes Screening Diabetes Screenin [facility] Start: 11-24-2027 Diabetes Screening Diabetes Screenin [facility] Start: 04-22-2027 Screening for malign ant neoplasm of colon [facility] Start: 2026 RSV Vaccine (1 - 1-d ose 75+ series) RSV Vaccine (1 - 1-dose 75+ series) [facility] Start: 02-17-2026 End: 02-17-2026 Follow-up encounter 02/17/2026 10:30 AM EDT Visit (SP) Office Hematology/Oncology [address] [place] [address] Licha Lange APRN.CLIENT SERVER DEVELOPER [address] [place] [address] 9 month follow up Hematology/Oncology Comment on above: 9 month follow up Start: 02-17-2026 End: 02-17-2026 Patient encounter procedure 02/17/2026 10:15 AM EDT Office Visit [facility] [address] [place] [address] 9 month follow up [facility] Comment on above: 9 month follow up Start: 06-01-2025 Patient referral [facility] Work Phone: Start: 05-23-2025 Influenza vaccination Influenza Vacc ine (#1) [facility] Start: 05-20-2025 End: 08-19-2025 CBC W Auto Differential panel - Blood COMPLETE BLOOD COUNT AND DIFFERENTIAL Lab Routine Thrombocytopenia Expected: 05/20/2025, Expires: 08/19/2025 [facility] Work Phone: Comment on above: Expected: 05/20/2025 , Expires: 08/19/2025 Start: 05-20-2025 End: 08-19-2025 Comprehensive metabolic 2000 panel - Serum or Plasma COMPREHENSIVE METABOLIC PANEL Lab Routine Thrombocytopenia Expected: 05/20/2025, Expires: 08/19/2025 [facility] Comment on above: Expected: 05/20/2025 , Expires: 08/19/2025 Start: 05-20-2025 End: 05-20-2025 Follow-up encounter 05/20/2025 10:20 AM EDT Visit (SP) Office Hematology/Oncology [address] [place] [address] Junior Bravo MD [address] [place] [address] follow up Hematology/Oncology Comment on above: follow up Start: 05-20-2025 End: 05-20-2025 Patient encounter procedure 05/20/2025 10:15 AM EDT Office Visit [facility] [address] [place] [address] [address] [facility] Comment on above: lab Start: 05-10-2025 Plain X-ray of left hip XR hip LT min 2V(w/wo pelvis)* [facility] Start: 05-10-2025 XR Hip - left 2 Views F [facility] Start: 12-22-2024 End: 12-22-2024 Patient encounter procedure 12/22/2024 8:30 AM EDT Office Visit [facility] [address] [place] [id number] Fannie Mistry DO [address] [place] [address] Arrived [facility] Comment on above: Arrived Start: 11-23-2024 End: 02-22-2025 Cobalamin (Vitamin B12) [Mass/volume] in Serum or Plasma [facility] Comment on above: Expected: 11/23/2024 , Expires: 02/22/2025 Start: 11-23-2024 End: 02-22-2025 Ferritin [Mass/volume] in Serum or Plasma [facility] [facility] Work Phone: Comment on above: Expected: 11/23/2024 , Expires: 02/22/2025 Start: 11-23-2024 End: 02-22-2025 Folate [Mass/volume] in Serum or Plasma [facility] Comment on above: Expected: 11/23/2024 , Expires: 02/22/2025 Start: 11-23-2024 End: 02-22-2025 Iron and Iron binding capacity panel - Serum or Plasma [facility] Comment on above: Expected: 11/23/2024 , Expires: 02/22/2025 Start: 11-23-2024 End: 02-22-2025 Nuclear Ab [Presence] in Serum by Immunoassay [facility] Comment on above: Expected: 11/23/2024 , Expires: 02/22/2025 Start: 11-23-2024 End: 11-23-2024 Patient encounter procedure 11/23/2024 11:00 AM EST Visit (SP) Office Hematology/Oncology [address] [place] [address] [place] [address] Junior Bravo MD [address] [place] [address] [place] [address] Jos Anna Hematology/Oncology Comment on above: Referral from Dr. Jos Anna Start: 10-18-2024 X-ray of left knee, three views XR knee LT 3V - NOT FOR ER USE [facility] Start: 10-18-2024 XR Knee - left 3 Views [facility] Start: 09-22-2024 Advance Directive Discussion Advance Directive Discussion [facility] Start: 09-22-2024 Medicare [facility] Annual Wellness Visit Medicare [facility] Annual Wellness Visit [facility] Start: 08-18-2024 End: 08-18-2024 Patient encounter procedure [facility] Comment on above: Arrived Start: 07-07-2024 End: 07-07-2024 Patient encounter procedure 07/07/2024 9:15 AM EDT Office Visit [facility] [address] [place] [id number] Fannie Mistry DO [address] [place] [address] Arrived [facility] Comment on above: Arrived Start: 05-23-2024 Covid-19 Vaccine ( season) Covid-19 Vaccine ( season) [facility] Start: 05-23-2024 Influenza vaccination Influenza Vacc ine (#1) [facility] Start: 03-19-2020 Diabetes Screening Diabetes Screenin g [facility] Start: 2016 Screening for osteoporosis Bone Density Screening [facility] Start: 2001 Pneumococcal Vaccine : 50+ (1 of 1 - PCV) Pneumococcal Vaccine: 50+ (1 of 1 - PCV) [facility] Start: 2001 Shingrix Vaccine (1 of 2) Shingrix Vaccine (1 of 2) [facility] Start: 1996 Lipid panel Lipid Screening [facility] Start: 1996 Screening for malign ant neoplasm of colon [facility] Start: 1991 Screening for malign ant neoplasm of breast Mammogram Screening [facility] Start: 1970 Urine microalbumin profile DTaP,Tdap,Td Vaccine (1 - Tdap) [facility] Start: 1969 Annual PCP Team Sales Correspondence Clerk brittany Disease Visit Annual PCP Team Chronic Disease Visit [facility] Start: 1969 Anxiety Screening Anxiety Screening [facility] Start: 1969 BP Controlled (<130/80) BP Controlle d (<130/80) [facility] Start: 1969 Depression Screening Depression Scre ening [facility] Start: 1969 Hepatitis C screening Hepatitis C Sc camilo [facility] Comprehensive metabo lic 1999 panel - Serum or Plasma [facility] Comprehensive metabo lic 1999 panel - Serum or Plasma [facility] MG Breast - bilatera l Screening [facility] MG Breast - bilatera l Screening [facility] MR Lumbar spine WO contrast [facility] Patient Education Low back pain in adults [facility] Work Phone: Patient referral [facility] Work Phone: XR Hip - left 2 Views [facility] XR Lumbar spine Views [facility] Immunizations Immunization Date Immunization Notes Care Provider Fa claudia 04-06-2019 diphtheria, tetanus toxoids and acellular pertussis vaccine, unspecified formulation [facility] Payers Date Payer Category Payer Self-pay 2023 Medicaid [employer] MED[employer]ARE A DVANTAGE [id number] 2023 Medicare (Managed Care) [employer] ME DICARE [id number] 2023 Private Health Insurance [id number] 1959 Medicare [id number] 1959 Self-pay [id number] 1950 Unknown [id number] 1950 Unknown [id number] [id number] 1950 Unknown [id number] [id number] 1950 Unknown [id number] 1259 Unknown [id number] Unknown [id number] 531 Unknown [id number] 531 Unknown [id number] 531 Social History Date Type Detail Facility Start: 07-07-2024 End: 11-23-2024 Sex Assigned At [facility] Other Start: 01-07-2013 End: 04-02-2023 Tobacco smoking status NHIS Never smoked tobacco (finding) [facility] Start: 1950 Sex Assigned At Female F [facility] Tobacco smoking status NMIS Tobacco smoking consumption unknown [facility] Start: 1950 Sex assigned at Not on file [facility] Start: 01-07-2013 End: 07-07-2024 Tobacco use and exposure Smokeless tobacco non-user [facility] Start: 07-07-2024 End: 11-23-2024 History of Social function [facility] Start: 08-03-2024 End: 02-01-2025 Sex Female (finding) [facility] Start: 11-22-2024 End: 05-20-2025 Alcoholic beverage intake Current non-drinker of alcohol (finding) [facility] Start: 12-29-2012 National Score (1-100), lower number is lower risk 86 [facility] Clinical Notes 04-03-2023 to 05-20-2025 Patient InstructionsJunior Bravo MD - 05/20/2025 10:20 AM EDTTelephone Encounter - Samir YULIANA Chu - 05/16/2025 4:24 PM EDT Note Date & Type Note Facility 05-20-2025 Instructions Junior Bravo MD - 05/20/2025 10:36 AM EDT Start OTC MVT supplements F/u in 9 months documented in this encounter [facility] 05-20-2025 History of Present illness Narrative PATIENT NAME: Serenity Bustillo CLINIC NO.: [id number] ATTENDING PHYSICIAN: Junior Bravo MD DATE OF SERVICE: 05/20/2025 Dear Boy Goyal. CHIEF COMPLAINT: Thrombocytopenia Some of the elements of this note have been copied from my previous progress note dated 11/23/24 . All the information has been reviewed carefully. HPI: Serenity Bustillo is a 74 year old year old female with PMH of hypothyroidism referred to us for thrombocytopenia. No smoking. No alcohol. Family h/o thrombocytopenia in Mother and brother. Last mammogram in 2023. Cologuard in 04/2024 was negative. No bleeding. Doing well No major complaints. 05/20/25: - Doing well - No major complaints. Current Outpatient Medications Medication Sig ZINC ORAL Take by mouth. levothyroxine (SYNTHROID) 112 mcg tablet Take 100 mcg by mouth daily before breakfast. No current facility-administered medications for this visit. ALLERGIES Allergen Reactions Cephalexin Unknown Other Reaction(s): Unknown Reaction PAST MEDICAL HISTORY Diagnosis Date Autoimmune thyroiditis BPPV (benign paroxysmal positional vertigo) Hypercholesteremia Hypothyroidism Metabolic dysfunction-associated steatotic liver disease (MASLD) NAFLD (nonalcoholic fatty liver disease) ELIDA (obstructive sleep apnea) Osteoarthritis Thrombocytopenia (HCC) PAST SURGICAL HISTORY Procedure Laterality Date DILATION & CURETTAGE DX&/THER NONOBSTETRIC Dilation & curettage HYSTEROSCOPY FAMILY HISTORY Problem Relation Age of Onset Alzheimer's Disease Mother Hypertension Father Heart Father Cancer Brother Social History Tobacco Use Smoking status: Never Smokeless tobacco: Never Vaping Use Vaping status: Never Used Substance Use Topics Alcohol use: No REVIEW OF SYSTEMS GENERAL: No weight loss, malaise or fevers. No night sweats. HEENT: Negative for headaches, No changes in hearing or vision, no nose bleeds or other nasal problems. RESPIRATORY: Negative for cough, wheezing and shortness of breath CARDIOVASCULAR: Negative for chest pain, leg swelling and palpitations GI: Negative for abdominal discomfort, blood in stools or black stools and change in bowel habits : Negative for dysuria, frequency and incontinence MUSCULOSKELETAL: Negative for joint pain or swelling, back pain, and muscle pain. SKIN: Negative for lesions, rash, and itching. HEMATOLOGY/LYMPHOLOGY Negative for prolonged bleeding, bruising easily, and swollen nodes. NEURO: Negative for numbness or tingling of hands/feet. No weakness. PHYSICAL EXAMINATION: There were no vitals taken for this visit. There were no vitals taken for this visit. Last 3 Encounter Wt Readings: Date: Wt: 03/19/2017 96.6 kg (213 lb) 02/04/2013 93 kg (205 lb) 01/07/2013 93.3 kg (205 lb 9.6 oz) General appearance:ECOG PERFORMANCE STATUS: 0- Fully active, able to carry on all pre-disease performance w/o restriction. Patient in NAD. Skin: Skin color, texture, turgor normal. No rashes or lesions. Eyes: Anicteric sclera. Pupils are equally round and reactive to light. Extraocular movements are intact. Breast: No palpable breast masses. No nipple change or discharge. Lymph Nodes: No cervical, supraclavicular, axillary or inguinal adenopathy. Oropharynx: Lips, mucosa, and tongue normal. Back: No pain to percussion. Negative SLR test Lungs clear to auscultation, No wheezing or rhonchi Heart: RRR without murmur, gallop, or rubs. Abdomen soft, non-tender. No masses, organomegaly Extremities: No deformities. No edema Neuro: Gait and speech normal. Reflexes normal and symmetric. Muscular strength intact. Sensation grossly intact. Rectal: Deferred : Deferred LABS: Glucose (mg/dL) Date Value 11/23/2024 108 03/19/2017 82 Potassium (mmol/L) Date Value 11/23/2024 4.3 03/19/2017 3.9 Sodium (mmol/L) Date Value 11/23/2024 141 03/19/2017 139 Chloride (mmol/L) Date Value 11/23/2024 103 03/19/2017 99 CO2 (mmol/L) Date Value 11/23/2024 28 03/19/2017 25 Creatinine (mg/dL) Date Value 11/23/2024 0.89 03/19/2017 1.16 BUN (mg/dL) Date Value 11/23/2024 13 03/19/2017 18 Anion Gap (mmol/L) Date Value 11/23/2024 10 03/19/2017 15 Calcium (mg/dL) Date Value 03/19/2017 9.4 Calcium, Total (mg/dL) Date Value 11/23/2024 9.7 Protein, Total (g/dL) Date Value 11/23/2024 6.8 03/19/2017 6.8 Albumin (g/dL) Date Value 11/23/2024 4.0 03/19/2017 4.1 Bilirubin, Total (mg/dL) Date Value 11/23/2024 0.5 03/19/2017 0.3 Alkaline Phosphatase (U/L) Date Value 11/23/2024 106 03/19/2017 88 AST (U/L) Date Value 11/23/2024 13 03/19/2017 23 ALT (U/L) Date Value 11/23/2024 9 03/19/2017 16 WBC Date Value Ref Range Status 11/23/2024 5.83 3.70 - 11.00 k/uL Final RBC Date Value Ref Range Status 11/23/2024 3.84 (L) 3.90 - 5.20 m/uL Final Hemoglobin Date Value Ref Range Status 11/23/2024 12.9 11.5 - 15.5 g/dL Final Hematocrit Date Value Ref Range Status 11/23/2024 38.2 36.0 - 46.0 % Final MCV Date Value Ref Range Status 11/23/2024 99.5 80.0 - 100.0 fL Final MCH Date Value Ref Range Status 11/23/2024 33.6 26.0 - 34.0 pg Final MCHC Date Value Ref Range Status 11/23/2024 33.8 30.5 - 36.0 g/dL Final RDW-CV Date Value Ref Range Status 11/23/2024 14.0 11.5 - 15.0 % Final Platelet Count Date Value Ref Range Status 11/23/2024 118 (L) 150 - 400 k/uL Final MPV Date Value Ref Range Status 11/23/2024 12.5 9.0 - 12.7 fL Final Abs Neut Date Value Ref Range Status 11/23/2024 4.43 1.45 - 7.50 k/uL Final Lymphocytes % Date Value Ref Range Status 11/23/2024 16.3 % Final Abs Lymph Date Value Ref Range Status 11/23/2024 0.95 (L) 1.00 - 4.00 k/uL Final Monocytes % Date Value Ref Range Status 11/23/2024 3.8 % Final Abs [place] Date Value Ref Range Status 11/23/2024 0.22 <0.87 k/uL Final Abs Eosin Date Value Ref Range Status 11/23/2024 0.16 <0.46 k/uL Final Basophils % Date Value Ref Range Status 11/23/2024 0.7 % Final Abs Baso Date Value Ref Range Status 11/23/2024 0.04 <0.11 k/uL Final PATH: IMAGING: ASSESSMENT AND PLAN: Serenity Bustillo is a 74 year old year old female referred to us for chronic thrombocytopenia. PS 0 PLAN: 1. 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 - CBC today showed stable platelets of 123k. - Given the mild thrombocytopenia, we will just monitor for now. - Denies any bleeding or bruising. - Advised her to take OTC MVT supplements, 1 tab daily. - F/u with PCP. - All her questions answered in detail. - F/u in 9 months. Cc: Boy Anna DO. I spent a total of 20 minutes on the date of the service which included preparing to see the patient, [id number] patient care, completing clinical documentation, obtaining and/or reviewing separately obtained history, performing a medically appropriate examination, counseling and educating the patient/family/caregiver, ordering medications, tests, or procedures, communicating with other HCPs (not separately reported), independently interpreting results (not separately reported), communicating results to the patient/family/caregiver, and care coordination (not separately reported). Junior Bravo MD. Hematology/Medical Oncology [place] [phone] CC: documented in this encounter [facility] 05-20-2025 Note HNO ID: [id number] Author: JUNIOR BRAVO MD Service: ? Author Type: Physician Type: Progress Notes Filed: 05/20/2025 10:50 Note Text: PATIENT NAME: Serenity Bustillo [facility] NO.: [id number] ATTENDING PHYSICIAN: Junior Bravo MD DATE OF SERVICE: 05/20/2025 Dear Boy Goyal. CHIEF COMPLAINT: Thrombocytopenia Some of the elements of this note have been copied from my previous progress note dated 11/23/24 . All the information has been reviewed carefully. HPI: Serenity Bustillo is a 74 year old year old female with PMH of hypothyroidism referred to us for thrombocytopenia. No smoking. No alcohol. Family h/o thrombocytopenia in Mother and brother. Last mammogram in 2023. Cologuard in 04/2024 was negative. No bleeding. Doing well No major complaints. 05/20/25: - Doing well - No major complaints. Current Outpatient Medications Medication Sig ZINC ORAL Take by mouth. levothyroxine (SYNTHROID) 112 mcg tablet Take 100 mcg by mouth daily before breakfast. No current facility-administered medications for this visit. ALLERGIES Allergen Reactions Cephalexin Unknown Other Reaction(s): Unknown Reaction PAST MEDICAL HISTORY Diagnosis Date Autoimmune thyroiditis BPPV (benign paroxysmal positional vertigo) Hypercholesteremia Hypothyroidism Metabolic dysfunction-associated steatotic liver disease (MASLD) NAFLD (nonalcoholic fatty liver disease) ELIDA (obstructive sleep apnea) Osteoarthritis Thrombocytopenia (HCC) PAST SURGICAL HISTORY Procedure Laterality Date DILATION AND CURETTAGE DXAND/THER NONOBSTETRIC Dilation AND curettage HYSTEROSCOPY FAMILY HISTORY Problem Relation Age of Onset Alzheimer's Disease Mother Hypertension Father Heart Father Cancer Brother Social History Tobacco Use Smoking status: Never Smokeless tobacco: Never Vaping Use Vaping status: Never Used Substance Use Topics Alcohol use: No REVIEW OF SYSTEMS GENERAL: No weight loss, malaise or fevers. No night sweats. HEENT: Negative for headaches, No changes in hearing or vision, no nose bleeds or other nasal problems. RESPIRATORY: Negative for cough, wheezing and shortness of breath CARDIOVASCULAR: Negative for chest pain, leg swelling and palpitations GI: Negative for abdominal discomfort, blood in stools or black stools and change in bowel habits : Negative for dysuria, frequency and incontinence MUSCULOSKELETAL: Negative for joint pain or swelling, back pain, and muscle pain. SKIN: Negative for lesions, rash, and itching. HEMATOLOGY/LYMPHOLOGY Negative for prolonged bleeding, bruising easily, and swollen nodes. NEURO: Negative for numbness or tingling of hands/feet. No weakness. PHYSICAL EXAMINATION: There were no vitals taken for this visit. There were no vitals taken for this visit. Last 3 Encounter Wt Readings: Date: Wt: 03/19/2017 96.6 kg (213 lb) 02/04/2013 93 kg (205 lb) 01/07/2013 93.3 kg (205 lb 9.6 oz) General appearance:ECOG PERFORMANCE STATUS: 0- Fully active, able to carry on all pre-disease performance w/o restriction. Patient in NAD. Skin: Skin color, texture, turgor normal. No rashes or lesions. Eyes: Anicteric sclera. Pupils are equally round and reactive to light. Extraocular movements are intact. Breast: No palpable breast masses. No nipple change or discharge. Lymph Nodes: No cervical, supraclavicular, axillary or inguinal adenopathy. Oropharynx: Lips, mucosa, and tongue normal. Back: No pain to percussion. Negative SLR test Lungs clear to auscultation, No wheezing or rhonchi Heart: RRR without murmur, gallop, or rubs. Abdomen soft, non-tender. No masses, organomegaly Extremities: No deformities. No edema Neuro: Gait and speech normal. Reflexes normal and symmetric. Muscular strength intact. Sensation grossly intact. Rectal: Deferred : Deferred LABS: Glucose (mg/dL) Date Value 11/23/2024 108 03/19/2017 82 Potassium (mmol/L) Date Value 11/23/2024 4.3 03/19/2017 3.9 Sodium (mmol/L) Date Value 11/23/2024 141 03/19/2017 139 Chloride (mmol/L) Date Value 11/23/2024 103 03/19/2017 99 CO2 (mmol/L) Date Value 11/23/2024 28 03/19/2017 25 Creatinine (mg/dL) Date Value 11/23/2024 0.89 03/19/2017 1.16 BUN (mg/dL) Date Value 11/23/2024 13 03/19/2017 18 Anion Gap (mmol/L) Date Value 11/23/2024 10 03/19/2017 15 Calcium (mg/dL) Date Value 03/19/2017 9.4 Calcium, Total (mg/dL) Date Value 11/23/2024 9.7 Protein, Total (g/dL) Date Value 11/23/2024 6.8 03/19/2017 6.8 Albumin (g/dL) Date Value 11/23/2024 4.0 03/19/2017 4.1 Bilirubin, Total (mg/dL) Date Value 11/23/2024 0.5 03/19/2017 0.3 Alkaline Phosphatase (U/L) Date Value 11/23/2024 106 03/19/2017 88 AST (U/L) Date Value 11/23/2024 13 03/19/2017 23 ALT (U/L) Date Value 11/23/2024 9 03/19/2017 16 WBC Date Value Ref Range Status 11/23/2024 5.83 3.70 - 11.0 (more content not included)... [facility] 05-16-2025 Telephone encounter Note Patient coming in Friday05/20/25 for follow up labs. Please add lab orders. Thanks. Kimberley Dawson MA [facility] 05-10-2025 Evaluation note Diagnosis Onset Date Resolution Chronic pain acute May 10, 2025 1:36pm Lumbosacral spondylosis with radiculopathy acute May 10, 2025 1:36pm Osteoarthritis of left hip acute May 10 1:36pm [facility] Work Phone: 1(273) 321-606708-19-2025 Evaluation note* Diagnosis Onset Date Resolution Status [...] st cancer noneactive June 02, 2025 9:26am [facility] Work Phone: 1(640) 425-849204-02-2025 NoteRight Eye Quality was good. Scan locations included subfoveal. Progression has been stable. Findings include abnormal foveal contour. Left Eye Quality was good. Scan locations included subfoveal. Progression has been stable. Findings include abnormal foveal contour, pigment epithelial detachment.[facility] [id number] History of Present illness Narrative* Fannie Mistry DO - 12/22/2024 8:30 AM EDT Images from the original note were not included. Assessment/Plan Diagnoses and all orders for this visit: Superficial keratitis of both eyes - Resolved. Judicious usage of the Cls. 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 documented in this encounterCrittenton Behavior[facility] [id number] Miscellaneous Notes* Telephone Encounter - Kimberley Dawson MA - 05/16/2025 4:24 PM EDT Patient coming in Friday05/20/25 for follow up labs. Please add lab orders. Thanks. Kimberley Dawson MA [facility] Evaluation note* Diagnosis Onset Date Resolution Status Admit Date Chronic pain acute December 06, 2024 10:07am Lumbar spondylosis acute December 06, 2024 10:07am Lumbosacral spondylosis with radiculopathy acute December 06, 2024 10:07am Chronic pain acute January 13, 2025 8:48am Lumbar spondylosis acute January 13, 2025 8:48am Lumbosacral spondylosis with radiculopathy acute January 13, 2025 8:48am [facility] Work Phone: 1(262) 633-192603-05-2025 Telephone encounter Note* Telephone Encounter - Azalia La - 11/24/2024 8:59 AM EST Called and left patient a message to call our office back. We would like to get her scheduled for her 6 Month Follow Up with Dr Shepherd in May. PSS: When patient calls back please schedule her in early May 2025 for a 6 Month Follow Up and Labs with Dr Shepherd. Thank you. Azalia Torres [facility]03-05-2025 Miscellaneous Notes* Telephone Encounter - Azalia La - 11/24/2024 8:59 AM EST Called and left patient a message to call our office back. We would like to get her scheduled for her 6 Month Follow Up with Dr Shepherd in May. PSS: When patient calls back please schedule her in early May 2025 for a 6 Month Follow Up and Labs with Dr Shepherd. Thank you. Azalia Duron Pss [facility] Instructions* Patient Instructions* Junior Bravo MD - 11/23/2024 11:16 AM EST Labs today F/u in 6 months [facility] History of Present illness Narrative* Junior Bravo MD - 11/23/2024 11:00 AM EST PATIENT NAME: Serenity Bustillo CLINIC NO.: [id number] ATTENDING PHYSICIAN: Junior Bravo MD DATE OF SERVICE: 11/23/2024 Dear Boy Goyal. CHIEF COMPLAINT: Thrombocytopenia HPI: Serenity Bustillo is a 74 year old year old female with PMH of hypothyroidism referred to us forthrombocytopenia. No smoking. No alcohol. Family h/o thrombocytopenia in Mother and brother. Last mammogram in 2023. Cologuard in 04/2024 was negative. No bleeding. Doing well No major complaints. Current Outpatient Medications Medication Sig ZINC ORAL Take by mouth. levothyroxine (SYNTHROID) 112 mcg tablet Take 100 mcg by mouth daily before breakfast. No current facility-administered medications for this visit. ALLERGIES Allergen Reactions Cephalexin Unknown Other Reaction(s): Unknown Reaction PAST MEDICAL HISTORY Diagnosis Date Autoimmune thyroiditis BPPV (benign paroxysmal positional vertigo) Hypercholesteremia Hypothyroidism Metabolic dysfunction-associated steatotic liver disease (MASLD) NAFLD (nonalcoholic fatty liver disease) ELIDA (obstructive sleep apnea) Osteoarthritis Thrombocytopenia (HCC) PAST SURGICAL HISTORY Procedure Laterality Date DILATION & CURETTAGE DX&/THER NONOBSTETRIC Dilation & curettage HYSTEROSCOPY FAMILY HISTORY Problem Relation Age of Onset Alzheimer's Disease Mother Hypertension Father Heart Father Cancer Brother Social History Tobacco Use Smoking status: Never Smokeless tobacco: Never Vaping Use Vaping status: Never Used Substance Use Topics Alcohol use: No REVIEW OF SYSTEMS GENERAL: No weight loss, malaise or fevers. No night sweats. HEENT: Negative for headaches, No changes in hearing or vision, no nose bleeds or other nasal problems. RESPIRATORY: Negative for cough, wheezing and shortness of breath CARDIOVASCULAR: Negative for chest pain, leg swelling and palpitations GI: Negative for abdominal discomfort, blood in stools or black stools and change in bowel habits : Negative for dysuria, frequency and incontinence MUSCULOSKELETAL: Negative for joint pain or swelling, back pain, and muscle pain. SKIN: Negative for lesions, rash, and itching. HEMATOLOGY/LYMPHOLOGY Negative for prolonged bleeding, bruising easily, and swollen nodes. NEURO: Negative for numbness or tingling of hands/feet. No weakness. PHYSICAL EXAMINATION: BP 126/85 Pulse 85 Temp 36.4 C (97.6 F) (Temporal) Resp 16 Wt 95 kg (209 lb 7 oz) SpO2 96% BMI 34.85 kg/m There were no vitals taken for this visit. Last 3 Encounter Wt Readings: Date: Wt: 03/19/2017 96.6 kg (213 lb) 02/04/2013 93 kg (205 lb) 01/07/2013 93.3 kg (205 lb 9.6 oz) General appearance:ECOG PERFORMANCE STATUS: 0- Fully active, able to carry on all pre-disease performance w/o restriction. Patient in NAD. Skin: Skin color, texture, turgor normal. No rashes or lesions. Eyes: Anicteric sclera. Pupils are equally round and reactive to light. Extraocular movements are intact. Breast: No palpable breast masses. No nipple change or discharge. Lymph Nodes: No cervical, supraclavicular, axillary or inguinal adenopathy. Oropharynx: Lips, mucosa, and tongue normal. Back: No pain to percussion. Negative SLR test Lungs clear to auscultation, No wheezing or rhonchi Heart: RRR without murmur, gallop, or rubs. Abdomen soft, non-tender. No masses, organomegaly Extremities: No deformities. No edema Neuro: Gait and speech normal. Reflexes normal and symmetric. Muscular strength intact. Sensation grossly intact. Rectal: Deferred : Deferred LABS: Glucose (mg/dL) Date Value 03/19/2017 82 Potassium (mmol/L) Date Value 03/19/2017 3.9 Sodium (mmol/L) Date Value 03/19/2017 139 Chloride (mmol/L) Date Value 03/19/2017 99 CO2 (mmol/L) Date Value 03/19/2017 25 Creatinine (mg/dL) Date Value 03/19/2017 1.16 BUN (mg/dL) Date Value 03/19/2017 18 Anion Gap (mmol/L) Date Value 03/19/2017 15 Calcium (mg/dL) Date Value 03/19/2017 9.4 Protein, Total (g/dL) Date Value 03/19/2017 6.8 Albumin (g/dL) Date Value 03/19/2017 4.1 Bilirubin, Total (mg/dL) Date Value 03/19/2017 0.3 Alkaline Phosphatase (U/L) Date Value 03/19/2017 88 AST (U/L) Date Value 03/19/2017 23 ALT (U/L) Date Value 03/19/2017 16 WBC Date Value Ref Range Status 11/23/2024 5.83 3.70 - 11.00 k/uL Final RBC Date Value Ref Range Status 11/23/2024 3.84 (L) 3.90 - 5.20 m/uL Final Hemoglobin Date Value Ref Range Status 11/23/2024 12.9 11.5 - 15.5 g/dL Final Hematocrit Date Value Ref Range Status 11/23/2024 38.2 36.0 - 46.0 % Final MCV Date Value Ref Range Status 11/23/2024 99.5 80.0 - 100.0 fL Final MCH Date Value Ref Range Status 11/23/2024 33.6 26.0 - 34.0 pg Final MCHC Date Value Ref Range Status 11/23/2024 33.8 30.5 - 36.0 g/dL Final RDW-CV Date Value Ref Range Status 11/23/2024 14.0 11.5 - 15.0 % Final Platelet Count Date Value Ref Range Status 11/23/2024 118 (L) 150 - 400 k/uL Final MPV Date Value Ref Range Status 11/23/2024 12.5 9.0 - 12.7 fL Final Abs Neut Date Value Ref Range Status 11/23/2024 4.43 1.45 - 7.50 k/uL Final Lymphocytes % Date Value Ref Range Status 11/23/2024 16.3 % Final Abs Lymph Date Value Ref Range Status 11/23/2024 0.95 (L) 1.00 - 4.00 k/uL Final Monocytes % Date Value Ref Range Status 11/23/2024 3.8 % Final Abs [place] Date Value Ref Range Status 11/23/2024 0.22 <0.87 k/uL Final Abs Eosin Date Value Ref Range Status 11/23/2024 0.16 <0.46 k/uL Final Basophils % Date Value Ref Range Status 11/23/2024 0.7 % Final Abs Baso Date Value Ref Range Status 11/23/2024 0.04 <0.11 k/uL Final PATH: IMAGING: ASSESSMENT AND PLAN: Serenity Bustillo is a 74 year old year old female referred to us for chronic thrombocytopenia. PS 0 PLAN: - Explained to her in detail the various etiologies for thrombocytopenia including vitamin deficiencies autoimmune disorders and ITP. 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 - Given the mild thrombocytopenia, we will just monitor for now. - Denies any bleeding or bruising. - Check CBC CMP ferritin iron studies B12 folate ANTIONE - CBC today showed stable platelets 118k. Normal WBC and Hgb. - All her questions answered in detail. - F/u in 6 months. Cc: Boy Anna DO. I spent a total of 45 minutes on the date of the service which included preparing to see the patient, [id number] patient care, completing clinical documentation, obtaining and/or reviewing separately obtained history, performing a medically appropriate examination, counseling and educating the pat ient/family/caregiver, ordering medications, tests, or procedures, communicating with other HCPs (not separately reported), independently interpreting results (not separately reported), communicatingresults to the patient/family/caregiver, and care coordination (not separately reported). Junior Bravo MD. Hematology/Medical Oncology [facility] Yennifer Arz[address] [phone] CC: documented in [facility] NoteHNO ID: [id number] Author: JUNIOR BRAVO MD Service: ? Author Type: Physician Type: Progress Notes Filed: 11/23/2024 11:34 Note Text: PATIENT NAME: Serenity Bustillo [facility] NO.: [id number] ATTENDING PHYSICIAN: Junior Bravo MD DATE OF SERVICE: 11/23/2024 Dear Boy Goyal. CHIEF COMPLAINT: Thrombocytopenia HPI: Serenity Bustillo is a 74 year old year old female with PMH of hypothyroidism referred to us for thrombocytopenia. No smoking. No alcohol. Family h/o thrombocytopenia in Mother and brother. Last mammogram in 2023. Cologuard in 04/2024 was negative. No bleeding. Doing well No major complaints. Current Outpatient Medications Medication Sig ZINC ORAL Take by mouth. levothyroxine (SYNTHROID) 112 mcg tablet Take 100 mcg by mouth daily before breakfast. No current facility-administered medications for this visit. ALLERGIES Allergen Reactions Cephalexin Unknown Other Reaction(s): Unknown Reaction PAST MEDICAL HISTORY Diagnosis Date Autoimmune thyroiditis BPPV (benign paroxysmal positional vertigo) Hypercholesteremia Hypothyroidism Metabolic dysfunction-associated steatotic liver disease (MASLD) NAFLD (nonalcoholic fatty liver disease) ELIDA (obstructive sleep apnea) Osteoarthritis Thrombocytopenia (HCC) PAST SURGICAL HISTORY Procedure Laterality Date DILATION AND CURETTAGE DXAND/THER NONOBSTETRIC Dilation AND curettage HYSTEROSCOPY FAMILY HISTORY Problem Relation Age of Onset Alzheimer's Disease Mother Hypertension Father Heart Father Cancer Brother Social History Tobacco Use Smoking status: Never Smokeless tobacco: Never Vaping Use Vaping status: Never Used Substance Use Topics Alcohol use: No REVIEW OF SYSTEMS GENERAL: No weight loss, malaise or fevers. No night sweats. HEENT: Negative for headaches, No changes in hearing or vision, no nose bleeds or other nasal problems. RESPIRATORY: Negative for cough, wheezing and shortness of breath CARDIOVASCULAR: Negative for chest pain, leg swelling and palpitations GI: Negative for abdominal discomfort, blood in stools or black stools and change in bowel habits : Negative for dysuria, frequency and incontinence MUSCULOSKELETAL: Negative for joint pain or swelling, back pain, and muscle pain. SKIN: Negative for lesions, rash, and itching. HEMATOLOGY/LYMPHOLOGY Negative for prolonged bleeding, bruising easily, and swollen nodes. NEURO: Negative for numbness or tingling of hands/feet. No weakness. PHYSICAL EXAMINATION: BP 126/85 Pulse 85 Temp 36.4 ?C (97.6 ?F) (Temporal) Resp 16 Wt 95 kg (209 lb 7 oz) SpO2 96% BMI 34.85 kg/m? There were no vitals taken for this visit. Last 3 Encounter Wt Readings: Date: Wt: 03/19/2017 96.6 kg (213 lb) 02/04/2013 93 kg (205 lb) 01/07/2013 93.3 kg (205 lb 9.6 oz) General appearance:ECOG PERFORMANCE STATUS: 0- Fully active, able to carry on all pre-disease performance w/o restriction. Patient in NAD. Skin: Skin color, texture, turgor normal. No rashes or lesions. Eyes: Anicteric sclera. Pupils are equally round and reactive to light. Extraocular movements are intact. Breast: No palpable breast masses. No nipple change or discharge. Lymph Nodes: No cervical, supraclavicular, axillary or inguinal adenopathy. Oropharynx: Lips, mucosa, and tongue normal. Back: No pain to percussion. Negative SLR test Lungs clear to auscultation, No wheezing or rhonchi Heart: RRR without murmur, gallop, or rubs. Abdomen soft, non-tender. No masses, organomegaly Extremities: No deformities. No edema Neuro: Gait and speech normal. Reflexes normal and symmetric. Muscular strength intact. Sensation grossly intact. Rectal: Deferred : Deferred LABS: Glucose (mg/dL) Date Value 03/19/2017 82 Potassium (mmol/L) Date Value 03/19/2017 3.9 Sodium (mmol/L) Date Value 03/19/2017 139 Chloride (mmol/L) Date Value 03/19/2017 99 CO2 (mmol/L) Date Value 03/19/2017 25 Creatinine (mg/dL) Date Value 03/19/2017 1.16 BUN (mg/dL) Date Value 03/19/2017 18 Anion Gap (mmol/L) Date Value 03/19/2017 15 Calcium (mg/dL) Date Value 03/19/2017 9.4 Protein, Total (g/dL) Date Value 03/19/2017 6.8 Albumin (g/dL) Date Value 03/19/2017 4.1 Bilirubin, Total (mg/dL) Date Value 03/19/2017 0.3 Alkaline Phosphatase (U/L) Date Value 03/19/2017 88 AST (U/L) Date Value 03/19/2017 23 ALT (U/L) Date Value 03/19/2017 16 WBC Date Value Ref Range Status 11/23/2024 5.83 3.70 - 11.00 k/uL Final RBC Date Value Ref Range Status 11/23/2024 3.84 (L) 3.90 - 5.20 m/uL Final Hemoglobin Date Value Ref Range Status 11/23/2024 12.9 11.5 - 15.5 g/dL Final Hematocrit Date Value Ref Range Status 11/23/2024 38.2 36.0 - 46.0 % Final MCV Date Value Ref Range Status 11/23/2024 99.5 80.0 - 100.0 fL Final MCH Date Value Ref Range Status 11/23/2024 33.6 26.0 - 34.0 pg Final (more content not included)...[facility]01-27-2025 Evaluation note* Diagnosis Onset Date Resolution Status Admit Date Chronic pain acute September 10:12am Lumbar spondylosis acute 2024 10:12am Lumbosacral spondylosis with radiculopathy acute October 18 10:12am Chronic pain acute December 06, 2024 10:07am Lumbar spondylosis acute December 06, 2024 10:07am Lumbosacral spondylosis with radiculopathy acute December 06, 2024 10:07am [facility] Work Phone: 1(451) 863-876801-27-2025 Evaluation note* Diagnosis Onset Date Resolution Status Admit Date Chronic pain acute September 10:12am Lumbar spondylosis acute 2024 10:12am Lumbosacral spondylosis with radiculopathy acute October 18 10:12am Chronic pain acute December 06, 2024 10:07am Lumbar spondylosis acute December 06, 2024 10:07am Lumbosacral spondylosis with radiculopathy acute December 06, 2024 10:07am Chronic pain acute January 13, 2025 8:48am Lumbar spondylosis acute January 13, 2025 8:48am Lumbosacral spondylosis with radiculopathy acute January 13, 2025 8:48am [facility] Work Phone: 1(278) 735-203812-12-2024 Evaluation note* Diagnosis Onset Date Resolution Status Admit Date Chronic pain acute August 9:11am Lumbar spondylosis acute [facility] er 2023 9:11am Lumbosacral spondylosis with radiculopathy acute September 02, 2 024 9:11am [facility] Work Phone: 1(399) 577-383312-12-2024 Evaluation note* Diagnosis Onset Date Resolution Status Admit Date Chronic pain acute August 9:11am Lumbar spondylosis acute [facility] er 2023 9:11am Lumbosacral spondylosis with radiculopathy acute September 02, 2 024 9:11am Chronic pain acute September 10:12am Lumbar spondylosis acute 2024 10:12am Lumbosacral spondylosis with radiculopathy acute October 18 10:12am [facility] Work Phone: 1(193) 743-247311-27-2024 History of Present illness Narrative* Fannie Mistry, - 08/18/2024 8:30 AM EST Images from [...] --> Keratitis ---> Cataract documented in this encounterCritt[facility] [id number] NoteRight Eye Quality was good. Scan locations included subfoveal. Progression has been stable. Findings include normal observations. Left Eye Quality was good. Scan locations included subfoveal. Progression has been stable. Findings include subretinal scarring. Notes Good scan with normal appearance [facility] [id number] History of Present illness Narrative* Fannie Mistry [...] --> Keratitis ---> Cataract documented in this encounterCrittenton Behavioral [id number] Evaluation note* Diagnosis Onset Date Resolution Status Admit Date Low back pain acute May 232023 2:05pm Lumbar spondylosis acute 2023 2:05pm Obesity acute May 2:05pm [facility] Work Phone: 1(164) 159-284707-14-2023 Evaluation note* Encounter Date Diagnosis Assessment Notes Treatment Notes Treatment Clinical Notes Mar, Right hip pain (ICD-10 - M25.551) [facility] Other 07-13-2023 Evaluation note* Encounter Date Diagnosis [...] use, the patient reduces the risk for TN, CVA, HTN, cardiac dysrhythmias and sudden cardiac [...] diet, exercise, Ca and Vitamin D supplements [employer] Other Evaluation noteNo InformationNort [employer] Other Evaluation note* Diagnosis Onset Date Resolution Status Left hip pain acute Low back pain acute Lumbar spondylosis acute Obesity acute Primary osteoarthritis of left hip acute [facility] Work Phone: Evaluation note* Diagnosis Onset [...] noneactive Screening mammogram for breast cancer noneactive [facility] Work Phone: Evaluation note* Diagnosis Onset Date Resolution Status Hypercholesterolemia acute Hypothyroidism acute Impaired fasting glucose acu te Metabolic dysfunction-associ ated steatotic liver disease (MASLD) acute ELIDA (obstructive sleep apnea) acute Screening for colon cancer a cute Medicare annual wellness visit, subsequent noneactive Screening mammogram for breast cancer noneactive Left hip pain acute Low back pain acute Lumbar spondylosis acute Obesity acute [facility] Work Phone: Evaluation note* Diagnosis Superficial keratitis of both eyes- Primary 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 degeneration of both eyes Age-related nuclear cataract of both eyes documented [facility]* Diagnosis Age-related nuclear cataract of both eyes- Primary Superficial keratitis of both eyes 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 degeneration of both eyes documented in this encounter [facility]* Diagnosis Thrombocytopenia (HCC)- Primary Thrombocytopenia, unspecified documented in this encounter [facility]* Diagnosis Age-related nuclear cataract of both eyes- Primary 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 degeneration of both eyes Superficial keratitis of both eyes documented in this encounter [facility] [email or web address] note* Diagnosis Onset Date Resolution Status Admit Date Chronic pain acute May 10, 2025 1:36pm Lumbosacral spondylosis with radiculopathy acute May 10 1:36pm Osteoarthritis of left hip acute May 10, 2025 1:36pm [facility] Work Phone: Evaluation note* Diagnosis Thrombocytopenia- Primary Thrombocytopenia, unspecified documented in this encounter [facility]* Diagnosis Thrombocytopenia- Primary Thrombocytopenia, unspecified documented in this encounter [facility] general Narrative - Reported* Type Description Date [...] elbow surgery Hospitalization History SEE ABOVE SURGERY [facility] Other [facility] - [facility] [employer] Other Reason for referral (narrative)No reason for referral information availableBarnesville Hospital Work Phone: Summary Purpose Family History Relationship Condition Age [...] with radiculopat hy October 18, 2024 10:12am Chief Complaint Admit Date LEFT LUMBAR TRANSFORAMINAL L3 L4/DS J anuary 2024 11:45am FOLLOW UP L LUMBAR TRANSFORAMINAL Januar y 2024 10:12am G89.29 - Other chronic pain September 10:56am 2-3 MONTHS December 06, 2024 10: 07am Reason for Visit Admit Date Chronic pain October 18, 2024 1 0:12am Lumbar spondylosis October 18, 2024 1 0:12am Lumbosacral spondylosis with radiculopat hy October 18, 2024 10:12am Chronic pain December 06, 2024 10: 07am Lumbar spondylosis December 06, 2024 10: 07am Lumbosacral spondylosis with radiculopat hy December 06, 2024 10:07am Chief Complaint Admit Date FOLLOW UP L LUMBAR TRANSFORAMINAL Januar y 2024 10:12am G89.29 - Other chronic pain September 10:56am 2-3 MONTHS December 06, 2024 10: 07am DISCUSS INJ January 13, 2025 8:4 8am Reason for Visit Admit Date Chronic pain October 18, 2024 1 0:12am Lumbar spondylosis October 18, 2024 1 0:12am Lumbosacral spondylosis with radiculopat hy October 18, 2024 10:12am Chronic pain December 06, 2024 10: 07am Lumbar spondylosis December 06, 2024 10: 07am Lumbosacral spondylosis with radiculopat hy December 06, 2024 10:07am Chronic pain January 13, 2025 8:4 8am Lumbar spondylosis January 13, 2025 8:4 8am Lumbosacral spondylosis with radiculopat hy January 13, 2025 8:48am Chief Complaint Admit Date 2-3 MONTHS December 06, 2024 10: 07am DISCUSS INJ January 13, 2025 8:4 8am *LT LUMBAR TRANSFORAMINAL EPI L3 L4/CJ M ay 2024 12:01pm Reason for Visit Admit Date Chronic pain December 06, 2024 10: 07am Lumbar spondylosis December 06, 2024 10: 07am Lumbosacral spondylosis with radiculopat hy December 06, 2024 10:07am Chronic pain January 13, 2025 8:4 8am Lumbar spondylosis January 13, 2025 8:4 8am Lumbosacral spondylosis with radiculopat hy January 13, 2025 8:48am Chief Complaint Admit Date F/U 3 MO LEFT LUMB TRANS May 10 1:36pm M25.559 - Pain in unspecified hip May 10, 2025 2:05pm Reason for Visit Admit Date Chronic pain May 10, 2025 1: 36pm Lumbosacral spondylosis with radiculopat hy May 10, 2025 1:36pm Osteoarthritis of left hip May 10, 2025 1:36pm Chief Complaint Admit Date F/U 3 MO LEFT LUMB TRANS May 10 1:36pm M25.559 - Pain in unspecified hip May 10, 2025 2:05pm LEFT INTRA-ARTICULAR HIP JOINT INJECTI ON May 25, 2025 11:37am Chief Complaint Admit Date F/U 3 MO LEFT LUMB TRANS May 10 1:36pm M25.559 - Pain in unspecified hip May 10, 2025 2:05pm LEFT INTRA-ARTICULAR HIP JOINT INJECTI ON May 25, 2025 11:37am F/U LEFT INTRA-ARTICULAR HIP JOINT INJEC TION June 01, 2025 9:09am Chief Complaint Admit Date F/U 3 MO [...] 9:26am Primary osteoarthritis of left hip Septe mber 2024 9:26am Screening for colon cancer May 9:26am Medicare annual wellness visit, subseque nt June 02, 2025 9:26am Screening mammogram for breast cancer Se ptember 2024 9:26am Additional Source Comments INFORMATION SOURCE (unrecogn ized section and content) DATE CREATED AUTHOR 11/21/2021 [facility] DATE CREATED AUTHOR AUTHOR'S ORGANIZ ATION [facility] DATE CREATED AUTHOR AUTHOR'S ORGANIZ ATION 05/22/2025 [facility] DATE CREATED AUTHOR AUTHOR'S ORGANIZ ATION 05/28/2025 [facility] REASON FOR VISIT (unrecogniz ed section and content) Reason Comments Cataract Reason Comments Follow-up Reason Comments Lab Orders Reason Comments Thrombocytopenia Follow up Care Teams (unrecognized sec tion and content) Team Status: Active Member Role Status Josette Anna DO Primary Care Provider Active Team Status: Inactive Member Role Status Josette Anna DO Primary Care Provider Active Start: May 10, 2025 End: May 10, 2025 Felipe Akbar MD Attending Provider Active Sta rt: May 10, 2025 End: May 10, 2025 Team Status: Active Member Role Status Josette Anna DO Primary Care Provider Active Start: May 10, 2025 Felipe Akbar MD Attending Provider Active Sta rt: May 10, 2025 Team Status: Active Member Role Status Josette Anna DO Primary Care Provide r, Attending Provider Active Start: November 10, 2024 Team Status: Active Member Role Status Josette Anna DO Primary Care Provider Active Start: November 23, 2024 Junior Bravo MD Attending Provider Active Start: November 23, 2024 Team Status: Inactive Member Role Status Josette Anna DO Primary Care Provider Active Start: December 06, 2024 End: December 06, 2024 Felipe Akbar MD Attending Provider Active Sta rt: December 06, 2024 End: December 06, 2024 Team Status: Inactive Member Role Status Josette Anna DO Primary Care Provider Active Start: January 13, 2025 End: January 13, 2025 Felipe Akbar MD Attending Provider Active Sta rt: January 13, 2025 End: January 13, 2025 Team Status: Inactive Member Role Status Josette Anna DO Primary Care Provider Active Start: January 31, 2025 End: January 31, 2025 Felipe Akbar MD Attending Provider Active Sta rt: January 31, 2025 End: January 31, 2025 Team Status: Inactive Member Role Status Josette [...] Boy Anna DO Primary Care Provide r, Referring Provider Active Start: September 02, 2024 End: September 02, 2024 Felipe Akbar MD Attending Provider Active Sta rt: September 02, 2024 End: September 02, 2024 Team Status: Active Member Role Status Dates Boy Anna DO Primary Care Provider Active Start: October 18, 2024 Felipe Akbar MD Attending Provider Active 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, 2024 Bookkeeping Manager Relationship Specialty Start Date End Date Boy Anna DO PCP - General Internal Medicine 12/29/12 Bookkeeping Manager Relationship Specialty Start Date End Date Boy Anna DO PCP - General Internal Medicine 12/29/12 Bookkeeping Manager Relationship Specialty Start Date End Date Boy Anna DO PCP - General Internal Medicine 12/29/12 Bookkeeping Manager Relationship Specialty Start Date End Date Boy Anna DO PCP - General Internal Medicine 12/29/12 Bookkeeping Manager Relationship Specialty Start Date End Date Boy Anna DO PCP - General Internal Medicine 12/29/12 Team Status: Active Member Role Status Dates Boy Anna DO Primary Care Provider Active Start: May 20, 2025 Junior Bravo MD Attending Provider Active Start: May 20, 2025 Team Status: Inactive Member Role Status Dates Boy Anna DO Primary Care Provider Active Start: May 25, 2025 End: May 25, 2025 Felipe Akbar MD Attending Provider Active Sta rt: May 25, 2025 End: May 25, 2025 Team Status: Active Member Role Status Dates Boy Anna DO Primary Care Provider Active Start: May 25, 2025 Felipe Akbar MD Attending Provider Active Sta rt: May 25, 2025 Team Status: Inactive Member Role Status Dates Boy Anna DO Primary Care Provider Active Start: June 01, 2025 End: June 01, 2025 Felipe Akbar MD Attending Provider Active Sta rt: June 01, 2025 End: June 01, 2025 Team Status: Inactive Member Role Status Dates Boy Anna DO Primary Care Provider Active Start: June 02, 2025 End: June 02, 2025 Boy Anna DO Attending Provider Active Sta rt: June 02, 2025 End: June 02, 2025 Goals (unrecognized section and content) Goals may be documented in a n alternate section Source Comments (unrecognize d section and content) In the event this informatio n is protected by the Federal Confidentiality of Alcohol and Drug Abuse Patient Records regulations: The Federal rules restrict any use of the information to criminally investigate or prosecute any alcohol or drug abuse patient.[facility] the event this information is protected by the Federal Confidentiality of Alcohol and Drug Abuse Patient Records regulations: The Federal rules restrict any use of the information to criminally investigate or prosecute any alcohol or drug abuse patient.[facility] the event this information is protected by the Federal Confidentiality of Alcohol and Drug Abuse Patient Records regulations: The Federal rules restrict any use of the information to criminally investigate or prosecute any alcohol or drug abuse patient.[facility] the event this information is protected by the Federal Confidentiality of Alcohol and Drug Abuse Patient Records regulations: The Federal rules restrict any use of the information to criminally investigate or prosecute any alcohol or drug abuse patient.[facility] the event this information is protected by the Federal Confidentiality of Alcohol and Drug Abuse Patient Records regulations: The Federal rules restrict any use of the information to criminally investigate or prosecute any alcohol or drug abuse patient.[facility] FOR RECORDS PERTAINING TO PATIENTS WHO ARE [...] BE BASED ON THE PRIMARY CLINICAL RECORDS. [employer] [facility]. provides no warranty or guarantee of the accuracy or completeness of information in this document.
== END 2025-06-09 11:05 | disposition home or self-care (01) ==
PROVIDERS: PCP Internal Medicine; Visit Provider Internal Medicine
DX: Z12.31 Encounter for screening mammogram for malignant neoplasm of breast (principal); Z80.42 Family history of malignant neoplasm of prostate
CPT/HCPCS: 77063; 77067

== ENCOUNTER 2025-06-11 06:53 | Outpatient (OUT) | payer MEDICARE, SELFPAY ==
--- OUTSIDE RECORDS SUMMARY | 2025-06-11 06:55 | XMS_ITS | Clinical Summary ---
Author Organization [facility] Address [address] [place], [place] [id number] Care Team Providers Care Ceramic Products Sales Engineer Name Role Phone Boy Anna DO Primary Care Provider [phone] Allergies Active Allergy Reactions Criticality Noted Date [...] AM EDT Visit (SP) Office Hematology/Oncolog y [address] [place] [address] [place] [address] Junior Bravo MD Thrombocytopenia (Primary Dx) 05/20/2025 Travel 05/16/2025 Telephone Hematology/Oncolog y [address] [place] [address] [place] [address] Junior Bravo MD Lab Orders from Last [...] is lower risk 8 11/23/2024 Data from: https://www.neighborhoodatlas.[facility] Last address used for calculation [address] 11/23/2024 Comments No Sex and Gender [...] Description 11/21/2025 9:45 AM EST Office Visit [facility] [address] [place] [address] 9 month follow up 11/21/2025 10:00 AM EST Visit (SP) Office Hematology/Oncology [address] [facility] [place] [address] Junior Bravo MD [address] [place] [address] 9 month follow up Health Maintenance Due [...] METABOLIC PANEL (05/20/2025 10:05 AM EDT) Pathologist [facility] Protein, Total 7.0 6.3 - 8.0 g/dL 05/20/2025 10:27 AM EDT [facility] Albumin 4.1 3.9 - 4.9 g/dL 05/20/2025 10:27 AM EDT [facility] Calcium, Total 9.4 8.5 - 10.2 mg/dL 05/20/2025 10:27 AM EDT [facility] Bilirubin, Total 0.6 0.2 - 1.3 mg/dL 05/20/2025 10:27 AM EDT [facility] Alkaline Phosphatase 102 34 - 123 U/L 05/20/2025 10:27 AM EDT [facility] AST 20 13 - 35 U/L 05/20/2025 10:27 AM EDT [facility] ALT 10 7 - 38 U/L 05/20/2025 10:27 AM EDT [facility] Glucose 105(H) 74 - 99 mg/dL 05/20/2025 10:27 AM [facility] Comment: The [place] Diabetes Association (ADA) provides guidance for cutoff [...] Standards of Medical Care in Diabetes 2016, [place] [employer]. Diabetes Care. 2016.39(Suppl 1). BUN 16 7 - 21 mg/dL 05/20/2025 10:27 AM [facility] Creatinine 0.81 0.58 - 0.96 mg/dL 05/20/2025 10:27 AM [facility] Sodium 139 136 - 144 mmol/L 05/20/2025 10:27 AM [facility] Potassium 4.2 3.7 - 5.1 mmol/L 05/20/2025 10:27 AM [facility] Chloride 101 98 - 107 mmol/L 05/20/2025 10:27 AM [facility] CO2 27 22 - 30 mmol/L 05/20/2025 10:27 AM [facility] Anion Gap 11 8 - 15 mmol/L 05/20/2025 10:27 AM [facility] Estimated Glomerular Filtration Rate 76 >=60 mL/min/1. 73m 05/20/2025 10:27 AM [facility] Comment:Estimated Glomerular Filtration Rate (eGFR) is [...] Junior Bravo MD LABORATORY Final Res ult [facility] [address] [place] [address] * (ABNORMAL) COMPLETE BLOOD COUNT AND DIFFERENTIAL (05/20/2025 10:05 AM EDT) WBC 6.01 3.70 - 11.00 k/uL 05/20/2025 10:11 AM EDT [facility] RBC 3.77(L) 3.90 - 5.20 m/uL 05/20/2025 10:11 AM EDT [facility] Hemoglobin 12.7 11.5 - 15.5 g/dL 05/20/2025 10:11 AM EDT [facility] Hematocrit 37.9 36.0 - 46.0 % 05/20/2025 10:11 AM EDT [facility] MCV 100.5(H) 80.0 - 100.0 fL 05/20/2025 10:11 AM EDT [facility] MCH 33.7 26.0 - 34.0 pg 05/20/2025 10:11 AM EDT [facility] MCHC 33.5 30.5 - 36.0 g/dL 05/20/2025 10:11 AM EDT [facility] RDW-CV 13.5 11.5 - 15.0 % 05/20/2025 10:11 AM EDT [facility] Platelet Count 123(L) 150 - 400 k/uL 05/20/2025 10:11 AM EDT [facility] MPV 12.5 9.0 - 12.7 fL 05/20/2025 10:11 AM EDT [facility] Neutrophils % 72.3 % 05/20/2025 10:11 AM EDT [facility] Abs Neut 4.35 1.45 - 7.50 k/uL 05/20/2025 10:11 AM EDT [facility] Lymphocytes % 18.3 % 05/20/2025 10:11 AM EDT [facility] Abs Lymph 1.10 1.00 - 4.00 k/uL 05/20/2025 10:11 AM EDT [facility] Monocytes % 5.5 % 05/20/2025 10:11 AM EDT [facility] Abs [place] 0.33 <0.87 k/uL 05/20/2025 10:11 AM EDT [facility] Eosinophils % 2.5 % 05/20/2025 10:11 AM EDT [facility] Abs Eosin 0.15 <0.46 k/uL 05/20/2025 10:11 AM EDT [facility] Basophils % 0.7 % 05/20/2025 10:11 AM EDT [facility] Abs Baso 0.04 <0.11 k/uL 05/20/2025 10:11 AM EDT [facility] Immature Granulocytes % 0.7 % 05/20/2025 10:11 AM EDT [facility] Abs Immature Gran 0.04 <0.10 k/uL 05/20/2025 10:11 AM EDT [facility] NRBC 0.0 /100 WBC 05/20/2025 10:11 AM EDT [facility] Absolute nRBC <0.01 <0.01 k/uL 05/20/2025 10:11 AM EDT [facility] Diff Type Auto 05/20/2025 10:11 AM [facility] Blood BLOOD SPECIMEN / Unknown Venipuncture / Unknown 05/20/2025 10:05 AM EDT 05/20/2025 10:05 AM EDT us Junior Bravo MD LABORATORY Final Res ult [facility] [address] [place] [address] from Last 3 Months Insurance [employer] MED[employer]ARE Care Teams [employer] Sales Engineer Relationship Specialty Start Date End Date Boy Anna DO PCP - General Internal Medicine 12/29/12
--- OUTSIDE RECORDS SUMMARY | 2025-06-11 06:55 | XMS_ITS | Encounter Summary ---
Author Organization [facility] Address [address] [place] [id number] Care Team Providers Care Weatherstrip Machine Operator Name Role Phone Boy Anna DO Primary Care Provider [phone] Source Comments In the event this information is protected by the Federal Confidentiality of Alcohol and Drug AbusePatient Records regulations: The Federal rules restrict any use of the information to criminally investigate or prosecute any alcohol or drug abuse patient.[facility] Encounter Details Date Type Department Care Team [...] Description 11/21/2025 9:45 AM EST Office Visit [facility] [address] [place] [address] [place] [address] 9 month follow up 11/21/2025 10:00 AM EST Visit (SP) Office Hematology/Oncology [address] [place] [address] Junior Bravo MD [address] [place] [address] [place] [address] 9 month follow up documented as of this encounter Visit Diagnoses Not on filedocumented in this encounter Care Teams Weatherstrip Machine Operator Relationship Specialty Start Date End Date Boy Anna DO PCP - General Internal Medicine 12/29/12 documented as of this encounter
--- OUTSIDE RECORDS SUMMARY | 2025-06-11 06:55 | XMS_ITS | Clinical Summary ---
Author Organization [facility] Address [address] [place] [address] Care Team Providers Care Machine Packager Name Role Phone Unavailable Primary Care Provider [...] 06/24/2025 8:45 AM EDT Office Visit [facility] [address] [place] [id number] Nam Mistry, DO [address] [place] [address] Insurance [employer] MED[employer]ARE [employer]VANTAGE
--- OUTSIDE RECORDS SUMMARY | 2025-06-11 06:57 | XMS_ITS | CCD ---
Author Organization [facility] Care Team Providers Care 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 Name Role Phone REQUEST, DR NONE LISTED Attending Unavaila ble REQUEST, DR JANE LISTED Admitting Unavaila ble REQUEST, NONE LISTED Consulting Unavaila ble BALL, DR TADEO Admitting Unavailable BALL, DR TADEO Consulting Unavailable BALL, DR TADEO Attending Unavailable Boy Anna Unavailable Unavailable Primary Care Provider Unavailabl Boy Tam DO Primary Care Provider [phone] Boy Anna DO Attending Provider [phone] Felipe Akbar MD Attending Provider [phone] Boy Anna DO Primary Care Provider Boy Anna DO Primary Care Provider [phone] Felipe Akbar MD Attending Provider [phone] FANNIE MISTRY Attending Unavailable FANNIE MISTRY Attending Unavailable BART CRUZ Referring Unavailable FANNIE MISTRY Attending Unavailable Boy Anna DO Primary Care Provider Felipe Akbar MD Attending Provider [phone] BOY ANNA Primary Care Unavailable VENNEPUREDDY, JUNIOR Referring Unavailable VENNEPUREDDY, JUNIOR Attending Unavailable BOY ANNA Primary Care Unavailable VENNEPUREDDY, JUNIOR Referring Unavailable BOY ANNA Primary Care Unavailable VENNEPUREDDY, JUNIOR Referring Unavailable VENNEPUREDDY, JUNIOR Attending Unavailable BOY ANNA Primary Care Unavailable VENNEPUREDDY, JUNIOR Referring Unavailable VennepuredJunior panda MD Attending Provider [phone] Boy Anna Attending Unavailable Boy Anna Primary Care Unavailable Boy Anna Admitting Unavailable Felipe Akbar Attending Unavailable Felipe Akbar Admitting Unavailable Boy Anna Primary Care Unavailable Felipe Akbar Attending Unavailable Felipe Akbar Admitting Unavailable Byo Anna Primary Care Unavailable Boy Anna DO Attending Provider Allergies Allergy Classification Reported Allergen(s) Allergy Type Date of Onset Reaction(s) Facility (15 sources) Cephalexin; Translations: [CEPHALEXIN] Drug Allergy 06-07-2024 Unknown [facility] Work Phone: (1 source) Cephalexin Drug Allergy 05-10-2025 [facility] Repository Medications Current Medications Medication Drug [...] 05-20-2025 Basophils (Bld) [#/Vol] 0.04 10*3/uL <0.11 [facility] Basophils/100 WBC Auto (Bld) Ordered By: Junior Bravo on 05-20-2025 Basophils/100 WBC (Bld) 0.7 % F [facility] Blood manual differential co mment interpretation narrativeOrdered By: Junior Bravo on 05-20-2025 Manual differential comment Jed (Bld) [Interp] Auto [facility] CBC W Auto Differential pane l (Bld)on 05-20-2025 Basophils (Bld) [#/Vol] 0.04 10*3/uL Normal <0.11 [facility] Comment on above: Order Comment: Speci men Type: BLOOD SPECIMEN Ordering Facility: [facility] Address: [address] [place] [address] Performed By: #### 5 7021-8 #### [facility] CLIA [id number] [address] [place] [address] 75328 Basophils/100 WBC (Bld) 0.7 % Normal C [facility] Comment on above: Order Comment: Speci men Type: BLOOD SPECIMEN Ordering Facility: [facility] Address: [address] [place] [address] Performed By: #### 5 7021-8 #### [facility] CLIA [id number] [address] [place] [address] 31580 Differential cell count method Nom (Bld) Auto Normal [facility] Comment on above: Order Comment: Speci men Type: BLOOD SPECIMEN Ordering Facility: [facility] Address: [address] [place] [address] Performed By: #### 5 7021-8 #### [facility] CLIA [id number] [address] [place] [address] 73763 Eosinophils (Bld) [#/Vol] 0.15 10*3/uL Normal <0.46 [facility] Comment on above: Order Comment: Speci men Type: BLOOD SPECIMEN Ordering Facility: [facility] Address: [address] [place] [address] Performed By: #### 5 7021-8 #### [facility] CLIA [id number] [address] [place] [address] 23454 Eosinophils/100 WBC (Bld) 2.5 % Normal [facility] Comment on above: Order Comment: Speci men Type: BLOOD SPECIMEN Ordering Facility: [facility] Address: [address] [place] [address] Performed By: #### 5 7021-8 #### [facility] CLIA [id number] [address] [place] [address] 68797 Erythrocyte distribution width (RBC) [Ratio] 13.5 % Normal 11.5-15.0 [facility] Comment on above: Order Comment: Speci men Type: BLOOD SPECIMEN Ordering Facility: [facility] Address: [address] [place] [address] Performed By: #### 5 7021-8 #### [facility] CLIA [id number] [address] [place] [address] 51066 Hematocrit (Bld) [Volume fraction] 37.9 % Normal 36.0-46.0 [facility] Comment on above: Order Comment: Speci men Type: BLOOD SPECIMEN Ordering Facility: [facility] Address: [address] [place] [address] Performed By: #### 5 7021-8 #### [facility] CLIA [id number] [address] [place] [address] 20970 Hemoglobin (Bld) [Mass/Vol] 12.7 g/dL Normal 11.5-15.5 [facility] Comment on above: Order Comment: Speci men Type: BLOOD SPECIMEN Ordering Facility: [facility] Address: [address] [place] [address] Performed By: #### 5 7021-8 #### [facility] CLIA [id number] [address] [place] [address] 39206 Immature granulocytes (Bld) [#/Vol] 0.04 10*3/uL Normal <0.10 [facility] Comment on above: Order Comment: Speci men Type: BLOOD SPECIMEN Ordering Facility: [facility] Address: [address] [place] [address] Performed By: #### 5 7021-8 #### [facility] CLIA [id number] [address] [place] [address] 21523 Immature granulocytes/100 WBC (Bld) 0.7 % Normal [facility] Comment on above: Order Comment: Speci men Type: BLOOD SPECIMEN Ordering Facility: [facility] Address: [address] [place] [address] Performed By: #### 5 7021-8 #### [facility] CLIA [id number] [address] [place] [address] 32156 Lymphocytes (Bld) [#/Vol] 1.10 10*3/uL Normal 1.00-4.00 [facility] Comment on above: Order Comment: Speci men Type: BLOOD SPECIMEN Ordering Facility: [facility] Address: [address] [place] [address] Performed By: #### 5 7021-8 #### [facility] CLIA [id number] [address] [place] [address] 16276 Lymphocytes/100 WBC (Bld) 18.3 % Normal [facility] Comment on above: Order Comment: Speci men Type: BLOOD SPECIMEN Ordering Facility: [facility] Address: [address] [place] [address] Performed By: #### 5 7021-8 #### [facility] CLIA [id number] [address] [place] [address] 45957 MCH (RBC) [Entitic mass] 33.7 pg Normal 26.0-34.0 [facility] Comment on above: Order Comment: Speci men Type: BLOOD SPECIMEN Ordering Facility: [facility] Address: [address] [place] [address] Performed By: #### 5 7021-8 #### [facility] CLIA [id number] [address] [place] [address] 82334 MCHC (RBC) [Mass/Vol] 33.5 g/dL Normal 30.5-36.0 [facility] Comment on above: Order Comment: Speci men Type: BLOOD SPECIMEN Ordering Facility: [facility] Address: [address] [place] [address] 15580 Performed By: #### 5 7021-8 #### [facility] CLIA [id number] [address] [place] [address] 16758 MCV (RBC) [Entitic vol] 100.5 fL High 80.0-100.0 C [facility] Comment on above: Order Comment: Speci men Type: BLOOD SPECIMEN Ordering Facility: [facility] Address: [address] [place] [address] Performed By: #### 5 7021-8 #### [facility] CLIA [id number] [address] [place] [address] Monocytes (Bld) [#/Vol] 0.33 10*3/uL Normal <0.87 [facility] Comment on above: Order Comment: Speci men Type: BLOOD SPECIMEN Ordering Facility: [facility] Address: [address] [place] [address] Performed By: #### 5 7021-8 #### [facility] CLIA [id number] [address] [place] [address] 17001 Monocytes/100 WBC (Bld) 5.5 % Normal [facility] Comment on above: Order Comment: Speci men Type: BLOOD SPECIMEN Ordering Facility: [facility] Address: [address] [place] [address] Performed By: #### 5 7021-8 #### [facility] CLIA [id number] [address] [place] [address] 94104 Neutrophils (Bld) [#/Vol] 4.35 10*3/uL Normal 1.45-7.50 [facility] Comment on above: Order Comment: Speci men Type: BLOOD SPECIMEN Ordering Facility: [facility] Address: [address] [place] [address] Performed By: #### 5 7021-8 #### [facility] CLIA [id number] [address] [place] [address] 09936 Neutrophils/100 WBC (Bld) 72.3 % Normal [facility] Comment on above: Order Comment: Speci men Type: BLOOD SPECIMEN Ordering Facility: [facility] Address: [address] [place] [address] Performed By: #### 5 7021-8 #### [facility] CLIA [id number] [address] [place] [address] 77520 Nucleated RBC (Bld) [#/Vol] 10*3/uL Normal <0.01 [facility] Comment on above: Order Comment: Speci men Type: BLOOD SPECIMEN Ordering Facility: [facility] Address: [address] [place] [address] Performed By: #### 5 7021-8 #### [facility] CLIA [id number] [address] [place] [address] Nucleated RBC/100 WBC (Bld) [Ratio] 0.0 /100 WBC Normal [facility] Comment on above: Order Comment: Speci men Type: BLOOD SPECIMEN Ordering Facility: [facility] Address: [address] [place] [address] Performed By: #### 5 7021-8 #### [facility] CLIA [id number] [address] [place] [address] 60135 Platelet mean volume (Bld) [Entitic vol] 12.5 fL Normal 9.0-12.7 [facility] Comment on above: Order Comment: Speci men Type: BLOOD SPECIMEN Ordering Facility: [facility] Address: [address] [place] [address] Performed By: #### 5 7021-8 #### [facility] CLIA [id number] [address] [place] [address] 10799 Platelets (Bld) [#/Vol] 123 10*3/uL Low 150-400 [facility] Comment on above: Order Comment: Speci men Type: BLOOD SPECIMEN Ordering Facility: [facility] Address: [address] [place] [address] 50612 Performed By: #### 5 7021-8 #### [facility] CLIA [id number] [address] [place] [address] 78878 RBC (Bld) [#/Vol] 3.77 10*6/uL Low 3.90-5.20 [facility] Comment on above: Order Comment: Speci men Type: BLOOD SPECIMEN Ordering Facility: [facility] Address: [address] [place] [address] 89457 Performed By: #### 5 7021-8 #### [facility] CLIA [id number] [address] [place] [address] 43054 WBC (Bld) [#/Vol] 6.01 10*3/uL Normal 3.70-11.00 [facility] Comment on above: Order Comment: Speci men Type: BLOOD SPECIMEN Ordering Facility: [facility] Address: [place] [address] Performed By: #### 5 7021-8 #### [facility] CLIA [id number] [address] [place] [address] 84280 CNOVSPon 05-20-2025 CNOVSP Visit (SP) Office (HE[place]AS[place]) SERENITY BUSTILLO ([id number]) 1950 F Date Time Provider Department 05/20/25 10:20 AM JUNIOR BRAVO During your visit today, we recorded the following information about you: Temperature Pulse Respiration Blood pressure 97.7 degrees 86/minute 16/minute 134/87 Weight Height 92.2 kg 1.651 m Junior Bravo MD 05/20/2025 10:50 AM Signed PATIENT NAME: Serenity Bustillo CLINIC NO.: [id number] ATTENDING PHYSICIAN: Junior Bravo MD DATE OF [...] 03/19/2017 4.1 (more content not included)... Normal [facility] Comprehensive metabolic 2000 panelon 05-20-2025 Albumin [Mass/Vol] 4.1 g/dL Normal 3.9-4.9 [facility] Comment on above: Order Comment: Speci men Type: BLOOD SPECIMEN Ordering Facility: [facility] Address: [address] [place] [place] [address] Performed By: #### 2 4323-8 #### [facility] CLIA [id number] [address] [place] [address] 38996 ALP [Catalytic activity/Vol] 102 U/L Normal 34-123 [facility] Comment on above: Order Comment: Speci men Type: BLOOD SPECIMEN Ordering Facility: [facility] Address: [address] [place] [address] Performed By: #### 2 4323-8 #### [facility] CLIA [id number] [address] [place] [address] ALT [Catalytic activity/Vol] 10 U/L Normal 7-38 [facility] Comment on above: Order Comment: Speci men Type: BLOOD SPECIMEN Ordering Facility: [facility] Address: [address] [place] [address] Performed By: #### 2 4323-8 #### [facility] CLIA [id number] [address] [place] [address] 66920 Anion gap [Moles/Vol] 11 mmol/L Normal 8-15 [facility] Comment on above: Order Comment: Speci men Type: BLOOD SPECIMEN Ordering Facility: [facility] Address: [address] [place] [id number] Performed By: #### 2 4323-8 #### [facility] CLIA [id number] [address] [place] [address] 09366 AST [Catalytic activity/Vol] 20 U/L Normal 13-35 [facility] Comment on above: Order Comment: Speci men Type: BLOOD SPECIMEN Ordering Facility: [facility] Address: [address] [place] [id number] Performed By: #### 2 4323-8 #### [facility] CLIA [id number] [address] [place] [address] 08725 Bilirubin [Mass/Vol] 0.6 mg/dL Normal 0.2-1.3 [facility] Comment on above: Order Comment: Speci men Type: BLOOD SPECIMEN Ordering Facility: [facility] Address: [address] [place], [place] [address] Performed By: #### 2 4323-8 #### [facility] CLIA [id number] [address] [place] [address] 90352 Calcium [Mass/Vol] 9.4 mg/dL Normal 8.5-10.2 [facility] Comment on above: Order Comment: Speci men Type: BLOOD SPECIMEN Ordering Facility: [facility] Address: [address] [place] [address] 29749 Performed By: #### 2 4323-8 #### [facility] CLIA [id number] [address] [place] [address] Chloride [Moles/Vol] 101 mmol/L Normal 98-107 [facility] Comment on above: Order Comment: Speci men Type: BLOOD SPECIMEN Ordering Facility: [facility] Address: [address] [place] [address] 77016 Performed By: #### 2 4323-8 #### [facility] CLIA [id number] [address] [place] [address] 40742 CO2 [Moles/Vol] 27 mmol/L Normal 22-30 [facility] Comment on above: Order Comment: Speci men Type: BLOOD SPECIMEN Ordering Facility: [facility] Address: [address] [place] [address] 66046 Performed By: #### 2 4323-8 #### [facility] CLIA [id number] [address] [place] [address] 47707 Creatinine [Mass/Vol] 0.81 mg/dL Normal 0.58-0.96 [facility] Comment on above: Order Comment: Speci men Type: BLOOD SPECIMEN Ordering Facility: [facility] Address: [address] [place] [address] 55611 Performed By: #### 2 4323-8 #### [facility] CLIA [id number] [address] [place] [address] 28311 eGFRcr SerPlBld CKD-EPI 2020 76 mL/min/1.73m??? Normal >=60 [facility] Comment on above: Order Comment: Speci men Type: BLOOD SPECIMEN Ordering Facility: [facility] Address: [address] [place] [address] 61020 Result Comment: Julia mated Glomerular Filtration Rate [...] GFR. Performed By: #### 2 4323-8 #### [facility] CLIA [id number] [address] [place] [address] 28361 Glucose [Mass/Vol] 105 mg/dL High 74-99 [facility] Comment on above: Order Comment: Specbrian andrade Type: BLOOD SPECIMEN Ordering Facility: [facility] Address: [address] [place] [address] Result Comment: The [place] Diabetes [employer] (ADA) provides guidance for cutoff [...] Standards of Medical Care in Diabetes 2016, [place] [employer]. Diabetes Care. 2016.39(Suppl 1). Performed By: #### 2 4323-8 #### [facility] CLIA [id number] [address] [place] [address] 09577 Potassium [Moles/Vol] 4.2 mmol/L Normal 3.7-5.1 [facility] Comment on above: Order Comment: Caleb andrade Type: BLOOD SPECIMEN Ordering Facility: [facility] Address: [address] [place] [address] Performed By: #### 2 4323-8 #### [facility] CLIA [id number] [address] [place] [address] Protein [Mass/Vol] 7.0 g/dL Normal 6.3-8.0 [facility] Comment on above: Order Comment: Speci men Type: BLOOD SPECIMEN Ordering Facility: [facility] Address: [address] [place] [address] Performed By: #### 2 4323-8 #### [facility] CLIA [id number] [address] [place] [address] Sodium [Moles/Vol] 139 mmol/L Normal 136-144 [facility] Comment on above: Order Comment: Speci men Type: BLOOD SPECIMEN Ordering Facility: [facility] Address: [address] [place] [address] Performed By: #### 2 4323-8 #### [facility] CLIA [id number] [address] [place] [address] 49442 Urea nitrogen [Mass/Vol] 16 mg/dL Normal 7-21 [facility] Comment on above: Order Comment: Speci men Type: BLOOD SPECIMEN Ordering Facility: [facility] Address: [address] [place] [address] Performed By: #### 2 4323-8 #### [facility] CLIA [id number] [address] [place] [address] 35167 Eosinophils/100 WBC Auto (Bl d)Ordered By: Junior Bravo on 05-20-2025 Eosinophils/100 WBC (Bld) 2.5 % [facility] Erythrocyte distribution wid th Auto (RBC) [Ratio]Ordered By: Junior Bravo on 05-20-2025 Erythrocyte distribution width (RBC) [Ratio] 13.5 % 11.5-15.0 [facility] Glomerular filtration rate [ Volume Rate/Area] in Serum, Plasma or Blood by CreatinineOrdered By: Junior Bravo on 05-20-2025 Glomerular filtration rate [Volume Rate/Area] in Serum, Plasma or Blood by Creatinine 76 mL/min/1.73m??? >=60 [facility] Comment on above: Estimated Glomerular Filtration [...] Hematocrit Auto (Bld) [Volum e fraction]Ordered By: Junior Bravo on 05-20-2025 Hematocrit (Bld) [Volume fraction] 37.9 % 36.0-46.0 [facility] Hemoglobin [Mass/volume] in BloodOrdered By: Junior Bravo on 05-20-2025 Hemoglobin (Bld) [Mass/Vol] 12.7 g/dL 11.5-15.5 [facility] - Chemistry and C hemistry - challengeOrdered By: Junior Bravo on 05-20-2025 Albumin [Mass/Vol] 4.1 g/dL 3.9-4.9 [facility] ALP [Catalytic activity/Vol] 102 U/L 34-123 [facility] ALT [Catalytic activity/Vol] 10 U/L 7-38 [facility] AST [Catalytic activity/Vol] 20 U/L 13-35 [facility] Bilirubin [Mass/Vol] 0.6 mg/dL 0.2-1.3 [facility] Calcium [Mass/Vol] 9.4 mg/dL 8.5-10.2 [facility] Chloride [Moles/Vol] 101 mmol/L 98-107 [facility] CO2 [Moles/Vol] 27 mmol/L 22-30 [facility] Creatinine [Mass/Vol] 0.81 mg/dL 0.58-0.96 [facility] Glucose [Mass/Vol] 105 mg/dL High 74-99 [facility] Comment on above: The [place] Diabete s Association (ADA) provides guidance for [...] Standards of Medical Care in Diabetes 2016, [place] [employer]. Diabetes Care. 2016.39(Suppl 1). Potassium [Moles/Vol] 4.2 mmol/L 3.7-5.1 [facility] Sodium [Moles/Vol] 139 mmol/L 136-144 [facility] Urea nitrogen [Mass/Vol] 16 mg/dL 7- [facility] - Hematology and Cell countsOrdered By: Junior Bravo on 05-20-2025 Eosinophils (Bld) [#/Vol] 0.15 10*3/uL <0.46 [facility] Immature granulocytes (Bld) [#/Vol] 0.04 10*3/uL <0.10 [facility] Immature granulocytes/100 WBC (Bld) 0.7 % [facility] Leukocytes [#/volume] correc winter for nucleated erythrocytes in Blood by Automated counOrdered By: Junior Bravo on 05-20-2025 WBC corrected for nucl RBC Auto (Bld) [#/Vol] 6.01 k/uL 3.70-11.00 [facility] Lymphocytes Auto (Bld) [#/Vo l]Ordered By: Junior Bravo on 05-20-2025 Lymphocytes (Bld) [#/Vol] 1.10 10*3/uL 1.00-4.00 [facility] Lymphocytes/100 WBC Auto (Bl d)Ordered By: Junior Bravo on 05-20-2025 Lymphocytes/100 WBC (Bld) 18.3 % [facility] MCH Auto (RBC) [Entitic mass ]Ordered By: Junior Bravo on 05-20-2025 MCH (RBC) [Entitic mass] 33.7 pg 26.0-34.0 [facility] MCHC Auto (RBC) [Mass/Vol]Or dered By: Junior Bravo on 05-20-2025 MCHC (RBC) [Mass/Vol] 33.5 g/dL 30.5-36.0 [facility] MCV Auto (RBC) [Entitic vol] Ordered By: Junior Bravo on 05-20-2025 MCV (RBC) [Entitic vol] 100.5 fL High 80.0-100.0 F [facility] Monocytes Auto (Bld) [#/Vol] Ordered By: Junior Bravo on 05-20-2025 Monocytes (Bld) [#/Vol] 0.33 10*3/uL <0.87 [facility] Monocytes/100 WBC Auto (Bld) Ordered By: Junior Bravo on 05-20-2025 Monocytes/100 WBC (Bld) 5.5 % [facility] Neutrophils Auto (Bld) [#/Vo l]Ordered By: Junior Bravo on 05-20-2025 Neutrophils (Bld) [#/Vol] 4.35 10*3/uL 1.45-7.50 [facility] Neutrophils/100 WBC Auto (Bl d)Ordered By: Junior Bravo on 05-20-2025 Neutrophils/100 WBC (Bld) 72.3 % [facility] Nucleated RBC Auto (Bld) [#/ Vol]Ordered By: Junior Bravo on 05-20-2025 Nucleated RBC (Bld) [#/Vol] 10*3/uL <0.01 [facility] Nucleated erythrocytes [Pres ence] in Blood by Automated countOrdered By: Junior Bravo on 05-20-2025 Nucleated RBC Auto Ql (Bld) 0.0 /100{WBC} [facility] Platelet mean volume Auto (B ld) [Entitic vol]Ordered By: Junior Bravo on 05-20-2025 Platelet mean volume (Bld) [Entitic vol] 12.5 fL 9.0-12.7 [facility] Platelets Auto (Bld) [#/Vol] Ordered By: Junior Bravo on 05-20-2025 Platelets (Bld) [#/Vol] 123 10*3/uL Low 150-400 [facility] Protein [Mass/volume] in Ser um or PlasmaOrdered By: Junior Bravo on 05-20-2025 Protein [Mass/Vol] 7.0 g/dL 6.3-8.0 [facility] RBC Auto (Bld) [#/Vol]Ordere d By: Junior Bravo on 05-20-2025 RBC (Bld) [#/Vol] 3.77 10*6/uL Low 3.90-5.20 [facility] Serum or plasma anion gap de terminationOrdered By: Junior Bravo on 05-20-2025 Anion gap [Moles/Vol] 11 mmol/L 8-15 [facility] CNPNon 05-16-2025 CNPN Telephone (HEMAS[place]) SERENITY BUSTILLO ([id number]) 1950 F Date Time Provider Department 05/16/25 [...] BLOOD COUNT AND DIFFERENTIAL [SQCBCDIF] Order #: [id number] FUTURE COMPREHENSIVE METABOLIC PANEL [SQCMP] Order #: [id number] FUTURE Prescriptions as of 05/16/2025 - ZINC ORAL Take by mouth. - levothyroxine (SYNTHROID) 112 mcg tablet Take 100 mcg by mouth daily before breakfast. Problem List As Of Date 05/16/2025 Noted Resolved Thrombocytopenia [D69.6] Hypertension [I10] 01/11/2013 Hypothyroid [E03.9] 01/11/2013 Encounter Status:Closed by MAGGY RENE on 05/16/25 Normal [facility] X-ray reportOrdered By: Walt España on 05-10-2025 Study report [facility] [address] [address] XRay Report Signed Patient: Serenity Bustillo MR#: [id number] : 1950 Acct:[id number] Age/Sex: 75 / F ADM Date: 5 [facility]: [facility] [facility] [place] Room: Type: [facility] Attending Dr: Felipe Akbar MD Copies [...] España M.D. 05/10/2025 10:46 PM Dictation Location: [place] [address] Transcribed By: [facility] 05/10/252245 Dictated By: Tommy España DO 05/10/252244 Signed By: 05/10/252245 [facility] XR hip LT min 2V(w/wo pelvis )*on 05-10-2025 XR hip LT min 2V(w/wo pelvis)* [facility] [address] [place] [address] XRay Report Signed Patient: Serenity Bustillo MR#: [id number] : 1950 Acct:[id number] Age/Sex: 75 / F ADM Date: 05/10/25 Loc: [facility]XD Room: Type: [facility] Attending Dr: Felipe Akbar MD Copies [...] 10:46 PM Dictation Location: [facility]-20 Transcribed By: [facility] 05/10/252245 Dictated By: Tommy España DO 05/10/252244 Signed By: 05/10/252245 Normal [facility] Optical coherence tomography study reporton 12-22-2024 [facility] Study observation (narrative) [facility] CNPNon 11-24-2024 CNPN Telephone (NCCAP) SERENITY BUSTILLO ([id number]) 1950 F Date Time Provider Department 11/24/24 [...] Status:Closed by AZALIA [place] on 11/24/24 Normal [facility] Basophils Auto (Bld) [#/Vol] on 11-23-2024 Basophils (Bld) [#/Vol] Automated basoph il count <0.11 [facility] Basophils/100 WBC Auto (Bld) on 11-23-2024 Basophils/100 WBC (Bld) Automated basophil % [facility] Blood manual differential co mment interpretation narrativeon 11-23-2024 Manual differential comment Jed (Bld) [Interp] Blood manual differential comment interpretation narrative [facility] CBC W Auto Differential pane l (Bld)on 11-23-2024 Basophils (Bld) [#/Vol] 0.04 10*3/uL [facility] Basophils/100 WBC (Bld) 0.7 % [facility] Differential cell count method Nom (Bld) Auto [facility] Eosinophils (Bld) [#/Vol] 0.16 10*3/uL [facility] Eosinophils/100 WBC (Bld) 2.7 % [facility] Erythrocyte distribution width (RBC) [Ratio] 14 % 11.5 - 15.0 % [facility] Hematocrit (Bld) [Volume fraction] 38.2 % 36.0 - 46.0 % [facility] Hemoglobin (Bld) [Mass/Vol] 12.9 g/dL 11.5 - 15.5 g/dL [facility] Immature granulocytes (Bld) [#/Vol] 0.03 10*3/uL [facility] Immature granulocytes/100 WBC (Bld) 0.5 % [facility] Interpretation and review of laboratory results Abnormal [facility] Lymphocytes (Bld) [#/Vol] 0.95 10*3/uL Low [facility] Lymphocytes/100 WBC (Bld) 16.3 % [facility] MCH (RBC) [Entitic mass] 33.6 pg 26. 0 - 34.0 pg [facility] MCHC (RBC) [Mass/Vol] 33.8 g/dL 30.5 - 36.0 g/dL [facility] MCV (RBC) [Entitic vol] 99.5 fL 80.0 - 100.0 fL [facility] Monocytes (Bld) [#/Vol] 0.22 10*3/uL [facility] Monocytes/100 WBC (Bld) 3.8 % [facility] Neutrophils (Bld) [#/Vol] 4.43 10*3/uL [facility] Neutrophils/100 WBC (Bld) 76 % [facility] Nucleated RBC (Bld) [#/Vol] [facility] Nucleated RBC/100 WBC (Bld) [Ratio] 0 % /100 WBC [facility] Platelet mean volume (Bld) [Entitic vol] 12.5 fL 9.0 - 12.7 fL [facility] Platelets (Bld) [#/Vol] 118 10*3/uL Low [facility] RBC (Bld) [#/Vol] 3.84 10*6/uL Low 3.90 - 5.2 0 m/uL [facility] WBC (Bld) [#/Vol] 5.83 10*3/uL [facility] Basophils (Bld) [#/Vol] 0.04 10*3/uL Normal <0.11 [facility] Comment on above: Order Comment: Speci men Type: BLOOD SPECIMEN Ordering Facility: [facility] Address: [address] [place], [place] [address] Performed By: #### 5 7021-8 #### [facility] CLIA [id number] [address] [place] [address] Basophils/100 WBC (Bld) 0.7 % Normal [facility] Comment on above: Order Comment: Speci men Type: BLOOD SPECIMEN Ordering Facility: [facility] Address: [address] [place] [address] Performed By: #### 5 7021-8 #### [facility] CLIA [id number] [address] [place] [address] Differential cell count method Nom (Bld) Auto Normal [facility] Comment on above: Order Comment: Speci men Type: BLOOD SPECIMEN Ordering Facility: [facility] Address: [address] [place] [address] Performed By: #### 5 7021-8 #### [facility] CLIA [id number] [address] [place] [address]856 Eosinophils (Bld) [#/Vol] 0.16 10*3/uL Normal <0.46 [facility] Comment on above: Order Comment: Speci men Type: BLOOD SPECIMEN Ordering Facility: [facility] Address: [address] [place] [address] Performed By: #### 5 7021-8 #### [facility] CLIA [id number] [address] [place] [address]0712 Eosinophils/100 WBC (Bld) 2.7 % Normal [facility] Comment on above: Order Comment: Speci men Type: BLOOD SPECIMEN Ordering Facility: [facility] Address: [address] [place] [address] Performed By: #### 5 7021-8 #### [facility] CLIA [id number] [address] [place] [address] 24632 Erythrocyte distribution width (RBC) [Ratio] 14.0 % Normal 11.5-15.0 [facility] Comment on above: Order Comment: Speci men Type: BLOOD SPECIMEN Ordering Facility: [facility] Address: [address] [place] [address] Performed By: #### 5 7021-8 #### [facility] CLIA [id number] [address] [place] [address] Hematocrit (Bld) [Volume fraction] 38.2 % Normal 36.0-46.0 [facility] Comment on above: Order Comment: Speci men Type: BLOOD SPECIMEN Ordering Facility: [facility] Address: [address] [place] [address] Performed By: #### 5 7021-8 #### [facility] CLIA [id number] [address] [place] [address]59[address] Hemoglobin (Bld) [Mass/Vol] 12.9 g/dL Normal 11.5-15.5 [facility] Comment on above: Order Comment: Speci men Type: BLOOD SPECIMEN Ordering Facility: [facility] Address: [address] [place] [address] Performed By: #### 5 7021-8 #### [facility] CLIA [id number] [address] [place] [address] 63148 Immature granulocytes (Bld) [#/Vol] 0.03 10*3/uL Normal <0.10 [facility] Comment on above: Order Comment: Speci men Type: BLOOD SPECIMEN Ordering Facility: [facility] Address: [address] [place] [address] Performed By: #### 5 7021-8 #### [facility] CLIA [id number] [address] [place] [address] 37207 Immature granulocytes/100 WBC (Bld) 0.5 % Normal [facility] Comment on above: Order Comment: Speci men Type: BLOOD SPECIMEN Ordering Facility: [facility] Address: [address] [place] [address] Performed By: #### 5 7021-8 #### [facility] CLIA [id number] [address] [place] [address] 68338 Lymphocytes (Bld) [#/Vol] 0.95 10*3/uL Low 1.00-4.00 [facility] Comment on above: Order Comment: Speci men Type: BLOOD SPECIMEN Ordering Facility: [facility] Address: [address] [place] [address] Performed By: #### 5 7021-8 #### [facility] CLIA [id number] [address] [place] [address] 14950 Lymphocytes/100 WBC (Bld) 16.3 % Normal [facility] Comment on above: Order Comment: Speci men Type: BLOOD SPECIMEN Ordering Facility: [facility] Address: [address] [place] [address] Performed By: #### 5 7021-8 #### [facility] CLIA [id number] [address] [place] [address] 85993 MCH (RBC) [Entitic mass] 33.6 pg Normal 26.0-34.0 [facility] Comment on above: Order Comment: Speci men Type: BLOOD SPECIMEN Ordering Facility: [facility] Address: [address] [place] [address] Performed By: #### 5 7021-8 #### [facility] CLIA [id number] [address] [place] [address] 80337 MCHC (RBC) [Mass/Vol] 33.8 g/dL Normal 30.5-36.0 [facility] Comment on above: Order Comment: Speci men Type: BLOOD SPECIMEN Ordering Facility: [facility] Address: [address] [place] [address] Performed By: #### 5 7021-8 #### [facility] CLIA [id number] [address] [place] [address] 69168 MCV (RBC) [Entitic vol] 99.5 fL Normal 80.0-100.0 [facility] Comment on above: Order Comment: Speci men Type: BLOOD SPECIMEN Ordering Facility: [facility] Address: [address] [place] [address] Performed By: #### 5 7021-8 #### [facility] CLIA [id number] [address] [place] [address] 65580 Monocytes (Bld) [#/Vol] 0.22 10*3/uL Normal <0.87 [facility] Comment on above: Order Comment: Speci men Type: BLOOD SPECIMEN Ordering Facility: [facility] Address: [address] [place] [address] Performed By: #### 5 7021-8 #### [facility] CLIA [id number] [address] [place] [address] 05865 Monocytes/100 WBC (Bld) 3.8 % Normal [facility] Comment on above: Order Comment: Speci men Type: BLOOD SPECIMEN Ordering Facility: [facility] Address: [address] [place] [address] Performed By: #### 5 7021-8 #### [facility] CLIA [id number] [address] [place] [address] 41881 Neutrophils (Bld) [#/Vol] 4.43 10*3/uL Normal 1.45-7.50 [facility] Comment on above: Order Comment: Speci men Type: BLOOD SPECIMEN Ordering Facility: [facility] Address: [address] [place] [address] Performed By: #### 5 7021-8 #### [facility] CLIA [id number] [address] [place] [address] 15949 Neutrophils/100 WBC (Bld) 76.0 % Normal [facility] Comment on above: Order Comment: Speci men Type: BLOOD SPECIMEN Ordering Facility: [facility] Address: [address] [place] [address] Performed By: #### 5 7021-8 #### [facility] CLIA [id number] [address] [place] [address] 95966 Nucleated RBC (Bld) [#/Vol] 10*3/uL Normal <0.01 [facility] Comment on above: Order Comment: Speci men Type: BLOOD SPECIMEN Ordering Facility: [facility] Address: [address] [place] [address] Performed By: #### 5 7021-8 #### [facility] CLIA [id number] [address] [place] [address] Nucleated RBC/100 WBC (Bld) [Ratio] 0.0 /100 WBC Normal [facility] Comment on above: Order Comment: Speci men Type: BLOOD SPECIMEN Ordering Facility: [facility] Address: [address] [place] [address] 46069 Performed By: #### 5 7021-8 #### [facility] CLIA [id number] [address] [place] [address] Platelet mean volume (Bld) [Entitic vol] 12.5 fL Normal 9.0-12.7 [facility] Comment on above: Order Comment: Speci men Type: BLOOD SPECIMEN Ordering Facility: [facility] Address: [address] [place] [address] 96367 Performed By: #### 5 7021-8 #### [facility] CLIA [id number] [address] [place] [address] 91234 Platelets (Bld) [#/Vol] 118 10*3/uL Low 150-400 [facility] Comment on above: Order Comment: Speci men Type: BLOOD SPECIMEN Ordering Facility: [facility] Address: [address] [place] [address]30 Performed By: #### 5 7021-8 #### [facility] CLIA [id number] [address] [place] [address] 33590 RBC (Bld) [#/Vol] 3.84 10*6/uL Low 3.90-5.20 [facility] Comment on above: Order Comment: Speci men Type: BLOOD SPECIMEN Ordering Facility: [facility] Address: [address] [place] [address] 13011 Performed By: #### 5 7021-8 #### [facility] CLIA [id number] [address] [place] [address] 42099 WBC (Bld) [#/Vol] 5.83 10*3/uL Normal 3.70-11.00 [facility] Comment on above: Order Comment: Speci men Type: BLOOD SPECIMEN Ordering Facility: [facility] Address: [address] [place] [address] Performed By: #### 5 7021-8 #### [facility] CLIA [id number] [address] [place] [address] 54639 CNOVSPon 11-23-2024 CNOVSP Visit (SP) Office (HEMASA) SERENITY BUSTILLO ([id number]) 1950 F Date Time Provider Department 11/23/24 11:00 AM JUNIOR BRAVO During your visit today, we recorded the following information about you: Temperature Pulse Respiration Blood pressure 97.6 degrees 85/minute 16/minute 126/85 Weight 95 kg Junior Bravo MD 11/23/2024 11:34 AM Signed PATIENT NAME: Serenity Bustillo CLINIC NO.: [id number] ATTENDING PHYSICIAN: Junior Bravo MD DATE OF [...] Final Hemog (more content not included)... Normal [facility] Comprehensive metabolic 2000 panelOrdered By: Kim Pineda on 11-23-2024 Albumin [Mass/Vol] 4 g/dL 3.9 - 4.9 g/dL [facility] ALP [Catalytic activity/Vol] 106 U/L 34 - 123 U/L [facility] ALT [Catalytic activity/Vol] 9 U/L 7 - 38 U/L [facility] Anion gap [Moles/Vol] 10 mmol/L 8 - 15 mmol/L [facility] AST [Catalytic activity/Vol] 13 U/L 13 - 35 U/L [facility] Bilirubin [Mass/Vol] 0.5 mg/dL 0.2 - 1 .3 mg/dL [facility] Calcium [Mass/Vol] 9.7 mg/dL 8.5 - 10. 2 mg/dL [facility] Chloride [Moles/Vol] 103 mmol/L 98 - 10 7 mmol/L [facility] CO2 [Moles/Vol] 28 mmol/L 22 - 30 mmol/L [facility] Creatinine [Mass/Vol] 0.89 mg/dL 0.58 - 0.96 mg/dL [facility] GFR/1.73 sq M.predicted among non-blacks MDRD (S/P/Bld) [Vol rate/Area] 69 mL/min/{1.73_m2} - PINF [facility] Comment on above: Estimated Glomerular Filtration Rate [...] 108 mg/dL High 74 - 99 mg/dL [facility] Comment on above: The [place] Diab[employer] Association (ADA) provides guidance for [...] Standards of Medical Care in Diabetes 2016, [place] [employer]. Diabetes Care. 2016.39(Suppl 1). Interpretation and review of laboratory results Abnormal [facility] Potassium [Moles/Vol] 4.3 mmol/L 3.7 - 5.1 mmol/L [facility] Protein [Mass/Vol] 6.8 g/dL 6.3 - 8.0 g/dL [facility] Sodium [Moles/Vol] 141 mmol/L 136 - 144 mmol/L [facility] Urea nitrogen [Mass/Vol] 13 mg/dL 7 - 21 mg/d L [facility] Comprehensive metabolic 2000 panelon 11-23-2024 Albumin [Mass/Vol] 4.0 g/dL Normal 3.9-4.9 [facility] Comment on above: Order Comment: Speci men Type: BLOOD SPECIMEN Ordering Facility: [facility] Address: [address] [place] [id number] Performed By: #### 2 4323-8 #### [facility] CLIA [id number] [address] [place] [address] 17701 ALP [Catalytic activity/Vol] 106 U/L Normal 34-123 [facility] Comment on above: Order Comment: Speci men Type: BLOOD SPECIMEN Ordering Facility: [facility] Address: [address] [place] [address] Performed By: #### 2 4323-8 #### [facility] CLIA [id number] [address] [place] [address] 47234 ALT [Catalytic activity/Vol] 9 U/L Normal 7-38 [facility] Comment on above: Order Comment: Speci men Type: BLOOD SPECIMEN Ordering Facility: [facility] Address: [address] [place] [address] Performed By: #### 2 4323-8 #### [facility] CLIA [id number] [address] [place] [address] 80174 Anion gap [Moles/Vol] 10 mmol/L Normal 8-15 [facility] Comment on above: Order Comment: Speci men Type: BLOOD SPECIMEN Ordering Facility: [facility] Address: [address] [place] [address] Performed By: #### 2 4323-8 #### [facility] CLIA [id number] [address] [place] [address] 38325 AST [Catalytic activity/Vol] 13 U/L Normal 13-35 [facility] Comment on above: Order Comment: Speci men Type: BLOOD SPECIMEN Ordering Facility: [facility] Address: [address] [place] [address] Performed By: #### 2 4323-8 #### [facility] CLIA [id number] [address] [place] [address] Bilirubin [Mass/Vol] 0.5 mg/dL Normal 0.2-1.3 [facility] Comment on above: Order Comment: Speci men Type: BLOOD SPECIMEN Ordering Facility: [facility] Address: [address] [place] [address] Performed By: #### 2 4323-8 #### [facility] CLIA [id number] [address] [place] [address] Calcium [Mass/Vol] 9.7 mg/dL Normal 8.5-10.2 [facility] Comment on above: Order Comment: Speci men Type: BLOOD SPECIMEN Ordering Facility: [facility] Address: [address] [place] [address] Performed By: #### 2 4323-8 #### [facility] CLIA [id number] [address] [place] [address] Chloride [Moles/Vol] 103 mmol/L Normal 98-107 [facility] Comment on above: Order Comment: Speci men Type: BLOOD SPECIMEN Ordering Facility: [facility] Address: [address] [place] [address] Performed By: #### 2 4323-8 #### [facility] CLIA [id number] [address] [place] [address] CO2 [Moles/Vol] 28 mmol/L Normal 22-30 [facility] Comment on above: Order Comment: Speci men Type: BLOOD SPECIMEN Ordering Facility: [facility] Address: [address] [place] [address]73 Performed By: #### 2 4323-8 #### [facility] CLIA [id number] [address] [place] [address] Creatinine [Mass/Vol] 0.89 mg/dL Normal 0.58-0.96 [facility] Comment on above: Order Comment: Speci men Type: BLOOD SPECIMEN Ordering Facility: [facility] Address: [address] [place] [address] Performed By: #### 2 4323-8 #### [facility] CLIA [id number] [address] [place] [address] 41300 Creatinine and Glomerular filtration rate.predicted panel (S/P/Bld) 69 mL/min/1.73m??? Normal >=60 [facility] Comment on above: Order Comment: Caleb andrade Type: BLOOD SPECIMEN Ordering Facility: [facility] Address: [address] [place] [address] Result Comment: Julia mated Glomerular Filtration Rate [...] GFR. Performed By: #### 2 4323-8 #### [facility] CLIA [id number] [address] [place] [address] 25096 Glucose [Mass/Vol] 108 mg/dL High 74-99 [facility] Comment on above: Order Comment: Caleb andrade Type: BLOOD SPECIMEN Ordering Facility: [facility] Address: [address] [place] [address] Result Comment: The [place] Diabetes Association (ADA) provides guidance for cutoff [...] Standards of Medical Care in Diabetes 2016, [place] [employer] Association. Diabetes Care. 2016.39(Suppl 1). Performed By: #### 2 4323-8 #### [facility] CLIA [id number] [facility] [place] [address] Potassium [Moles/Vol] 4.3 mmol/L Normal 3.7-5.1 [facility] Comment on above: Order Comment: Speci men Type: BLOOD SPECIMEN Ordering Facility: [facility] Address: [address] [place] [address]8 Performed By: #### 2 4323-8 #### [facility] CLIA [id number] [address] [place] [address] Protein [Mass/Vol] 6.8 g/dL Normal 6.3-8.0 [facility] Comment on above: Order Comment: Speci men Type: BLOOD SPECIMEN Ordering Facility: [facility] Address: [address] [place] [address] Performed By: #### 2 4323-8 #### [facility] CLIA [id number] [address] [place] [address] 04092 Sodium [Moles/Vol] 141 mmol/L Normal 136-144 [facility] Comment on above: Order Comment: Speci men Type: BLOOD SPECIMEN Ordering Facility: [facility] Address: [address] [place] [address] Performed By: #### 2 4323-8 #### [facility] CLIA [id number] [address] [place] [address] 61658 Urea nitrogen [Mass/Vol] 13 mg/dL Normal 7-21 [facility] Comment on above: Order Comment: Speci men Type: BLOOD SPECIMEN Ordering Facility: [facility] Address: [address] [place] [address] Performed By: #### 2 4323-8 #### [facility] CLIA [id number] [address] [place] [address] 55470 Eosinophils/100 WBC Auto (Bl d)on 11-23-2024 Eosinophils/100 WBC (Bld) Automated eosinophil % [facility] Erythrocyte distribution wid th Auto (RBC) [Ratio]on 11-23-2024 Erythrocyte distribution width (RBC) [Ratio] Erythrocyte distribution width [Ratio] by Automated count 11.5-15.0 [facility] Ferritin SerPl-mCncon 2024 Ferritin [Mass/Vol] 95.5 ng/mL Normal 14.7-205.1 [facility] Comment on above: Order Comment: Speci men Type: BLOOD SPECIMEN Ordering Facility: [facility] Address: [address] [place] [address] Performed By: #### 5 0190-8, 9, 4, 8 #### [facility] CLIA [id number] [address] [place] [address] [place] Folate [facility]19 Folate [Mass/Vol] 10.5 ng/mL Normal >4.7 [facility] Comment on above: Order Comment: Speci men Type: BLOOD SPECIMEN Ordering Facility: [facility] Address: [address] [place] [address] Performed By: #### 5 0190-8, 9, 2275-12, 8 #### [facility] CLIA [id number] [address] [place] [address] [place] Hematocrit Auto (Bld) [Volum e fraction]on 11-23-2024 Hematocrit (Bld) [Volume fraction] Hematocrit [Volume Fraction] of Blood by Automated count 36.0-46.0 [facility] Hemoglobin [Mass/volume] in Bloodon 11-23-2024 Hemoglobin (Bld) [Mass/Vol] Hemoglobin [Mass/volume] in Blood 11.5-15.5 [facility] Iron and Iron binding capaci ty panelon 11-23-2024 Iron [Mass/Vol] 60 ug/dL Normal 41-186 [facility] Comment on above: Order Comment: Speci men Type: BLOOD SPECIMEN Ordering Facility: [facility] Address: [address] [place] [address] Performed By: #### 5 0190-8, 9, 4, 8 #### [facility] CLIA [id number] [address] [place] [address] [place] Iron binding capacity [Mass/Vol] 262 ug/dL Normal 232-386 [facility] Comment on above: Order Comment: Speci men Type: BLOOD SPECIMEN Ordering Facility: [facility] Address: [address] [place] [address] Performed By: #### 5 0190-8, 2131-9, 2275-4, 8 #### [facility] CLIA [id number] [address] [place] [address] [place] Iron/TIBC [Molar ratio] 22.9 % Normal 15.0-57.0 [facility] Comment on above: Order Comment: Speci men Type: BLOOD SPECIMEN Ordering Facility: [facility] Address: [address] [place] [address] Performed By: #### 5 0190-8, 9, 2275-12, 8 #### [facility] CLIA [id number] [address] [place] [address] [place] Iron binding capacity [Mass/ volume] in Serum or Plasmaon 11-23-2024 Iron binding capacity [Mass/Vol] Iron binding capacity [Mass/volume] in Serum or Plasma 232-386 [facility] Iron saturation [Mass Fracti on] in Serum or Plasmaon 11-23-2024 Iron saturation [Mass fraction] Iron saturation [Mass Fraction] in Serum or Plasma 15.0-57.0 [facility] Laboratory - Chemistry and C hemistry - challengeon 11-23-2024 Albumin [Mass/Vol] 4.0 g/dL 3.9-4.9 [facility] [facility] ALP [Catalytic activity/Vol] 106 U/L 34-123 [facility] ALT [Catalytic activity/Vol] 9 U/L 7-38 [facility] AST [Catalytic activity/Vol] 13 U/L 13-35 [facility] Bilirubin [Mass/Vol] 0.5 mg/dL 0.2-1.3 [facility] Calcium [Mass/Vol] 9.7 mg/dL 8.5-10.2 [facility] Chloride [Moles/Vol] 103 mmol/L 98-107 [facility] CO2 [Moles/Vol] 28 mmol/L 22-30 [facility] Cobalamin (Vitamin B12) [Mass/Vol] 412 pg/mL 232-1245 [facility] Creatinine [Mass/Vol] 0.89 mg/dL 0.58-0.96 [facility] Ferritin [Mass/Vol] 95.5 ng/mL 14.7-205.1 [facility] Glucose [Mass/Vol] 108 mg/dL High 74-99 [facility] Comment on above: The [place] Diab[employer] Association (ADA) provides guidance for [...] Standards of Medical Care in Diabetes 2016, [place] [employer] Association. Diabetes Care. 2016.39(Suppl 1). Iron [Mass/Vol] 60 ug/dL 41-186 [facility] Potassium [Moles/Vol] 4.3 mmol/L 3.7-5.1 [facility] Sodium [Moles/Vol] 141 mmol/L 136-144 [facility] Urea nitrogen [Mass/Vol] 13 mg/dL 7-21 [facility] Laboratory - Hematology and Cell countson 11-23-2024 Eosinophils (Bld) [#/Vol] 0.16 10*3/uL <0.46 [facility] Immature granulocytes (Bld) [#/Vol] 0.03 10*3/uL <0.10 [facility] Immature granulocytes/100 WBC (Bld) 0.5 % [facility] Leukocytes [#/volume] correc winter for nucleated erythrocytes in Blood by Automated counon 11-23-2024 WBC corrected for nucl RBC Auto (Bld) [#/Vol] Leukocytes [#/volume] corrected for nucleated erythrocytes in Blood by Automated coun 3.70-11.00 [facility] Lymphocytes Auto (Bld) [#/Vo l]on 11-23-2024 Lymphocytes (Bld) [#/Vol] Lymphocytes [#/volume] in Blood by Automated count Low 1.00-4.00 [facility] Lymphocytes/100 WBC Auto (Bl d)on 11-23-2024 Lymphocytes/100 WBC (Bld) Lymphocytes/100 leukocytes in Blood by Automated count [facility] MCH Auto (RBC) [Entitic mass ]on 11-23-2024 MCH (RBC) [Entitic mass] MCH [Entitic ma ss] by Automated count 26.0-34.0 [facility] MCHC Auto (RBC) [Mass/Vol]on 11-23-2024 MCHC (RBC) [Mass/Vol] MCHC [Mass/volume] by Automated count 30.5-36.0 [facility] MCV Auto (RBC) [Entitic vol] on 11-23-2024 MCV (RBC) [Entitic vol] MCV [Entitic vol ume] by Automated count 80.0-100.0 [facility] Monocytes Auto (Bld) [#/Vol] on 11-23-2024 Monocytes (Bld) [#/Vol] Automated blood monocyte count <0.87 [facility] Monocytes/100 WBC Auto (Bld) on 11-23-2024 Monocytes/100 WBC (Bld) Automated monocyte % [facility] Neutrophils Auto (Bld) [#/Vo l]on 11-23-2024 Neutrophils (Bld) [#/Vol] Neutrophils [#/volume] in Blood by Automated count 1.45-7.50 [facility] Neutrophils/100 WBC Auto (Bl d)on 11-23-2024 Neutrophils/100 WBC (Bld) Automated neutrophil % [facility] No Panel Informationon 11-23 Estimated GFR (CKD-EPI) 69 mL/min/1.73m??? >=60 [facility] Comment on above: Estimated Glomerular Filtration [...] reflect actual GFR. Folate 10.5 ng/mL >4.7 [facility] Nuclear Ab IA Ql (S)on 11-23 ANTIONE SCR QUAL Negative Normal Negative [facility] Comment on above: Order Comment: Speci men Type: BLOOD SPECIMEN Ordering Facility: [facility] Address: [address] [place] [address] Result Comment: The qualitative antinuclear antibody screen test performed using the following antigens: dsDNA, Chromatin, Ribosomal P, SS-A 60, SS-A 52, SS-B, Sm, SmRNP, ENVIRONMENTAL CONSERVATION PROFESSOR A, ENVIRONMENTAL CONSERVATION PROFESSOR 68, Scl-70, Karen-1, and Centromere B. Methodology: Multiplex flow immunoassay. Performed By: #### 4 7383-5 #### [facility] CLIA [id number] [address] [place] [address] [place] Nucleated RBC Auto (Bld) [#/ Vol]on 11-23-2024 Nucleated RBC (Bld) [#/Vol] Nucleated erythrocytes [#/volume] in Blood by Automated count <0.01 [facility] Nucleated erythrocytes [Pres ence] in Blood by Automated counton 11-23-2024 Nucleated RBC Auto Ql (Bld) Nucleated erythrocytes [Presence] in Blood by Automated count [facility] Platelet mean volume Auto (B ld) [Entitic vol]on 11-23-2024 Platelet mean volume (Bld) [Entitic vol] Platelet mean volume [Entitic volume] in Blood by Automated count 9.0-12.7 [facility] Platelets Auto (Bld) [#/Vol] on 11-23-2024 Platelets (Bld) [#/Vol] Platelets [#/vol ume] in Blood by Automated count Low 150-400 [facility] Protein [Mass/volume] in Ser um or Plasmaon 11-23-2024 Protein [Mass/Vol] Protein [Mass/volume] in Serum or Plasma 6.3-8.0 [facility] RBC Auto (Bld) [#/Vol]on RBC (Bld) [#/Vol] Erythrocytes [#/volume] in Blood by Automated count Low 3.90-5.20 [facility] Serum nuclear antibody titer on 11-23-2024 Nuclear Ab (S) [Titer] Serum nuclear antibody titer Negative [facility] Comment on above: The qualitative anti nuclear antibody screen test performed using the following antigens: dsDNA, Chromatin, Ribosomal P, SS-A 60, SS-A 52, SS-B, Sm, SmRNP, ENVIRONMENTAL CONSERVATION PROFESSOR A, ENVIRONMENTAL CONSERVATION PROFESSOR 68, Scl-70, Karen-1, and Centromere B. Methodology: Multiplex flow immunoassay. Serum or plasma anion gap de terminationon 11-23-2024 Anion gap [Moles/Vol] Serum or plasma anion gap determination 05-06 [facility] Vit B12 SerPl-ncon 025 Cobalamin (Vitamin B12) [Mass/Vol] 412 pg/mL Normal 232-1245 [facility] Comment on above: Order Comment: Speci men Type: BLOOD SPECIMEN Ordering Facility: [facility] Address: [address] [place] [address] Performed By: #### 5 0190-8, 2132-9, 2276-4, 2284-8 #### [facility] CLIA [id number] [address] [place] [address] [place] Basophils Auto (Bld) [#/Vol] on 11-10-2024 Basophils (Bld) [#/Vol] Automated basoph il count 0.0-0.1 [facility] Basophils/100 WBC Auto (Bld) on 11-10-2024 Basophils/100 WBC (Bld) Automated basophil % 0. 2-2.0 [facility] Eosinophils/100 WBC Auto (Bl d)on 11-10-2024 Eosinophils/100 WBC (Bld) Automated eosinophil % 0.9-7.0 [facility] Erythrocyte distribution wid th Auto (RBC) [Ratio]on 11-10-2024 Erythrocyte distribution width (RBC) [Ratio] Erythrocyte distribution width [Ratio] by Automated count 11.0-15.0 [facility] Hematocrit Auto (Bld) [Volum e fraction]on 11-10-2024 Hematocrit (Bld) [Volume fraction] Hematocrit [Volume Fraction] of Blood by Automated count 36.0-48.0 [facility] Hemoglobin [Mass/volume] in Bloodon 11-10-2024 Hemoglobin (Bld) [Mass/Vol] Hemoglobin [Mass/volume] in Blood 12.0-16.0 [facility] Laboratory - Hematology and Cell countson 11-10-2024 Immature granulocytes/100 WBC (Bld) 0.5 % 0.0-0.5 [facility] Leukocytes [#/volume] correc winter for nucleated erythrocytes in Blood by Automated counon 11-10-2024 WBC corrected for nucl RBC Auto (Bld) [#/Vol] Leukocytes [#/volume] corrected for nucleated erythrocytes in Blood by Automated coun 4.0-11.0 [facility] Lymphocytes Auto (Bld) [#/Vo l]on 11-10-2024 Lymphocytes (Bld) [#/Vol] Lymphocytes [#/volume] in Blood by Automated count Low 1.2-3.8 [facility] Lymphocytes/100 WBC Auto (Bl d)on 11-10-2024 Lymphocytes/100 WBC (Bld) Lymphocytes/100 leukocytes in Blood by Automated count Low 20.5-60.0 [facility] MCH Auto (RBC) [Entitic mass ]on 11-10-2024 MCH (RBC) [Entitic mass] MCH [Entitic ma ss] by Automated count 26.7-34.0 [facility] MCHC Auto (RBC) [Mass/Vol]on 11-10-2024 MCHC (RBC) [Mass/Vol] MCHC [Mass/volume] by Automated count 29.9-35.2 [facility] MCV Auto (RBC) [Entitic vol] on 11-10-2024 MCV (RBC) [Entitic vol] MCV [Entitic vol ume] by Automated count High 81.0-99.0 [facility] Monocytes Auto (Bld) [#/Vol] on 11-10-2024 Monocytes (Bld) [#/Vol] Automated blood monocyte count 0.3-0.8 [facility] Monocytes/100 WBC Auto (Bld) on 11-10-2024 Monocytes/100 WBC (Bld) Automated monocyte % 1. 7-12.0 [facility] Neutrophils Auto (Bld) [#/Vo l]on 11-10-2024 Neutrophils (Bld) [#/Vol] Neutrophils [#/volume] in Blood by Automated count 1.4-6.5 [facility] Neutrophils/100 WBC Auto (Bl d)on 11-10-2024 Neutrophils/100 WBC (Bld) Automated neutrophil % High 43.0-75.0 [facility] No Panel Informationon 11-10 Eosinophils # (Auto) 0.1 10 3/uL 0.0-0.7 [facility] Immature Granulocyte # (Auto) 0.03 10 3/uL 0.00-0.03 [facility] Platelet mean volume Auto (B ld) [Entitic vol]on 11-10-2024 Platelet mean volume (Bld) [Entitic vol] Platelet mean volume [Entitic volume] in Blood by Automated count 9.5-13.5 [facility] Platelets Auto (Bld) [#/Vol] on 11-10-2024 Platelets (Bld) [#/Vol] Platelets [#/vol ume] in Blood by Automated count Low 150-450 [facility] RBC Auto (Bld) [#/Vol]on RBC (Bld) [#/Vol] Erythrocytes [#/volume] in Blood by Automated count Low 4.20-5.40 [facility] X-ray reportOrdered By: Marvin Steinberg on 10-18-2024 Study report [facility] [place] [facility] [address] [facility] [place] [address] XRay Report Signed Patient: Serenity Bustillo MR#: [id number] : 1950 Acct:[id number] Age/Sex: 74 / F ADM Date: 5 Loc: [facility] Room: Type: [facility] CLI Attending Dr: Felipe Akbar MD Copies [...] DO 10/18/24 1605 Signed By: 10/18/24 1607 [facility] XR knee LT 3V - NOT FOR ER U Shyann 10-18-2024 XR knee LT 3V - NOT FOR ER USE [facility] [place] [facility] [address] [place] [address] XRay Report Signed Patient: Serenity Bustillo MR#: [id number] : 1950 Acct:[id number] Age/Sex: 74 / F ADM Date: 10/18/24 Loc: [facility] [place] Room: Type: [facility] Attending Dr: Felipe Akbar MD Copies [...] 1605 Signed By: 10/18/24 1607 Normal [facility] - Chemistry and C hemistry - challengeon 08-16-2024 Cobalamin (Vitamin B12) [Mass/Vol] 437 pg/mL 232-1245 [facility] Comment on above: Performed at: - [address] [id number] Director: Rehan Matos PhD, Phone: [phone] TSH Qn 0.620 m[IU]/L 0.358-3.740 [facility] No Panel Informationon 08-16 Folate 9.10 ng/mL 8.60-58.90 [facility] Basophils Auto (Bld) [#/Vol] on 08-02-2024 Basophils (Bld) [#/Vol] Automated basoph il count 0.0-0.1 [facility] Basophils/100 WBC Auto (Bld) on 08-02-2024 Basophils/100 WBC (Bld) Automated basophil % 0. 2-2.0 [facility] Eosinophils/100 WBC Auto (Bl d)on 08-02-2024 Eosinophils/100 WBC (Bld) Automated eosinophil % 0.9-7.0 [facility] Erythrocyte distribution wid th Auto (RBC) [Ratio]on 08-02-2024 Erythrocyte distribution width (RBC) [Ratio] Erythrocyte distribution width [Ratio] by Automated count 11.0-15.0 [facility] Hematocrit Auto (Bld) [Volum e fraction]on 08-02-2024 Hematocrit (Bld) [Volume fraction] Hematocrit [Volume Fraction] of Blood by Automated count 36.0-48.0 [facility] Hemoglobin [Mass/volume] in Bloodon 08-02-2024 Hemoglobin (Bld) [Mass/Vol] Hemoglobin [Mass/volume] in Blood 12.0-16.0 [facility] Ramin 08-02-2024 L Specimen: [id number] Received: 08/03/24 Status: JOSE Barrett Num: [id number] Spec Type: Impression Subm Dr: Boy Anna DO Tissues: PATHPER Procedures: PATHREVIEW Age/ Patient Sex Location Account Attending Physician Serenity Bustillo 74/F LABELL [id number] Boy Anna DO SPEC NUM: [id number] RECD: 08/03/24 STATUS: JOSE HERNANDEZBrittany NUM: [id number] ZEHRA: 08/02/24- SUBM DR: Boy Anna DO ENTERED: 08/03/[address] [facility] DR: Zhane Alvarez SPEC TYPE: Impression DEPT: RHODA Garza ENTERED BY: [id number] RECV BY: [id number] ORDERED: PATHREVIEW ORDERED: PATHREVIEW Pathologist Review Abnormal [...] [id number] Received: 08/03/24 Status: JOSE Barrett Num: [id number] Spec Type: Impression Subm Dr: Boy Anna DO Tissues: PATHPER Procedures: PATHREVIEW Patient: Serenity Bustillo [id number] (Continued) Specimen: [id number] Received: 08/03/24 (Continued) Pathologist Review (Continued) Signed (signature on file) Reinier Contreras MD 08/08/24 1726 Specimen: [id number] Received: 08/03/24 Status: CONCEPCIÓNAnnemarie Barrett Num: [id number] Spec Type: Impression Subm Dr: Boy Anna DO Tissues: PATHPER Procedures: PATHREVIEW Patient: Serenity Bustillo [id number] (Continued) Specimen: [id number] Received: 08/03/24 (Continued) Pathologist [...] HIV infection, also requiring clinical correlation CPT: 34511 Specimen: [id number] Received: 08/03/24 Status: JOSE Arnold Num: [id number] Spec Type: Impression Subm Dr: Boy Anna DO Tissues: ZIYAD Procedures: PATHREVIEW Patient: Serenity Bustillo [id number] (Continued) Signed (signature on file) Reinier Contreras MD 08/08/24 1726 Normal [facility] - Hematology and Cell countson 08-02-2024 Immature granulocytes/100 WBC (Bld) 0.6 % High 0.0-0.5 [facility] Leukocytes [#/volume] correc winter for nucleated erythrocytes in Blood by Automated counon 08-02-2024 WBC corrected for nucl RBC Auto (Bld) [#/Vol] Leukocytes [#/volume] corrected for nucleated erythrocytes in Blood by Automated coun 4.0-11.0 [facility] Lymphocytes Auto (Bld) [#/Vo l]on 08-02-2024 Lymphocytes (Bld) [#/Vol] Lymphocytes [#/volume] in Blood by Automated count Low 1.2-3.8 [facility] Lymphocytes/100 WBC Auto (Bl d)on 08-02-2024 Lymphocytes/100 WBC (Bld) Lymphocytes/100 leukocytes in Blood by Automated count Low 20.5-60.0 [facility] MCH Auto (RBC) [Entitic mass ]on 08-02-2024 MCH (RBC) [Entitic mass] MCH [Entitic ma ss] by Automated count 26.7-34.0 [facility] MCHC Auto (RBC) [Mass/Vol]on 08-02-2024 MCHC (RBC) [Mass/Vol] MCHC [Mass/volume] by Automated count 29.9-35.2 [facility] MCV Auto (RBC) [Entitic vol] on 08-02-2024 MCV (RBC) [Entitic vol] MCV [Entitic vol ume] by Automated count High 81.0-99.0 [facility] Monocytes Auto (Bld) [#/Vol] on 08-02-2024 Monocytes (Bld) [#/Vol] Automated blood monocyte count 0.3-0.8 [facility] Monocytes/100 WBC Auto (Bld) on 08-02-2024 Monocytes/100 WBC (Bld) Automated monocyte % 1. 7-12.0 [facility] Neutrophils Auto (Bld) [#/Vo l]on 08-02-2024 Neutrophils (Bld) [#/Vol] Neutrophils [#/volume] in Blood by Automated count 1.4-6.5 [facility] Neutrophils/100 WBC Auto (Bl d)on 08-02-2024 Neutrophils/100 WBC (Bld) Automated neutrophil % High 43.0-75.0 [facility] No Panel Informationon 08-02 Add Manual Differential See comment [facility] Comment on above: SEE SCANNED REPORT Eosinophils # (Auto) 0.2 10 3/uL 0.0-0.7 [facility] [place] Immature Granulocyte # (Auto) 0.04 10 3/uL High 0.00-0.03 [facility] Platelet mean volume Auto (B ld) [Entitic vol]on 08-02-2024 Platelet mean volume (Bld) [Entitic vol] Platelet mean volume [Entitic volume] in Blood by Automated count 9.5-13.5 [facility] Platelets Auto (Bld) [#/Vol] on 08-02-2024 Platelets (Bld) [#/Vol] Platelets [#/vol ume] in Blood by Automated count Low 150-450 [facility] RBC Auto (Bld) [#/Vol]on RBC (Bld) [#/Vol] Erythrocytes [#/volume] in Blood by Automated count Low 4.20-5.40 [facility] Optical coherence tomography study reporton 07-07-2024 [facility] Study observation (narrative) [facility] Basophils Auto (Bld) [#/Vol] on 05-10-2024 Basophils (Bld) [#/Vol] 0.0 10 3/uL 0.0-0.1 [facility] Basophils (Bld) [#/Vol] Automated basoph il count 0.0-0.1 [facility] Basophils/100 WBC Auto (Bld) on 05-10-2024 Basophils/100 WBC (Bld) 1.0 % 0.2-2.0 [facility] Basophils/100 WBC (Bld) Automated basophil % 0. 2-2.0 [facility] Cholesterol in LDL Calc [Mas s/Vol]on 05-10-2024 Cholesterol in LDL [Mass/Vol] 68.2 mg/dL [facility] Comment on above: <100 mg/dl [id number] 0-129 mg/dl NEAR OR ABOVE [id number] mg/dl BORDERLINE [id number] mg/dl HIGH>190 mg/dl VERY HIGH Cholesterol in LDL [Mass/Vol] Cholesterol in LDL [Mass/volume] in Serum or Plasma by calculation [facility] Comment on above: <100 mg/dl [id number] 0-129 mg/dl NEAR OR ABOVE [id number] mg/dl BORDERLINE [id number] mg/dl HIGH>190 mg/dl VERY HIGH Cholesterol in VLDL Calc [Ma ss/Vol]on 05-10-2024 Cholesterol in VLDL [Mass/Vol] 10.8 mg/dL [facility] Cholesterol in VLDL [Mass/Vol] Cholesterol in VLDL [Mass/volume] in Serum or Plasma by calculation [facility] Eosinophils/100 WBC Auto (Bl d)on 05-10-2024 Eosinophils/100 WBC (Bld) 3.8 % 0.9-7.0 [facility] Eosinophils/100 WBC (Bld) Automated eosinophil % 0.9-7.0 [facility] Erythrocyte distribution wid th Auto (RBC) [Ratio]on 05-10-2024 Erythrocyte distribution width (RBC) [Ratio] 13.2 % 11.0-15.0 [facility] Erythrocyte distribution width (RBC) [Ratio] Erythrocyte distribution width [Ratio] by Automated count 11.0-15.0 [facility] Estimated glomerular filtrat ion rate (GFR) non- Americanon 05-10-2024 GFR/1.73 sq M.predicted among non-blacks MDRD (S/P/Bld) [Vol rate/Area] mL/min/{1.73_m2} >=60 [facility] GFR/1.73 sq M.predicted among non-blacks MDRD (S/P/Bld) [Vol rate/Area] Estimated glomerular filtration rate (GFR) non- >=60 [facility] Globulin Calc (S) [Mass/Vol] on 05-10-2024 Globulin (S) [Mass/Vol] 3.6 g/dL [facility] Globulin (S) [Mass/Vol] Serum globulin measurement by calculation (mass/volume) [facility] Glucose mean value [Mass/vol ume] in Blood Estimated from glycated hemoglobinon 05-10-2024 Average glucose Estimated from glycated hemoglobin (Bld) [Mass/Vol] 103 mg/dL [facility] Average glucose Estimated from glycated hemoglobin (Bld) [Mass/Vol] Glucose mean value [Mass/volume] in Blood Estimated from glycated hemoglobin [facility] Hematocrit Auto (Bld) [Volum e fraction]on 05-10-2024 Hematocrit (Bld) [Volume fraction] 37.9 % 36.0-48.0 [facility] Hematocrit (Bld) [Volume fraction] Hematocrit [Volume Fraction] of Blood by Automated count 36.0-48.0 [facility] Hemoglobin [Mass/volume] in Bloodon 05-10-2024 Hemoglobin (Bld) [Mass/Vol] 12.7 g/dL 12.0-16.0 [facility] Hemoglobin (Bld) [Mass/Vol] Hemoglobin [Mass/volume] in Blood 12.0-16.0 [facility] Laboratory - Chemistry and C hemistry - challengeon 05-10-2024 Albumin [Mass/Vol] 3.2 g/dL Low 3.4-5.0 [facility] ALP [Catalytic activity/Vol] 79 U/L 46-116 [facility] ALT [Catalytic activity/Vol] 19 U/L 14-59 [facility] AST [Catalytic activity/Vol] 15 U/L 15-37 [facility] Bilirubin [Mass/Vol] 0.7 mg/dL 0.2-1.0 [facility] Calcium [Mass/Vol] 9.0 mg/dL 8.5-10.1 [facility] Chloride [Moles/Vol] 105 mmol/L 98-107 [facility] Cholesterol [Mass/Vol] 139 mg/dL <=200 [facility] Cholesterol in HDL [Mass/Vol] 60 mg/dL 40-60 [facility] Comment on above: > or =60 mg/dl - LOW CARDIOVASCULAR RISK<40 mg/dl - HIGH CARDIOVASCULAR RISK CO2 [Moles/Vol] 28.5 mmol/L 21.0-32.0 [facility] Creatinine [Mass/Vol] 0.77 mg/dL 0.55-1.02 [facility] GFR/1.73 sq M.predicted MDRD (S/P/Bld) [Vol rate/Area] mL/min/{1.73_m2} >=60 [facility] Glucose [Mass/Vol] 95 mg/dL 74-106 [facility] Potassium [Moles/Vol] 3.7 mmol/L 3.5-5.1 [facility] Protein [Mass/Vol] 6.8 g/dL 6.4-8.2 [facility] Sodium [Moles/Vol] 141 mmol/L 136-145 [facility] Triglyceride [Mass/Vol] 54 mg/dL <=150 [facility] TSH Qn 0.967 m[IU]/L 0.358-3.740 [facility] Urea nitrogen [Mass/Vol] 14.0 mg/dL 7.0-18.0 [facility] Urea nitrogen/Creatinine [Mass ratio] 18.2 mg/mg [facility] Laboratory - Hematology and Cell countson 05-10-2024 HbA1c (Bld) [Mass fraction] 5.2 % 4.5-6.2 [facility] Comment on above: ADA RECOMMENDED LIMI T 4.0 - 6.0ADA THERAPEUTIC TARGET < 7.0ACTION SUGGESTED> 7.0 Immature granulocytes/100 WBC (Bld) 0.5 % 0.0-0.5 [facility] Leukocytes [#/volume] correc winter for nucleated erythrocytes in Blood by Automated counon 05-10-2024 WBC corrected for nucl RBC Auto (Bld) [#/Vol] 3.9 10 3/uL Low 4.0-11.0 [facility] WBC corrected for nucl RBC Auto (Bld) [#/Vol] Leukocytes [#/volume] corrected for nucleated erythrocytes in Blood by Automated coun Low 4.0-11.0 [facility] Lymphocytes Auto (Bld) [#/Vo l]on 05-10-2024 Lymphocytes (Bld) [#/Vol] 0.8 10 3/uL Low 1.2-3.8 [facility] Lymphocytes (Bld) [#/Vol] Lymphocytes [#/volume] in Blood by Automated count Low 1.2-3.8 [facility] Lymphocytes/100 WBC Auto (Bl d)on 05-10-2024 Lymphocytes/100 WBC (Bld) 20.2 % Low 20.5-60.0 [facility] Lymphocytes/100 WBC (Bld) Lymphocytes/100 leukocytes in Blood by Automated count Low 20.5-60.0 [facility] MCH Auto (RBC) [Entitic mass ]on 05-10-2024 MCH (RBC) [Entitic mass] 33.2 pg 26.7-34.0 [facility] MCH (RBC) [Entitic mass] MCH [Entitic ma ss] by Automated count 26.7-34.0 [facility] MCHC Auto (RBC) [Mass/Vol]on 05-10-2024 MCHC (RBC) [Mass/Vol] 33.5 g/dL 29.9-35.2 [facility] [place] MCHC (RBC) [Mass/Vol] MCHC [Mass/volume] by Automated count 29.9-35.2 [facility] MCV Auto (RBC) [Entitic vol] on 05-10-2024 MCV (RBC) [Entitic vol] 99.2 fL High 81.0-99.0 [facility] MCV (RBC) [Entitic vol] MCV [Entitic vol ume] by Automated count High 81.0-99.0 [facility] Monocytes Auto (Bld) [#/Vol] on 05-10-2024 Monocytes (Bld) [#/Vol] 0.2 10 3/uL Low 0.3-0.8 [facility] Monocytes (Bld) [#/Vol] Automated blood monocyte count Low 0.3-0.8 [facility] Monocytes/100 WBC Auto (Bld) on 05-10-2024 Monocytes/100 WBC (Bld) 5.1 % 1.7-12.0 [facility] Monocytes/100 WBC (Bld) Automated monocyte % 1. 7-12.0 [facility] Neutrophils Auto (Bld) [#/Vo l]on 05-10-2024 Neutrophils (Bld) [#/Vol] 2.7 10 3/uL 1.4-6.5 [facility] Neutrophils (Bld) [#/Vol] Neutrophils [#/volume] in Blood by Automated count 1.4-6.5 [facility] Neutrophils/100 WBC Auto (Bl d)on 05-10-2024 Neutrophils/100 WBC (Bld) 69.4 % 43.0-75.0 [facility] Neutrophils/100 WBC (Bld) Automated neutrophil % 43.0-75.0 [facility] No Panel Informationon 05-10 Eosinophils # (Auto) 0.2 10 3/uL 0.0-0.7 [facility] Immature Granulocyte # (Auto) 0.02 10 3/uL 0.00-0.03 [facility] Platelet mean volume Auto (B ld) [Entitic vol]on 05-10-2024 Platelet mean volume (Bld) [Entitic vol] 12.7 fL 9.5-13.5 [facility] Platelet mean volume (Bld) [Entitic vol] Platelet mean volume [Entitic volume] in Blood by Automated count 9.5-13.5 [facility] Platelets Auto (Bld) [#/Vol] on 05-10-2024 Platelets (Bld) [#/Vol] 110 10 3/uL Low 150-450 [facility] Platelets (Bld) [#/Vol] Platelets [#/vol ume] in Blood by Automated count Low 150-450 [facility] RBC Auto (Bld) [#/Vol]on RBC (Bld) [#/Vol] 3.82 10 6/uL Low 4.20-5.40 [facility] RBC (Bld) [#/Vol] Erythrocytes [#/volume] in Blood by Automated count Low 4.20-5.40 [facility] Serum or plasma albumin/glob ulin mass ratioon 05-10-2024 Albumin/Globulin [Mass ratio] 0.9 {ratio} [facility] Albumin/Globulin [Mass ratio] Serum or plasma albumin/globulin mass ratio [facility] Serum or plasma anion gap de terminationon 05-10-2024 Anion gap [Moles/Vol] 11.2 mmol[facility] Anion gap [Moles/Vol] Serum or plasma anion gap determination [facility] Serum or plasma total choles terol/high density lipoprotein (HDL) cholesterol mass jovanny 05-10-2024 Cholesterol.total/Choles terol in HDL [Mass ratio] 2.3 {ratio} [facility] Comment on above: 3.3 - 4.4 LOW RISK4. 4 - 7.1 AVERAGE RISK7.1 - 11.0 MODERATE RISK>11.0 HIGH RISK Cholesterol.total/Choles terol in HDL [Mass ratio] Serum or plasma total cholesterol/high density lipoprotein (HDL) cholesterol mass [facility] Comment on above: 3.3 - 4.4 LOW RISK4. 4 - 7.1 AVERAGE RISK7.1 - 11.0 MODERATE RISK>11.0 HIGH RISK CBC AUTO DIFFon 11-20-2021 BASO # 0.0 103/ul Normal 0.0-0.1 [facility] Comment on above: Performed By: #### D ATCBC #### [facility] [address] [place] [address] Dr. Tatiana Contreras Basophils/100 WBC (Bld) 0.6 % Normal 0.2-2.0 [facility] Comment on above: Performed By: #### D ATCBC #### [facility] [address] [address] [address] Tatiana Contreras EO # 0.2 103/ul Normal 0.0-0.7 [facility] Comment on above: Performed By: #### D ATCBC #### [facility] [address] [address] [address] Tatiana Contreras Eosinophils/100 WBC (Bld) 5.2 % Normal 0.9-7.0 [facility] Comment on above: Performed By: #### D ATCBC #### [facility] [address] [address] [address] Tatiana Contreras Erythrocyte distribution width (RBC) [Ratio] 13.8 % Normal 11.0-15.0 [facility] Comment on above: Performed By: #### D ATCBC #### [facility] [address] [place] [address] Dr. Tatiana Contreras Hematocrit (Bld) [Volume fraction] 41.7 % Normal 36.0-48.0 [facility] Comment on above: Performed By: #### D ATCBC #### [facility] [address] [address] [address] Tatiana Contreras Hemoglobin (Bld) [Mass/Vol] 13.7 g/dL Normal 12.0-16.0 [facility] Comment on above: Performed By: #### D ATCBC #### [facility] [address] [place] [address] Dr. Tatiana Contreras IG # 0.02 10e3/ul Normal 0.00-0.03 [facility] Comment on above: Performed By: #### D ATCBC #### [facility] [address] [place] [address] Dr. Tatiana Contreras IG % 0.4 % Normal 0.0-0.5 [facility] Comment on above: Performed By: #### D ATCBC #### [facility] [address] [place] [address] Dr. Tatiana Contreras LYMPH # 0.7 103/ul Critically low 1.2-3.8 [facility] Comment on above: Performed By: #### D ATCBC #### [facility] [address] [place] [address] Dr. Tatiana Contreras Lymphocytes/100 WBC (Bld) 15.6 % Critically low 20.5-60.0 [facility] Comment on above: Performed By: #### D ATCBC #### [facility] [address] [place] [address] Dr. Tatiana Contreras MCH (RBC) [Entitic mass] 31.4 pg Normal 26.7-34.0 [facility] Comment on above: Performed By: #### D ATCBC #### [facility] [address] [place] [address] Dr. Tatiana Contreras MCHC (RBC) [Mass/Vol] 32.9 g/dL Normal 29.9-35.2 [facility] Comment on above: Performed By: #### D ATCBC #### [facility] [address] [place] [address] Dr. Tatiana Contreras MCV (RBC) [Entitic vol] 95.6 fL Normal 81.0-99.0 [facility] Comment on above: Performed By: #### D ATCBC #### [facility] [address] [place] [address] Dr. Tatiana Contreras MONO # 0.3 103/ul Normal 0.3-0.8 [facility] Comment on above: Performed By: #### D ATCBC #### [facility] [address] [place] [address] Dr. Tatiana Contreras Monocytes/100 WBC (Bld) 5.8 % Normal 1.7-12.0 [facility] Comment on above: Performed By: #### D ATCBC #### [facility] [address] [place] [address] Dr. Tatiana Contreras NEUT # 3.4 103/ul Normal 1.4-6.5 [facility] Comment on above: Performed By: #### D ATCBC #### [facility] [address] [place] [address] Dr. Tatiana Contreras Neutrophils/100 WBC (Bld) 72.4 % Normal 43.0-75.0 [facility] Comment on above: Performed By: #### D ATCBC #### [facility] [address] [place] [address] Dr. Tatiana Contreras Platelet mean volume (Bld) [Entitic vol] 12.4 fL Normal 9.5-13.5 [facility] Comment on above: Performed By: #### D ATCBC #### [facility] [address] [place] [address] Dr. Tatiana Contreras PLT 109 103/ul Critically low 150-450 [facility] Comment on above: Performed By: #### D ATCBC #### [facility] [address] [place] [address] Dr. Tatiana Contreras RBC 4.36 106/ul Normal 4.20-5.40 [facility] Comment on above: Performed By: #### D ATCBC #### [facility] [address] [place] [address] Dr. Tatiana Contreras WBC 4.6 103/ul Normal 4.0-11.0 [facility] Comment on above: Performed By: #### D ATCBC #### [facility] [address] [place] [address] Dr. Tatiana Contreras ADALID - TSHon 11-20-2021 TSH 1.795 uIU/mL Normal 0.470-4.680 [facility] Comment on above: Performed By: #### D ATTSH, DATBMP #### [facility] [address] [place] [address] Dr. Tatiana Contreras TSH RANGE SEE BELOW Normal [facility] Comment on above: Result Comment: <0.3 4 UIU/ml HYPERTHYROID 0.34-5.60 UIU/ml EUTHYROID >5.60 UIU/ml HYPOTHYROID Performed By: #### D ATTSH, DATBMP #### [facility] [address] [place] [address] Dr. Tatiana Contreras ADALID- BMP WITH LIPIDon 2021 Anion gap [Moles/Vol] 9.3 mmol/L Normal [facility] Comment on above: Performed By: #### D ATTSH, DATBMP #### [facility] [address] [place] [address] Dr. Tatiana Contreras Calcium [Mass/Vol] 8.7 mg/dL Normal 8.4-10.2 [facility] Comment on above: Performed By: #### D ATTSH, DATBMP #### [facility] [address] [place] [address] Dr. Tatiana Contreras Chloride [Moles/Vol] 103 mmol/L Normal 98-107 [facility] Comment on above: Performed By: #### D ATTSH, DATBMP #### [facility] [address] [place] [address] Dr. Tatiana Contreras Cholesterol [Mass/Vol] 123 mg/dL Normal <=200 [facility] Comment on above: Performed By: #### D ATTSH, DATBMP #### [facility] [address] [place] [address] Dr. Tatiana Contreras Cholesterol in HDL [Mass/Vol] 64 mg/dL Normal [facility] Comment on above: Performed By: #### D ATTSH, DATBMP #### [facility] [address] [address] [address] Tatiana Contreras Cholesterol in LDL [Mass/Vol] 50.0 mg/dL Normal [facility] Comment on above: Performed By: #### D ATTSH, DATBMP #### [facility] [address] [address] [address] Tatiana Contreras CO2 [Moles/Vol] 29.7 mmol/L Normal 22.0-30.0 [facility] Comment on above: Performed By: #### D ATTSH, DATBMP #### [facility] [address] [place] [address] Dr. Tatiana Contreras Creatinine [Mass/Vol] 0.88 mg/dL Normal 0.52-1.04 [facility] Comment on above: Performed By: #### D ATTSH, DATBMP #### [facility] [address] [place] [address] Dr. Tatiana Contreras EGFR-AF RUSSIAN >60 Normal >=60 [facility] Comment on above: Performed By: #### D ATTSH, DATBMP #### [facility] [address] [place] [address] Dr. Tatiana Contreras EGFR-NON AF RUSSIAN >60 Normal >=60 [facility] Comment on above: Performed By: #### D ATTSH, DATBMP #### [facility] [address] [address] [address] Tatiana Contreras Glucose [Mass/Vol] 101 mg/dL Normal 74-106 [facility] Comment on above: Performed By: #### D ATTSH, DATBMP #### [facility] [address] [place] [address] Dr. Tatiana Contreras HDL NORMAL > or = 60 mg/dl - LOW CARDIOVASCULAR RISK <40 mg/dl - HIGH CARDIOVASCULAR RISK Normal [facility] Comment on above: Performed By: #### D ATTSH, DATBMP #### [facility] [address] [place] [address] Dr. Tatiana Contreras LDL CALC NORMAL SEE BELOW Normal [facility] Comment on above: Result Comment: <100 mg/dl OPTIMAL 100 - 129 mg/dl NEAR OR ABOVE OPTIMAL 130 - 159 mg/dl BORDERLINE HIGH 160 - 189 mg/dl HIGH >190 mg/dl VERY HIGH Performed By: #### D ATTSH, DATBMP #### [facility] [address] [address] [address] Tatiana Contreras Potassium [Moles/Vol] 4.0 mmol/L Normal 3.4-5.0 [facility] Comment on above: Performed By: #### D ATTSH, DATBMP #### [facility] [address] [address] [address] Tatiana Contreras Sodium [Moles/Vol] 138 mmol/L Normal 137-145 [facility] Comment on above: Performed By: #### D ATTSH, DATBMP #### [facility] [address] [address] [address] Tatiana Contreras Triglyceride [Mass/Vol] 45 mg/dL Normal <=150 [facility] Comment on above: Performed By: #### D ATTSH, DATBMP #### [facility] [address] [address] [address] Tatiana Contreras Urea nitrogen [Mass/Vol] 18.0 mg/dL Critically high 7.0-17 .0 [facility] Comment on above: Performed By: #### D ATTSH, DATBMP #### [facility] [address] [address] [address] Tatiana Contreras Urea nitrogen/Creatinine [Mass ratio] 20.5 mg/mg Normal [facility] Comment on above: Performed By: #### D ATTSH, DATBMP #### [facility] [address] [address] [address] Tatiana Contreras VLDL CALC 9.0 mg/dL Normal [facility] Comment on above: Performed By: #### D ATTSH, DATBMP #### [facility] [address] [address] [address] Tatiana Contreras LIVER PROFILEon 11-20-2021 Albumin [Mass/Vol] 3.4 g/dL Critically low 3.5-5.0 Th e [facility] Comment on above: Performed By: #### L IVER #### [facility] [address] [place] [address] Dr. Tatiana Contreras Albumin/Globulin [Mass ratio] 0.9 {ratio} Normal [facility] Comment on above: Performed By: #### L IVER #### [facility] [address] [address] [address] Tatiana Contreras ALP [Catalytic activity/Vol] 94 U/L Normal 38-126 [facility] Comment on above: Performed By: #### L IVER #### [facility] [address] [place] [address] Dr. Tatiana Contreras ALT [Catalytic activity/Vol] 28 U/L Normal 9-52 [facility] Comment on above: Performed By: #### L IVER #### [facility] [address] [place] [address] Dr. Tatiana Contreras AST [Catalytic activity/Vol] 18 U/L Normal 14-36 [facility] Comment on above: Performed By: #### L IVER #### [facility] [address] [place] [address] Dr. Tatiana Contreras BILI, CONJUGATED 0.2 mg/dL Normal 0.0-0.3 [facility] Comment on above: Performed By: #### L IVER #### [facility] [address] [place] [address] Dr. Tatiana Contreras Bilirubin [Mass/Vol] 0.6 mg/dL Normal 0.2-1.3 [facility] Comment on above: Performed By: #### L IVER #### [facility] [address] [address] [address] Tatiana Contreras Globulin (S) [Mass/Vol] 3.9 g/dL Normal T [facility] Comment on above: Performed By: #### L IVER #### [facility] [address] [place] [address] Dr. Tatiana Contreras Protein [Mass/Vol] 7.3 g/dL Normal 6.1-8.2 [facility] Comment on above: Performed By: #### L MAYELA #### [facility] [address] [place] [address] Dr. Tatiana Contreras Vital Signs Date Time Vital Sign Value Performing Clinician Catracho knowles 06-02-2025 09:35-0400 Body height 160.02 cm Boy Ball DO Work Phone: [facility] 06-02-2025 09:35-0400 Body mass index (BMI) [Ratio] 35.1 kg/m2 Boy Ball DO Work Phone: [facility] 06-02-2025 09:35-0400 Body weight 89.92 kg Boy Ball DO Work Phone: [facility] 06-02-2025 09:35-0400 Diastolic blood pressure 78 mm[Hg] Boy Ball DO Work Phone: [facility] 06-02-2025 09:35-0400 Heart rate 79 /min Boy Ball DO Work Phone: [facility] 06-02-2025 09:35-0400 Respiratory rate 12 /min Boy Ball DO Work Phone: [facility] 06-02-2025 09:35-0400 Systolic blood pressure 118 mm[Hg] Boy Ball DO Work Phone: [facility] 05-20-2025 10:16-0400 Body height 165.1 cm Junior Bravo MD Work Phone: [facility] 05-20-2025 10:16-0400 Body mass index (BMI) [Ratio] 33.82 kg/m2 Junior Bravo MD Work Phone: [facility] 05-20-2025 10:16-0400 Body temperature 97.7 [degF] Junior Bravo MD Work Phone: [facility] 05-20-2025 10:16-0400 Body weight 92.2 kg Junior Bravo MD Work Phone: [facility] 05-20-2025 10:16-0400 Diastolic blood pressure 87 mm[Hg] Junior Bravo MD Work Phone: [facility] 05-20-2025 10:16-0400 Heart rate 86 /min Junior Bravo MD Work Phone: [facility] 05-20-2025 10:16-0400 Respiratory rate 16 /min Junior Bravo MD Work Phone: [facility] 05-20-2025 10:16-0400 SaO2% (BldA) [Mass fraction] 97 % Junior Bravo MD Work Phone: [facility] 05-20-2025 10:16-0400 Systolic blood pressure 134 mm[Hg] Junior Bravo MD Work Phone: [facility] 11-23-2024 10:49-0500 Body mass index (BMI) [Ratio] 34.85 kg/m2 Junior Bravo MD Work Phone: [facility] 11-23-2024 10:49-0500 Body temperature 97.59 [degF] Junior Bravo MD Work Phone: [facility] 11-23-2024 10:49-0500 Body weight 95 kg Junior Bravo MD Work Phone: [facility] 11-23-2024 10:49-0500 Diastolic blood pressure 85 mm[Hg] Junior Bravo MD Work Phone: [facility] 11-23-2024 10:49-0500 Heart rate 85 /min Junior Bravo MD Work Phone: [facility] 11-23-2024 10:49-0500 Respiratory rate 16 /min Junior Bravo MD Work Phone: [facility] 11-23-2024 10:49-0500 SaO2% (BldA) [Mass fraction] 96 % Junior Bravo MD Work Phone: [facility] 11-23-2024 10:49-0500 Systolic blood pressure 126 mm[Hg] Junior Bravo MD Work Phone: [facility] 06-07-2024 14:31-0400 Body height 160.02 cm [facility] 06-07-2024 14:31-0400 Body mass index (BMI) [Ratio] 36.9 kg/m2 [facility] 06-07-2024 14:31-0400 Body weight 94.51 kg [facility] 06-07-2024 14:31-0400 Diastolic blood pressure 84 mm[Hg] [facility] 06-07-2024 14:31-0400 Heart rate 89 /min [facility] 06-07-2024 14:31-0400 Respiratory rate 12 /min [facility] 06-07-2024 14:31-0400 Systolic blood pressure 142 mm[Hg] [facility] 04-13-2024 09:14-0400 Body height 160.02 cm [facility] 04-13-2024 09:14-0400 Body mass index (BMI) [Ratio] 37.5 kg/m2 [facility] 04-13-2024 09:14-0400 Body weight 96.27 kg [facility] 04-13-2024 09:14-0400 Diastolic blood pressure 80 mm[Hg] [facility] 04-13-2024 09:14-0400 Heart rate 90 /min [facility] 04-13-2024 09:14-0400 Respiratory rate 12 /min [facility] 04-13-2024 09:14-0400 Systolic blood pressure 125 mm[Hg] [facility] 02-17-2024 15:05-0400 Body height 160.02 cm [facility] 02-17-2024 15:05-0400 Body mass index (BMI) [Ratio] 38.9 kg/m2 [facility] 02-17-2024 15:05-0400 Body weight 99.79 kg [facility] 02-17-2024 15:05-0400 Diastolic blood pressure 87 mm[Hg] [facility] 02-17-2024 15:05-0400 Heart rate 82 /min [facility] 02-17-2024 15:05-0400 Respiratory rate 12 /min [facility] 02-17-2024 15:05-0400 Systolic blood pressure 126 mm[Hg] [facility] 04-03-2023 08:30-0400 Body height 160.02 cm Boy Anna Other [facility] [employer] Other 04-03-2023 08:30-0400 Body mass index (BMI) [Ratio] 38.65 kg/m2 Boy Ball Other [employer] Other 04-03-2023 08:30-0400 Body weight 98.98 kg Boy Wilfrido Other [employer] Other 04-03-2023 08:30-0400 Diastolic blood pressure 84 mm[Hg] Boy Wilfrido Other [employer] Other 04-03-2023 08:30-0400 Systolic blood pressure 129 mm[Hg] Boy Ball Other [employer] Other Encounters Encounter Date Encounter Type Care Provider Facility Start: 06-02-2025 End: 06-02-2025 ambulatory Boy Ball DO Work Phone: [facility] Work Phone: Start: 06-02-2025 End: 06-02-2025 Patient encounter procedure Boy Ball DO -[facility] Work Phone: Start: 06-01-2025 End: 06-01-2025 ambulatory Boy Ball DO Work Phone: [facility] Work Phone: Start: 06-01-2025 End: 06-01-2025 Patient encounter procedure Felipe Garza MD -[facility] Work Phone: Start: 05-25-2025 Non-patient / Non-visit Felipe Garza MD -[facility] Work Phone: Start: 05-25-2025 End: 05-25-2025 ambulatory Boy Ball DO Work Phone: [facility] Work Phone: Start: 05-25-2025 End: 05-25-2025 Patient encounter procedure Felipe Garza MD -[facility] Work Phone: Start: 05-20-2025 End: 05-20-2025 Office outpatient visit 15 minutes Junior Bravo MD Work Phone: Hematology/Oncology Comment on above: Thrombocytopenia (Pr imary Dx) Start: 05-20-2025 Non-patient / Non-visit Junior Bravo MD -[facility] Work Phone: Start: 05-20-2025 End: 05-20-2025 ambulatory JUNIOR BRAVO Facility:[facility] Start: 05-16-2025 End: 05-16-2025 Telephone encounter Junior Bravo MD Work Phone: Hematology/Oncology Comment on above: Lab Orders Start: 05-10-2025 End: 05-10-2025 ambulatory Boy Ball DO Work Phone: [facility] Work Phone: Start: 05-10-2025 End: 05-10-2025 Patient encounter procedure Felipe Garza MD -[facility] Work Phone: Start: 01-31-2025 End: 01-31-2025 ambulatory [facility] Work Phone: Start: 01-31-2025 End: 01-31-2025 Patient encounter procedure [facility] Work Phone: Start: 01-13-2025 End: 01-13-2025 ambulatory Boy Ball DO Work Phone: [facility] Work Phone: Start: 01-13-2025 End: 01-13-2025 Patient encounter procedure Boy Ball DO Work Phone: [facility] Work Phone: Start: 12-22-2024 End: 12-22-2024 Bamboo flowsheet Fannie Mistry DO Work Phone: [facility] Start: 12-22-2024 End: 12-22-2024 Bamboo flowsheet Fannie Maloneer DO Work Phone: [facility] Start: 12-22-2024 End: 12-22-2024 ambulatory FANNIE MISTRY Not Available Start: 12-06-2024 End: 12-06-2024 ambulatory Boy Ball DO Work Phone: [facility] Work Phone: Start: 12-06-2024 End: 12-06-2024 Patient encounter procedure Boy Anna DO Work Phone: [facility] Work Phone: Start: 11-24-2024 End: 11-24-2024 Telephone encounter Junior Bravo MD Work Phone: [facility] Start: 11-23-2024 Non-patient / Non-visit Benjam in Ball DO Work Phone: [facility] Work Phone: Start: 11-23-2024 End: 11-23-2024 ambulatory BOY ANNA Facility:[facility] Start: 11-23-2024 End: 11-23-2024 Office outpatient new 45 minutes Junior Bravo MD Work Phone: Hematology/Oncology Comment on above: Thrombocytopenia (HC C) (Primary Dx) Start: 11-22-2024 End: 11-22-2024 Chart abstracting Junior Bravo MD Work Phone: Hematology/Oncology Start: 11-10-2024 Non-patient / Non-visit Benjam in Ball DO Work Phone: [facility] Work Phone: Start: 10-18-2024 End: 10-18-2024 ambulatory Byo Ball DO Work Phone: [facility] Work Phone: Start: 10-18-2024 End: 10-18-2024 Patient encounter procedure Boy Ball DO Work Phone: [facility] Work Phone: Start: 10-11-2024 Non-patient / Non-visit Benjam in Ball DO Work Phone: [facility] Work Phone: Start: 10-11-2024 End: 10-11-2024 ambulatory Boy Ball DO Work Phone: [facility] Work Phone: Start: 10-11-2024 End: 10-11-2024 Patient encounter procedure Boy Ball DO Work Phone: [facility] Work Phone: Start: 09-02-2024 End: 09-02-2024 Patient encounter procedure Boy Ball DO Work Phone: [facility] Work Phone: Start: 08-18-2024 End: 08-18-2024 Bamboo flowsheet Fannie Mistry DO Work Phone: [facility] Start: 08-18-2024 End: 08-18-2024 Bamboo flowsheet Fannie Mistry DO Work Phone: [facility] Start: 08-18-2024 End: 08-18-2024 ambulatory FANNIE MISTRY Not Available Start: 08-16-2024 Non-patient / Non-visit Benjam in Ball DO Work Phone: [facility] Work Phone: Start: 08-02-2024 End: 08-02-2024 ambulatory Boy Ball DO Work Phone: [facility] Work Phone: Start: 08-02-2024 End: 08-02-2024 Departed Referred Boy Ball DO Work Phone: [facility] Start: 08-02-2024 Non-patient / Non-visit Benjam in Ball DO Work Phone: [facility] Work Phone: Start: 07-07-2024 End: 07-07-2024 Bamboo flowsheet Fannie Maloneer DO Work Phone: [facility] Start: 07-07-2024 End: 07-07-2024 Bamboo flowsheet Fannie Maloneer DO Work Phone: [facility] Start: 07-07-2024 End: 07-07-2024 ambulatory FANNIE MISTRY Not Available Start: 06-07-2024 End: 06-07-2024 ambulatory [facility] Work Phone: Start: 06-07-2024 End: 06-07-2024 Patient encounter procedure [facility] Work Phone: Start: 05-10-2024 Non-patient / Non-visit [facility] Work Phone: Start: 04-13-2024 End: 04-13-2024 ambulatory [facility] Work Phone: Start: 04-13-2024 End: 04-13-2024 Patient encounter procedure [facility] Work Phone: Start: 02-17-2024 End: 02-17-2024 ambulatory [facility] Work Phone: Start: 02-17-2024 End: 02-17-2024 Patient encounter procedure [facility] Work Phone: Start: 04-10-2023 End: 04-10-2023 ambulatory Boy Anna Other [employer] Other Start: 04-10-2023 Telephone encounter Boy Anna FP [facility] [facility] Start: 04-09-2023 End: 04-09-2023 ambulatory Boy Anna Other [employer] Other Start: 04-09-2023 Telephone encounter Boy Anna [facility] Start: 04-04-2023 End: 04-04-2023 ambulatory Boy Anna Other [employer] Other Start: 04-04-2023 Telephone encounter Boy Anna [facility] Start: 04-03-2023 End: 04-03-2023 ambulatory Boy Anna Other [employer] Other Start: 04-03-2023 Patient encounter procedure Boy Anna [facility] Start: 11-20-2021 End: 11-21-2021 ambulatory [...] DO Work Phone: Start: 08-18-2024 End: 08-18-2024 [facility] medical xm&eval intermediate estab pt Age-related nuclear cataract of both eyes Fannie Jernigancalrencevincent DO Work Phone: Comment on above: Age-related nuclear cataract of both eyes (Primary Dx); Superficial keratitis of both eyes; 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 degeneration of both eyes Start: 07-07-2024 Computerized ophthal cynthia imaging retina Fannie Jerniganclarencevincent DO Work Phone: Start: 07-07-2024 End: 07-07-2024 [facility]&eval compre new pt 1/> vst Superficial keratitis of both eyes Fannie Jernigandarlene DO Work Phone: Comment on above: Superficial keratiti s of both eyes (Primary Dx); 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 degeneration of both eyes; Age-related nuclear cataract of both eyes Plan of Treatment Date Care Activity Detail Author Start: 05-20-2028 Diabetes Screening Diabetes Screenin [facility] Start: 11-24-2027 Diabetes Screening Diabetes Screenin [facility] Start: 04-22-2027 Screening for malign ant neoplasm of colon [facility] Start: 2026 RSV Vaccine (1 - 1-d ose 75+ series) RSV Vaccine (1 - 1-dose 75+ series) [facility] Start: 02-17-2026 End: 02-17-2026 Follow-up encounter 02/17/2026 10:30 AM EDT Visit (SP) Office Hematology/Oncology [address] [place] [address] Licha Lange APRN.[employer]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 [address] [address] 9 month follow up [facility] Comment on above: 9 month follow up Start: 06-01-2025 Patient referral [facility] Work Phone: Start: 05-23-2025 Influenza vaccination Influenza Vacc ine (#1) [facility] Start: 05-20-2025 End: 08-19-2025 CBC W Auto Differential panel - Blood COMPLETE BLOOD COUNT AND DIFFERENTIAL Lab Routine Thrombocytopenia Expected: 05/20/2025, Expires: 08/19/2025 [facility] Work Phone: Comment on above: Expected: 05/20/2025 , Expires: 08/19/2025 Start: 05-20-2025 End: 08-19-2025 Comprehensive metabolic 2000 panel - Serum or Plasma COMPREHENSIVE METABOLIC PANEL Lab Routine Thrombocytopenia Expected: 05/20/2025, Expires: 08/19/2025 [facility] Comment on above: Expected: 05/20/2025 , Expires: 08/19/2025 Start: 05-20-2025 End: 05-20-2025 Follow-up encounter 05/20/2025 10:20 AM EDT Visit (SP) Office Hematology/Oncology [address] [address] Junior Bravo MD [address] [address] follow up Hematology/Oncology Comment on above: follow up Start: 05-20-2025 End: 05-20-2025 Patient encounter procedure 05/20/2025 10:15 AM EDT Office Visit [facility] [address] [place] [address] lab [facility] Comment on above: lab Start: 05-10-2025 Plain X-ray of left hip XR hip LT min 2V(w/wo pelvis)* [facility] Start: 05-10-2025 XR Hip - left 2 Views [facility] Start: 12-22-2024 End: 12-22-2024 Patient encounter procedure 12/22/2024 8:30 AM EDT Office Visit [facility] [address] [place] [id number] Fannie Mistry DO [address] [place] [address] Arrived [facility] Comment on above: Arrived Start: 11-23-2024 End: 02-22-2025 Cobalamin (Vitamin B12) [Mass/volume] in Serum or Plasma [facility] Comment on above: Expected: 11/23/2024 , Expires: 02/22/2025 Start: 11-23-2024 End: 02-22-2025 Ferritin [Mass/volume] in Serum or Plasma [facility] Work Phone: Comment on above: Expected: 11/23/2024 , Expires: 02/22/2025 Start: 11-23-2024 End: 02-22-2025 Folate [Mass/volume] in Serum or Plasma [facility] Comment on above: Expected: 11/23/2024 , Expires: 02/22/2025 Start: 11-23-2024 End: 02-22-2025 Iron and Iron binding capacity panel - Serum or Plasma [facility] Comment on above: Expected: 11/23/2024 , Expires: 02/22/2025 Start: 11-23-2024 End: 02-22-2025 Nuclear Ab [Presence] in Serum by Immunoassay [facility] Comment on above: Expected: 11/23/2024 , Expires: 02/22/2025 Start: 11-23-2024 End: 11-23-2024 Patient encounter procedure 11/23/2024 11:00 AM EST Visit (SP) Office Hematology/Oncology [address] [place] [address] [place] [address] Junior Bravo MD [address] [place] [address] [place] [address] Jos Anna Hematology/Oncology Comment on above: Referral from Dr. Jos Anna Start: 10-18-2024 X-ray of left knee, three views XR knee LT 3V - NOT FOR ER USE [facility] Start: 10-18-2024 XR Knee - left 3 Views [facility] Start: 09-22-2024 Advance Directive Discussion Advance Directive Discussion [facility] Start: 09-22-2024 Medicare [facility] Annual Wellness Visit Medicare [facility] Annual Wellness Visit [facility] Start: 08-18-2024 End: 08-18-2024 Patient encounter procedure [facility] Comment on above: Arrived Start: 07-07-2024 End: 07-07-2024 Patient encounter procedure 07/07/2024 9:15 AM EDT Office Visit [facility] [address] [place] [id number] Fannie Mistry DO [address] [place] [address] Arrived [facility] Comment on above: Arrived Start: 05-23-2024 Covid-19 Vaccine ( season) Covid-19 Vaccine ( season) [facility] Start: 05-23-2024 Influenza vaccination Influenza Vacc ine (#1) [facility] Start: 03-19-2020 Diabetes Screening Diabetes Screenin g [facility] Start: 2016 Screening for osteoporosis Bone Density Screening [facility] Start: 2001 Pneumococcal Vaccine : 50+ (1 of 1 - PCV) Pneumococcal Vaccine: 50+ (1 of 1 - PCV) [facility] Start: 2001 Shingrix Vaccine (1 of 2) Shingrix Vaccine (1 of 2) [facility] Start: 1996 Lipid panel Lipid Screening [facility] Start: 1996 Screening for malign ant neoplasm of colon [facility] Start: 1991 Screening for malign ant neoplasm of breast Mammogram Screening [facility] Start: 1970 Urine microalbumin profile DTaP,Tdap,Td Vaccine (1 - Tdap) [facility] Start: 1969 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 Visit Annual PCP Team Chronic Disease Visit [facility] Start: 1969 Anxiety Screening Anxiety Screening [facility] Start: 1969 BP Controlled (<130/80) BP Controlle d (<130/80) [facility] Start: 1969 Depression Screening Depression Scre ening [facility] Start: 1969 Hepatitis C screening Hepatitis C Sc camilo [facility] Comprehensive metabo lic 1999 panel - Serum or Plasma [facility] Comprehensive metabo lic 1999 panel - Serum or Plasma [facility] MG Breast - bilatera l Screening [facility] MG Breast - bilatera l Screening [facility] MR Lumbar spine WO contrast [facility] Patient Education Low back pain in adults [facility] Work Phone: Patient referral [facility] Work Phone: XR Hip - left 2 Views [facility] XR Lumbar spine Views [facility] Immunizations Immunization Date Immunization Notes Care Provider Fa claudia 04-06-2019 diphtheria, tetanus toxoids and acellular pertussis vaccine, unspecified formulation [facility] Payers Date Payer Category Payer Self-pay 2023 Medicaid [employer] MED[employer]ARE A DVANTAGE [id number] 2023 Medicare (Managed Care) [employer] ME DICARE [id number] 2023 Private Health Insurance [id number] 1959 Medicare [id number] 1959 Self-pay [id number] 1951 Unknown [id number] 1950 Unknown [id number] [id number] 1950 Unknown [id number] [id number] 1951 Unknown [id number] 1259 Unknown [id number] Unknown [id number] 531 Unknown [id number] 531 Unknown [id number] 531 Social History Date Type Detail Facility Start: 07-07-2024 End: 11-23-2024 Sex Assigned At [facility] [employer] Other Start: 01-07-2013 End: 04-02-2023 Tobacco smoking status NHIS Never smoked tobacco (finding) [facility] Start: 1950 Sex Assigned At Female F [facility] Tobacco smoking status ORIS Tobacco smoking consumption unknown [facility] Start: 1950 Sex assigned at Not on file [facility] Start: 01-07-2013 End: 07-07-2024 Tobacco use and exposure Smokeless tobacco non-user [facility] Start: 07-07-2024 End: 11-23-2024 History of Social function [facility] Start: 08-03-2024 End: 02-01-2025 Sex Female (finding) [facility] Start: 11-22-2024 End: 05-20-2025 Alcoholic beverage intake Current non-drinker of alcohol (finding) [facility] Start: 12-29-2012 National Score (1-100), lower number is lower risk 86 [facility] Clinical Notes 04-03-2023 to 05-20-2025 Patient InstructionsJunior Bravo MD - 05/20/2025 10:20 AM EDTTelephone Encounter - Samir YULIANA Chu - 05/16/2025 4:24 PM EDT Note Date & Type Note Facility 05-20-2025 Instructions Junior Bravo MD - 05/20/2025 10:36 AM EDT Start OTC MVT supplements F/u in 9 months documented in this encounter [facility] 05-20-2025 History of Present illness Narrative PATIENT NAME: Serenity Bustillo CLINIC NO.: [id number] ATTENDING PHYSICIAN: Junior Bravo MD DATE OF [...] Range Status 11/23/2024 3.8 % Final Abs Lucas Date Value Ref Range Status 11/23/2024 0.22 [...] which included preparing to see the patient, [id number] patient care, completing clinical documentation, obtaining and/or reviewing separately obtained history, performing a medically appropriate examination, counseling and educating the patient/family/caregiver, ordering medications, tests, or procedures, communicating with other HCPs (not separately reported), independently interpreting results (not separately reported), communicating results to the patient/family/caregiver, and care coordination (not separately reported). Junior Bravo MD. Hematology/Medical Oncology [place] [phone] CC: documented in this encounter [facility] 05-20-2025 Note HNO ID: [id number] Author: JUNIOR BRAVO MD Service: ? Author Type: Physician Type: Progress Notes Filed: 05/20/2025 10:50 Note Text: PATIENT NAME: Serenity Bustillo [facility] NO.: [id number] ATTENDING PHYSICIAN: Junior Bravo MD DATE OF [...] 3.70 - 11.0 (more content not included)... [facility] 05-16-2025 Telephone encounter Note Patient coming in Friday05/20/25 for follow up labs. Please add lab orders. Thanks. Kimberley Dawson MA [facility] 05-10-2025 Evaluation note Diagnosis Onset Date Resolution Chronic pain acute May 10, 2025 1:36pm Lumbosacral spondylosis with radiculopathy acute May 10, 2025 1:36pm Osteoarthritis of left hip acute May 10 1:36pm [facility] Work Phone: 1(293) 564-733908-19-2025 Evaluation note* Diagnosis Onset Date Resolution Status [...] st cancer noneactive June 02, 2025 9:26am [facility] Work Phone: 1([phone]) 714-753404-02-2025 NoteRight Eye Quality was good. Scan locations included subfoveal. Progression has been stable. Findings include abnormal foveal contour. Left Eye Quality was good. Scan locations included subfoveal. Progression has been stable. Findings include abnormal foveal contour, pigment epithelial detachment.[facility] [id number] History of Present illness Narrative* Fannie Mistry [...] or worsening of vision. documented in this encounterSaint Mary's Hospital [facility] [id number] Miscellaneous Notes* Telephone Encounter - Kimberley Dawson MA - 05/16/2025 4:24 PM EDT Patient coming in Friday05/20/25 for follow up labs. Please add lab orders. Thanks. Kimberley Dawson MA [facility] Evaluation note* Diagnosis Onset Date Resolution Status Admit Date Chronic pain acute December 06, 2024 10:07am Lumbar spondylosis acute December 06, 2024 10:07am Lumbosacral spondylosis with radiculopathy acute December 06, 2024 10:07am Chronic pain acute January 13, 2025 8:48am Lumbar spondylosis acute January 13, 2025 8:48am Lumbosacral spondylosis with radiculopathy acute January 13, 2025 8:48am [facility] Work Phone: 1([phone]) 171-966103-05-2025 Telephone encounter Note* Telephone Encounter - Azalia [...] with Dr Shepherd. Thank you. Azalia Torres [facility]03-05-2025 Miscellaneous Notes* Telephone Encounter - Azalia La [...] you. Azalia Duron Pss documented [facility] encounter[facility] Instructions* Patient Instructions* Junior Bravo MD - 11/23/2024 11:16 AM EST Labs today F/u in 6 months [facility] encounter[facility] History of Present illness Narrative* Junior Bravo MD - 11/23/2024 11:00 AM EST PATIENT NAME: Serenity Bustillo CLINIC NO.: [id number] ATTENDING PHYSICIAN: Junior Bravo MD DATE OF [...] Range Status 11/23/2024 3.8 % Final Abs Lucas Date Value Ref Range Status 11/23/2024 0.22 [...] which included preparing to see the patient, [id number] patient care, completing clinical documentation, obtaining and/or reviewing separately obtained history, performing a medically appropriate examination, counseling and educating the pat ient/family/caregiver, ordering medications, tests, or procedures, communicating with other HCPs (not separately reported), independently interpreting results (not separately reported), communicatingresults to the patient/family/caregiver, and care coordination (not separately reported). Junior Bravo MD. Hematology/Medical Oncology [facility] Yennifer Arzate [phone] CC: documented [facility] encounter[facility] [place]2025 NoteHNO ID: [id number] Author: JUNIOR BRAVO MD Service: ? Author Type: Physician Type: Progress Notes Filed: 11/23/2024 11:34 Note Text: PATIENT NAME: Serenity Bustillo [facility] NO.: [id number] ATTENDING PHYSICIAN: Junior Bravo MD DATE OF [...] - 34.0 pg Final (more content not included)...[facility]01-27-2025 Evaluation note* Diagnosis Onset Date Resolution Status Admit Date Chronic pain acute September 10:12am Lumbar spondylosis acute 2024 10:12am Lumbosacral spondylosis with radiculopathy acute October 18 10:12am Chronic pain acute December 06, 2024 10:07am Lumbar spondylosis acute December 06, 2024 10:07am Lumbosacral spondylosis with radiculopathy acute December 06, 2024 10:07am [facility] Work Phone: [phone]) [phone] Evaluation note* Diagnosis Onset Date Resolution Status [...] with radiculopathy acute January 13, 2025 8:48am [facility] Work Phone: [phone]) 558-240612-12-2024 Evaluation note* Diagnosis Onset Date Resolution Status Admit Date Chronic pain acute August 9:11am Lumbar spondylosis acute [facility] er 2023 9:11am Lumbosacral spondylosis with radiculopathy acute September 02, 2 024 9:11am [facility] Work Phone: 1([phone]) 175-587512-12-2024 Evaluation note* Diagnosis Onset Date Resolution Status Admit Date Chronic pain acute August 9:11am Lumbar spondylosis acute Dece er 2023 9:11am Lumbosacral spondylosis with radiculopathy acute September 02, 2 024 9:11am Chronic pain acute September 10:12am Lumbar spondylosis acute 2024 10:12am Lumbosacral spondylosis with radiculopathy acute October 18 10:12am [facility] Work Phone: 1([phone]) 616-210311-27-2024 History of Present illness Narrative* Fannie Mistry, [...] --> Keratitis ---> Cataract documented in this encounterSaint [facility] [id number] NoteRight Eye Quality was good. Scan locations included subfoveal. Progression has been stable. Findings include normal observations. Left Eye Quality was good. Scan locations included subfoveal. Progression has been stable. Findings include subretinal scarring. Notes Good scan with normal appearance [facility] [id number] History of Present illness Narrative* Fannie Mistry [...] --> Keratitis ---> Cataract documented in this encounterSaint Mary's Hospital [facility] [id number] Evaluation note* Diagnosis Onset Date Resolution Status Admit Date Low back pain acute May 232023 2:05pm Lumbar spondylosis acute 2023 2:05pm Obesity acute May 2:05pm [facility] Work Phone: [phone]) 320-467507-14-2023 Evaluation note* Encounter Date Diagnosis Assessment Notes Treatment Notes Treatment Clinical Notes Mar, Right hip pain (ICD-10 - M25.551) [employer] Other 07-13-2023 Evaluation note* Encounter Date Diagnosis [...] use, the patient reduces the risk for MN, CVA, HTN, cardiac dysrhythmias and sudden cardiac [...] diet, exercise, Ca and Vitamin D supplements [facility] [employer] Other Evaluation noteNo InformationNort [employer] Other Evaluation note* Diagnosis Onset Date Resolution Status Left hip pain acute Low back pain acute Lumbar spondylosis acute Obesity acute Primary osteoarthritis of left hip acute [facility] Work Phone: Evaluation note* Diagnosis [...] noneactive Screening mammogram for breast cancer noneactive [facility] Work Phone: Evaluation note* Diagnosis [...] pain acute Lumbar spondylosis acute Obesity acute [facility] Work Phone: Evaluation note* Diagnosis Superficial keratitis of both eyes- Primary 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 degeneration of both eyes Age-related nuclear cataract of both eyes documented in this encounter [facility]* Diagnosis Age-related nuclear cataract of both eyes- Primary Superficial keratitis of both eyes 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 degeneration of both eyes documented in this encounter [facility] SpringsPeerJwilmington hospital note* Diagnosis Thrombocytopenia (HCC)- Primary Thrombocytopenia, unspecified documented [facility]* Diagnosis Age-related nuclear cataract of both eyes- Primary 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 degeneration of both eyes Superficial keratitis of both eyes documented in this encounter [facility] note* Diagnosis Onset Date Resolution Status Admit Date Chronic pain acute May 10, 2025 1:36pm Lumbosacral spondylosis with radiculopathy acute May 10 1:36pm Osteoarthritis of left hip acute May 10, 2025 1:36pm [facility] Work Phone: Evaluation note* Diagnosis Thrombocytopenia- Primary Thrombocytopenia, unspecified documented in this encounter [facility]* Diagnosis Thrombocytopenia- Primary Thrombocytopenia, unspecified documented in this encounter [facility] general Narrative - Reported* Type Description [...] elbow surgery Hospitalization History SEE ABOVE SURGERY [employer] Other History general Narrative - [facility]NoH[facility] [employer] Other Reason for referral (narrative)No reason for referral information availableLakehealth [facility] Medical Center Work Phone: Summary Purpose Family History Relationship [...] DATE CREATED AUTHOR AUTHOR'S ORGANIZ ATION 12/25/2024 [facility] DATE CREATED AUTHOR AUTHOR'S ORGANIZ ATION 05/22/2025 [facility] DATE CREATED AUTHOR AUTHOR'S ORGANIZ ATION 05/28/2025 [facility] REASON FOR VISIT (unrecogniz ed [...] Provider Active 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, 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 Relationship Specialty Start Date End Date Boy Anna DO PCP - General Internal Medicine 12/29/12 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 Relationship Specialty Start Date End Date Boy Anna DO PCP - General Internal Medicine 12/29/12 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 Relationship Specialty Start Date End Date Boy Anna DO PCP - General Internal Medicine 12/29/12 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 Relationship Specialty Start Date End Date Boy Anna DO PCP - General Internal Medicine 12/29/12 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 Relationship Specialty Start Date End Date Boy [...] or prosecute any alcohol or drug abuse patient.[facility] the event this information is protected by the Federal Confidentiality of Alcohol and Drug Abuse Patient Records regulations: The Federal rules restrict any use of the information to criminally investigate or prosecute any alcohol or drug abuse patient.[facility] DaytonIn the event this information is protected by the Federal Confidentiality of Alcohol and Drug Abuse Patient Records regulations: The Federal rules restrict any use of the information to criminally investigate or prosecute any alcohol or drug abuse patient.[facility] DaytonIn the event this information is protected by the Federal Confidentiality of Alcohol and Drug Abuse Patient Records regulations: The Federal rules restrict any use of the information to criminally investigate or prosecute any alcohol or drug abuse patient.[facility] DaytonIn the event this information is protected by the Federal Confidentiality of Alcohol and Drug Abuse Patient Records regulations: The Federal rules restrict any use of the information to criminally investigate or prosecute any alcohol or drug abuse patient.[facility] FOR RECORDS PERTAINING TO PATIENTS WHO ARE [...] BE BASED ON THE PRIMARY CLINICAL RECORDS. [employer] [facility]. provides no warranty or guarantee of the accuracy or completeness of information in this document.
[2025-06-11 08:06] LABS: Hematocrit 38.6 % (36.0-48.0); Hemoglobin 13.0 g/dL (12.0-16.0); Immature Granulocytes Abs Auto 0.02 10^3/uL (0.00-0.03); Immature Granulocytes Pct Auto 0.4 % (0.0-0.5); Lymphocytes Absolute Auto 0.9 10^3/uL (1.2-3.8); Mean Corpuscular HGB Conc 33.7 g/dL (29.9-35.2); Mean Corpuscular Hemoglobin 33.6 pg (26.7-34.0); Mean Corpuscular Volume 99.7 fL (81.0-99.0); Platelet Count 106 10^3/uL (150-450); Red Blood Count 3.87 10^6/uL (4.20-5.40); White Blood Count 4.6 10^3/uL (4.0-11.0)
[2025-06-11 09:05] LABS: Alanine Aminotransferase 17 U/L (14-59); Albumin Globulin Ratio 0.8; Albumin Level 3.2 g/dL (3.4-5.0); Alkaline Phosphatase 89 U/L (46-116); Anion Gap 12.6; Aspartate Amino Transferase 11 U/L (15-37); Blood Urea Nitrogen 16.0 mg/dL (7.0-18.0); Calcium 8.9 mg/dL (8.5-10.1); Carbon Dioxide 28.2 mmol/L (21.0-32.0); Chloride 106 mmol/L (98-107); Cholesterol 154 mg/dL (<=200); Estimated GFR (African America >60 (>=60 mL/min/1.73m^2); Estimated GFR (Non-African Ame >60 (>=60 mL/min/1.73m^2); Globulin 3.8 g/dL; Glucose 97 mg/dL (74-106); HDL Cholesterol 62 mg/dL (40-60); Potassium 3.8 mmol/L (3.5-5.1); Sodium 143 mmol/L (136-145); Thyroid Stimulating Hormone 0.649 uIU/mL (0.358-3.740); Total Protein 7.0 g/dL (6.4-8.2); Triglycerides 48 mg/dL (<=150); VLDL CHOLESTEROL 9.6 mg/dL
== END 2025-06-11 06:54 | disposition home or self-care (01) ==
LOC: LAB 06:54
PROVIDERS: PCP Internal Medicine; Visit Provider Internal Medicine
DX: E78.00 Pure hypercholesterolemia, unspecified (principal); R73.01 Impaired fasting glucose; E55.9 Vitamin D deficiency, unspecified; E06.3 Autoimmune thyroiditis; D75.89 Other specified diseases of blood and blood-forming organs; D69.6 Thrombocytopenia, unspecified
CPT/HCPCS: 36415; 80053; 80061; 82306; 83036; 84443; 85025